=== PATIENT | male | born 1945 | race Caucasian/White ===

== ENCOUNTER → 2017-06-02 09:05 | Outpatient (CLI) | payer BC, MEDICARE, SELFPAY ==
[2017-06-02 10:25] LABS: Basophils # 0.1 K/mm3 (0-0.2); Basophils % 0.8 % (0.1-2.0); Eosinophils # 0.1 K/mm3 (0.0-0.4); Eosinophils % 1.7 % (0.1-12.0); Hematocrit 40.5 % (42.0-52.0); Hemoglobin 13.5 g/dL (14.1-18.0); Lymphocytes # 2.5 K/mm3 (0.7-4.5); Lymphocytes % 39.9 K/mm3 (10-50); Mean Corpuscular HGB Conc 33.4 g/dL (31.8-35.4); Mean Corpuscular Hemoglobin 29.7 pg (27.0-31.2); Mean Platelet Volume 7.4 fl (7.4-10.4); Monocytes # 0.5 K/mm3 (0.1-1.0); Monocytes % 7.6 % (1.7-9.3); Neutrophils # 3.1 K/mm3 (1.8-7.8); Neutrophils % 49.9 % (37.0-80.0); Platelet Count 374 K/mm3 (142-424); Red Blood Count 4.55 M/mm3 (4.60-6.20); Red Cell Distribution Width 13.9 % (11.5-17.5); White Blood Count 6.3 K/mm3 (4.8-10.8)
[2017-06-02 11:02] LABS: Alanine Aminotransferase 31 U/L (12-78); Albumin Level 3.6 gm/dL (3.4-5.0); Albumin/Globulin Ratio 1.2 (1.1-1.8); Alkaline Phosphatase 68 U/L (46-116); Anion Gap 10.3 mEq/L (5-15); Aspartate Amino Transferase 18 U/L (15-37); Bilirubin,Total 0.4 mg/dL (0.2-1.0); Blood Urea Nitrogen 9 mg/dL (7-18); Calcium 8.3 mg/dL (8.5-10.1); Carbon Dioxide 29 mmol/L (21.0-32.0); Chloride 107 mmol/L (98-107); Chol/HDL Ratio 3.2 (1-3.5); Cholesterol 146 mg/dL (140-200); Creatinine,Serum 0.85 mg/dL (0.70-1.30); Estimated Glomerular Filt Rate 89 ml/min (>60); GFR (African American) 108 ML/MIN (>60); Glucose 136 mg/dL (74-106); HDL Cholesterol 45 mg/dL (27-67); LDL Cholesterol 78 mg/dL (0-130); Potassium 4.3 mmoL/L (3.5-5.1); Sodium 142 mmol/L (136-145); Thyroid Stimulating Hormone 2.14 uIU/ml (0.358-3.740); Total Protein,Serum 6.6 gm/dL (6.4-8.2); Triglycerides 117 mg/dL (30-200); VLDL Cholesterol 23 mg/dL (0-40)
[2017-06-02 12:08] LABS: Hemoglobin A1C 7.5 % (0.0-7.0)
== END ==
PROVIDERS: PCP Internal Medicine Adolescent Medicine; Visit Provider Internal Medicine Adolescent Medicine
DX: E11.9 Type 2 diabetes mellitus without complications (principal)
CPT/HCPCS: 36415; 80053; 80061; 83036; 84443; 85025

== ENCOUNTER → 2017-09-01 09:27 | Outpatient (CLI) | payer BC, MEDICARE, SELFPAY ==
[2017-09-01 09:47] LABS: Basophils % 0.8 % (0.1-2.0); Eosinophils # 0.1 K/mm3 (0.0-0.4); Eosinophils % 1.4 % (0.1-12.0); Hematocrit 38.4 % (42.0-52.0); Hemoglobin 12.7 g/dL (14.1-18.0); Lymphocytes # 1.8 K/mm3 (0.7-4.5); Mean Corpuscular HGB Conc 33.2 g/dL (31.8-35.4); Mean Corpuscular Hemoglobin 28.6 pg (27.0-31.2); Mean Corpuscular Volume 86.1 fl (80-94); Mean Platelet Volume 7.9 fl (7.4-10.4); Monocytes # 0.4 K/mm3 (0.1-1.0); Neutrophils # 2.9 K/mm3 (1.8-7.8); Neutrophils % 55.8 % (37.0-80.0); Platelet Count 223 K/mm3 (142-424); Red Blood Count 4.46 M/mm3 (4.60-6.20); White Blood Count 5.2 K/mm3 (4.8-10.8)
[2017-09-01 10:03] LABS: Hemoglobin A1C 7.2 % (0.0-7.0)
[2017-09-01 11:01] LABS: Alanine Aminotransferase 30 U/L (12-78); Albumin Level 3.6 gm/dL (3.4-5.0); Albumin/Globulin Ratio 1.2 (1.1-1.8); Alkaline Phosphatase 77 U/L (46-116); Anion Gap 9.5 mEq/L (5-15); Aspartate Amino Transferase 19 U/L (15-37); Bilirubin,Total 0.3 mg/dL (0.2-1.0); Blood Urea Nitrogen 15 mg/dL (7-18); Calcium 8.9 mg/dL (8.5-10.1); Carbon Dioxide 29 mmol/L (21.0-32.0); Chloride 110 mmol/L (98-107); Chol/HDL Ratio 3.7 (1-3.5); Cholesterol 176 mg/dL (140-200); Creatinine,Serum 0.75 mg/dL (0.70-1.30); Estimated Glomerular Filt Rate 103 ml/min (>60); GFR (African American) 125 ML/MIN (>60); Globulin 3.1 gm/dl (1.3-3.2); Glucose 142 mg/dL (74-106); HDL Cholesterol 48 mg/dL (27-67); LDL Cholesterol 101 mg/dL (0-130); Potassium 4.5 mmoL/L (3.5-5.1); Sodium 144 mmol/L (136-145); Total Protein,Serum 6.7 gm/dL (6.4-8.2); Triglycerides 134 mg/dL (30-200); VLDL Cholesterol 27 mg/dL (0-40)
== END ==
PROVIDERS: Visit Provider Internal Medicine Adolescent Medicine
DX: E11.9 Type 2 diabetes mellitus without complications (principal); E78.5 Hyperlipidemia, unspecified; I25.10 Atherosclerotic heart disease of native coronary artery without angina pectoris
CPT/HCPCS: 36415; 80053; 80061; 83036; 85025

== ENCOUNTER → 2017-12-01 08:33 | Outpatient (CLI) | payer BC, MEDICARE, SELFPAY ==
[2017-12-01 09:17] LABS: Hemoglobin A1C 6.9 % (0.0-7.0)
[2017-12-01 09:59] LABS: Basophils % 0.6 % (0.1-2.0); Eosinophils # 0.1 K/mm3 (0.0-0.4); Eosinophils % 1.7 % (0.1-12.0); Hematocrit 43.9 % (42.0-52.0); Hemoglobin 13.5 g/dL (14.1-18.0); Lymphocytes # 2.3 K/mm3 (0.7-4.5); Lymphocytes % 44.4 K/mm3 (10-50); Mean Corpuscular HGB Conc 30.8 g/dL (31.8-35.4); Mean Corpuscular Hemoglobin 27.6 pg (27.0-31.2); Mean Corpuscular Volume 89.8 fl (80-94); Mean Platelet Volume 7.6 fl (7.4-10.4); Monocytes # 0.4 K/mm3 (0.1-1.0); Monocytes % 6.8 % (1.7-9.3); Neutrophils # 2.4 K/mm3 (1.8-7.8); Neutrophils % 46.5 % (37.0-80.0); Platelet Count 211 K/mm3 (142-424); Red Blood Count 4.89 M/mm3 (4.60-6.20); Red Cell Distribution Width 14.5 % (11.5-17.5); White Blood Count 5.2 K/mm3 (4.8-10.8)
[2017-12-01 10:57] LABS: Alanine Aminotransferase 28 U/L (12-78); Albumin Level 3.7 gm/dL (3.4-5.0); Albumin/Globulin Ratio 1.2 (1.1-1.8); Alkaline Phosphatase 84 U/L (46-116); Anion Gap 11.2 mEq/L (5-15); Aspartate Amino Transferase 15 U/L (15-37); Bilirubin,Total 0.3 mg/dL (0.2-1.0); Blood Urea Nitrogen 21 mg/dL (7-18); Calcium 8.8 mg/dL (8.5-10.1); Carbon Dioxide 29 mmol/L (21.0-32.0); Chloride 111 mmol/L (98-107); Chol/HDL Ratio 3.8 (1-3.5); Cholesterol 174 mg/dL (140-200); Creatinine,Serum 0.87 mg/dL (0.70-1.30); Estimated Glomerular Filt Rate 87 ml/min (>60); GFR (African American) 105 ML/MIN (>60); Glucose 132 mg/dL (74-106); HDL Cholesterol 46 mg/dL (27-67); LDL Cholesterol 103 mg/dL (0-130); Potassium 5.2 mmoL/L (3.5-5.1); Sodium 146 mmol/L (136-145); Total Protein,Serum 6.7 gm/dL (6.4-8.2); Triglycerides 127 mg/dL (30-200); VLDL Cholesterol 25 mg/dL (0-40)
== END ==
PROVIDERS: Visit Provider Internal Medicine Adolescent Medicine
DX: E78.5 Hyperlipidemia, unspecified (principal); I10 Essential (primary) hypertension; I25.10 Atherosclerotic heart disease of native coronary artery without angina pectoris; E11.9 Type 2 diabetes mellitus without complications
CPT/HCPCS: 36415; 80053; 80061; 83036; 85025

== ENCOUNTER → 2018-03-02 08:14 | Outpatient (CLI) | payer BC, SELFPAY ==
[2018-03-02 08:57] LABS: Basophils % 0.7 % (0.1-2.0); Eosinophils # 0.1 K/mm3 (0.0-0.4); Eosinophils % 1.3 % (0.1-12.0); Hematocrit 40.6 % (42.0-52.0); Hemoglobin 12.8 g/dL (14.1-18.0); Lymphocytes # 2.3 K/mm3 (0.7-4.5); Lymphocytes % 42.4 K/mm3 (10-50); Mean Corpuscular HGB Conc 31.5 g/dL (31.8-35.4); Mean Corpuscular Volume 88.8 fl (80-94); Mean Platelet Volume 7.3 fl (7.4-10.4); Monocytes # 0.4 K/mm3 (0.1-1.0); Monocytes % 7.9 % (1.7-9.3); Neutrophils # 2.5 K/mm3 (1.8-7.8); Neutrophils % 47.6 % (37.0-80.0); Platelet Count 249 K/mm3 (142-424); Red Blood Count 4.57 M/mm3 (4.60-6.20); Red Cell Distribution Width 14.2 % (11.5-17.5); White Blood Count 5.3 K/mm3 (4.8-10.8)
[2018-03-02 09:12] LABS: Hemoglobin A1C 6.8 % (0.0-7.0)
[2018-03-02 09:27] LABS: Alanine Aminotransferase 27 U/L (12-78); Albumin Level 3.7 gm/dL (3.4-5.0); Albumin/Globulin Ratio 1.2 (1.1-1.8); Alkaline Phosphatase 83 U/L (46-116); Anion Gap 8.2 mEq/L (5-15); Aspartate Amino Transferase 15 U/L (15-37); Bilirubin,Total 0.3 mg/dL (0.2-1.0); Blood Urea Nitrogen 17 mg/dL (7-18); Calcium 8.6 mg/dL (8.5-10.1); Carbon Dioxide 30 mmol/L (21.0-32.0); Chloride 106 mmol/L (98-107); Chol/HDL Ratio 3.7 (1-3.5); Cholesterol 170 mg/dL (140-200); Creatinine,Serum 0.91 mg/dL (0.70-1.30); Estimated Glomerular Filt Rate 82 ml/min (>60); GFR (African American) 100 ML/MIN (>60); Glucose 133 mg/dL (74-106); HDL Cholesterol 46 mg/dL (27-67); LDL Cholesterol 94 mg/dL (0-130); Potassium 4.2 mmoL/L (3.5-5.1); Sodium 140 mmol/L (136-145); Total Protein,Serum 6.7 gm/dL (6.4-8.2); Triglycerides 150 mg/dL (30-200); VLDL Cholesterol 30 mg/dL (0-40)
== END ==
PROVIDERS: PCP Internal Medicine Adolescent Medicine; Visit Provider Internal Medicine Adolescent Medicine
DX: E78.5 Hyperlipidemia, unspecified (principal); E11.9 Type 2 diabetes mellitus without complications; I10 Essential (primary) hypertension; I25.10 Atherosclerotic heart disease of native coronary artery without angina pectoris
CPT/HCPCS: 36415; 80053; 80061; 82043; 83036; 85025

== ENCOUNTER → 2018-07-06 09:49 | Outpatient (CLI) | payer BC, SELFPAY ==
[2018-07-06 10:57] LABS: Basophils % 0.6 % (0.1-2.0); Eosinophils # 0.1 K/mm3 (0.0-0.4); Eosinophils % 1.2 % (0.1-12.0); Hematocrit 40.6 % (42.0-52.0); Lymphocytes # 2.5 K/mm3 (0.7-4.5); Lymphocytes % 43.1 % (10-50); Mean Corpuscular HGB Conc 31.9 g/dL (31.8-35.4); Mean Corpuscular Hemoglobin 28.2 pg (27.0-31.2); Mean Corpuscular Volume 88.3 fl (80-94); Mean Platelet Volume 6.8 fl (7.4-10.4); Monocytes # 0.4 K/mm3 (0.1-1.0); Monocytes % 7.1 % (1.7-9.3); Neutrophils # 2.8 K/mm3 (1.8-7.8); Platelet Count 272 K/mm3 (142-424); Red Cell Distribution Width 14.3 % (11.5-17.5); White Blood Count 5.9 K/mm3 (4.8-10.8)
[2018-07-06 11:43] LABS: Alanine Aminotransferase 26 U/L (12-78); Albumin Level 3.5 gm/dL (3.4-5.0); Albumin/Globulin Ratio 1.2 (1.1-1.8); Alkaline Phosphatase 83 U/L (46-116); Anion Gap 14.4 mEq/L (5-15); Aspartate Amino Transferase 9 U/L (15-37); Bilirubin,Total 0.4 mg/dL (0.2-1.0); Blood Urea Nitrogen 18 mg/dL (7-18); Calcium 8.5 mg/dL (8.5-10.1); Carbon Dioxide 28 mmol/L (21.0-32.0); Chloride 105 mmol/L (98-107); Chol/HDL Ratio 3.8 (1-3.5); Cholesterol 176 mg/dL (140-200); Creatinine,Serum 0.92 mg/dL (0.70-1.30); Estimated Glomerular Filt Rate 81 ml/min (>60); GFR (African American) 98 ML/MIN (>60); Glucose 140 mg/dL (74-106); HDL Cholesterol 46 mg/dL (27-67); LDL Cholesterol 100 mg/dL (0-130); Potassium 4.4 mmoL/L (3.5-5.1); Sodium 143 mmol/L (136-145); Total Protein,Serum 6.5 gm/dL (6.4-8.2); Triglycerides 152 mg/dL (30-200); VLDL Cholesterol 30 mg/dL (0-40)
[2018-07-06 14:05] LABS: Hemoglobin A1C 7.3 % (0.0-7.0)
[2018-07-10 09:54] LABS: Microalbumin, Urine 5.3 ug/mL (Not Estab.)
== END ==
PROVIDERS: Visit Provider Internal Medicine Adolescent Medicine
DX: E11.9 Type 2 diabetes mellitus without complications (principal); E78.5 Hyperlipidemia, unspecified; I10 Essential (primary) hypertension
CPT/HCPCS: 36415; 80053; 80061; 82043; 83036; 85025

== ENCOUNTER → 2018-11-02 08:35 | Outpatient (CLI) | payer BC, SELFPAY ==
[2018-11-02 08:50] LABS: Basophils % 0.7 % (0.1-2.0); Eosinophils # 0.1 K/mm3 (0.0-0.4); Eosinophils % 1.9 % (0.1-12.0); Lymphocytes # 2.4 K/mm3 (0.7-4.5); Lymphocytes % 45.4 % (10-50); Mean Corpuscular HGB Conc 30.8 g/dL (31.8-35.4); Mean Corpuscular Hemoglobin 26.2 pg (27.0-31.2); Mean Platelet Volume 8.3 fl (7.4-10.4); Monocytes # 0.3 K/mm3 (0.1-1.0); Monocytes % 6.5 % (1.7-9.3); Neutrophils # 2.4 K/mm3 (1.8-7.8); Neutrophils % 45.5 % (37.0-80.0); Platelet Count 212 K/mm3 (142-424); Red Blood Count 4.59 M/mm3 (4.60-6.20); Red Cell Distribution Width 14.3 % (11.5-17.5); White Blood Count 5.3 K/mm3 (4.8-10.8)
[2018-11-02 09:35] LABS: Hemoglobin A1C 7.4 % (0.0-7.0)
[2018-11-02 10:03] LABS: Alanine Aminotransferase 31 U/L (12-78); Albumin Level 3.6 gm/dL (3.4-5.0); Albumin/Globulin Ratio 1.2 (1.1-1.8); Alkaline Phosphatase 81 U/L (46-116); Anion Gap 10.8 mEq/L (5-15); Aspartate Amino Transferase 14 U/L (15-37); Bilirubin,Total 0.3 mg/dL (0.2-1.0); Blood Urea Nitrogen 18 mg/dL (7-18); Calcium 8.7 mg/dL (8.5-10.1); Carbon Dioxide 28 mmol/L (21.0-32.0); Chloride 108 mmol/L (98-107); Chol/HDL Ratio 3.8 (1-3.5); Cholesterol 170 mg/dL (140-200); Creatinine,Serum 0.85 mg/dL (0.70-1.30); Estimated Glomerular Filt Rate 89 ml/min (>60); GFR (African American) 108 ML/MIN (>60); Glucose 138 mg/dL (74-106); HDL Cholesterol 45 mg/dL (27-67); LDL Cholesterol 94 mg/dL (0-130); Potassium 4.8 mmoL/L (3.5-5.1); Sodium 142 mmol/L (136-145); Thyroid Stimulating Hormone 3.44 uIU/ml (0.358-3.740); Total Protein,Serum 6.6 gm/dL (6.4-8.2); Triglycerides 154 mg/dL (30-200); VLDL Cholesterol 31 mg/dL (0-40)
[2018-11-03 18:05] LABS: Vitamin B12 682 pg/mL (232-1245)
== END ==
PROVIDERS: Visit Provider Internal Medicine Adolescent Medicine
DX: E11.42 Type 2 diabetes mellitus with diabetic polyneuropathy (principal); E78.5 Hyperlipidemia, unspecified; I25.10 Atherosclerotic heart disease of native coronary artery without angina pectoris; Z79.84 Long term (current) use of oral hypoglycemic drugs
CPT/HCPCS: 36415; 80053; 80061; 82607; 83036; 84443; 85025

== ENCOUNTER → 2019-02-01 08:19 | Outpatient (CLI) | payer BC, SELFPAY ==
[2019-02-01 08:50] LABS: Hemoglobin A1C 7.7 % (0.0-7.0)
[2019-02-01 09:05] LABS: Basophils # 0.1 K/mm3 (0-0.2); Basophils % 0.8 % (0.1-2.0); Eosinophils # 0.1 K/mm3 (0.0-0.4); Eosinophils % 1.3 % (0.1-12.0); Hematocrit 42.4 % (42.0-52.0); Hemoglobin 13.6 g/dL (14.1-18.0); Lymphocytes % 46.6 % (10-50); Mean Corpuscular HGB Conc 32.1 g/dL (31.8-35.4); Mean Corpuscular Hemoglobin 28.9 pg (27.0-31.2); Mean Corpuscular Volume 89.8 fl (80-94); Monocytes # 0.5 K/mm3 (0.1-1.0); Monocytes % 7.2 % (1.7-9.3); Neutrophils # 2.8 K/mm3 (1.8-7.8); Neutrophils % 44.1 % (37.0-80.0); Platelet Count 206 K/mm3 (142-424); Red Blood Count 4.72 M/mm3 (4.60-6.20); Red Cell Distribution Width 15.1 % (11.5-17.5); White Blood Count 6.4 K/mm3 (4.8-10.8)
[2019-02-01 10:27] LABS: Alanine Aminotransferase 30 U/L (12-78); Albumin Level 3.8 gm/dL (3.4-5.0); Albumin/Globulin Ratio 1.3 (1.1-1.8); Alkaline Phosphatase 83 U/L (46-116); Aspartate Amino Transferase 19 U/L (15-37); Bilirubin,Total 0.3 mg/dL (0.2-1.0); Blood Urea Nitrogen 19 mg/dL (7-18); Carbon Dioxide 30 mmol/L (21.0-32.0); Chloride 104 mmol/L (98-107); Chol/HDL Ratio 3.6 (1-3.5); Cholesterol 159 mg/dL (140-200); Creatinine,Serum 0.97 mg/dL (0.70-1.30); Estimated Glomerular Filt Rate 76 ml/min (>60); GFR (African American) 92 ML/MIN (>60); Glucose 138 mg/dL (74-106); HDL Cholesterol 44 mg/dL (27-67); LDL Cholesterol 83 mg/dL (0-130); Sodium 141 mmol/L (136-145); Total Protein,Serum 6.8 gm/dL (6.4-8.2); Triglycerides 160 mg/dL (30-200); VLDL Cholesterol 32 mg/dL (0-40)
[2019-02-03 04:21] LABS: Vitamin B12 851 pg/mL (232-1245)
== END ==
PROVIDERS: Visit Provider Internal Medicine Adolescent Medicine
DX: E78.5 Hyperlipidemia, unspecified (principal); E11.9 Type 2 diabetes mellitus without complications; E11.42 Type 2 diabetes mellitus with diabetic polyneuropathy; I25.10 Atherosclerotic heart disease of native coronary artery without angina pectoris; Z79.84 Long term (current) use of oral hypoglycemic drugs
CPT/HCPCS: 36415; 80053; 80061; 82607; 83036; 85025

== ENCOUNTER → 2019-05-03 13:47 | Outpatient (CLI) | payer BC, SELFPAY ==
--- NOTE | 2019-05-03 13:54 | XR_ITS ---
PROCEDURE: XR CHEST 2V CLINICAL HISTORY: FATIGUE,RHEUMATOID ARTHRITIS,IRIDOCYCLITIS COMPARISON: No exams were available for comparison FINDINGS: Prior CABG. Normal heart size. The lungs are clear without infiltrates, suspicious nodules, or pleural effusions. No acute bony abnormalities. IMPRESSION: Prior CABG, no acute finding Dictated by: Rigoberto Omalley MD 05/03/2019 14:08 Electronically signed by Rigoberto Omalley MD in [place] 05/03/2019 14:08
== END ==
PROVIDERS: PCP Internal Medicine Adolescent Medicine; Referring Provider Internal Medicine; Visit Provider Internal Medicine Adolescent Medicine
DX: H20.9 Unspecified iridocyclitis (principal); M06.9 Rheumatoid arthritis, unspecified; R53.83 Other fatigue
CPT/HCPCS: 71046

== ENCOUNTER → 2019-05-10 08:50 | Outpatient (CLI) | payer BC, SELFPAY ==
[2019-05-10 09:34] LABS: Basophils % 0.6 % (0.1-2.0); Eosinophils # 0.1 K/mm3 (0.0-0.4); Eosinophils % 1.1 % (0.1-12.0); Hematocrit 45.4 % (42.0-52.0); Hemoglobin 14.7 g/dL (14.1-18.0); Lymphocytes # 2.3 K/mm3 (0.7-4.5); Mean Corpuscular HGB Conc 32.3 g/dL (31.8-35.4); Mean Corpuscular Volume 92.9 fl (80-94); Mean Platelet Volume 8.1 fl (7.4-10.4); Monocytes # 0.4 K/mm3 (0.1-1.0); Monocytes % 6.7 % (1.7-9.3); Neutrophils # 3.3 K/mm3 (1.8-7.8); Neutrophils % 54.5 % (37.0-80.0); Platelet Count 222 K/mm3 (142-424); Red Blood Count 4.89 M/mm3 (4.60-6.20); White Blood Count 6.1 K/mm3 (4.8-10.8)
[2019-05-10 10:04] LABS: Hemoglobin A1C 7.5 % (0.0-7.0)
[2019-05-10 12:14] LABS: Alanine Aminotransferase 25 U/L (12-78); Albumin Level 3.7 gm/dL (3.4-5.0); Albumin/Globulin Ratio 1.3 (1.1-1.8); Alkaline Phosphatase 75 U/L (46-116); Anion Gap 12.4 mEq/L (5-15); Aspartate Amino Transferase 12 U/L (15-37); Bilirubin,Total 0.3 mg/dL (0.2-1.0); Blood Urea Nitrogen 17 mg/dL (7-18); Calcium 8.7 mg/dL (8.5-10.1); Carbon Dioxide 30 mmol/L (21.0-32.0); Chloride 105 mmol/L (98-107); Chol/HDL Ratio 3.1 (1-3.5); Cholesterol 160 mg/dL (140-200); Estimated Glomerular Filt Rate 74 ml/min (>60); GFR (African American) 89 ML/MIN (>60); Globulin 2.8 gm/dl (1.3-3.2); Glucose 128 mg/dL (74-106); HDL Cholesterol 51 mg/dL (27-67); LDL Cholesterol 80 mg/dL (0-130); Potassium 4.4 mmoL/L (3.5-5.1); Sodium 143 mmol/L (136-145); Total Protein,Serum 6.5 gm/dL (6.4-8.2); Triglycerides 145 mg/dL (30-200); VLDL Cholesterol 29 mg/dL (0-40)
== END ==
PROVIDERS: Visit Provider Internal Medicine Adolescent Medicine
DX: I25.10 Atherosclerotic heart disease of native coronary artery without angina pectoris (principal); E11.9 Type 2 diabetes mellitus without complications; Z79.84 Long term (current) use of oral hypoglycemic drugs
CPT/HCPCS: 36415; 80053; 80061; 83036; 85025

== ENCOUNTER → 2019-09-20 08:20 | Outpatient (CLI) | payer BC, SELFPAY ==
[2019-09-20 08:58] LABS: Basophils # 0.1 K/mm3 (0-0.2); Basophils % 1.1 % (0.1-2.0); Eosinophils # 0.1 K/mm3 (0.0-0.4); Eosinophils % 0.9 % (0.1-12.0); Hematocrit 44.3 % (42.0-52.0); Hemoglobin 14.5 g/dL (14.1-18.0); Lymphocytes # 3.3 K/mm3 (0.7-4.5); Lymphocytes % 49.5 % (10-50); Mean Corpuscular HGB Conc 32.8 g/dL (31.8-35.4); Mean Corpuscular Hemoglobin 30.4 pg (27.0-31.2); Mean Corpuscular Volume 92.8 fl (80-94); Monocytes # 0.5 K/mm3 (0.1-1.0); Monocytes % 7.3 % (1.7-9.3); Neutrophils # 2.8 K/mm3 (1.8-7.8); Neutrophils % 41.2 % (37.0-80.0); Platelet Count 208 K/mm3 (142-424); Red Blood Count 4.77 M/mm3 (4.60-6.20); Red Cell Distribution Width 13.2 % (11.5-17.5); White Blood Count 6.7 K/mm3 (4.8-10.8)
[2019-09-20 09:19] LABS: Hemoglobin A1C 7.1 % (4.0-6.0)
[2019-09-20 10:19] LABS: Alanine Aminotransferase 37 U/L (12-78); Albumin Level 4.1 g/dl (3.5-5.0); Albumin/Globulin Ratio 1.7 (1.1-1.8); Alkaline Phosphatase 66 U/L (38-126); Anion Gap 6.2 mEq/L (5-15); Aspartate Amino Transferase 29 U/L (17-59); Bilirubin,Total 0.2 mg/dl (0.2-1.3); Blood Urea Nitrogen 20 mg/dl (9-20); Calcium 9.4 mg/dl (8.4-10.2); Carbon Dioxide 31 mmol/L (22.0-30.0); Chloride 106 mmol/L (98-107); Chol/HDL Ratio 2.6 (1-3.5); Cholesterol 153 mg/dl (140-200); Estimated Glomerular Filt Rate 95 ml/min (>60); GFR (African American) 115 ML/MIN (>60); Globulin 2.4 g/dL (1.3-3.2); Glucose 158 mg/dl (74-100); HDL Cholesterol 59 mg/dl (40-60); Potassium 4.2 mmoL/L (3.5-5.1); Sodium 139 mmol/L (136-145); Total Protein,Serum 6.5 g/dl (6.3-8.2); Triglycerides 139 mg/dl (30-150); VLDL Cholesterol 28 mg/dL (0-40)
[2019-09-20 10:30] LABS: Direct LDL Cholesterol 92.79 mg/dL (100-129)
== END ==
PROVIDERS: Visit Provider Internal Medicine Adolescent Medicine
DX: I25.10 Atherosclerotic heart disease of native coronary artery without angina pectoris (principal); E78.5 Hyperlipidemia, unspecified; E11.9 Type 2 diabetes mellitus without complications; Z79.84 Long term (current) use of oral hypoglycemic drugs
CPT/HCPCS: 36415; 80053; 80061; 83036; 85025

== ENCOUNTER → 2019-12-20 08:35 | Outpatient (CLI) | payer BC, SELFPAY ==
[2019-12-20 09:36] LABS: Basophils % 0.7 % (0.1-2.0); Eosinophils # 0.1 K/mm3 (0.0-0.4); Eosinophils % 1.3 % (0.1-12.0); Hematocrit 42.3 % (42.0-52.0); Hemoglobin 14.5 g/dL (14.1-18.0); Lymphocytes # 3.4 K/mm3 (0.7-4.5); Lymphocytes % 52.3 % (10-50); Mean Corpuscular HGB Conc 34.3 g/dL (31.8-35.4); Mean Corpuscular Hemoglobin 31.7 pg (27.0-31.2); Mean Corpuscular Volume 92.4 fl (80-94); Mean Platelet Volume 7.8 fl (7.4-10.4); Monocytes # 0.5 K/mm3 (0.1-1.0); Neutrophils # 2.5 K/mm3 (1.8-7.8); Neutrophils % 38.6 % (37.0-80.0); Platelet Count 190 K/mm3 (142-424); Red Blood Count 4.58 M/mm3 (4.60-6.20); Red Cell Distribution Width 13.3 % (11.5-17.5); White Blood Count 6.5 K/mm3 (4.8-10.8)
[2019-12-20 09:41] LABS: MANUAL DIFFERENTIAL MANUAL DIFFERENTIAL (MANUAL DIFF)
[2019-12-20 10:10] LABS: Chloride 104 mmol/L (98-107); Sodium 141 mmol/L (136-145)
[2019-12-20 10:12] LABS: Blood Urea Nitrogen 18 mg/dl (9-20); Estimated Glomerular Filt Rate 95 ml/min (>60); GFR (African American) 115 ML/MIN (>60)
[2019-12-20 10:13] LABS: Alanine Aminotransferase 30 U/L (12-78); Albumin/Globulin Ratio 1.6 (1.1-1.8); Alkaline Phosphatase 72 U/L (38-126); Aspartate Amino Transferase 30 U/L (17-59); Bilirubin,Total 0.5 mg/dl (0.2-1.3); Calcium 9.6 mg/dl (8.4-10.2); Carbon Dioxide 31 mmol/L (22.0-30.0); Globulin 2.5 g/dL (1.3-3.2); Glucose 133 mg/dl (74-100); Total Protein,Serum 6.5 g/dl (6.3-8.2)
[2019-12-20 10:18] LABS: C-Reactive Protein 0.8 mg/L (0-4)
[2019-12-20 10:23] LABS: Erythrocyte Sedimentation Rate 10 mm/hr (0-20)
[2019-12-20 11:24] LABS: Lymphocytes % 60 % (10-50); Monocytes % 5 % (2-9); Neutrophils % 35 % (42-76); Platelet Estimate Normal; RBC Morphology Normal; Total Cells Counted 100
== END ==
PROVIDERS: Visit Provider Internal Medicine
DX: D89.9 Disorder involving the immune mechanism, unspecified (principal); H20.9 Unspecified iridocyclitis; M05.9 Rheumatoid arthritis with rheumatoid factor, unspecified
CPT/HCPCS: 36415; 80053; 85007; 85025; 85651; 86140

== ENCOUNTER → 2019-12-27 08:21 | Outpatient (CLI) | payer BC, SELFPAY ==
[2019-12-27 12:08] LABS: Hemoglobin A1C 7.4 % (4.0-6.0)
== END ==
PROVIDERS: Visit Provider Internal Medicine Adolescent Medicine
DX: E11.9 Type 2 diabetes mellitus without complications (principal); Z79.84 Long term (current) use of oral hypoglycemic drugs
CPT/HCPCS: 36415; 83036

== ENCOUNTER → 2020-01-29 09:10 | Outpatient (CLI) | payer BC, SELFPAY ==
[2020-01-29 10:37] LABS: Coronavirus 19 IgG Antibody Negative (Negative); Coronavirus 19 IgM Antibody Negative (Negative)
== END ==
PROVIDERS: Visit Provider Surgery
DX: Z01.818 Encounter for other preprocedural examination (principal); Z12.11 Encounter for screening for malignant neoplasm of colon; Z86.010 Personal history of colon polyps
CPT/HCPCS: 36415; 86328

== ENCOUNTER 2020-01-30 06:34 | Day surgery (SDC) | payer BC, SELFPAY ==
[2020-01-28 12:49] VITALS: BMI 28.2
[2020-01-30 06:59] VITALS: BP 122/62; PULSE 65; RESP 18; TEMP 36.6; O2SAT 99
--- NOTE | 2020-01-30 07:10 | P.PN_ITS ---
[facility] Anesthesia Checklist - Patient Identification Patient Identification: Arm Band, Verbal (Name & ) - Structural Data Admitted From: Home Planned Operative Procedure/s: colon Consent for Planned Operative Procedure(s) Verified: Yes Verified Documents: History and Physical - NPO Status Verified Time NPO: 00:00 - Additional verifications Patient : No Anesthesia Reactions: No Hx Blood Transfusions: No Blood Transfusion Reaction: No Cephalosporin Allergy: No Previous Colonoscopy: Yes - Cardiovascular Assessment Heart Sounds: S1 & S2 Pulse Strength: Baseline Pulse Rhythm: Regular Peripheral Edema: No - Airway Assessment C-Spine Mobility Assessed: Yes TMJ Mobility Assessed: Yes Dentition: Good Dentition - Neurological Assessment Level of Consciousness: Awake, Alert, Appropriate Hx Seizures: No Numbness or tingling in extremities: No - Anesthesia Plan Anesthesia Risk discussed: Yes Anesthesia Plan: Verified ASA Class: III Anesthesia Type: [facility] History I have reviewed the patient's past medical history: Yes Medical History: Reports:: Atherosclerotic Heart Disease, Coronary Artery Disease, Diabetes Mellitus Type 2, Heart Murmur, Hiatal Hernia, Hyperlipidemia, Hypertension, Kidney Stones Denies:: Cancer, Diabetes Mellitus Type 1, Internal Pacemaker, Lung Disease, MRSA, Seizures *Have you ever received a pneumonia vaccine?: Yes *Have you received a flu vaccine this season?: Yes Other Medical History: Denies: Blood Transfusion Reaction Anesthesia experience/problems:: none Laterality Cases: Bilateral: Tonsillectomy Other Surgeries: Yes: Cardiac Surgery, Colonoscopy, Open Heart Surgery, Other (salivary gland removal, ). No: Pacemaker Amputation: No Fractures: Yes (LLE 1958) - *Social History Last grade of school completed: Advanced degree Smoking Status: Never smoker Alcohol Intake: current Alcohol Intake Frequency:: holidays/special occasions only Substance Use Type: other *Occupational Status:: employed *Travel in the last 8 weeks: None Family Hx:: Unable to obtain
[2020-01-30 07:11] LABS: POC Glucose,Bedside 102 (70-110)
[2020-01-30 07:17] VITALS: O2SAT 99
--- NOTE | 2020-01-30 08:15 | HMH.SCOPE ---
- Procedure: Date: 01/30/20 Patient Date of :: 1945 Procedure Performed:: Colonoscopy with polypectomy Indications:: History of colon polyps Performing Provider:: Earle Kemp MD Referring Provider:: . Sedation:: Monitored anesthesia care Procedure:: After informed consent was obtained the patient was taken to the endoscopy suite. Sedation ensued after the patient was transferred to the left lateral decubitus position. Pulse, blood pressure, and oxygen saturation were monitored throughout the procedure. Digital rectal exam revealed no significant abnormality. The colonoscope was placed in position. The entire colon was evaluated. The colonoscope was carefully removed and the patient was transferred to recovery in stable condition. Please see findings and specimens below for detail. Findings:: Bowel preparation moderate Hemorrhoidal tags/cushions Significant lack of relaxation Multiple polyps (see specimens) Specimens:: Adjacent 7 mm sessile transverse colon polyps (snare) Adjacent polyps at 45 cm (snare and biopsy) Polyp at 20 cm Adjacent polyps at 15 cm Recommendations:: Timing of repeat colonoscopy is pending pathology but will likely be between 2-3 years secondary to size/nature/number of polyps, moderate bowel preparation, significant lack of relaxation, and multiple polyps noted on fairly short-term repeat colonoscopy. Complications:: No immediate Estimated blood obtained (mL): 1
[2020-01-30 08:17] VITALS: BP 104/57; PULSE 57; RESP 16; TEMP 36.3; O2SAT 95
[2020-01-30 08:27] VITALS: BP 115/73; PULSE 55; RESP 16; TEMP 36.3; O2SAT 100
[2020-01-30 08:37] VITALS: BP 112/63; PULSE 59; RESP 18; TEMP 36.3; O2SAT 96
[2020-01-30 08:55] VITALS: BP 129/71; PULSE 56; RESP 18; TEMP 36.3; O2SAT 99
== END 2020-01-30 08:55 | disposition home or self-care (01) ==
LOC: OUTP 06:36
PROVIDERS: PCP Internal Medicine Adolescent Medicine; Visit Provider Surgery
PROC: 0DJD8ZZ Inspection of Lower Intestinal Tract, Via Natural or Artificial Opening Endoscopic (ICD-10-PCS; CPT 45385; principal; 2020-01-30 07:30)
DX: Z12.11 Encounter for screening for malignant neoplasm of colon (principal); K64.0 First degree hemorrhoids; K63.5 Polyp of colon; K63.89 Other specified diseases of intestine; Z86.010 Personal history of colon polyps; I25.10 Atherosclerotic heart disease of native coronary artery without angina pectoris; E11.9 Type 2 diabetes mellitus without complications; K44.9 Diaphragmatic hernia without obstruction or gangrene; R01.1 Cardiac murmur, unspecified; I10 Essential (primary) hypertension; E78.5 Hyperlipidemia, unspecified; Z90.89 Acquired absence of other organs
CPT/HCPCS: 45385; 45380; 82962; J2704

== ENCOUNTER → 2020-04-24 09:59 | Outpatient (CLI) | payer BC, SELFPAY ==
[2020-04-24 10:19] LABS: Basophils # 0.1 K/mm3 (0-0.2); Basophils % 0.8 % (0.1-2.0); Eosinophils # 0.1 K/mm3 (0.0-0.4); Hematocrit 49.5 % (42.0-52.0); Lymphocytes # 3.7 K/mm3 (0.7-4.5); Lymphocytes % 51.5 % (10-50); Mean Corpuscular HGB Conc 32.3 g/dL (31.8-35.4); Mean Corpuscular Hemoglobin 30.5 pg (27.0-31.2); Mean Corpuscular Volume 94.4 fl (80-94); Mean Platelet Volume 8.8 fl (7.4-10.4); Monocytes # 0.5 K/mm3 (0.1-1.0); Monocytes % 6.7 % (1.7-9.3); Neutrophils # 2.9 K/mm3 (1.8-7.8); Neutrophils % 40.1 % (37.0-80.0); Platelet Count 222 K/mm3 (142-424); Red Blood Count 5.24 M/mm3 (4.60-6.20); Red Cell Distribution Width 13.3 % (11.5-17.5); White Blood Count 7.3 K/mm3 (4.8-10.8)
[2020-04-24 10:23] LABS: MANUAL DIFFERENTIAL MANUAL DIFFERENTIAL (MANUAL DIFF)
[2020-04-24 10:58] LABS: Erythrocyte Sedimentation Rate 8 mm/hr (0-20)
[2020-04-24 11:09] LABS: Chloride 105 mmol/L (98-107)
[2020-04-24 11:10] LABS: Lymphocytes % 47 % (10-50); Monocytes % 4 % (2-9); Neutrophils % 41 % (42-76); Platelet Estimate Normal; RBC Morphology Normal; Total Cells Counted 100
[2020-04-24 11:10] LABS: Potassium 4.2 mmoL/L (3.5-5.1); Sodium 141 mmol/L (136-145)
[2020-04-24 11:12] LABS: Alanine Aminotransferase 35 U/L (12-78); Albumin Level 4.4 g/dl (3.5-5.0); Albumin/Globulin Ratio 1.8 (1.1-1.8); Alkaline Phosphatase 104 U/L (38-126); Anion Gap 10.2 mEq/L (5-15); Aspartate Amino Transferase 29 U/L (17-59); Bilirubin,Total 0.6 mg/dl (0.2-1.3); Blood Urea Nitrogen 19 mg/dl (9-20); Calcium 9.3 mg/dl (8.4-10.2); Carbon Dioxide 30 mmol/L (22.0-30.0); Cholesterol 175 mg/dl (140-200); Estimated Glomerular Filt Rate 83 ml/min (>60); GFR (African American) 100 ML/MIN (>60); Globulin 2.5 g/dL (1.3-3.2); Glucose 179 mg/dl (74-100); Total Protein,Serum 6.9 g/dl (6.3-8.2); Triglycerides 184 mg/dl (30-150); VLDL Cholesterol 37 mg/dL (0-40)
[2020-04-24 11:13] LABS: Chol/HDL Ratio 3.6 (1-3.5); HDL Cholesterol 48 mg/dl (40-60)
[2020-04-24 11:17] LABS: C-Reactive Protein 1.9 mg/L (0-4)
[2020-04-24 11:24] LABS: Direct LDL Cholesterol 92.68 mg/dL (100-129)
[2020-04-25 17:45] LABS: Covid-19 Nasal PCR Sendout Lex Not Detected
== END ==
PROVIDERS: PCP Internal Medicine Adolescent Medicine; Visit Provider Internal Medicine
DX: Z03.818 Encounter for observation for suspected exposure to other biological agents ruled out (principal); E11.9 Type 2 diabetes mellitus without complications; I25.10 Atherosclerotic heart disease of native coronary artery without angina pectoris; D89.9 Disorder involving the immune mechanism, unspecified; H20.9 Unspecified iridocyclitis; M05.9 Rheumatoid arthritis with rheumatoid factor, unspecified
CPT/HCPCS: 36415; 80053; 80061; 83036; 85007; 85025; 85651; 86140; U0004

== ENCOUNTER → 2020-06-13 08:51 | Outpatient (CLI) | payer BC, SELFPAY ==
[2020-06-13 09:30] LABS: Basophils # 0.1 K/mm3 (0-0.2); Basophils % 1.4 % (0.1-2.0); Eosinophils # 0.1 K/mm3 (0.0-0.4); Hematocrit 47.9 % (42.0-52.0); Hemoglobin 15.8 g/dL (14.1-18.0); Lymphocytes # 3.8 K/mm3 (0.7-4.5); Lymphocytes % 51.6 % (10-50); Mean Corpuscular Hemoglobin 30.5 pg (27.0-31.2); Mean Corpuscular Volume 92.5 fl (80-94); Mean Platelet Volume 7.8 fl (7.4-10.4); Monocytes # 0.4 K/mm3 (0.1-1.0); Monocytes % 5.3 % (1.7-9.3); Neutrophils % 40.8 % (37.0-80.0); Platelet Count 207 K/mm3 (142-424); Red Blood Count 5.18 M/mm3 (4.60-6.20); Red Cell Distribution Width 13.7 % (11.5-17.5); White Blood Count 7.4 K/mm3 (4.8-10.8)
[2020-06-13 09:35] LABS: MANUAL DIFFERENTIAL MANUAL DIFFERENTIAL (MANUAL DIFF)
[2020-06-13 10:01] LABS: Hemoglobin A1C 7.9 % (4.0-6.0)
[2020-06-13 10:04] LABS: Chloride 102 mmol/L (98-107)
[2020-06-13 10:05] LABS: Potassium 4.6 mmoL/L (3.5-5.1); Sodium 140 mmol/L (136-145)
[2020-06-13 10:07] LABS: Alanine Aminotransferase 28 U/L (12-78); Alkaline Phosphatase 87 U/L (38-126); Aspartate Amino Transferase 23 U/L (17-59); Bilirubin,Total 0.5 mg/dl (0.2-1.3); Blood Urea Nitrogen 18 mg/dl (9-20); Estimated Glomerular Filt Rate 95 ml/min (>60); GFR (African American) 115 ML/MIN (>60)
[2020-06-13 10:08] LABS: Albumin Level 4.3 g/dl (3.5-5.0); Albumin/Globulin Ratio 1.6 (1.1-1.8); Anion Gap 10.6 mEq/L (5-15); Calcium 9.4 mg/dl (8.4-10.2); Carbon Dioxide 32 mmol/L (22.0-30.0); Chol/HDL Ratio 3.4 (1-3.5); Cholesterol 168 mg/dl (140-200); Globulin 2.7 g/dL (1.3-3.2); Glucose 173 mg/dl (74-100); HDL Cholesterol 49 mg/dl (40-60); Triglycerides 206 mg/dl (30-150); VLDL Cholesterol 41 mg/dL (0-40)
[2020-06-13 10:19] LABS: Direct LDL Cholesterol 90.49 mg/dL (100-129)
[2020-06-13 11:56] LABS: Lymphocytes % 61 % (10-50); Monocytes % 3 % (2-9); Neutrophils % 36 % (42-76); Platelet Estimate Normal; RBC Morphology Normal; Total Cells Counted 100
== END ==
PROVIDERS: Visit Provider Internal Medicine Adolescent Medicine
DX: E11.42 Type 2 diabetes mellitus with diabetic polyneuropathy (principal); I25.10 Atherosclerotic heart disease of native coronary artery without angina pectoris; E78.5 Hyperlipidemia, unspecified; Z79.84 Long term (current) use of oral hypoglycemic drugs
CPT/HCPCS: 36415; 80053; 80061; 83036; 85007; 85025

== ENCOUNTER → 2020-10-09 08:33 | Outpatient (CLI) | payer BC, SELFPAY ==
[2020-10-09 09:07] LABS: Basophils % 0.4 % (0.1-2.0); Eosinophils # 0.1 K/mm3 (0.0-0.4); Eosinophils % 1.3 % (0.1-12.0); Hematocrit 43.1 % (42.0-52.0); Hemoglobin 14.5 g/dL (14.1-18.0); Lymphocytes # 3.6 K/mm3 (0.7-4.5); Lymphocytes % 45.2 % (10-50); Mean Corpuscular HGB Conc 33.6 g/dL (31.8-35.4); Mean Corpuscular Hemoglobin 30.6 pg (27.0-31.2); Mean Corpuscular Volume 91.1 fl (80-94); Mean Platelet Volume 7.7 fl (7.4-10.4); Monocytes # 0.5 K/mm3 (0.1-1.0); Monocytes % 6.5 % (1.7-9.3); Neutrophils # 3.7 K/mm3 (1.8-7.8); Neutrophils % 46.5 % (37.0-80.0); Platelet Count 199 K/mm3 (142-424); Red Blood Count 4.73 M/mm3 (4.60-6.20); Red Cell Distribution Width 13.2 % (11.5-17.5); White Blood Count 7.9 K/mm3 (4.8-10.8)
[2020-10-09 09:15] LABS: Hemoglobin A1C 7.7 % (4.0-6.0)
[2020-10-09 09:31] LABS: Chloride 106 mmol/L (98-107); Potassium 4.6 mmoL/L (3.5-5.1); Sodium 141 mmol/L (136-145)
[2020-10-09 09:34] LABS: Alanine Aminotransferase 32 U/L (12-78); Albumin Level 4.5 g/dl (3.5-5.0); Alkaline Phosphatase 84 U/L (38-126); Anion Gap 12.6 mEq/L (5-15); Aspartate Amino Transferase 29 U/L (17-59); Bilirubin,Total 0.5 mg/dl (0.2-1.3); Blood Urea Nitrogen 18 mg/dl (9-20); Carbon Dioxide 27 mmol/L (22.0-30.0); Estimated Glomerular Filt Rate 95 ml/min (>60); GFR (African American) 115 ML/MIN (>60); Globulin 2.2 g/dL (1.3-3.2); Total Protein,Serum 6.7 g/dl (6.3-8.2)
[2020-10-09 09:35] LABS: Chol/HDL Ratio 3.4 (1-3.5); Cholesterol 168 mg/dl (140-200); HDL Cholesterol 50 mg/dl (40-60); Triglycerides 167 mg/dl (30-150); VLDL Cholesterol 33 mg/dL (0-40)
[2020-10-09 09:35] LABS: Calcium 9.5 mg/dl (8.4-10.2); Glucose 188 mg/dl (74-100)
[2020-10-09 09:40] LABS: C-Reactive Protein 0.9 mg/L (0-4)
[2020-10-09 09:45] LABS: Direct LDL Cholesterol 90.85 mg/dL (100-129)
[2020-10-09 10:07] LABS: Erythrocyte Sedimentation Rate 14 mm/hr (0-20)
== END ==
PROVIDERS: Internal Medicine Adolescent Medicine; Visit Provider Nurse Practitioner Women's Health
DX: D89.9 Disorder involving the immune mechanism, unspecified (principal); M05.9 Rheumatoid arthritis with rheumatoid factor, unspecified; E11.9 Type 2 diabetes mellitus without complications; E78.5 Hyperlipidemia, unspecified; I25.10 Atherosclerotic heart disease of native coronary artery without angina pectoris; Z79.84 Long term (current) use of oral hypoglycemic drugs
CPT/HCPCS: 36415; 80053; 80061; 83036; 85025; 85651; 86140

== ENCOUNTER → 2021-01-27 08:47 | Outpatient (CLI) | payer BC, SELFPAY ==
[2021-01-27 09:05] LABS: Basophils # 0.1 K/mm3 (0-0.2); Basophils % 0.8 % (0.1-2.0); Eosinophils # 0.1 K/mm3 (0.0-0.4); Eosinophils % 0.9 % (0.1-12.0); Hematocrit 48.2 % (42.0-52.0); Hemoglobin 15.1 g/dL (14.1-18.0); Lymphocytes # 4.8 K/mm3 (0.7-4.5); Lymphocytes % 54.3 % (10-50); Mean Corpuscular HGB Conc 31.4 g/dL (31.8-35.4); Mean Corpuscular Hemoglobin 30.4 pg (27.0-31.2); Mean Platelet Volume 8.5 fl (7.4-10.4); Monocytes # 0.5 K/mm3 (0.1-1.0); Monocytes % 5.6 % (1.7-9.3); Neutrophils # 3.4 K/mm3 (1.8-7.8); Neutrophils % 38.5 % (37.0-80.0); Platelet Count 231 K/mm3 (142-424); Red Blood Count 4.97 M/mm3 (4.60-6.20); Red Cell Distribution Width 13.7 % (11.5-17.5); White Blood Count 8.9 K/mm3 (4.8-10.8)
[2021-01-27 09:09] LABS: MANUAL DIFFERENTIAL MANUAL DIFFERENTIAL (MANUAL DIFF)
[2021-01-27 09:46] LABS: Eosinophils % 3 % (0-3); Lymphocytes % 49 % (10-50); Monocytes % 8 % (2-9); Neutrophils % 39 % (42-76); Total Cells Counted 100
[2021-01-27 09:47] LABS: Alanine Aminotransferase 22 U/L (12-78); Albumin Level 4.2 g/dl (3.5-5.0); Albumin/Globulin Ratio 1.6 (1.1-1.8); Alkaline Phosphatase 73 U/L (38-126); Anion Gap 13.3 mEq/L (5-15); Aspartate Amino Transferase 21 U/L (17-59); Bilirubin,Total 0.5 mg/dl (0.2-1.3); Blood Urea Nitrogen 20 mg/dl (9-20); Calcium 9.2 mg/dl (8.4-10.2); Carbon Dioxide 31 mmol/L (22.0-30.0); Chloride 102 mmol/L (98-107); Chol/HDL Ratio 3.5 (1-3.5); Cholesterol 183 mg/dl (140-200); Estimated Glomerular Filt Rate 73 ml/min (>60); GFR (African American) 89 ML/MIN (>60); Globulin 2.7 g/dL (1.3-3.2); Glucose 156 mg/dl (74-100); HDL Cholesterol 53 mg/dl (40-60); Potassium 5.3 mmoL/L (3.5-5.1); Sodium 141 mmol/L (136-145); Total Protein,Serum 6.9 g/dl (6.3-8.2); Triglycerides 177 mg/dl (30-150); VLDL Cholesterol 35 mg/dL (0-40)
[2021-01-27 09:48] LABS: Macrocytosis 1+; Platelet Estimate Normal
[2021-01-27 09:58] LABS: Direct LDL Cholesterol 94.71 mg/dL (100-129)
[2021-01-28 07:18] LABS: Hemoglobin A1C 8.1 % (4.0-6.0)
== END ==
PROVIDERS: Visit Provider Internal Medicine Adolescent Medicine
DX: I25.10 Atherosclerotic heart disease of native coronary artery without angina pectoris (principal); E78.5 Hyperlipidemia, unspecified; E11.9 Type 2 diabetes mellitus without complications; Z79.84 Long term (current) use of oral hypoglycemic drugs
CPT/HCPCS: 36415; 80053; 80061; 83036; 85007; 85025

== ENCOUNTER → 2021-04-30 07:30 | Outpatient (CLI) | payer BC, SELFPAY ==
[2021-04-30 08:15] LABS: Basophils # 0.1 K/mm3 (0-0.2); Basophils % 0.8 % (0.1-2.0); Eosinophils # 0.1 K/mm3 (0.0-0.4); Eosinophils % 1.2 % (0.1-12.0); Hematocrit 42.2 % (42.0-52.0); Hemoglobin 14.3 g/dL (14.1-18.0); Lymphocytes # 4.1 K/mm3 (0.7-4.5); Lymphocytes % 51.2 % (10-50); Mean Corpuscular Hemoglobin 31.8 pg (27.0-31.2); Mean Corpuscular Volume 93.6 fl (80-94); Mean Platelet Volume 7.9 fl (7.4-10.4); Monocytes # 0.7 K/mm3 (0.1-1.0); Monocytes % 8.3 % (1.7-9.3); Neutrophils # 3.1 K/mm3 (1.8-7.8); Neutrophils % 38.5 % (37.0-80.0); Platelet Count 189 K/mm3 (142-424); Red Cell Distribution Width 13.3 % (11.5-17.5)
[2021-04-30 08:19] LABS: MANUAL DIFFERENTIAL MANUAL DIFFERENTIAL (MANUAL DIFF)
[2021-04-30 08:33] LABS: Hemoglobin A1C 7.4 % (4.0-6.0)
[2021-04-30 09:20] LABS: Eosinophils % 1 % (0-3); Lymphocytes % 47 % (10-50); Monocytes % 8 % (2-9); Neutrophils % 43 % (42-76); Nucleated Red Blood Cells 1; Total Cells Counted 100
[2021-04-30 09:21] LABS: Anisocytosis 1+; Platelet Estimate Normal
[2021-04-30 09:53] LABS: Chloride 101 mmol/L (98-107); Potassium 4.6 mmoL/L (3.5-5.1); Sodium 140 mmol/L (136-145)
[2021-04-30 09:56] LABS: Alanine Aminotransferase 26 U/L (12-78); Albumin Level 4.2 g/dl (3.5-5.0); Albumin/Globulin Ratio 1.6 (1.1-1.8); Alkaline Phosphatase 74 U/L (38-126); Anion Gap 12.6 mEq/L (5-15); Aspartate Amino Transferase 29 U/L (17-59); Bilirubin,Total 0.5 mg/dl (0.2-1.3); Blood Urea Nitrogen 18 mg/dl (9-20); Carbon Dioxide 31 mmol/L (22.0-30.0); Estimated Glomerular Filt Rate 83 ml/min (>60); GFR (African American) 100 ML/MIN (>60); Globulin 2.6 g/dL (1.3-3.2); Total Protein,Serum 6.8 g/dl (6.3-8.2)
[2021-04-30 09:57] LABS: Calcium 9.1 mg/dl (8.4-10.2); Glucose 145 mg/dl (74-100)
== END ==
PROVIDERS: Visit Provider Nurse Practitioner Family
DX: Z01.818 Encounter for other preprocedural examination (principal); H25.9 Unspecified age-related cataract; E11.9 Type 2 diabetes mellitus without complications; Z79.84 Long term (current) use of oral hypoglycemic drugs
CPT/HCPCS: 36415; 80053; 83036; 85007; 85025

== ENCOUNTER → 2021-05-29 09:56 | Outpatient (CLI) | payer BC, SELFPAY ==
[2021-05-29 12:37] LABS: Basophils # 0.1 K/mm3 (0-0.2); Basophils % 0.7 % (0.1-2.0); Eosinophils # 0.1 K/mm3 (0.0-0.4); Eosinophils % 0.8 % (0.1-12.0); Hematocrit 46.4 % (42.0-52.0); Hemoglobin 14.8 g/dL (14.1-18.0); Lymphocytes # 3.8 K/mm3 (0.7-4.5); Lymphocytes % 43.7 % (10-50); Mean Corpuscular HGB Conc 31.8 g/dL (31.8-35.4); Mean Corpuscular Hemoglobin 31.3 pg (27.0-31.2); Mean Corpuscular Volume 98.3 fl (80-94); Mean Platelet Volume 8.5 fl (7.4-10.4); Monocytes # 0.5 K/mm3 (0.1-1.0); Monocytes % 5.7 % (1.7-9.3); Neutrophils # 4.2 K/mm3 (1.8-7.8); Neutrophils % 49.1 % (37.0-80.0); Platelet Count 202 K/mm3 (142-424); Red Blood Count 4.72 M/mm3 (4.60-6.20); Red Cell Distribution Width 13.3 % (11.5-17.5); White Blood Count 8.6 K/mm3 (4.8-10.8)
[2021-05-29 13:51] LABS: Alanine Aminotransferase 24 U/L (12-78); Albumin Level 4.4 g/dl (3.5-5.0); Albumin/Globulin Ratio 1.8 (1.1-1.8); Alkaline Phosphatase 75 U/L (38-126); Anion Gap 10.4 mEq/L (5-15); Aspartate Amino Transferase 25 U/L (17-59); Bilirubin,Total 0.5 mg/dl (0.2-1.3); Blood Urea Nitrogen 21 mg/dl (9-20); Calcium 9.2 mg/dl (8.4-10.2); Carbon Dioxide 31 mmol/L (22.0-30.0); Chloride 103 mmol/L (98-107); Chol/HDL Ratio 3.4 (1-3.5); Cholesterol 175 mg/dl (140-200); Estimated Glomerular Filt Rate 95 ml/min (>60); GFR (African American) 115 ML/MIN (>60); Globulin 2.5 g/dL (1.3-3.2); Glucose 153 mg/dl (74-100); HDL Cholesterol 51 mg/dl (40-60); Potassium 4.4 mmoL/L (3.5-5.1); Sodium 140 mmol/L (136-145); Total Protein,Serum 6.9 g/dl (6.3-8.2); Triglycerides 152 mg/dl (30-150); VLDL Cholesterol 30 mg/dL (0-40)
[2021-05-29 13:58] LABS: Erythrocyte Sedimentation Rate 11 mm/hr (0-20)
[2021-05-29 14:02] LABS: C-Reactive Protein 1.1 mg/L (0-4); Direct LDL Cholesterol 100.37 mg/dL (100-129)
[2021-05-29 14:22] LABS: Thyroid Stimulating Hormone 2.15 uIU/mL (0.465-4.68)
[2021-05-29 14:38] LABS: Hemoglobin A1C 7.5 % (4.0-6.0)
== END ==
PROVIDERS: Visit Provider Internal Medicine Adolescent Medicine
DX: I25.10 Atherosclerotic heart disease of native coronary artery without angina pectoris (principal); E11.9 Type 2 diabetes mellitus without complications; E78.5 Hyperlipidemia, unspecified; D89.9 Disorder involving the immune mechanism, unspecified; M05.9 Rheumatoid arthritis with rheumatoid factor, unspecified; Z79.84 Long term (current) use of oral hypoglycemic drugs
CPT/HCPCS: 36415; 80053; 80061; 83036; 84443; 85025; 85651; 86140

== ENCOUNTER 2021-09-21 10:12 | Inpatient (IN) | payer BC, MEDICARE, SELFPAY ==
[2021-09-21] VITALS (11 sets, daily range): BP systolic 123–146; BP diastolic 58–78; PULSE 69–87; RESP 15–35; TEMP 36.5–36.9; O2SAT 88–96; BMI 25.4; BMI 25.7
--- NOTE | 2021-09-21 10:24 | PC.NURSE ---
ED MD at
--- NOTE | 2021-09-21 10:27 | XR_ITS ---
FINAL REPORT CLINICAL HISTORY: cough, covid-19 for 2 weeks COMPARISON: December 17, 2020 FINDINGS: There is evidence of median sternotomy. The heart size is normal. The mediastinum is normal. There are bibasilar opacities consistent with pneumonia. There are no pleural effusions. There is no pneumothorax. There is no osseous abnormality. IMPRESSION: Bibasilar pneumonia. Reviewed, Interpreted and Dictated by Jose Angel Avila III, MD Transcribed by Eder Hanson Authenticated by Jose Angel Avila III, MD on 09/21/2021 11:24:27 AM [facility]
--- NOTE | 2021-09-21 10:28 | HMH.EDGENADL ---
ED Disposition Clinical Impression: Hypoxia CAP (community acquired pneumonia) Qualifiers: Laterality: right Lung location: lower lobe of lung Qualified Code(s): J18.9 - Pneumonia, unspecified organism Bilateral pneumonia Qualifiers: Pneumonia type: due to unspecified organism Lung location: lower lobe of lung Qualified Code(s): J18.9 - Pneumonia, unspecified organism Disposition: Admitted as Observation Condition on Discharge: Good Referrals: Zenaida Khan APRN [Primary Care Provider] - - Critical Care Critical Care Time: No Attestation: On 09/21/21, the high probability of a clinically significant, sudden or life threatening deterioration of the following system(s) required my full and direct attention, intervention and personal management. The time I documented below is in addition to time spent performing reported procedures but includes the following listed in this critical care notation. Medical Decision Making - Medical Records Medical records reviewed: Yes: I reviewed the patient's medical records. - Jeovany Inquiry Pt receiving controlled substance: No Vital Signs: 09/21/21 10:13 09/21/21 11:02 Temperature 98.5 F Temperature Source Oral Pulse Rate 85 Pulse Rate [Right Radial] 87 Respiratory Rate 18 33 H Blood Pressure 133/72 Blood Pressure [Left Arm] 146/78 H Blood Pressure Mean [Left Arm] 100 Blood Pressure Source Automatic Cuff Blood Pressure Source [Left Arm] Automatic Cuff Blood Pressure Position Sitting Blood Pressure Position [Left Arm] Sitting 02 Sat by Pulse Oximetry 88 L 92 L Oxygen Delivery Method Room Air Nasal Cannula Oxygen Flow Rate (LPM) 2 - Lab Data Lab Results 09/21/21 10:22: WBC 8.3, RBC 4.81, Hgb 15.2, Hct 45.4, MCV 94.3 H, MCH 31.6 H, MCHC 33.5, RDW 13.5, Plt Count 303, MPV 8.9, Neut % (Auto) 71.1, Lymph % (Auto) 23.5, [place] % (Auto) 4.6, Eos % (Auto) 0.3, Baso % (Auto) 0.6, Neut # (Auto) 5.9, Lymph # (Auto) 1.9, [place] # (Auto) 0.4, Eos # (Auto) 0.0, Baso # (Auto) 0.1 09/21/21 10:22: Sodium 137, Potassium 3.6, Chloride 100, Carbon Dioxide 25, Anion Gap 15.6 H, BUN 33 H, Creatinine 1.10, Estimated Creat Clear 71, Estimated GFR 65, Est GFR ( Amer) 79, Glucose 166 H, Calcium 9.5, Total Bilirubin 1.1, AST 49, ALT 27, Alkaline Phosphatase 117, Troponin I < 0.01, Total Protein 7.2, Albumin 3.9, Globulin 3.3 H, Albumin/Globulin Ratio 1.2 Result diagrams: 09/21/21 10:22 09/21/21 10:22 Orders (Tests/Meds): ED MEDICATIONS Generic Name Dose Route Start Last Admin Trade Name Freq PRN Reason Stop Dose Admin Azithromycin 500 mg/ Sodium 250 mls @ 250 mls/hr 09/21/21 11:45 Chloride IV 10/05/21 11:44 Q24H YASHIRA Ceftriaxone Sodium 1 gm/ 50 mls @ 100 mls/hr 09/21/21 11:45 Sodium Chloride IV 10/05/21 11:44 Q24H YASHIRA Discontinued Medications Generic Name Dose Route Start Last Admin Trade Name Freq PRN Reason Stop Dose Admin Dexamethasone Sodium Phosphate 8 mg 09/21/21 11:31 Dexamethasone 4mg/Ml 1ml Vial IV 09/21/21 11:32 ONCE ONE Lactated Ringer's 1,000 mls @ 999 mls/hr 09/21/21 10:30 09/21/21 10:35 Lactated Ringer's 1000 Ml Bag IV 09/21/21 11:30 999 mls/hr .Q1H1M YASHIRA Administration ORDERS Category Date Time Status Full Resp Panel w/COVID ([facility]) Routine Lab 09/21/21 10:22 Received Lactic Acid Stat Lab 09/21/21 11:38 Ordered Blood Culture Stat Micro 09/21/21 10:22 Received ECG Request by /Nse Stat Y 09/21/21 10:28 Ordered Medical Decision Narrative: Discussed with Marie for Dr Palacio, accepts admit to Dr Hunt General Adult HPI - General Stated complaint: covid pos Time Seen by Provider: 09/21/21 10:28 - History of Present Illness HPI narrative: cough, weakness, soa 2 weeks diag covid-19 1 week ago today no better Onset (ago): week(s) Radiation: non-radiation Severity: moderate Quality: constant Consistency: constant Relieving factors: rest Exacerbating factors: movement
--- NOTE | 2021-09-21 10:47 | ECG_ITS ---
APPROVED REPORT Exam: Resting ECG HR:86 bpm ECG Measurements Heart Rate 86 AXES CO 156 P 63 QRSd 102 QRS 32 QT 376 T 73 QTc [address] DEVIATION AND MODERATE T-WAVE ABNORMALITY, CONSIDER ANTEROLATERAL ISCHEMIA [-0.1+ mV T-WAVE IN V3-V6] ABNORMAL ECG UNCONFIRMED REPORT Electronically signed by : Justino Buchanan MD 09/22/2021 17:56:43
--- NOTE | 2021-09-21 10:49 | PC.NURSE ---
Family at BS; no other needs at this time
[2021-09-21 10:50] LABS: Adenovirus,PCR Not Detected (NotDetected); Bordetella Pertussis Not Detected (NotDetected); Chlamydophila Pneumoniae, PCR Not Detected (NotDetected); Coronavirus 229E Not Detected (NotDetected); Coronavirus NL63 Not Detected (NotDetected); Coronavirus OC43 Not Detected (NotDetected); Coronovirus HKU1,PCR Not Detected (NotDetected); Human Metapneumovirus Not Detected (NotDetected); Influenza A, PCR Not Detected (NotDetected); Influenza AH1, 2009 Not Detected (NotDetected); Influenza AH1, PCR Not Detected (NotDetected); Influenza AH3,PCR Not Detected (NotDetected); Influenza B, PCR Not Detected (NotDetected); Mycoplasma Pneumoniae, PCR Not Detected (NotDetected); Parainfluenza 1, PCR Not Detected (NotDetected); Parainfluenza 2, PCR Not Detected (NotDetected); Parainfluenza 3, PCR Not Detected (NotDetected); Parainfluenza 4, PCR Not Detected (NotDetected); Respiratory Syncytial Virus Not Detected (NotDetected); Rhinovirus/Enterovirus Not Detected (NotDetected)
[2021-09-21 10:53] LABS: Basophils # 0.1 K/mm3 (0-0.2); Basophils % 0.6 % (0.1-2.0); Chloride 100 mmol/L (98-107); Eosinophils % 0.3 % (0.1-12.0); Hematocrit 45.4 % (42.0-52.0); Hemoglobin 15.2 g/dL (14.1-18.0); Lymphocytes # 1.9 K/mm3 (0.7-4.5); Lymphocytes % 23.5 % (10-50); Mean Corpuscular HGB Conc 33.5 g/dL (31.8-35.4); Mean Corpuscular Hemoglobin 31.6 pg (27.0-31.2); Mean Corpuscular Volume 94.3 fl (80-94); Mean Platelet Volume 8.9 fl (7.4-10.4); Monocytes # 0.4 K/mm3 (0.1-1.0); Monocytes % 4.6 % (1.7-9.3); Neutrophils # 5.9 K/mm3 (1.8-7.8); Neutrophils % 71.1 % (37.0-80.0); Platelet Count 303 K/mm3 (142-424); Potassium 3.6 mmoL/L (3.5-5.1); Red Blood Count 4.81 M/mm3 (4.60-6.20); Red Cell Distribution Width 13.5 % (11.5-17.5); Sodium 137 mmol/L (136-145); White Blood Count 8.3 K/mm3 (4.8-10.8)
[2021-09-21 10:55] LABS: Blood Urea Nitrogen 33 mg/dl (9-20); Creatinine Clearance Estimated 71 mL/min (50-200); Estimated Glomerular Filt Rate 65 ml/min (>60); GFR (African American) 79 ML/MIN (>60)
[2021-09-21 10:56] LABS: Alanine Aminotransferase 27 U/L (12-78); Albumin Level 3.9 g/dl (3.5-5.0); Albumin/Globulin Ratio 1.2 (1.1-1.8); Alkaline Phosphatase 117 U/L (38-126); Anion Gap 15.6 mEq/L (5-15); Aspartate Amino Transferase 49 U/L (17-59); Bilirubin,Total 1.1 mg/dl (0.2-1.3); Calcium 9.5 mg/dl (8.4-10.2); Carbon Dioxide 25 mmol/L (22.0-30.0); Globulin 3.3 g/dL (1.3-3.2); Glucose 166 mg/dl (74-100); Total Protein,Serum 7.2 g/dl (6.3-8.2)
--- NOTE | 2021-09-21 11:04 | PC.NURSE ---
patient given water; mervat'd by Dr. Muniz
[2021-09-21 11:09] LABS: Troponin I < 0.01 ng/ml (0.00-0.034)
--- NOTE | 2021-09-21 11:29 | PC.NURSE ---
ED MD at speaking with patient
--- NOTE | 2021-09-21 11:30 | PC.NURSE ---
Contacting NATALI Estevez in Dr. Phelan office
--- NOTE | 2021-09-21 11:41 | PC.NURSE ---
notified care management of admission, spoke with miriam
[2021-09-21 11:56] LABS: Lactic Acid 2.4 mmol/L (0.7-2.1)
--- NOTE | 2021-09-21 11:58 | HMH.PHAINT ---
MEDICATION RECONCILIATION COMPLETED ON PATIENT USING EXTERNAL FILL HISTORY FROM PHARMACY. -KAPIL LEONG, REBEKAHD
--- NOTE | 2021-09-21 12:11 | PC.NURSE ---
Spoke with Edy in pharmacy. They are going to mix and bring down IV antibiotics.
--- NOTE | 2021-09-21 12:14 | PC.NURSE ---
ILSA Delgado at BS
[2021-09-21 12:16] LABS: Coronavirus 19, PCR Detected (NotDetected)
--- NOTE | 2021-09-21 12:44 | P.CONPHA_ITS ---
[facility] Pharmacy VTE Monitoring - Patient Demographics Admission date: 09/21/21 Report Date: 09/21/21 Time: 12:44 Allergies/Adverse Reactions: Patient Allergies No Known Allergies Allergy (Verified 02/05/20 14:06) Height: 1.83 m Weight: 85.275 kg Patient Problems: Current Active Problems CAP (community acquired pneumonia) (Acute) Bilateral pneumonia (Acute) Hypoxia (Acute) - VTE Risk Labs: VTE Related Lab Results Hgb 15.2 g/dL (14.1-18.0) 09/21/21 10:22 Hct 45.4 % (42.0-52.0) 09/21/21 10:22 Plt Count 303 K/mm3 (142-424) 09/21/21 10:22 BUN 33 mg/dl (9-20) H 09/21/21 10:22 Creatinine 1.10 mg/dl (0.66-1.25) 09/21/21 10:22 Estimated Creat Clear 71 mL/min (50-200) 09/21/21 10:22 - Prophylaxis VTE Prophylaxis Ordered?: Yes Types of VTE Prophylaxis: TEDS Knee High Location of Applied Device: Bilateral Lower Extremeties
--- NOTE | 2021-09-21 13:24 | PC.NURSE ---
Called report to Kendra
--- NOTE | 2021-09-21 14:02 | PC.NURSE ---
patient being transported to 2nd floor with SRNA by stretcher
[2021-09-21 15:44] LABS: Reflex Lactic Add Lactic Reflex
--- NOTE | 2021-09-21 15:57 | HMH.HP ---
*Admission Date: 09/21/21 <Barry Khani 09/21/21 16:04> *Chief complaint: shortness of breath and fatigue <Barry Khan09/21/21 16:04> *History of present illness: 76 year old male with a history of RA on remicade, CAD, diabetes, HTN and HLD presented to PCP office for shortness of breath and weakness. He was seen in our office on 09/15 diagnosed with COVID-19 pneumonia. Started on doxycycline. Today, he reports worsening shortness of breath, dizziness, diarrhea with fecal incontinence, and weakness. He was found to be hypoxic with saturations 86%RA and crackles on exam. Unable to direct admit due to divert status. Patient was sent to [facility] ED where he was found to be hypoxic with bibasilar pneumonia. [facility] bed became available and patient was admitted with pneumonia for oxygen support, IV antibiotics and further evaluation. <Barry Khani 09/21/21 17:14> [facility] History I have reviewed the patient's past medical history: Yes <Barry Khani 09/21/21 17:14> Medical History: Reports:: Atherosclerotic Heart Disease, Coronary Artery Disease, Diabetes Mellitus Type 2, Heart Murmur, Hiatal Hernia, Hyperlipidemia, Hypertension, Kidney Stones Denies:: Cancer, Diabetes Mellitus Type 1, Internal Pacemaker, Lung Disease, MRSA, Seizures <KhanZenaida - 09/21/21 16:04> *Have you ever received a pneumonia vaccine?: Yes <KhanZenaida 09/21/21 16:04> *Have you received a flu vaccine this season?: Yes <KhanBarryi 09/21/21 16:04> Other Medical History: Denies: Blood Transfusion Reaction <KhanZenaida 09/21/21 16:04> Laterality Cases: Bilateral: Tonsillectomy <KhanBarry09/21/21 16:04> Other Surgeries: Yes: Cardiac Surgery, Colonoscopy, Open Heart Surgery, Other (salivary gland removal, ). No: Pacemaker <KhanZenaida 09/21/21 16:04> Amputation: No <Barry Khani 09/21/21 16:04> Fractures: Yes (LLE 1958) <Khan,Zenaida - 09/21/21 16:04> - *Social History Smoking Status: Never smoker <Zenaida Khan 09/21/21 16:04> Alcohol Intake: current <Zenaida Khan 09/21/21 16:04> Alcohol Intake Frequency:: holidays/special occasions only <Zenaida Khan 09/21/21 16:04> Substance Use Type: other <Zenaida Khan 09/21/21 16:04> *Occupational Status:: retired <Zenaida Khan 09/21/21 16:04> Housing: house <Zenaida Khan 09/21/21 16:04> *Travel in the last 8 weeks: None <Zenaida Khan 09/21/21 16:04> Family Hx:: Unable to obtain <Zenaida Khan 09/21/21 16:04> Review of Systems - Review of Systems Review of systems:: pertinent systems reviewed and negative unless documented below <Zenaida Khan 09/21/21 17:14> - Constitutional Reports chills, Reports fatigue, Reports lack of energy, Reports malaise, Reports weakness <Zenaida Khan 09/21/21 17:14> - *Respiratory Reports chest congestion, Reports cough, Reports shortness of breath <Zenaida Khan 09/21/21 17:14> - *Gastrointestinal Reports loose stools <Zenaida Khan 09/21/21 17:14> Meds Home Medications Medication Instructions Recorded Confirmed Type Aspirin [Aspir 81] 81 mg PO DAILY 01/25/18 09/21/21 History Furosemide [Furosemide 20mg Tab*] 20 mg PO DAILY 01/25/18 09/21/21 History Metoprolol Tartrate [Lopressor 12.5 mg PO BID 01/25/18 09/21/21 History 25mg tablet] Sitagliptin Phosphate [Januvia 100 mg PO DAILY 01/25/18 09/21/21 History 100mg tablet] lisinopriL [Lisinopril 10mg Tab] 10 mg PO DAILY 01/25/18 09/21/21 History Empagliflozin [Jardiance] 25 mg PO DAILY 09/21/21 09/21/21 History Metformin HCl [Metformin 1000mg 1,000 mg PO BIDWMEAL 09/21/21 09/21/21 History Tablets] Rosuvastatin Calcium [Crestor 40mg 40 mg PO DAILY 09/21/21 09/21/21 History Tablets] <Pedro Browne - 09/21/21 19:10> Allergies Allergy/AdvReac Type Severity Reaction Status Date / Time No Known Allergies Allergy Verified 02/05/20 14:06 <Pedro Browne - 09/21/21 19:10> Exam Vital signs and Labs for Last 24 Hours: Temp Pulse Resp BP Pulse Ox 98 F 69 19 132/58 L
[2021-09-21 16:37] LABS: Lactic Acid Follow Up (RFLX 1) 0.8 mmol/L (0.7-2.1)
[2021-09-21 20:43] LABS: POC Glucose,Bedside 158 (70-110)
[2021-09-22] VITALS: BP 110/62; PULSE 60; RESP 20; TEMP 36.4; O2SAT 96
[2021-09-22 04:00] VITALS: BP 108/61; PULSE 56; RESP 16; TEMP 36.2; O2SAT 95
--- NOTE | 2021-09-22 04:32 | PC.NURSE ---
Pt is A/O x3. Pt remains on 2L NC with o2 sats 93-96%. Pt has voiced no c/o of SOA this shift. Pt has rested well off and on t/o shift. Pt can ambulate x1 assist to BR.
[2021-09-22 04:38] VITALS: BMI 25.8
[2021-09-22 05:49] LABS: POC Glucose,Bedside 100 (70-110)
[2021-09-22 06:50] LABS: Basophils # 0.1 K/mm3 (0-0.2); Eosinophils % 0.4 % (0.1-12.0); Mean Platelet Volume 8.3 fl (7.4-10.4); Monocytes # 0.4 K/mm3 (0.1-1.0); Neutrophils # 5.1 K/mm3 (1.8-7.8)
[2021-09-22 06:54] LABS: Anion Gap 10.5 mEq/L (5-15); Blood Urea Nitrogen 31 mg/dl (9-20); Calcium 8.6 mg/dl (8.4-10.2); Carbon Dioxide 29 mmol/L (22.0-30.0); Chloride 102 mmol/L (98-107); Creatinine Clearance Estimated 79 mL/min (50-200); Estimated Glomerular Filt Rate 82 ml/min (>60); GFR (African American) 100 ML/MIN (>60); Glucose 115 mg/dl (74-100); Potassium 3.5 mmoL/L (3.5-5.1); Sodium 138 mmol/L (136-145)
[2021-09-22 06:58] LABS: Basophils % 0.7 % (0.1-2.0); Hematocrit 38.9 % (42.0-52.0); Lymphocytes # 2.3 K/mm3 (0.7-4.5); Mean Corpuscular HGB Conc 32.8 g/dL (31.8-35.4); Mean Corpuscular Hemoglobin 30.9 pg (27.0-31.2); Mean Corpuscular Volume 93.9 fl (80-94); Monocytes % 4.9 % (1.7-9.3); Platelet Count 278 K/mm3 (142-424); Red Blood Count 4.14 M/mm3 (4.60-6.20); Red Cell Distribution Width 13.6 % (11.5-17.5); White Blood Count 7.9 K/mm3 (4.8-10.8)
[2021-09-22 07:05] LABS: Hemoglobin 12.8 g/dL (14.1-18.0)
[2021-09-22 08:00] VITALS: BP 117/63; PULSE 68; RESP 22; TEMP 36.5; O2SAT 90
--- NOTE | 2021-09-22 08:47 | HMH.ACPN2 ---
Internal Medicine - PN: Popeye *Date: 09/22/21 *Time: 08:47 Interval history: Patient did well overnight. Inflammatory labs are improving. No fevers. Oxygenation status is stable. He does feel weak and tired. He is eating chocolate chip cookie and some Gatorade. Exam Vital signs and Labs for Last 24 Hours: Temp Pulse Resp BP Pulse Ox 97.1 F L 56 L 16 108/61 L 95 09/22/21 04:00 09/22/21 04:00 09/22/21 04:00 09/22/21 04:00 09/22/21 04:00 Laboratory Results - last 24 hr 09/21/21 10:22: Chlamy pneumoniae PCR Not detected, Adenovirus (PCR) Not detected, B. pertussis DNA (PCR) Not detected, Coronavirus OC43 (PCR) Not detected, Coronavirus HKU1 (PCR) Not detected, Coronavirus 229E (PCR) Not detected, SARS-CoV-2 (PCR) Detected A, Coronavirus NL63 (PCR) Not detected, Human Metapneumovir PCR Not detected, Influenza A (H1) PCR Not detected, Influ A (H1N1/09) PCR Not detected, Influenza A (H3) PCR Not detected, Influenza Type A (PCR) Not detected, Influenza Type B (PCR) Not detected, M. pneumoniae (PCR) Not detected, Parainfluenza 1 (PCR) Not detected, Parainfluenza 2 (PCR) Not detected, Parainfluenza 3 (PCR) Not detected, Parainfluenza 4 (PCR) Not detected, RSV (PCR) Not detected, Entero/Rhino (PCR) Not detected 09/21/21 10:22: WBC 8.3, RBC 4.81, Hgb 15.2, Hct 45.4, MCV 94.3 H, MCH 31.6 H, MCHC 33.5, RDW 13.5, Plt Count 303, MPV 8.9, Neut % (Auto) 71.1, Lymph % (Auto) 23.5, [place] % (Auto) 4.6, Eos % (Auto) 0.3, Baso % (Auto) 0.6, Neut # (Auto) 5.9, Lymph # (Auto) 1.9, [place] # (Auto) 0.4, Eos # (Auto) 0.0, Baso # (Auto) 0.1 09/21/21 10:22: Sodium 137, Potassium 3.6, Chloride 100, Carbon Dioxide 25, Anion Gap 15.6 H, BUN 33 H, Creatinine 1.10, Estimated Creat Clear 71, Estimated GFR 65, Est GFR ( Amer) 79, Glucose 166 H, Calcium 9.5, Total Bilirubin 1.1, AST 49, ALT 27, Alkaline Phosphatase 117, Troponin I < 0.01, Total Protein 7.2, Albumin 3.9, Globulin 3.3 H, Albumin/Globulin Ratio 1.2 09/21/21 10:22: Lactate 2.4 H 09/21/21 16:00: Lactate 0.8 09/21/21 20:31: POC Glucose 158 H 09/22/21 05:41: POC Glucose 100 09/22/21 06:20: WBC 7.9, RBC 4.14 L, Hgb 12.8 L D, Hct 38.9 L, MCV 93.9, MCH 30.9, MCHC 32.8, RDW 13.6, Plt Count 278, MPV 8.3, Neut % (Auto) 65.0, Lymph % (Auto) 29.0, [place] % (Auto) 4.9, Eos % (Auto) 0.4, Baso % (Auto) 0.7, Neut # (Auto) 5.1, Lymph # (Auto) 2.3, [place] # (Auto) 0.4, Eos # (Auto) 0.0, Baso # (Auto) 0.1 09/22/21 06:20: Sodium 138, Potassium 3.5, Chloride 102, Carbon Dioxide 29, Anion Gap 10.5, BUN 31 H, Creatinine 0.90, Estimated Creat Clear 79, Estimated GFR 82, Est GFR ( Amer) 100 D, Glucose 115 H D, Calcium 8.6 I & O for Last 24 hours: Intake & Output 09/19/21 09/20/21 09/21/21 09/22/21 11:59 11:59 11:59 11:59 Intake Total 789 / 789 Balance 789 / 789 Weight 190 lb 190 lb 12.8 oz Narrative: Patient appears weak but is eating well and drinking well. Lungs have rhonchi in both bases but otherwise clear, heart rate regular. Abdomen soft. No edema or clubbing. No rash. Assessment and Plan (1) Rheumatoid arthritis Status: Acute Category: Medical Code(s): M06.9 - Rheumatoid arthritis, unspecified (2) Type 2 diabetes mellitus Status: Acute Category: Medical Code(s): E11.9 - Type 2 diabetes mellitus without complications (3) Essential hypertension Status: Acute Category: Medical Code(s): I10 - Essential (primary) hypertension (4) Mixed hyperlipidemia Status: Acute Category: Medical Code(s): E78.2 - Mixed hyperlipidemia (5) CAD (coronary artery disease) Status: Acute Category: Medical Code(s): I25.10 - Atherosclerotic heart disease of [place] coronary artery without angina pectoris (6) Bilateral pneumonia Status: Acute Qualifiers: Pneumonia type: due to unspecified organism Lung location: lower lobe of lung Qualified Code(s): J18.9 - Pneumonia, unspecified organism Category: Medical Code(s): J18.9 - Pneumonia, unspecified organism
[2021-09-22 09:49] VITALS: BMI 25.7
--- NOTE | 2021-09-22 09:54 | HMH.PTEV ---
Physical Therapy Evaluation Rehab PT IP Evaluation Start: 09/22/21 08:46 Freq: ONCE Status: Active Protocol: Document 09/22/21 09:51 PHORBEV (Rec: 09/22/21 09:54 PHORNE [id number]) Subjective/History History History 76 yowm adm to [facility] with PNA S/ P COVID-19 infection. He reports he lives alone with 1- 2 steps to enter the home and is generally independent with all mobility without AD. Subjective Subjective Pt reports feeling tired, but no other c/o. Rehab PT IP Eval Objective Appearance Patient Behavior Appropriate Patient Orientation Person,Place,Time Difficulty following instructions none Speech Pattern Clear Ambulation Patient Able to Ambulate Yes Ambulation Observation IP General Gait Pattern Observation No Deviations/Normal Ambulation Distance (feet) 25 Ambulation Assistive Device None Ambulation Ability Contact Guard/Hand Hold Balance Ability to Arise Able, uses arms to help Sitting Balance Steady, safe Standing Balance Steady, wide stance Dynamic Sitting Balance Ability Good Dynamic Standing Balance Ability Good Transfers Bed Transfer Ability Contact Guard/Hand Hold Chair Transfer Ability Contact Guard/Hand Hold Sit to Stand Bed Transfer Ability Contact Guard/Hand Hold Sit to Stand Chair Transfer Ability Contact Guard/Hand Hold Rehab PT IP prob,goals,plan Problems Date of Evaluation: 09/22/21 PT IP Problems Bed Mobility,Transfers,Gait, Self care Rehab Potential Rehab Potential Good Plan PT Intervention Plan Bed Mobility,Transfers,Gait, Self care,Therapeutic Exercise PT Plan Frequency BID Duration LOS Discharge Goals Bed Transfer Ability Supervision/Stand by Sit to Stand Chair Transfer Ability Supervision/Stand by Ambulation Assistive Device None Ambulation Distance (feet) 50 Discharge Plan PT Discharge Plan Pt is currently most appropriate for rehab placement once medically stable, but could return home independently should his endurance to daily activity improve. G -code Required No Eval Complexity Eval Charge Codes 62959 - Moderate Complexity PHYSICIAN CERTIFICATION: I certify the specified
--- NOTE | 2021-09-22 09:56 | HMH.OTEV ---
OT Inpatient Evaluation Rehab OT IP Evaluation Start: 09/22/21 08:46 Freq: ONCE Status: Active Protocol: Document 09/22/21 09:37 HALEYCHACHA (Rec: 09/22/21 09:54 AMARILIS [id number]) Rehab OT IP Assessment Subjective History 76 year old male with a history of RA on remicade, CAD , diabetes, HTN and HLD presented to PCP office for shortness of breath and weakness. He was seen in our office on 09/15 diagnosed with COVID-19 pneumonia. Started on doxycycline. Today, he reports worsening shortness of breath, dizziness, diarrhea with fecal incontinence, and weakness. He was found to be hypoxic with saturations 86%RA and crackles on exam. Unable to direct admit due to divert status. Patient was sent to [facility] ED where he was found to be hypoxic with bibasilar pneumonia. [facility] bed became available and patient was admitted with pneumonia for oxygen support, IV antibiotics and further evaluation. [facility] History Medical History: Reports:: Atherosclerotic Heart Disease, Coronary Artery Disease, Diabetes Mellitus Type 2, Heart Murmur, Hiatal Hernia, Hyperlipidemia, Hypertension, Kidney Stones Patient lives alone in 1 story home with 1-2 SHA[address] door. Patient independent with all ADLs and fx'l mobility prior to hospitalization. Patient recieves assistance for housework. Patient reported not having help with family for ADLs and mobility at the house. Recommend rehabilitation in order to improve strength and endurance to prevent fall risk prior to returning home. Subjective I c
[2021-09-22 11:20] LABS: POC Glucose,Bedside 135 (70-110)
[2021-09-22 12:00] VITALS: BP 114/57; PULSE 71; RESP 18; TEMP 36.8; O2SAT 98
--- NOTE | 2021-09-22 12:46 | PC.NURSE ---
PT IS RESTING IN BED. TOLERATED SITTING UP IN THE CHAIR FOR A FEW HOURS THIS SHIFT. PT STATES HE CONTINUES TO FEEL SOA WITH EXERTION AND IS STILL FEELS VERY WEAK. LUNG SOUNDS HAVE SCATTERED RHONCHI WITH FINE CRACKLES RML. ABDOMEN SOFT/NON TENDER WITH ACTIVE BOWEL SOUNDS.PT STATES APPETITE HAS BEEN POOR FOR THE LAST 2 WEEKS. PT IS TOLERATING DRINKING GATORADE. NO SWELLING NOTED TO BLE. AMBULATES TO THE BATHROOM. O2 SATURATION HAS MAINTAINED 90-95% ON 2 L NC. WILL CONTINUE TO MONITOR.
--- NOTE | 2021-09-22 13:26 | SW/DCPLANNER ---
Addendum entered by Francia Espanola 09/24/21 09:40: Ashley Pineda of confirmed that services will start Monday. Patient is planned to discharge home tomorrow. Addendum entered by Francia Espanola 09/23/21 15:12: Nichole GARCIA denied this patient due to COVID positive. I called and informed patient's son regarding situation and not being able to find a local SNF facility to accept patient. I offered to search other facilities [facility] of [facility] and son preferred that patient return home with home health services. Due to patient having commercial insurance Shane denied this patient. Patient information/order has been faxed to Capri Pineda of . I will follow up with Capri once information is reviewed. Addendum entered by Francia Espanola 09/23/21 12:44: Deena Lala has denied this patient at this time due to COVID positive. I am currently waiting to hear back from Nichole GARCIA. Addendum entered by Francia Espanola 09/23/21 10:28: Dr Buchanan stated that patient is now interested in placement at time of discharge. I have reached out to several facilities regarding placement: [facility] can not accept this patient due to COVID positive, [facility] has requested that patient be 10 days post COVID and [facility] Pineda has stated that patient must be 10 days past initial COVID positive swab. At this time Nichole GARCIA and Deena Lala are reviewing patient information. I will continue to follow up with patient and MD. Original Note: I spoke with this patient regarding plans once medically stable for discharge. Patient stated that he resides at home alone, works 37.5 hours/week and is independent at home. PT/OT evaluated this patient and stated that he would benefit from SNF level of care but could discharge home if continue to show improvement. I explained to patient different discharge options: home and return to outpatient PT/OT services at [facility], home w/ home health services or SNF level of care. Patient expressed that he prefer to return home once medically stable and is not interested in placement at this time. I will continue to follow up with this patient and MD until medically stable for discharge.
[2021-09-22 15:52] LABS: POC Glucose,Bedside 111 (70-110)
[2021-09-22 16:00] VITALS: BP 143/73; PULSE 79; RESP 22; TEMP 37.3; O2SAT 94
[2021-09-22 20:00] VITALS: BP 128/76; PULSE 78; RESP 18; TEMP 36.6; O2SAT 92
[2021-09-22 20:48] LABS: POC Glucose,Bedside 129 (70-110)
[2021-09-23] VITALS (7 sets, daily range): BP systolic 117–134; BP diastolic 65–76; PULSE 56–76; RESP 17–20; TEMP 36.4–36.8; O2SAT 94–97; BMI 25.0
--- NOTE | 2021-09-23 03:51 | PC.NURSE ---
Pt has rested on and off t/o shift. Remains on 2L NC with O2 sats 92-95%. Pt ambulates to bathroom independently. Pt c/o of nausea and had x1 episode of emesis, medicated per MAR with relief. Pt voiced no c/o of SOA, or pain thus far in shift.
[2021-09-23 06:17] LABS: POC Glucose,Bedside 107 (70-110)
--- NOTE | 2021-09-23 08:33 | HMH.ACPN2 ---
Internal Medicine - PN: Subj *Date: 09/23/21 *Time: 08:33 Interval history: Patient sitting up in a chair. Awake, alert. Requiring 2 L of nasal cannula oxygen. States that he feels slightly better than yesterday. I reviewed labs, vital signs and PT/OT notes from yesterday. Exam Vital signs and Labs for Last 24 Hours: Temp Pulse Resp BP Pulse Ox 97.5 F L 71 20 134/76 94 L 09/23/21 04:00 09/23/21 04:00 09/23/21 04:00 09/23/21 04:00 09/23/21 04:00 Laboratory Results - last 24 hr 09/22/21 11:12: POC Glucose 135 H 09/22/21 15:45: POC Glucose 111 H 09/22/21 20:39: POC Glucose 129 H 09/23/21 05:28: POC Glucose 107 I & O for Last 24 hours: Intake & Output 09/20/21 09/21/21 09/22/21 09/23/21 11:59 11:59 11:59 11:59 Intake Total 849 / 849 806 / 806 Output Total Balance 849 / 849 786 / 786 Weight 190 lb 189 lb 9.561 oz 184 lb 8 oz Narrative: Alert, appears weak but oriented x3. Oropharynx clear. Lungs are better than yesterday vis-?-vis air movement. Still with minimal rhonchi in the bases. Heart rate regular. Abdomen is soft, no edema or clubbing in his extremities. He does appear weak as noted. No skin rash. Assessment and Plan (1) Rheumatoid arthritis Status: Acute Category: Medical Code(s): M06.9 - Rheumatoid arthritis, unspecified (2) Type 2 diabetes mellitus Status: Acute Category: Medical Code(s): E11.9 - Type 2 diabetes mellitus without complications (3) Essential hypertension Status: Acute Category: Medical Code(s): I10 - Essential (primary) hypertension (4) Mixed hyperlipidemia Status: Acute Category: Medical Code(s): E78.2 - Mixed hyperlipidemia (5) CAD (coronary artery disease) Status: Acute Category: Medical Code(s): I25.10 - Atherosclerotic heart disease of [place] coronary artery without angina pectoris (6) Bilateral pneumonia Status: Acute Qualifiers: Pneumonia type: due to unspecified organism Lung location: lower lobe of lung Qualified Code(s): J18.9 - Pneumonia, unspecified organism Category: Medical Code(s): J18.9 - Pneumonia, unspecified organism (7) Hypoxia Status: Acute Category: Medical Code(s): R09.02 - Hypoxemia (8) Pneumonia due to COVID-19 virus Status: Acute Category: Medical Code(s): U07.1 - COVID-19; J12.82 - Pneumonia due to coronavirus disease 2019 - Assessment and plan all Dx Assessment and Plan for all problems:: Overall patient slowly improving. Continue bacterial coverage for post viral pneumonitis. Patient is no longer contagious from his COVID-19 given the fact that he is post 2 weeks of symptomatology, however he still has a positive PCR test which may complicate placement for short-term skilled rehab which has been recommended by PT and OT and patient is agreeable to. No changes in management. I am concerned about his risk for DVT/PE given his medical disease, poor ambulatory status at this point of weakness. We will start low-dose Xarelto for this indication.
[2021-09-23 11:13] LABS: POC Glucose,Bedside 239 (70-110)
--- NOTE | 2021-09-23 15:09 | PC.NURSE ---
PT IS SITTING UP IN THE CHAIR. ALERT AND ORIENTED X4. PT HAS A VERY FLAT AFFECT. PT STATES HE FEELS BETTER THAN YESTERDAY BUT CONTINUES TO FEEL WEAK AND SOA WITH EXERTION. LUNG SOUNDS DIMINISHED WITH FINE CRACKLES (RML). ABDOMEN SOFT/NON TENDER. PT AMBULATES TO THE BATHROOM STANDBY ASSIST. PT HAS NEEDED ASSISTANCE WITH ADL'S. REDNESS NOTED TO THE BUTTOCKS. VSS. O2 SATURATION 92-96% ON 2 L NC. WILL CONTINUE TO MONITOR.
[2021-09-23 16:13] LABS: POC Glucose,Bedside 165 (70-110)
[2021-09-23 20:54] LABS: POC Glucose,Bedside 143 (70-110)
[2021-09-24] VITALS (7 sets, daily range): BP systolic 113–141; BP diastolic 54–70; PULSE 67–87; RESP 16–20; TEMP 36.6–36.9; O2SAT 89–97; BMI 24.9
--- NOTE | 2021-09-24 04:11 | PC.NURSE ---
pt has rested t/o shift, has remained on 2L NC with O2 sats 94-97%, no complaints of SOA or pain, pt educated on importance of repositioning in the bed, verbalized understanding, has been ambulating to BR with standby assist
[2021-09-24 05:47] LABS: POC Glucose,Bedside 118 (70-110)
--- NOTE | 2021-09-24 07:23 | HMH.ACPN2 ---
Internal Medicine - PN: Subj *Date: 09/24/21 *Time: 08:38 Interval history: Mr. Sebastian did well overnight. No fever. Tolerating breakfast, eating at least a third of his tray. No nausea or vomiting. Diarrhea resolving. Stable oxygen requirement. Discussion with son this morning, feel patient will be ready to go home tomorrow. Case management has been unable to get patient placed at a [facility] due to COVID status. We will therefore plan to discharge home with family. Continues to work with PT. Tolerating well and walking 75+ feet yesterday. Exam Vital signs and Labs for Last 24 Hours: Temp Pulse Resp BP Pulse Ox 98.5 F 69 18 113/61 94 L 09/24/21 04:00 09/24/21 04:00 09/24/21 04:00 09/24/21 04:00 09/24/21 04:00 Laboratory Results - last 24 hr 09/23/21 11:06: POC Glucose 239 H 09/23/21 16:05: POC Glucose 165 H 09/23/21 20:41: POC Glucose 143 H 09/24/21 05:40: POC Glucose 118 H I & O for Last 24 hours: Intake & Output 09/21/21 09/22/21 09/23/21 09/24/21 23:59 23:59 23:59 23:59 Intake Total 403 / 403 1012 / 1012 720 / 720 854 / 854 Output Total Balance 403 / 403 1012 / 1012 700 / 700 854 / 854 Weight 86.183 kg 86 kg 83.688 kg 83.506 kg Microbiology Reports for the Last 24 Hours: Microbiology 09/21/21 10:22 Blood Blood Culture - Preliminary NO GROWTH AFTER 48 HOURS 09/21/21 10:22 Blood Blood Culture - Preliminary NO GROWTH AFTER 48 HOURS - Constitutional no acute distress, average body habitus - *Routine HEENT Exam Head: Present: normocephalic Eye: Present: EOMI, PERRL ENT: Present: mucous membranes moist - *Routine Neck Exam Present: supple. Absent: lymphadenopathy - *Routine Respiratory Exam Present: crackles. Absent: wheezes Comments: Good air movement bilaterally, crackles in right base more prominent than left. No wheeze or rhonchi - *Routine Cardiovascular Exam Present: RRR - *Routine Abdominal Exam Present: soft, normoactive bowel sounds. Absent: tenderness - *Routine Extremities Exam Absent: cyanosis, clubbing, edema - *Routine Skin Exam Present: warm. Absent: rash - *Routine Neurological Exam Present: alert, oriented X3 Assessment and Plan (1) Rheumatoid arthritis Status: Acute Category: Medical Code(s): M06.9 - Rheumatoid arthritis, unspecified (2) Type 2 diabetes mellitus Status: Acute Category: Medical Code(s): E11.9 - Type 2 diabetes mellitus without complications (3) Essential hypertension Status: Acute Category: Medical Code(s): I10 - Essential (primary) hypertension (4) Mixed hyperlipidemia Status: Acute Category: Medical Code(s): E78.2 - Mixed hyperlipidemia (5) CAD (coronary artery disease) Status: Acute Category: Medical Code(s): I25.10 - Atherosclerotic heart disease of [place] coronary artery without angina pectoris (6) Bilateral pneumonia Status: Acute Qualifiers: Pneumonia type: due to unspecified organism Lung location: lower lobe of lung Qualified Code(s): J18.9 - Pneumonia, unspecified organism Category: Medical Code(s): J18.9 - Pneumonia, unspecified organism (7) Hypoxia Status: Acute Category: Medical Code(s): R09.02 - Hypoxemia (8) Pneumonia due to COVID-19 virus Status: Acute Category: Medical Code(s): U07.1 - COVID-19; J12.82 - Pneumonia due to coronavirus disease 2019 - Assessment and plan all Dx Assessment and Plan for all problems:: 76-year-old male fully vaccinated with history of rheumatoid arthritis. Presented with COVID-19 pneumonia vs concern for post COVID pneumonia. Has remained clinically stable for the past 2 days. Stable oxygen requirement without fever. Improved tolerance of p.o. intake, decreased stool output, afebrile. Problems addressed as follows Pneumonia COVID-19 - Continue supplemental oxygen, goal saturation greater 92% - Continue antibi
--- NOTE | 2021-09-24 12:09 | PC.NURSE ---
attempted to call report to [facility]. no answer
[2021-09-24 18:49] LABS: POC Glucose,Bedside 121 (70-110)
--- NOTE | 2021-09-24 19:01 | PC.NURSE ---
PT IS 88% ON ROOM AIR WHILE AT REST.
--- NOTE | 2021-09-24 19:02 | PC.NURSE ---
PT IS AOX4, ABLE TO MAKE NEEDS KNOWN TO STAFF, HAS SPENT MOST OF SHIFT UP TO CHAIR AND TOLERATED WELL. HE HAS DENIED PAIN. NO N/V/D NOTED. HE HAS AMBULATED TO THE RESTROOM AND TOLERATED WELL.
[2021-09-24 21:19] LABS: POC Glucose,Bedside 192 (70-110)
[2021-09-25] VITALS: BP 120/64; PULSE 64; RESP 16; TEMP 36.4; O2SAT 95
--- NOTE | 2021-09-25 03:26 | PC.NURSE ---
Patient has remained on 2LNC. Patient has rested well. No acute events have occurred this far.
[2021-09-25 04:00] VITALS: BP 117/62; PULSE 69; RESP 16; TEMP 36.6; O2SAT 93
[2021-09-25 05:00] VITALS: BMI 25.0
[2021-09-25 05:44] LABS: POC Glucose,Bedside 124 (70-110)
--- NOTE | 2021-09-25 07:21 | HMH.DCSUM ---
General - General Admission date:: 09/21/21 Discharge date: 09/25/21 HPI HPI: 76 year old male with a history of RA on remicade, CAD, diabetes, HTN and HLD presented to PCP office for shortness of breath and weakness. He was seen in our office on 09/15 diagnosed with COVID-19 pneumonia. Started on doxycycline. Today, he reports worsening shortness of breath, dizziness, diarrhea with fecal incontinence, and weakness. He was found to be hypoxic with saturations 86%RA and crackles on exam. Unable to direct admit due to divert status. Patient was sent to [facility] ED where he was found to be hypoxic with bibasilar pneumonia. [facility] bed became available and patient was admitted with pneumonia for oxygen support, IV antibiotics and further evaluation. Hospital Course Hospital Course: 76-year-old male fully vaccinated with history of rheumatoid arthritis. Presented with COVID-19 pneumonia vs concern for post COVID pneumonia. Was treated as an outpatient with a week of doxycycline prior to returning to the office in worse respiratory distress. Was subsequently admitted to [facility] for inpatient management. Has shown gradual improvement over the course of the past 4 to 5 days with stable oxygen requirement. Physical therapy worked with him and he is walking a minimum of 75 feet. Diarrhea and nausea have improved significantly. Tolerating good p.o. intake and p.o. fluids. Has remained afebrile for more than 48 hours. Problems addressed inpatient include: Pneumonia COVID-19 - Continue supplemental oxygen, goal saturation greater 92%, set up for home oxygen with [facility] -Treated with 5 days of ceftriaxone, transition to cefdinir to complete 10-day course. Received 4 days of 500 mg azithromycin. Has completed this course of antibiotics. - Unable to obtain sputum culture -Given risk for DVT/PE with COVID-pneumonia and in the post COVID setting, initiated on Xarelto. Provided with a sample of 1 months worth of 10 mg daily. Will reevaluate use in the outpatient setting. Home medications were continued for blood pressure and cholesterol. Showed gradual improvement during admission. Will discharge home with family, patient to go to his son's house for a period of time to continue to convalesce. While there was question about going to a retirement, unable to get him placed due to his positive COVID status. Medically stable for discharge home. Examined on day of discharge. Counseled on medications and potential side effects. Objective Vital signs: Temp Pulse Resp BP Pulse Ox 97.8 F 69 16 117/62 93 L 09/25/21 04:00 09/25/21 04:00 09/25/21 04:00 09/25/21 04:00 09/25/21 04:00 Narrative: - Constitutional no acute distress on 2L NC average body habitus - *Routine HEENT Exam Head: Present: normocephalic Eye: Present: EOMI, PERRL ENT: Present: mucous membranes moist - *Routine Neck Exam Present: supple. Absent: lymphadenopathy - *Routine Respiratory Exam Good air movement bilaterally, improved crackles in right base more prominent than left. No wheeze or rhonchi - *Routine Cardiovascular Exam Present: RRR - *Routine Abdominal Exam Present: soft, normoactive bowel sounds. Absent: tenderness - *Routine Extremities Exam Absent: cyanosis, clubbing, edema - *Routine Skin Exam Present: warm. Absent: rash - *Routine Neurological Exam Present: alert, oriented X3 Results Labs on day of discharge: Labs from last 24 hours 09/25/21 09/24/21 09/24/21 05:36 20:49 17:52 POC Glucose 124 H 192 H 121 H Preliminary micro results at discharge 09/21/21 10:22 Blood Culture - Preliminary Blood NO GROWTH AFTER 48 HOURS 09/21/21 10:22 Blood Culture - Preliminary Blood NO GROWTH AFTER 48 HOURS DS: Diagnosis - Discharge Diagnosis (1) Rheumatoid arthritis Status: Acute (2) Type 2 diabetes mellitus Status: Acute (3) Essential hypertension St
[2021-09-25 07:39] VITALS: BP 108/62; PULSE 74; RESP 18; TEMP 36.6; O2SAT 89
[2021-09-25 07:43] LABS: Basophils # 0.1 K/mm3 (0-0.2); Basophils % 1.2 % (0.1-2.0); Eosinophils # 0.1 K/mm3 (0.0-0.4); Eosinophils % 0.6 % (0.1-12.0); Hematocrit 41.6 % (42.0-52.0); Hemoglobin 14.2 g/dL (14.1-18.0); Lymphocytes # 3.6 K/mm3 (0.7-4.5); Mean Corpuscular HGB Conc 34.2 g/dL (31.8-35.4); Mean Corpuscular Hemoglobin 31.4 pg (27.0-31.2); Mean Corpuscular Volume 91.9 fl (80-94); Mean Platelet Volume 8.1 fl (7.4-10.4); Monocytes # 0.4 K/mm3 (0.1-1.0); Monocytes % 3.9 % (1.7-9.3); Neutrophils # 5.8 K/mm3 (1.8-7.8); Neutrophils % 58.4 % (37.0-80.0); Platelet Count 387 K/mm3 (142-424); Red Blood Count 4.53 M/mm3 (4.60-6.20); Red Cell Distribution Width 13.4 % (11.5-17.5); White Blood Count 9.9 K/mm3 (4.8-10.8)
[2021-09-25 07:51] LABS: Alanine Aminotransferase 42 U/L (12-78); Albumin Level 3.1 g/dl (3.5-5.0); Alkaline Phosphatase 98 U/L (38-126); Aspartate Amino Transferase 46 U/L (17-59); Bilirubin,Total 0.7 mg/dl (0.2-1.3); Blood Urea Nitrogen 17 mg/dl (9-20); Calcium 8.6 mg/dl (8.4-10.2); Carbon Dioxide 30 mmol/L (22.0-30.0); Chloride 98 mmol/L (98-107); Creatinine Clearance Estimated 77 mL/min (50-200); Estimated Glomerular Filt Rate 110 ml/min (>60); GFR (African American) 133 ML/MIN (>60); Glucose 137 mg/dl (74-100); Magnesium 2.4 mg/dl (1.6-2.3); Sodium 134 mmol/L (136-145); Total Protein,Serum 6.1 g/dl (6.3-8.2)
--- NOTE | 2021-09-25 09:24 | P.PN_ITS ---
Internal Medicine - PN: Subj *Date: 09/25/21 *Time: 09:24 Exam Vital signs and Labs for Last 24 Hours: Temp Pulse Resp BP Pulse Ox 97.8 F 74 18 108/62 L 89 L 09/25/21 07:39 09/25/21 07:39 09/25/21 07:39 09/25/21 07:39 09/25/21 07:39 Laboratory Results - last 24 hr 09/24/21 17:52: POC Glucose 121 H 09/24/21 20:49: POC Glucose 192 H 09/25/21 05:36: POC Glucose 124 H 09/25/21 07:13: WBC 9.9, RBC 4.53 L, Hgb 14.2, Hct 41.6 L, MCV 91.9, MCH 31.4 H, MCHC 34.2, RDW 13.4, Plt Count 387 D, MPV 8.1, Neut % (Auto) 58.4, Lymph % (Auto) 36.0, [place] % (Auto) 3.9, Eos % (Auto) 0.6, Baso % (Auto) 1.2, Neut # (Auto) 5.8, Lymph # (Auto) 3.6, [place] # (Auto) 0.4, Eos # (Auto) 0.1, Baso # (Auto) 0.1 09/25/21 07:13: Sodium 134 L, Potassium 3.0 L, Chloride 98, Carbon Dioxide 30, Anion Gap 9.0, BUN 17, Creatinine 0.70, Estimated Creat Clear 77, Estimated GFR 110, Est GFR ( Amer) 133, Glucose 137 H, Calcium 8.6, Magnesium 2.4 H, Total Bilirubin 0.7, AST 46, ALT 42, Alkaline Phosphatase 98, Total Protein 6.1 L, Albumin 3.1 L, Globulin 3.0, Albumin/Globulin Ratio 1.0 L I & O for Last 24 hours: Intake & Output 09/22/21 09/23/21 09/24/21 09/25/21 23:59 23:59 23:59 23:59 Intake Total 1012 / 1012 720 / 720 1334 / 1364 210 / 210 Output Total 20 Balance 1012 / 1012 700 / 700 1334 / 1364 210 / 210 Weight 86 kg 83.688 kg 83.506 kg 84.056 kg Assessment and Plan (1) Rheumatoid arthritis Status: Acute Category: Medical Code(s): M06.9 - Rheumatoid arthritis, unspecified (2) Type 2 diabetes mellitus Status: Acute Category: Medical Code(s): E11.9 - Type 2 diabetes mellitus without complications (3) Essential hypertension Status: Acute Category: Medical Code(s): I10 - Essential (primary) hypertension (4) Mixed hyperlipidemia Status: Acute Category: Medical Code(s): E78.2 - Mixed hyperlipidemia (5) CAD (coronary artery disease) Status: Acute Category: Medical Code(s): I25.10 - Atherosclerotic heart disease of [place] coronary artery without angina pectoris (6) Bilateral pneumonia Status: Acute Qualifiers: Pneumonia type: due to unspecified organism Lung location: lower lobe of lung Qualified Code(s): J18.9 - Pneumonia, unspecified organism Category: Medical Code(s): J18.9 - Pneumonia, unspecified organism (7) Hypoxia Status: Acute Category: Medical Code(s): R09.02 - Hypoxemia (8) Pneumonia due to COVID-19 virus Status: Acute Category: Medical Code(s): U07.1 - COVID-19; J12.82 - Pneumonia due to coronavirus disease 2019 The patient's infection will respond to the chosen ABx?: Yes (BLOOD CULTURES NEGATIVE) Is the patient receiving the right drug, dose, and route?: Yes Could a more targeted ABx be ordered?: No
[2021-09-25 11:08] VITALS: BP 127/70; PULSE 71; RESP 17; TEMP 36.7; O2SAT 97
[2021-09-25 13:43] LABS: POC Glucose,Bedside 144 (70-110)
--- NOTE | 2021-09-27 16:40 | CARE MANAGER ---
Spoke with patient related to hospital discharge. Patient states that he was able to obtain his medication and home health showed up today. He is improving and his appetite is getting better. He denies any questions or concerns at this time. ILSA Langley
== END 2021-09-25 15:36 | disposition home health service (06) | DRG 177 ==
LOC: ER 11:43 → 2ND 12:41
PROVIDERS: Internal Medicine Adolescent Medicine; Admitting Provider Internal Medicine Adolescent Medicine; Emergency Provider Emergency Medicine; PCP Nurse Practitioner Family; Visit Provider Internal Medicine Adolescent Medicine
DX: U07.1 COVID-19 (principal); J12.82 Pneumonia due to coronavirus disease 2019; M06.9 Rheumatoid arthritis, unspecified; I10 Essential (primary) hypertension; Z87.442 Personal history of urinary calculi; E11.9 Type 2 diabetes mellitus without complications; Z79.84 Long term (current) use of oral hypoglycemic drugs; E78.2 Mixed hyperlipidemia; I25.10 Atherosclerotic heart disease of native coronary artery without angina pectoris
CPT/HCPCS: 36415; 71045; 80048; 80053; 82962; 83605; 83735; 84484; 85025; 87040; 87581; 87632; 87798; 93005; 94760; 96375; 97116; 97162; 97165; 97530; 97535; 99285; C9803; J0456; J0696; J2405; U0003; U0005

== ENCOUNTER → 2021-09-30 14:58 | Outpatient (CLI) | payer BC, MEDICARE, SELFPAY ==
[2021-09-30 16:33] LABS: Basophils # 0.2 K/mm3 (0-0.2); Basophils % 1.7 % (0.1-2.0); Eosinophils # 0.1 K/mm3 (0.0-0.4); Eosinophils % 0.7 % (0.1-12.0); Hematocrit 42.1 % (42.0-52.0); Hemoglobin 14.1 g/dL (14.1-18.0); Lymphocytes # 3.9 K/mm3 (0.7-4.5); Lymphocytes % 37.5 % (10-50); Mean Corpuscular HGB Conc 33.4 g/dL (31.8-35.4); Mean Corpuscular Hemoglobin 31.4 pg (27.0-31.2); Mean Platelet Volume 8.5 fl (7.4-10.4); Monocytes # 0.6 K/mm3 (0.1-1.0); Neutrophils # 5.7 K/mm3 (1.8-7.8); Neutrophils % 54.1 % (37.0-80.0); Platelet Count 417 K/mm3 (142-424); Red Blood Count 4.48 M/mm3 (4.60-6.20); Red Cell Distribution Width 13.5 % (11.5-17.5); White Blood Count 10.5 K/mm3 (4.8-10.8)
[2021-09-30 17:05] LABS: Alanine Aminotransferase 44 U/L (12-78); Albumin Level 3.6 g/dl (3.5-5.0); Albumin/Globulin Ratio 1.2 (1.1-1.8); Alkaline Phosphatase 87 U/L (38-126); Anion Gap 11.6 mEq/L (5-15); Aspartate Amino Transferase 51 U/L (17-59); Bilirubin,Total 0.5 mg/dl (0.2-1.3); Blood Urea Nitrogen 19 mg/dl (9-20); Calcium 10.3 mg/dl (8.4-10.2); Carbon Dioxide 33 mmol/L (22.0-30.0); Chloride 101 mmol/L (98-107); Estimated Glomerular Filt Rate 110 ml/min (>60); GFR (African American) 133 ML/MIN (>60); Globulin 2.9 g/dL (1.3-3.2); Glucose 113 mg/dl (74-100); Potassium 5.6 mmoL/L (3.5-5.1); Sodium 140 mmol/L (136-145); Total Protein,Serum 6.5 g/dl (6.3-8.2)
[2021-09-30 17:10] LABS: C-Reactive Protein 7.9 mg/L (0-4)
[2021-09-30 18:35] LABS: Erythrocyte Sedimentation Rate 69 mm/hr (0-20)
== END ==
PROVIDERS: Visit Provider Internal Medicine
DX: D89.9 Disorder involving the immune mechanism, unspecified (principal); H20.9 Unspecified iridocyclitis; M05.9 Rheumatoid arthritis with rheumatoid factor, unspecified
CPT/HCPCS: 36415; 80053; 85025; 85651; 86140

== ENCOUNTER → 2021-10-28 07:40 | Outpatient (CLI) | payer BC, SELFPAY ==
--- NOTE | 2021-10-28 07:44 | CT_ITS ---
FINAL REPORT TECHNIQUE: Axial CT images were performed from the lung apices through the upper abdomen. Coronal reformats were submitted. This study was performed with techniques to keep radiation doses as low as reasonably achievable (ALARA). Individualized dose reduction techniques using automated exposure control or adjustment of mA and/or kV according to the patient's size were employed. CLINICAL HISTORY: ABN FINDING OF LUNG FIELD,FATIGUE since covid COMPARISON: Chest x-ray from October 21, 2021 FINDINGS: There is evidence of median sternotomy. There is no axillary adenopathy. There is no hilar or mediastinal mass or adenopathy. Heart size is normal. There is no pericardial or pleural effusion. There is a probable cyst in the medial right hepatic lobe. There is an 11 mm mass in the posterior left kidney which does not have the appearance of a simple cyst, favor hyperdense cyst. There is moderate scarring, greatest in the lung bases. There is a calcified granuloma in the right lung base. IMPRESSION: Moderate scarring, greatest in the lung bases. Calcified granuloma right lung base. Posterior left renal mass, favor hyperdense cyst. Probable cyst in the medial right hepatic lobe. Reviewed, Interpreted and Dictated by Jose Angel Avila III, MD Transcribed by Zoey Delgado Authenticated and [facility]
== END ==
PROVIDERS: PCP Internal Medicine Adolescent Medicine; Visit Provider Internal Medicine
DX: R91.8 Other nonspecific abnormal finding of lung field (principal); D89.9 Disorder involving the immune mechanism, unspecified; R53.83 Other fatigue
CPT/HCPCS: 71250

== ENCOUNTER → 2021-11-26 08:34 | Outpatient (CLI) | payer BC, SELFPAY ==
[2021-11-26 09:22] LABS: Chloride 103 mmol/L (98-107)
[2021-11-26 09:23] LABS: Potassium 4.1 mmoL/L (3.5-5.1); Sodium 140 mmol/L (136-145)
[2021-11-26 09:25] LABS: Alanine Aminotransferase 24 U/L (12-78); Alkaline Phosphatase 82 U/L (38-126); Anion Gap 11.1 mEq/L (5-15); Aspartate Amino Transferase 34 U/L (17-59); Bilirubin,Total 0.5 mg/dl (0.2-1.3); Blood Urea Nitrogen 16 mg/dl (9-20); Carbon Dioxide 30 mmol/L (22.0-30.0); Cholesterol 159 mg/dl (140-200); Estimated Glomerular Filt Rate 82 ml/min (>60); GFR (African American) 100 ML/MIN (>60); Triglycerides 155 mg/dl (30-150); VLDL Cholesterol 31 mg/dL (0-40)
[2021-11-26 09:26] LABS: Albumin Level 4.1 g/dl (3.5-5.0); Albumin/Globulin Ratio 1.5 (1.1-1.8); Calcium 9.3 mg/dl (8.4-10.2); Chol/HDL Ratio 3.6 (1-3.5); Globulin 2.7 g/dL (1.3-3.2); Glucose 158 mg/dl (74-100); HDL Cholesterol 44 mg/dl (40-60); Total Protein,Serum 6.8 g/dl (6.3-8.2)
[2021-11-26 09:37] LABS: Direct LDL Cholesterol 89.12 mg/dL (100-129)
[2021-11-26 09:55] LABS: Hemoglobin A1C 6.9 % (4.0-6.0)
== END ==
PROVIDERS: PCP Internal Medicine Adolescent Medicine; Visit Provider Internal Medicine Adolescent Medicine
DX: I25.10 Atherosclerotic heart disease of native coronary artery without angina pectoris (principal); E11.9 Type 2 diabetes mellitus without complications; Z79.84 Long term (current) use of oral hypoglycemic drugs
CPT/HCPCS: 36415; 80053; 80061; 83036

== ENCOUNTER → 2021-12-23 10:51 | Outpatient (CLI) | payer BC, SELFPAY ==
--- NOTE | 2021-12-23 10:55 | FL_ITS ---
FINAL REPORT CLINICAL HISTORY: FT 1.06 FINDINGS: MODIFIED BARIUM SWALLOW History: Dysphagia FINDINGS: Fluoroscopy was provided for the speech pathologist to evaluate the swallowing mechanism. The patient was given several different consistencies of barium while the swallow was visualized fluoroscopically. The report of the speech pathologist should be consulted prior to making dietary decisions. FLUOROSCOPY TIME: 1.06 minutes IMPRESSION: Modified barium swallow under fluoroscopic guidance. Please see the report of the speech pathologist for Dietary recommendations. Films reviewed , interpreted and dictated by Dr. Avila Transcribed by Azael Tripp PA-C. Reviewed, Interpreted and Dictated by Jose Angel Avila III, MD Transcribed by RITA Gilmore Authenticated and [facility]
--- NOTE | 2021-12-23 11:50 | HMH.SLMBS2 ---
Speech & Language Evaluation Speech/Language Mod Barium Swallow Start: 12/23/21 11:28 Freq: once Status: Complete Protocol: Document 12/23/21 11:28 OVIDIO (Rec: 12/23/21 11:50 OVIDIO [id number]) General Information General Current Food Consistency Regular,Thin Liquids Dentition Poor Dentition Oxygen Status Room Air Facial Symmetry Symmetrical Patient Orientation Person,Place,Time,Situation Ability to Follow Directions Excellent Communication Ability No Impairment MBS Recommendations Diet Dietary Recommendations Regular,Thin Liquids Treatment/Strategies Strategy/Precaution Recommend Sitting Upright (90 deg),Small Bites and Sips,Alternate Liquids/Solids Mod Barium Swallow Impressions Summary and Impressions Oral Phase Impression No Impairment (WFL) Oral Phase Summary Oral phase was grossly within normal limits. Mastication and bolus formation was adequate. Pharyngeal Phase Impression Mild Impairment Pharyngeal Phase Summary During the pharyngeal phase of the swallow, pt was observed to have minimal residue at the base of tonuge, and in the pyriform sinuses with all consistenies trialed. There was significant vallecular residue following all trials of thin liquids that pt was able to clear independently with a second swallow. Pt exhibited slight penetration following presentations of thin liquids. During presentation of a pill, pt independently threw his head backward to clear, but was unsuccessful. Pt required three sips of thin liquids via straw to clear the pill from the valleculae. Speech/Language MBS Assessment/Goals/Plan Assessment Date of Evaluation: 12/23/21 Evaluation Type Initial Certification Assessment/Problems dysphagia per MD order. Does Patient Qualify for Service No Qualify/Failure Comment Based upon the results of the MBSS, pt does not qualify for further skilled ST services at this time. Recommendations PHYSICIAN CERTIFICATION: The specified therapy services are required,
== END ==
PROVIDERS: PCP Internal Medicine Adolescent Medicine; Visit Provider Internal Medicine Adolescent Medicine
DX: R13.10 Dysphagia, unspecified (principal); R50.9 Fever, unspecified
CPT/HCPCS: 70371; 92611

== ENCOUNTER → 2022-07-02 12:04 | Outpatient (CLI) | payer BC, SELFPAY ==
[2022-07-02 12:40] LABS: Basophils # 0.1 K/mm3 (0-0.2); Basophils % 0.8 % (0.1-2.0); Eosinophils # 0.2 K/mm3 (0.0-0.4); Eosinophils % 1.7 % (0.1-12.0); Hematocrit 44.8 % (42.0-52.0); Hemoglobin 14.8 g/dL (14.1-18.0); Lymphocytes # 3.4 K/mm3 (0.7-4.5); Lymphocytes % 33.6 % (10-50); Mean Corpuscular HGB Conc 33.1 g/dL (31.8-35.4); Mean Corpuscular Hemoglobin 30.5 pg (27.0-31.2); Mean Corpuscular Volume 92.1 fl (80-94); Mean Platelet Volume 8.5 fl (7.4-10.4); Monocytes # 0.4 K/mm3 (0.1-1.0); Monocytes % 3.8 % (1.7-9.3); Neutrophils # 6.1 K/mm3 (1.8-7.8); Neutrophils % 60.2 % (37.0-80.0); Platelet Count 180 K/mm3 (142-424); Red Blood Count 4.87 M/mm3 (4.60-6.20); Red Cell Distribution Width 13.5 % (11.5-17.5); White Blood Count 10.1 K/mm3 (4.8-10.8)
[2022-07-02 13:16] LABS: Alanine Aminotransferase 23 U/L (12-78); Albumin Level 3.9 g/dl (3.5-5.0); Albumin/Globulin Ratio 1.5 (1.1-1.8); Alkaline Phosphatase 77 U/L (38-126); Anion Gap 8.3 mEq/L (5-15); Aspartate Amino Transferase 24 U/L (17-59); Bilirubin,Total 0.8 mg/dl (0.2-1.3); Blood Urea Nitrogen 16 mg/dl (9-20); Calcium 8.9 mg/dl (8.4-10.2); Carbon Dioxide 30 mmol/L (22.0-30.0); Chloride 106 mmol/L (98-107); Chol/HDL Ratio 3.4 (1-3.5); Cholesterol 147 mg/dl (140-200); Estimated Glomerular Filt Rate 82 ml/min (>60); GFR (African American) 100 ML/MIN (>60); Globulin 2.6 g/dL (1.3-3.2); Glucose 137 mg/dl (74-100); HDL Cholesterol 43 mg/dl (40-60); Potassium 4.3 mmoL/L (3.5-5.1); Sodium 140 mmol/L (136-145); Total Protein,Serum 6.5 g/dl (6.3-8.2); Triglycerides 212 mg/dl (30-150); VLDL Cholesterol 42 mg/dL (0-40)
[2022-07-02 13:24] LABS: C-Reactive Protein 76.8 mg/L (0-4)
[2022-07-02 13:32] LABS: Hemoglobin A1C 7.7 % (4.0-6.0)
[2022-07-02 13:42] LABS: Erythrocyte Sedimentation Rate 18 mm/hr (0-20)
== END ==
PROVIDERS: PCP Internal Medicine Adolescent Medicine; Visit Provider Nurse Practitioner Family
DX: I25.10 Atherosclerotic heart disease of native coronary artery without angina pectoris (principal); E11.9 Type 2 diabetes mellitus without complications; E78.5 Hyperlipidemia, unspecified; D89.9 Disorder involving the immune mechanism, unspecified; H20.9 Unspecified iridocyclitis; M05.9 Rheumatoid arthritis with rheumatoid factor, unspecified; R53.83 Other fatigue; Z68.25 Body mass index [BMI] 25.0-25.9, adult
CPT/HCPCS: 36415; 80053; 80061; 83036; 85025; 85651; 86140

== ENCOUNTER 2022-08-09 16:00 | Outpatient (RCR) | payer BC, SELFPAY ==
--- NOTE | 2022-07-13 16:03 | HMH.PTOPWND ---
Rehab Outpt Wound Evaluation Rehab OP Wound Evaluation Start: 07/13/22 14:50 Freq: Status: Active Protocol: Document 07/13/22 15:39 PHORNE (Rec: 07/13/22 16:03 PHORNE [id number]) E-signed By Deangelo Meneses, PT Subjective/History History History This is the initial PT eval for Kris Sebastian 77 yowm who presents with B LE increased edema for > 20 yrs and L LE worse more recently than R. He reports no c/o pain in either LE. He does report numbness/ tingling in B feet due to diabetic neuropathy. He also reports intermittent feeling of discoordinated gait. However he reports prior significant hx of low back pain, but no pain in the past 1-2 yrs. 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 He has PMH of RA, CAD with CABG x 2v, DM-II, HTN, HL. Subjective Subjective Currently 0/10 pain in L LE. 0 /4 TTP noted in L LE. 2+ pitting edema noted in L LE from knee distally. Significant blue telangiectasia noted to L foot and ankle, but pt has no hx of venous ulcers. Lymphedema Eval Classification of Lymphedema Secondary Lymphedema Yes: CVI Stemmer's sign Stemmer's Sign yes Stage of Lymphedema Lymphedema stages Stage I (Pitting edema, reduces w/ elevation, no fibrosis) Skin Changes Dry Skin Yes Taut, Shiny Skin Yes Redness Yes Discoloration of Skin Yes Other Changes Yes Pain Scale Pain Scale (0-10) 0 Affected Extremities Areas Affected by Lymphedema/Edema Right Lower Extremity,Left Lower Extremity Manual Lymphatic Drainage Treatment Area MLD Treatment Area Right Lower Extremity,Left Lower Extremity Wound Problems/Impairments Impairments Problems/Impairmments Impaired Walking,Impaired Sitting,Impaired Recreational Activities,Impaired Desk/ Computer
== END 2022-08-09 16:05 | disposition home or self-care (01) ==
LOC: PT 16:00
PROVIDERS: PCP Internal Medicine Adolescent Medicine; Visit Provider Internal Medicine Adolescent Medicine
DX: I89.0 Lymphedema, not elsewhere classified (principal); R26.9 Unspecified abnormalities of gait and mobility
CPT/HCPCS: 97140; 97162

== ENCOUNTER → 2022-11-12 09:46 | Outpatient (CLI) | payer BC, SELFPAY ==
[2022-11-12 10:05] LABS: Basophils # 0.1 K/mm3 (0-0.2); Basophils % 0.6 % (0.1-2.0); Eosinophils # 0.1 K/mm3 (0.0-0.4); Eosinophils % 1.2 % (0.1-12.0); Hematocrit 44.3 % (42.0-52.0); Hemoglobin 14.2 g/dL (14.1-18.0); Lymphocytes # 5.8 K/mm3 (0.7-4.5); Mean Corpuscular HGB Conc 32.1 g/dL (31.8-35.4); Mean Corpuscular Hemoglobin 29.3 pg (27.0-31.2); Mean Corpuscular Volume 91.2 fl (80-94); Mean Platelet Volume 7.7 fl (7.4-10.4); Monocytes # 0.5 K/mm3 (0.1-1.0); Monocytes % 4.6 % (1.7-9.3); Neutrophils % 38.4 % (37.0-80.0); Platelet Count 166 K/mm3 (142-424); Red Blood Count 4.85 M/mm3 (4.60-6.20); Red Cell Distribution Width 13.4 % (11.5-17.5); White Blood Count 10.5 K/mm3 (4.8-10.8)
[2022-11-12 10:10] LABS: MANUAL DIFFERENTIAL MANUAL DIFFERENTIAL (MANUAL DIFF)
[2022-11-12 10:32] LABS: Chol/HDL Ratio 3.3 (1-3.5); Cholesterol 144 mg/dl (140-200); HDL Cholesterol 43 mg/dl (40-60); Triglycerides 181 mg/dl (30-150); VLDL Cholesterol 36 mg/dL (0-40)
[2022-11-12 10:33] LABS: Alanine Aminotransferase 29 U/L (12-78); Albumin Level 4.1 g/dl (3.5-5.0); Albumin/Globulin Ratio 1.6 (1.1-1.8); Alkaline Phosphatase 91 U/L (38-126); Anion Gap 13.4 mEq/L (5-15); Aspartate Amino Transferase 27 U/L (17-59); Bilirubin,Total 0.4 mg/dl (0.2-1.3); Blood Urea Nitrogen 15 mg/dl (9-20); Calcium 8.8 mg/dl (8.4-10.2); Carbon Dioxide 28 mmol/L (22.0-30.0); Chloride 105 mmol/L (98-107); Erythrocyte Sedimentation Rate 13 mm/hr (0-20); Estimated Glomerular Filt Rate 82 ml/min (>60); GFR (African American) 100 ML/MIN (>60); Globulin 2.6 g/dL (1.3-3.2); Glucose 174 mg/dl (74-100); Potassium 4.4 mmoL/L (3.5-5.1); Sodium 142 mmol/L (136-145); Total Protein,Serum 6.7 g/dl (6.3-8.2)
[2022-11-12 10:37] LABS: Hemoglobin A1C 8.5 % (4.0-6.0)
[2022-11-12 10:38] LABS: C-Reactive Protein 1.5 mg/L (0-4)
[2022-11-12 10:43] LABS: Direct LDL Cholesterol 70.73 mg/dL (100-129)
[2022-11-12 10:50] LABS: Eosinophils % 1 % (0-3); Lymphocytes % 51 % (10-50); Monocytes % 2 % (2-9); Neutrophils % 46 % (42-76); Total Cells Counted 100
[2022-11-12 10:51] LABS: Platelet Estimate Normal
== END ==
PROVIDERS: PCP Internal Medicine Adolescent Medicine; Visit Provider Internal Medicine
DX: I25.10 Atherosclerotic heart disease of native coronary artery without angina pectoris (principal); E11.9 Type 2 diabetes mellitus without complications; E78.5 Hyperlipidemia, unspecified; D84.821 Immunodeficiency due to drugs; H20.9 Unspecified iridocyclitis; M05.9 Rheumatoid arthritis with rheumatoid factor, unspecified; Z79.84 Long term (current) use of oral hypoglycemic drugs
CPT/HCPCS: 36415; 80053; 80061; 83036; 85007; 85025; 85651; 86140

== ENCOUNTER 2023-01-17 10:24 | Day surgery (SDC) | payer BC, SELFPAY ==
[2023-01-16 12:55] VITALS: BMI 26.4
[2023-01-17 10:38] VITALS: BP 155/62; PULSE 55; RESP 16; TEMP 36.1; O2SAT 98
--- NOTE | 2023-01-17 10:38 | EXP.ANES.CKL ---
[facility] Disclaimer: The information contained in this section may have been updated after the patient was seen, as this information can be updated by other users. Medical History (Updated 01/16/23 @ 12:52 by Atilio Redmond RN) CAD (coronary artery disease) Diabetes History of lower leg fracture History of salivary gland disease HLD (hyperlipidemia) HTN (hypertension) Surgical History History of coronary artery bypass graft History of tonsillectomy Family History Other Family history of cancer Family history of diabetes mellitus Family history of heart disease Social History Smoking Status: Never smoker alcohol intake: never substance use type: other current occupational status: employed Travel in the last 8 weeks: None housing: house caffeine: Yes [facility] Anesthesia Checklist Patient Identification Patient Identification: Arm Band and Verbal (Name & ) Structural Data Admitted From: Home Planned Operative Procedure/s: colonoscopy Consent for Planned Operative Procedure(s) Verified: Yes Verified Documents: Surgical Consent NPO Status Verified Time NPO: 06:00 Additional verifications Anesthesia Reactions: No Hx Blood Transfusions: No Blood Transfusion Reaction: No Previous Colonoscopy: Yes Airway Assessment Mallampati Score:: Class I C-Spine Mobility Assessed: Yes TMJ Mobility Assessed: Yes Neurological Assessment Level of Consciousness: Awake and Alert Anesthesia Plan Anesthesia Risk discussed: Yes ASA Class: III Anesthesia Type: IV sedation
--- NOTE | 2023-01-17 10:40 | P.PCN_ITS ---
Procedure: Date: 01/17/23 Patient Date of :: 1945 Procedure Performed:: Colonoscopy Indications:: History of colon polyps Note: Last colonoscopy in January 2020 was somewhat complicated by moderate dea wel preparation and lack of relaxation. He did have adenomatous polyps excised from the transverse colon and at 45 cm. Performing Provider:: Earle Kemp MD Referring Provider:: . Sedation:: Monitored anesthesia care Procedure:: After informed consent was obtained the patient was taken to the endoscopy suite. Sedation ensued after the patient was transferred to the left lateral decubitus position. Pulse, blood pressure, and oxygen saturation were monitored throughout the procedure. Digital rectal exam revealed no significant abnormality. The colonoscope was placed in position. The entire colon was evaluated. The colonoscope was carefully removed and the patient was transferred to recovery in stable condition. Please see findings and specimens below for detail. Findings:: Moderate to poor bowel preparation Profound lack of relaxation/spasticity Polyp at 55 cm Specimens:: Polyp at 55 cm (cold snare) Recommendations:: Timing of repeat colonoscopy is pending pathology will likely be around 1-2 years with extended/alternate prep. Consider barium enema secondary to history of profound lack of relaxation/spasticity Complications:: No immediate Estimated blood obtained (mL): 1 Colonoscopy Component Colonoscopy Component Was a colonoscopy performed during today's procedure?: Yes Recommended follow up colonoscopy of at least 10 years?: No If no, follow up colonoscopy recommended in ___ years?: 1-2 Reason for not recommending >/= 10 yr follow-up interval?: History of colon polyps; moderate to poor prep; profound lack of relaxation/spasticity
[2023-01-17 10:48] VITALS: O2SAT 98
[2023-01-17 11:19] VITALS: BP 114/62; PULSE 59; RESP 15; TEMP 521.6; TEMP 971; O2SAT 100
[2023-01-17 11:29] VITALS: BP 122/63; PULSE 58; RESP 16; O2SAT 99
[2023-01-17 11:39] VITALS: BP 126/68; PULSE 61; RESP 17; O2SAT 99
[2023-01-18 11:49] VITALS: BP 121/62; PULSE 56; RESP 17; O2SAT 98
[2023-01-19 08:50] LABS: POC Glucose,Bedside 86 (70-110)
== END 2023-01-17 12:00 | disposition home or self-care (01) ==
PROVIDERS: PCP Internal Medicine Adolescent Medicine; Visit Provider Surgery
PROC: 0DJD8ZZ Inspection of Lower Intestinal Tract, Via Natural or Artificial Opening Endoscopic (ICD-10-PCS; CPT 45385; principal; 2023-01-17 11:30)
DX: Z12.11 Encounter for screening for malignant neoplasm of colon (principal); Z86.010 Personal history of colon polyps; K63.5 Polyp of colon; E11.9 Type 2 diabetes mellitus without complications
CPT/HCPCS: 45385; 82962

== ENCOUNTER → 2023-02-25 09:11 | Outpatient (CLI) | payer BC, SELFPAY ==
--- OUTSIDE RECORDS SUMMARY | 2023-02-25 09:14 | XMS_ITS | Continuity of Care Document ---
Author Name Unknown Organization [facility] Address [address] [place] [phone] Phone Care Team Providers Care Psychiatry Resident Name Role Phone Jason Chang DO Unavailable Unavailable Allergies, Adverse Reactions, Alerts Substance Reaction Status Criticality No Known Allergies Active No Inform ation Medications Medication Instructions Dosage Effective Dates (start - stop) Status Comments Pred Mild 0.12 % eye drops,suspension instill 1 drop by ophthalmic route 2 times every day into affected eye(s) 1.00 drop - Active Tradjenta 5 mg tablet take 1 tablet by oral route every day 5 MG - Active lisinopril 5 mg tablet take 1 tablet by oral route every day 5 MG - Active Jardiance 25 mg tablet take 1 tablet by oral route every day in the morning 25 MG - Active metformin 1,000 mg tablet take 2 tablet by oral route every day with morning and evening meals 2000 MG - Active Nitrostat 0.[address] 1 tablet by sublingual route every 5 minutes as needed for chest pain. Do not exceed 3 doses in 15 minutes. as needed 0.4 MG - Active
--- OUTSIDE RECORDS SUMMARY | 2023-02-25 09:15 | XMS_ITS | Patient Health Record ---
Author Name Unknown Organization [facility] Address [address] [place] [address] Care Team Providers Care Recordings Librarian Name Role Phone Justino Buchanan Primary Care Provider ALLERGIES No Known Allergies RESULTS Component Value Reference Range Notes M-Complete Blood Count Auto Diff Reviewed date:07/03/2022 03:34:57 PM Interpretation: Performing Lab: Notes/Report: WBC 10.1 4.8-10.8 K/mm3 RBC 4.87 4.60-6.20 M/mm3 HGB 14.8 14.1-18.0 g/dL HCT 44.8 42.0-52.0 % MCV 92.1 80-94 fl MCH 30.5 27.0-31.2 pg MCHC 33.1 31.8-35.4 g/dL RDW 13.5 11.5-17.5 % PLT 180 142-424 K/mm3 MPV 8.5 7.4-10.4 fl NE% 60.2 37.0-80.0 % LY% 33.6 10-50 % MO% 3.8 1.7-9.3 % EO% 1.7 0.1-12.0 % BA% 0.8 0.1-2.0 % NE# 6.1 1.8-7.8 K/mm3 LY# 3.4 0.7-4.5 K/mm3 MO# 0.4 0.1-1.0 K/mm3 EO# 0.2 0.0-0.4 K/mm3 BA# 0.1 0-0.2 K/mm3 M-Comprehensive Metabolic Pa jil Reviewed date:07/03/2022 03:34:57 PM Interpr
[2023-02-25 09:32] LABS: Basophils # 0.1 K/mm3 (0-0.2); Basophils % 0.9 % (0.1-2.0); Eosinophils # 0.1 K/mm3 (0.0-0.4); Eosinophils % 1.1 % (0.1-12.0); Hematocrit 48.4 % (42.0-52.0); Lymphocytes # 6.9 K/mm3 (0.7-4.5); Mean Corpuscular Hemoglobin 29.7 pg (27.0-31.2); Mean Corpuscular Volume 95.5 fl (80-94); Mean Platelet Volume 8.9 fl (7.4-10.4); Monocytes # 0.5 K/mm3 (0.1-1.0); Monocytes % 4.3 % (1.7-9.3); Neutrophils # 3.9 K/mm3 (1.8-7.8); Neutrophils % 33.7 % (37.0-80.0); Platelet Count 193 K/mm3 (142-424); Red Blood Count 5.06 M/mm3 (4.60-6.20); Red Cell Distribution Width 13.7 % (11.5-17.5); White Blood Count 11.5 K/mm3 (4.8-10.8)
[2023-02-25 09:34] LABS: MANUAL DIFFERENTIAL MANUAL DIFFERENTIAL (MANUAL DIFF)
[2023-02-25 10:19] LABS: Hemoglobin A1C 8.1 % (4.0-6.0)
[2023-02-25 10:48] LABS: Chloride 106 mmol/L (98-107); Sodium 143 mmol/L (136-145)
[2023-02-25 10:50] LABS: Alanine Aminotransferase 35 U/L (12-78); Aspartate Amino Transferase 26 U/L (17-59); Blood Urea Nitrogen 15 mg/dl (9-20); Estimated Glomerular Filt Rate 82 ml/min (>60); GFR (African American) 100 ML/MIN (>60)
[2023-02-25 10:51] LABS: Albumin/Globulin Ratio 1.4 (1.1-1.8); Alkaline Phosphatase 86 U/L (38-126); Bilirubin,Total 0.3 mg/dl (0.2-1.3); Carbon Dioxide 28 mmol/L (22.0-30.0); Chol/HDL Ratio 3.5 (1-3.5); Cholesterol 177 mg/dl (140-200); Globulin 2.8 g/dL (1.3-3.2); Glucose 192 mg/dl (74-100); HDL Cholesterol 51 mg/dl (40-60); Total Protein,Serum 6.8 g/dl (6.3-8.2); Triglycerides 146 mg/dl (30-150); VLDL Cholesterol 29 mg/dL (0-40)
[2023-02-25 11:02] LABS: Direct LDL Cholesterol 94.59 mg/dL (100-129)
[2023-02-25 14:13] LABS: Eosinophils % 1 % (0-3); Lymphocytes % 70 % (10-50); Monocytes % 1 % (2-9); Neutrophils % 28 % (42-76); Total Cells Counted 100
[2023-02-25 14:14] LABS: Platelet Estimate Normal; RBC Morphology Normal
== END ==
PROVIDERS: PCP Internal Medicine Adolescent Medicine; Visit Provider Internal Medicine Adolescent Medicine
DX: I25.10 Atherosclerotic heart disease of native coronary artery without angina pectoris (principal); E11.9 Type 2 diabetes mellitus without complications; Z79.84 Long term (current) use of oral hypoglycemic drugs; Z79.899 Other long term (current) drug therapy
CPT/HCPCS: 36415; 80053; 80061; 83036; 85007; 85025

== ENCOUNTER → 2023-03-25 09:02 | Outpatient (CLI) | payer BC, SELFPAY ==
[2023-03-25 11:03] LABS: Blood Urea Nitrogen 16 mg/dl (9-20); Estimated Glomerular Filt Rate 73 ml/min (>60); GFR (African American) 88 ML/MIN (>60)
== END ==
PROVIDERS: PCP Internal Medicine Adolescent Medicine; Visit Provider Nurse Practitioner
DX: Z01.812 Encounter for preprocedural laboratory examination (principal); H80.93 Unspecified otosclerosis, bilateral
CPT/HCPCS: 36415; 82565; 84520

== ENCOUNTER → 2023-04-04 15:17 | Outpatient (CLI) | payer BC, SELFPAY ==
--- NOTE | 2023-04-04 15:18 | MR_ITS ---
FINAL REPORT CLINICAL HISTORY: Otosclerosis.DIZZINESS COMPARISON: None FINDINGS: Multiplanar MR imaging of the brain was performed without and with contrast. There are a few tiny subtle foci of abnormal signal in the deep white matter bilaterally. There is no evidence of intracranial hemorrhage or mass. No abnormal extra-axial fluid collection is seen. The ventricular size is within normal limits. There is no evidence of shift of the midline structures. The posterior fossa and brainstem have an unremarkable appearance. No area of abnormal restricted diffusion is identified. No abnormal contrast enhancement is seen. Normal major vessel vascular flow voids are noted. 7th and 8th nerve root complexes appear intact. Paranasal sinuses have normal signal void. The mastoid air cells are well aerated. IMPRESSION: No acute intracranial abnormality identified. Reviewed, Interpreted and Dictated by Guanakito Ayers MD Transcribed by Zoey Delgado Authenticated and . [facility]
== END ==
PROVIDERS: PCP Internal Medicine Adolescent Medicine; Visit Provider Nurse Practitioner
DX: H80.90 Unspecified otosclerosis, unspecified ear (principal); H93.13 Tinnitus, bilateral
CPT/HCPCS: 70553; A9576

== ENCOUNTER 2023-06-05 13:11 | Outpatient (POV) | payer BC, SELFPAY | END 2023-06-05 23:59 | disposition home or self-care (01) | LOC: SC 13:12 | PROVIDERS: Visit Provider Specialist/Technologist | DX: Z00.00 Encounter for general adult medical examination without abnormal findings (principal) ==

== ENCOUNTER 2023-07-08 08:57 | Outpatient (CLI) | payer BC, SELFPAY ==
[2023-07-08 09:25] LABS: Basophils # 0.1 K/mm3 (0-0.2); Basophils % 0.5 % (0.1-2.0); Eosinophils # 0.1 K/mm3 (0.0-0.4); Eosinophils % 0.8 % (0.1-12.0); Hematocrit 44.4 % (42.0-52.0); Hemoglobin 15.1 g/dL (14.1-18.0); Lymphocytes # 8.9 K/mm3 (0.7-4.5); Lymphocytes % 62.6 % (10-50); Mean Corpuscular HGB Conc 34.1 g/dL (31.8-35.4); Mean Corpuscular Hemoglobin 31.8 pg (27.0-31.2); Mean Corpuscular Volume 93.2 fl (80-94); Mean Platelet Volume 9.5 fl (7.4-10.4); Monocytes # 0.5 K/mm3 (0.1-1.0); Monocytes % 3.7 % (1.7-9.3); Neutrophils # 4.6 K/mm3 (1.8-7.8); Neutrophils % 32.4 % (37.0-80.0); Platelet Count 194 K/mm3 (142-424); Red Blood Count 4.77 M/mm3 (4.60-6.20); Red Cell Distribution Width 13.6 % (11.5-17.5); White Blood Count 14.3 K/mm3 (4.8-10.8)
[2023-07-08 09:31] LABS: MANUAL DIFFERENTIAL MANUAL DIFFERENTIAL (MANUAL DIFF)
[2023-07-08 10:16] LABS: Hemoglobin A1C 8.6 % (4.0-6.0)
[2023-07-08 10:25] LABS: Chloride 105 mmol/L (98-107); Potassium 4.5 mmoL/L (3.5-5.1); Sodium 141 mmol/L (136-145)
[2023-07-08 10:28] LABS: Alanine Aminotransferase 37 U/L (12-78); Albumin Level 4.1 g/dl (3.5-5.0); Albumin/Globulin Ratio 1.6 (1.1-1.8); Alkaline Phosphatase 95 U/L (38-126); Anion Gap 7.5 mEq/L (5-15); Aspartate Amino Transferase 31 U/L (17-59); Bilirubin,Total 0.6 mg/dl (0.2-1.3); Blood Urea Nitrogen 14 mg/dl (9-20); Calcium 9.1 mg/dl (8.4-10.2); Carbon Dioxide 33 mmol/L (22.0-30.0); Chol/HDL Ratio 5.1 (1-3.5); Cholesterol 147 mg/dl (140-200); Estimated Glomerular Filt Rate 73 ml/min (>60); GFR (African American) 88 ML/MIN (>60); Globulin 2.6 g/dL (1.3-3.2); Glucose 167 mg/dl (74-100); HDL Cholesterol 29 mg/dl (40-60); Total Protein,Serum 6.7 g/dl (6.3-8.2); Triglycerides 241 mg/dl (30-150); VLDL Cholesterol 48 mg/dL (0-40)
[2023-07-08 10:58] LABS: Direct LDL Cholesterol 79.04 mg/dL (100-129)
[2023-07-08 15:51] LABS: Anisocytosis 2+; Hypochromasia 1+; Lymphocytes % 46 % (10-50); Microcytosis 1+; Monocytes % 10 % (2-9); Neutrophils % 44 % (42-76); Platelet Estimate Slight Decrease; Total Cells Counted 100
== END 2023-07-08 23:59 ==
LOC: LAB 08:58
PROVIDERS: PCP Internal Medicine Adolescent Medicine; Visit Provider Internal Medicine Adolescent Medicine
DX: E11.59 Type 2 diabetes mellitus with other circulatory complications (principal); I25.10 Atherosclerotic heart disease of native coronary artery without angina pectoris; Z79.84 Long term (current) use of oral hypoglycemic drugs
CPT/HCPCS: 36415; 80053; 80061; 83036; 85007; 85025

== ENCOUNTER 2023-10-06 08:53 | Outpatient (CLI) | payer BC, SELFPAY ==
[2023-10-06 10:18] LABS: Hemoglobin A1C 7.3 % (4.0-6.0)
[2023-10-06 10:33] LABS: Alanine Aminotransferase 27 U/L (12-78); Albumin Level 4.1 g/dl (3.5-5.0); Albumin/Globulin Ratio 2.1 (1.1-1.8); Alkaline Phosphatase 71 U/L (38-126); Anion Gap 9.5 mEq/L (5-15); Aspartate Amino Transferase 26 U/L (17-59); Bilirubin,Total 0.5 mg/dl (0.2-1.3); Blood Urea Nitrogen 19 mg/dl (9-20); Carbon Dioxide 29 mmol/L (22.0-30.0); Chloride 105 mmol/L (98-107); Estimated Glomerular Filt Rate 65 ml/min (>60); GFR (African American) 79 ML/MIN (>60); Glucose 130 mg/dl (74-100); Potassium 4.5 mmoL/L (3.5-5.1); Sodium 139 mmol/L (136-145); Total Protein,Serum 6.1 g/dl (6.3-8.2)
[2023-10-06 10:49] LABS: T4 (Thyroxine) 8.6 ug/dl (5.53-11.0)
== END 2023-10-06 23:59 | disposition home or self-care (01) ==
LOC: LAB 08:55
PROVIDERS: PCP Internal Medicine Adolescent Medicine; Visit Provider Internal Medicine Adolescent Medicine
DX: E11.59 Type 2 diabetes mellitus with other circulatory complications (principal); E04.1 Nontoxic single thyroid nodule; Z79.84 Long term (current) use of oral hypoglycemic drugs
CPT/HCPCS: 36415; 80053; 83036; 84436; 84443

== ENCOUNTER 2023-10-20 09:09 | Outpatient (CLI) | payer BC, SELFPAY ==
[2023-10-20 09:17] LABS: Adenovirus F 40/41, stool Not Detected (NotDetected); Astrovirus Not Detected (NotDetected); Campylobacter Not Detected (NotDetected); Clostridium Difficile A/B, PCR Not Detected (NotDetected); Cryptosporidium Not Detected (NotDetected); Cyclospora Cayetanesis Not Detected (NotDetected); Entamoeba histolytica Not Detected (NotDetected); Enteroaggregative E coli Not Detected (NotDetected); Enteropathogenic E coli Not Detected (NotDetected); Enterotoxigenic E coli Not Detected (NotDetected); Giardia lamblia Not Detected (NotDetected); Norovirus Not Detected (NotDetected); Plesimonas Shigalloides, PCR Not Detected (NotDetected); Rotavirus A Not Detected (NotDetected); Salmonella, PCR Not Detected (NotDetected); Sapovirus Not Detected (NotDetected); Shiga-like toxin E coli Not Detected (NotDetected); Shigella Enterovasive E coli Not Detected (NotDetected); Vibrio Cholerae Not Detected (NotDetected); Vibrio, PCR Not Detected (NotDetected); Yersinia Entercolitica, PCR Not Detected (NotDetected)
[2023-10-25 01:09] LABS: Lactoferrin, Fecal, Quant. <1.00 ug/mL(g) (0.00-7.24)
== END 2023-10-20 23:59 | disposition home or self-care (01) ==
LOC: LAB.DROPOF 09:10
PROVIDERS: PCP Internal Medicine Adolescent Medicine; Visit Provider Internal Medicine Adolescent Medicine
DX: R19.7 Diarrhea, unspecified (principal)
CPT/HCPCS: 83630; 87205; 87507

== ENCOUNTER 2024-01-12 08:25 | Outpatient (CLI) | payer BC, SELFPAY ==
[2024-01-12 08:54] LABS: Basophils # 0.1 K/mm3 (0-0.2); Basophils % 0.8 % (0.1-2.0); Eosinophils # 0.1 K/mm3 (0.0-0.4); Eosinophils % 0.6 % (0.1-12.0); Hematocrit 45.8 % (42.0-52.0); Hemoglobin 14.8 g/dL (14.1-18.0); Lymphocytes # 8.1 K/mm3 (0.7-4.5); Lymphocytes % 65.5 % (10-50); Mean Corpuscular HGB Conc 32.2 g/dL (31.8-35.4); Mean Corpuscular Hemoglobin 31.2 pg (27.0-31.2); Mean Corpuscular Volume 96.9 fl (80-94); Mean Platelet Volume 8.6 fl (7.4-10.4); Monocytes # 0.4 K/mm3 (0.1-1.0); Monocytes % 3.3 % (1.7-9.3); Neutrophils # 3.7 K/mm3 (1.8-7.8); Neutrophils % 29.8 % (37.0-80.0); Platelet Count 154 K/mm3 (142-424); Red Blood Count 4.73 M/mm3 (4.60-6.20); Red Cell Distribution Width 14.2 % (11.5-17.5); White Blood Count 12.4 K/mm3 (4.8-10.8)
[2024-01-12 08:58] LABS: MANUAL DIFFERENTIAL MANUAL DIFFERENTIAL (MANUAL DIFF)
[2024-01-12 09:32] LABS: Chloride 107 mmol/L (98-107); Sodium 140 mmol/L (136-145)
[2024-01-12 09:33] LABS: Potassium 4.3 mmoL/L (3.5-5.1)
[2024-01-12 09:35] LABS: Alanine Aminotransferase 33 U/L (12-78); Albumin/Globulin Ratio 1.5 (1.1-1.8); Alkaline Phosphatase 73 U/L (38-126); Anion Gap 7.3 mEq/L (5-15); Aspartate Amino Transferase 28 U/L (17-59); Bilirubin,Total 0.6 mg/dl (0.2-1.3); Blood Urea Nitrogen 17 mg/dl (9-20); Carbon Dioxide 30 mmol/L (22.0-30.0); Cholesterol 175 mg/dl (140-200); Estimated Glomerular Filt Rate 94 ml/min (>60); GFR (African American) 114 ML/MIN (>60); Globulin 2.7 g/dL (1.3-3.2); Total Protein,Serum 6.7 g/dl (6.3-8.2); Triglycerides 187 mg/dl (30-150); VLDL Cholesterol 37 mg/dL (0-40)
[2024-01-12 09:36] LABS: Calcium 8.8 mg/dl (8.4-10.2); Chol/HDL Ratio 4.1 (1-3.5); Glucose 156 mg/dl (74-100); HDL Cholesterol 43 mg/dl (40-60)
[2024-01-12 09:42] LABS: Triiodothryronine (T3) Uptake 31 % (23.5-40.5)
[2024-01-12 09:43] LABS: Free Thyroxine Index 2.8 ug/dL (5.93-13.13); T4 (Thyroxine) 9.1 ug/dl (5.53-11.0)
[2024-01-12 09:47] LABS: Direct LDL Cholesterol 95.27 mg/dL (100-129)
[2024-01-12 09:57] LABS: Thyroid Stimulating Hormone 3.51 uIU/mL (0.465-4.68)
[2024-01-12 10:55] LABS: Hemoglobin A1C 7.8 % (4.0-6.0)
[2024-01-12 11:22] LABS: Eosinophils % 1 % (0-3); Lymphocytes % 64 % (10-50); Monocytes % 2 % (2-9); Neutrophils % 33 % (42-76); Platelet Estimate Normal; RBC Morphology Normal; Total Cells Counted 100
== END 2024-01-12 23:59 | disposition home or self-care (01) ==
LOC: LAB 08:28
PROVIDERS: PCP Internal Medicine Adolescent Medicine; Visit Provider Internal Medicine Adolescent Medicine
DX: E11.42 Type 2 diabetes mellitus with diabetic polyneuropathy (principal); E78.2 Mixed hyperlipidemia; E04.1 Nontoxic single thyroid nodule; Z79.84 Long term (current) use of oral hypoglycemic drugs
CPT/HCPCS: 80050; 36415; 80053; 80061; 83036; 84436; 84443; 84479; 85007; 85025; 85027

== ENCOUNTER 2024-04-12 08:53 | Outpatient (CLI) | payer BC, SELFPAY ==
[2024-04-12 09:20] LABS: Basophils # 0.2 K/mm3 (0-0.2); Basophils % 0.9 % (0.1-2.0); Eosinophils # 0.1 K/mm3 (0.0-0.4); Eosinophils % 0.5 % (0.1-12.0); Hematocrit 44.3 % (42.0-52.0); Hemoglobin 15.1 g/dL (14.1-18.0); Lymphocytes % 73.3 % (10-50); Mean Corpuscular HGB Conc 34.1 g/dL (31.8-35.4); Mean Corpuscular Hemoglobin 31.7 pg (27.0-31.2); Mean Corpuscular Volume 92.9 fl (80-94); Monocytes # 0.5 K/mm3 (0.1-1.0); Monocytes % 3.2 % (1.7-9.3); Neutrophils # 3.6 K/mm3 (1.8-7.8); Platelet Count 160 K/mm3 (142-424); Red Blood Count 4.77 M/mm3 (4.60-6.20); Red Cell Distribution Width 14.1 % (11.5-17.5); White Blood Count 16.3 K/mm3 (4.8-10.8)
[2024-04-12 09:23] LABS: MANUAL DIFFERENTIAL MANUAL DIFFERENTIAL (MANUAL DIFF)
[2024-04-12 10:20] LABS: Albumin Level 4.2 g/dl (3.5-5.0); Chloride 107 mmol/L (98-107)
[2024-04-12 10:21] LABS: Potassium 4.4 mmoL/L (3.5-5.1); Sodium 143 mmol/L (136-145)
[2024-04-12 10:23] LABS: Alanine Aminotransferase 34 U/L (12-78); Albumin/Globulin Ratio 1.8 (1.1-1.8); Alkaline Phosphatase 77 U/L (38-126); Anion Gap 12.4 mEq/L (5-15); Aspartate Amino Transferase 26 U/L (17-59); Bilirubin,Total 0.5 mg/dl (0.2-1.3); Blood Urea Nitrogen 16 mg/dl (9-20); Carbon Dioxide 28 mmol/L (22.0-30.0); Cholesterol 164 mg/dl (140-200); Estimated Glomerular Filt Rate 73 ml/min (>60); GFR (African American) 88 ML/MIN (>60); Globulin 2.3 g/dL (1.3-3.2); Total Protein,Serum 6.5 g/dl (6.3-8.2); Triglycerides 155 mg/dl (30-150); VLDL Cholesterol 31 mg/dL (0-40)
[2024-04-12 10:24] LABS: Calcium 9.2 mg/dl (8.4-10.2); Chol/HDL Ratio 3.9 (1-3.5); Glucose 160 mg/dl (74-100); HDL Cholesterol 42 mg/dl (40-60)
[2024-04-12 10:36] LABS: Direct LDL Cholesterol 91.41 mg/dL (100-129)
[2024-04-12 11:16] LABS: Hemoglobin A1C 8.3 % (4.0-6.0)
[2024-04-12 13:49] LABS: Lymphocytes % 87 % (10-50); Monocytes % 2 % (2-9); Neutrophils % 11 % (42-76); Platelet Estimate Normal; RBC Morphology Normal; Total Cells Counted 100
== END 2024-04-12 23:59 | disposition home or self-care (01) ==
LOC: LAB 08:57
PROVIDERS: PCP Internal Medicine Adolescent Medicine; Visit Provider Internal Medicine Adolescent Medicine
DX: I25.10 Atherosclerotic heart disease of native coronary artery without angina pectoris (principal); I10 Essential (primary) hypertension; E11.59 Type 2 diabetes mellitus with other circulatory complications; Z79.84 Long term (current) use of oral hypoglycemic drugs
CPT/HCPCS: 36415; 80053; 80061; 83036; 85007; 85025; 85027

== ENCOUNTER 2024-06-28 07:59 | Outpatient (CLI) | payer BC, SELFPAY ==
[2024-06-28 08:14] LABS: Basophils # 0.1 K/mm3 (0-0.2); Basophils % 0.4 % (0.1-2.0); Eosinophils # 0.1 K/mm3 (0.0-0.4); Eosinophils % 0.5 % (0.1-12.0); Hematocrit 43.6 % (42.0-52.0); Hemoglobin 14.4 g/dL (14.1-18.0); Lymphocytes # 14.1 K/mm3 (0.7-4.5); Lymphocytes % 76.3 % (10-50); Mean Corpuscular Hemoglobin 30.8 pg (27.0-31.2); Mean Corpuscular Volume 93.4 fl (80-94); Mean Platelet Volume 9.8 fl (7.4-10.4); Monocytes # 0.7 K/mm3 (0.1-1.0); Monocytes % 3.6 % (1.7-9.3); Neutrophils # 3.5 K/mm3 (1.8-7.8); Neutrophils % 18.9 % (37.0-80.0); Platelet Count 147 K/mm3 (142-424); Red Blood Count 4.67 M/mm3 (4.60-6.20); Red Cell Distribution Width 13.1 % (11.5-17.5); White Blood Count 18.5 K/mm3 (4.8-10.8)
[2024-06-28 08:31] LABS: MANUAL DIFFERENTIAL MANUAL DIFFERENTIAL (MANUAL DIFF)
[2024-06-28 08:34] LABS: Albumin Level 4.2 g/dl (3.5-5.0); Chloride 103 mmol/L (98-107); Sodium 138 mmol/L (136-145)
[2024-06-28 08:35] LABS: Potassium 4.8 mmoL/L (3.5-5.1)
[2024-06-28 08:37] LABS: Alanine Aminotransferase 38 U/L (12-78); Albumin/Globulin Ratio 1.9 (1.1-1.8); Anion Gap 8.8 mEq/L (5-15); Aspartate Amino Transferase 33 U/L (17-59); Bilirubin,Total 0.4 mg/dl (0.2-1.3); Blood Urea Nitrogen 16 mg/dl (9-20); Carbon Dioxide 31 mmol/L (22.0-30.0); Estimated Glomerular Filt Rate 82 ml/min (>60); GFR (African American) 99 ML/MIN (>60); Globulin 2.2 g/dL (1.3-3.2); Total Protein,Serum 6.4 g/dl (6.3-8.2)
[2024-06-28 08:38] LABS: Alkaline Phosphatase 79 U/L (38-126); Calcium 8.9 mg/dl (8.4-10.2); Chol/HDL Ratio 4.3 (1-3.5); Cholesterol 160 mg/dl (140-200); Glucose 175 mg/dl (74-100); HDL Cholesterol 37 mg/dl (40-60); Triglycerides 174 mg/dl (30-150); VLDL Cholesterol 35 mg/dL (0-40)
[2024-06-28 08:55] LABS: Free Thyroxine Index 2.8 ug/dL (5.93-13.13); T4 (Thyroxine) 8.9 ug/dl (5.53-11.0); Triiodothryronine (T3) Uptake 32 % (23.5-40.5)
[2024-06-28 09:07] LABS: Hemoglobin A1C 9.4 % (4.0-6.0)
[2024-06-28 09:08] LABS: Thyroid Stimulating Hormone 2.96 uIU/mL (0.465-4.68)
[2024-06-28 09:44] LABS: Lymphocytes % 76 % (10-50); Monocytes % 6 % (2-9); Neutrophils % 18 % (42-76); Total Cells Counted 100
[2024-06-28 09:45] LABS: Platelet Estimate Normal; RBC Morphology Normal
== END 2024-06-28 23:59 | disposition home or self-care (01) ==
LOC: LAB 08:01
PROVIDERS: PCP Internal Medicine Adolescent Medicine; Visit Provider Internal Medicine Adolescent Medicine
DX: E11.42 Type 2 diabetes mellitus with diabetic polyneuropathy (principal); M06.9 Rheumatoid arthritis, unspecified; E78.2 Mixed hyperlipidemia; I25.10 Atherosclerotic heart disease of native coronary artery without angina pectoris; E04.1 Nontoxic single thyroid nodule
CPT/HCPCS: 36415; 80053; 80061; 83036; 84436; 84443; 84479; 85007; 85025; 85027

== ENCOUNTER 2024-07-19 14:43 | Outpatient (CLI) | payer BC, SELFPAY ==
--- NOTE | 2024-07-19 14:47 | XR_ITS ---
FINAL REPORT TECHNIQUE: 2 view chest CLINICAL HISTORY: .cough congestion shortness of breath COMPARISON: 10/21/2021 FINDINGS: No acute pulmonary opacities present. There is no evidence of effusion or pneumothorax. There is evidence of prior median sternotomy, presumably from CABG. Otherwise mediastinum is unremarkable. The heart is normal in size. IMPRESSION: Unremarkable chest, status post CABG. Reviewed, Interpreted and Dictated by Ria Lagunas MD Transcribed by Zoey Delgado Authenticated and [facility]
== END 2024-07-19 23:59 | disposition home or self-care (01) ==
LOC: RAD 14:44
PROVIDERS: PCP Internal Medicine Adolescent Medicine; Visit Provider Physician Assistant
DX: R09.89 Other specified symptoms and signs involving the circulatory and respiratory systems (principal)
CPT/HCPCS: 71046

== ENCOUNTER 2024-08-09 08:04 | Outpatient (CLI) | payer BC, SELFPAY ==
[2024-08-09 09:30] LABS: Anion Gap 8.4 mEq/L (5-15); Blood Urea Nitrogen 15 mg/dl (9-20); Calcium 8.8 mg/dl (8.4-10.2); Carbon Dioxide 28 mmol/L (22.0-30.0); Chloride 106 mmol/L (98-107); Estimated Glomerular Filt Rate 94 ml/min (>60); GFR (African American) 113 ML/MIN (>60); Glucose 139 mg/dl (74-100); Potassium 4.4 mmoL/L (3.5-5.1); Sodium 138 mmol/L (136-145)
[2024-08-09 11:06] LABS: Hemoglobin A1C 8.9 % (4.0-6.0)
== END 2024-08-09 23:59 | disposition home or self-care (01) ==
LOC: LAB 08:05
PROVIDERS: PCP Internal Medicine Adolescent Medicine; Visit Provider Internal Medicine Adolescent Medicine
DX: E11.59 Type 2 diabetes mellitus with other circulatory complications (principal)
CPT/HCPCS: 36415; 80048; 83036

== ENCOUNTER 2024-11-01 08:35 | Outpatient (CLI) | payer BC, SELFPAY ==
--- OUTSIDE RECORDS SUMMARY | 2024-08-24 17:30 | XMS_ITS ---
Author Organization [facility] Address [address] [facility] [address] [facility] [address] [place] [address] Care Team Providers Care Clean Out Driller Name Role Phone Justino Buchanan Primary Care Provider Migration, Provider Unavailable Unavailable REASON FOR VISIT [facility] To [facility] Conversion Encounter Medications Medication SIG (Take, Route, Frequency, Duration) Notes Start Date End Date Status Jardiance 25 MG TAKE 1 TABLET EVERY MORNING for 90 Active Lisinopril 20 MG 1 tab(s) orally once a day for 90 days Active Furosemide 20 MG 1 tab(s) orally once a day for 90 Active Flonase Allergy Relief 50 MCG/ACT 1 spray(s) in each nostril once a day for 30 days prn 07/19/2024 Active Metoprolol Tartrate 25 MG TAKE 1/2 TABLET TWICE A DAY for 90 Active ACCU-CHECK GUIDE METER - USE TO CHECK BLOOD SUGAR TWICE DAILY *Please review for potential replacement for e-prescription and drug interaction check* 06/20/2018 Active Triamcinolone Acetonide 0.025 % 1 orquidea applied topically 3 times a day for 7 day(s) prn 04/09/2021 Active ACCU-CHECK GUIDE TEST STRIPS USE TO CHECK BLOOD SUGAR TWICE DAILY for 90 DAYS *Please review for potential replacement for e-prescription and drug interaction check* Active Rosuvastatin Calcium 40 MG 1 tab(s) orally once a day for 90 Active Glimepiride 2 MG 1 tab(s) orally once a day for 90 days Active Systane PRESERVED 1 GTT IN EACH EYE 3 TIMES A DAY 3 times a day *Please review and pick correct strength-formulat ion from [employer] options. If intended option is not shown, discontinue and re-order from Quick Search* Active Folic Acid OTC 1 TAB QD 800mcg *Please review and pick correct strength-formulat ion from [employer] options. If intended option is not shown, discontinue and re-order from Quick Search* Active Multivitamin - 1 tab(s) orally once a day Active Nitrostat 0.4 MG 1 tab(s) sublingually every 5 minutes prn Active Probiotic 1 TAB PO QD *Please review and pick correct strength-formulat ion from [employer] options. If intended option is not shown, discontinue and re-order from Quick Search* Active ACCUCHEK FAST CLICK LANCETS TWICE A DAY Please put on hold and patient will call when he needs filled *Please review for potential replacement for e-prescription and drug interaction check* Active Fluorometholone ACETATE 0.1% 1 GTT IN EACH AFFECTED EYE ONCE A DAY for 90 DAYS *Please review and pick correct strength-formulat ion from [employer] options. If intended option is not shown, discontinue and re-order from Quick Search* Active OZEMPIC 2 MG/3 ML (0.25 MG OR 0.5 MG DOSE) 0.5MG SUBCUTANEOUSLY ONCE A WEEK for 30 DAYS *Please review for potential replacement for e-prescription and drug interaction check* 07/01/2024 Active Encounters Encounter Location Date Provider Diagnosis [facility] [address] [facility] [address] [place] [address] 08/24/2024 Provider Migration Type 2 diabetes mellitus [...] GTT IN EACH AFFECTED EYE ONCE A DAY for 90 DAYS *Please review and pick correct strength-formulatio n from [employer] options. If intended option is not shown, discontinue and re-order from Quick Search* OZEMPIC 2 MG/3 ML (0.25 MG OR 0.5 MG DOSE) 0.5MG SUBCUTANEOUSLY ONCE A WEEK for 30 DAYS 07/01/2024 *Please review for potential replacement for e-prescription and drug interaction check* Next Appt Details Provider Name:Justino Buchanan, 11/04/2024 02:00:00 PM, [address] [facility] [address] [facility], [address], [place], [address], Progress Notes * Kris HOODDOB:1945 (79 yo M)Acc No.[id number]:08/24/2024 Patient: Kris STVOALL Provider: Dylon Samuels :1945 A ge:79 Y S ex:Male Date:08/24/2024 Address:[address] [place] [address] , [place], [phone] Pcp:Justino Buchanan Subjective: * Chief Complaints: * [...] Search*. * * Electronic signature of Prov ider Migration on 11/01/2024 at 08:38 AM EDT Sign off status: Pending * Provider: Dylon biggs Migration Date: 08/24/2024 Generated for Oscar valles/Argelia/Alondra on: 11/01/2024 08:38 AM EDT
--- OUTSIDE RECORDS SUMMARY | 2024-10-29 05:37 | XMS_ITS ---
Author Organization [facility] [place] Address [address] [facility] [address] [facility] [address] [place] [address] Care Team Providers Care Senior Research Executive Name Role Phone Justino Buchanan Primary Care Provider [phone] Encounters Encounter Location Date Provider Diagnosis [facility] [place] [address] [facility] [address] [facility] [address] [place] [address] 10/29/2024 Justino Buchanan Diabetic peripheral neuropathy E11.42 ; Rheumatoid arthritis M06.9 ; Hyperlipemia, mixed E78.2 and Thyroid nodule E04.1 Assessments Encounter Date Diagnosis (ICD Code) Assessment Notes Treatment Notes Treatment Clinical Notes Section Notes 10/29/2024 Diabetic peripheral neuropathy (ICD-10 - E11.42) 10/29/2024 Rheumatoid arthritis (ICD-10 - M06.9) 10/29/2024 Hyperlipemia, mixed (ICD-10 - E78.2) 10/29/2024 Thyroid nodule (ICD-10 - E04.1) Plan Of Treatment Pending Test Test Name Order Date M-Complete Blood Count Auto Diff 025 M-Comprehensive Metabolic Panel 10/30/19 25 M-Hemoglobin A1C 10/29/2024 M-Lipid Panel 10/29/2024 M-Thyroid Panel 10/29/2024 Next Appt Details Provider Name:Justino Buchanan, 11/04/2024 02:00:00 PM, [address] [facility], [address], [place], [address], Progress Notes * Kris HOODDOB:1945 (79 yo M)Acc No.[id number]:10/29/2024 Patient: Kris STOVALL :1945 A ge:79 Y S ex:Male Address:[address] [place] [address] [place] [address] Subjective: * Chief Complaints: * * Medical [...] Date: Generated for Oscar valles/Argelia/eTransmitting on: 0 11/01/2024 08:38 AM EDT
--- OUTSIDE RECORDS SUMMARY | 2024-11-01 08:38 | XMS_ITS | Patient Health Record ---
Author Organization [facility] Address [address] [place] [address] Care Team Providers Care Non Destructive Testing Scientist Name Role Phone Justino Buchanan Primary Care Provider Nu Negrete Unavailable [phone] Migration, Provider Unavailable Unavailable Allergies No Known Allergies Results Component Value Reference Range Notes M-Complete Blood Count Auto Diff Reviewed date:06/28/2024 09:46:49 AM Interpretation: Performing Lab: Notes/Report: WBC 18.5 4.8-10.8 K/mm3 RBC 4.67 4.60-6.20 M/mm3 HGB 14.4 14.1-18.0 g/dL HCT 43.6 42.0-52.0 % MCV 93.4 80-94 fl MCH 30.8 27.0-31.2 pg MCHC 33.0 31.8-35.4 g/dL RDW 13.1 11.5-17.5 % PLT 147 142-424 K/mm3 MPV 9.8 7.4-10.4 fl NE% 18.9 37.0-80.0 % LY% 76.3 10-50 % MO% 3.6 1.7-9.3 % EO% 0.5 0.1-12.0 % BA% 0.4 0.1-2.0 % NE# 3.5 1.8-7.8 K/mm3 LY# 14.1 0.7-4.5 K/mm3 MO# 0.7 0.1-1.0 K/mm3 EO# 0.1 0.0-0.4 K/mm3 BA# 0.1 0-0.2 K/mm3 -Comprehensive Metabolic Pa jil Reviewed date:01/12/2024 04:11:06 PM Interpretation: Performing Lab: Notes/Report: NA 140 136-145 mmol/L K 4.3 3.5-5.1 mmoL/L CL 107 98-107 mmol/L CO2 30 22.0-30.0 mmol/L GAP 7.3 5-15 mEq/L BUN 17 9-20 mg/dl CREATT 0.80 0.66-1.25 mg/dl GFRAA 114 >60 ML/MIN EGFR 94 >60 ml/min GLU 156 74-100 mg/dl CA 8.8 8.4-10.2 mg/dl BILIT 0.6 0.2-1.3 mg/dl AST 28 17-59 U/L ALT 33 12-78 U/L TP 6.7 6.3-8.2 g/dl ALB 4.0 3.5-5.0 g/dl GLOB 2.7 1.3-3.2 g/dL AGRATIO 1.5 1.1-1.8 ALP 73 38-126 U/L -[facility] Metabolic Pa jil Reviewed date:04/12/2024 03:50:51 PM Interpretation: Performing Lab: Notes/Report: NA 143 136-145 mmol/L K 4.4 3.5-5.1 mmoL/L CL 107 98-107 mmol/L CO2 28 22.0-30.0 mmol/L GAP 12.4 5-15 mEq/L BUN 16 9-20 mg/dl CREATT 1.00 0.66-1.25 mg/dl GFRAA 88 >60 ML/MIN EGFR 73 >60 ml/min GLU 160 74-100 mg/dl CA 9.2 8.4-10.2 mg/dl BILIT 0.5 0.2-1.3 mg/dl AST 26 17-59 U/L ALT 34 12-78 U/L TP 6.5 6.3-8.2 g/dl ALB 4.2 3.5-5.0 g/dl GLOB 2.3 1.3-3.2 g/dL AGRATIO 1.8 1.1-1.8 ALP 77 38-126 U/L M-Lipid Panel Reviewed date:06/28/2024 09:10:33 AM Interpretation: Performing Lab: Notes/Report: Patient Fasting? Y TRIG 174 30-150 mg/dl CHOL 160 140-200 mg/dl DLDL 87.30 100-129 mg/dL VLDL 35 0-40 mg/dL HDL 37 40-60 mg/dl CHLHDL 4.3 1-3.5 M-Manual Differential Reviewed date:04/12/2024 03:49:41 PM Interpretation: Performing Lab: Notes/Report: GILDA MANUAL DIFFERENTIAL MANUAL DIFF TCC 100 NEUT%M 11 42-76 % LYMPH%M 87 10-50 % MONO%M 2 2-9 % PLTE Normal RM Normal M-Thyroid Panel Reviewed date:06/28/2024 09:15:14 AM Interpretation: Performing Lab: Notes/Report: FTI 2.8 5.93-13.13 ug/dL T4 8.9 5.53-11.0 ug/dl T3U 32 23.5-40.5 % TSH 2.96 0.465-4.68 uIU/mL M-Complete Blood Count Auto Diff Reviewed date:01/12/2024 04:11:06 PM Interpretation: Performing Lab: Notes/Report: WBC 12.4 4.8-10.8 K/mm3 RBC 4.73 4.60-6.20 M/mm3 HGB 14.8 14.1-18.0 g/dL HCT 45.8 42.0-52.0 % MCV 96.9 80-94 fl MCH 31.2 27.0-31.2 pg MCHC 32.2 31.8-35.4 g/dL RDW 14.2 11.5-17.5 % PLT 154 142-424 K/mm3 MPV 8.6 7.4-10.4 fl NE% 29.8 37.0-80.0 % LY% 65.5 10-50 % MO% 3.3 1.7-9.3 % EO% 0.6 0.1-12.0 % BA% 0.8 0.1-2.0 % NE# 3.7 1.8-7.8 K/mm3 LY# 8.1 0.7-4.5 K/mm3 MO# 0.4 0.1-1.0 K/mm3 EO# 0.1 0.0-0.4 K/mm3 BA# 0.1 0-0.2 K/mm3 M-Complete Blood Count Auto Diff Reviewed date:04/12/2024 03:50:50 PM Interpretation: Performing Lab: Notes/Report: WBC 16.3 4.8-10.8 K/mm3 RBC 4.77 4.60-6.20 M/mm3 HGB 15.1 14.1-18.0 g/dL HCT 44.3 42.0-52.0 % MCV 92.9 80-94 fl MCH 31.7 27.0-31.2 pg MCHC 34.1 31.8-35.4 g/dL RDW 14.1 11.5-17.5 % PLT 160 142-424 K/mm3 MPV 8.0 7.4-10.4 fl NE% 22.0 37.0-80.0 % LY% 73.3 10-50 % MO% 3.2 1.7-9.3 % EO% 0.5 0.1-12.0 % BA% 0.9 0.1-2.0 % NE# 3.6 1.8-7.8 K/mm3 LY# 12.0 0.7-4.5 K/mm3 MO# 0.5 0.1-1.0 K/mm3 EO# 0.1 0.0-0.4 K/mm3 BA# 0.2 0-0.2 K/mm3 M-Thyroid Panel Reviewed date:01/12/2024 04:11:06 PM Interpretation: Performing Lab: Notes/Report: FTI 2.8 5.93-13.13 ug/dL T4 9.1 5.53-11.0 ug/dl T3U 31 23.5-40.5 % TSH 3.51 0.465-4.68 uIU/mL M-Lipid Panel Reviewed date:04/12/2024 03:50:51 PM Interpretation: Performing Lab: Notes/Report: Patient Fasting? Y TRIG 155 30-150 mg/dl CHOL 164 140-200 mg/dl DLDL 91.41 100-129 mg/dL VLDL 31 0-40 mg/dL HDL 42 40-60 mg/dl CHLHDL 3.9 1-3.5 Microalbumin (In-House) Reviewed date:04/15/2024 06:35:01 PM Interpretation:Abnormal Performing Lab: Notes/Report: Abnormal ALB 80 CRE 100 A:C 30-300 M-Manual Differential Reviewed date:01/12/2024 12:43:33 PM Interpretation: Performing Lab: Notes/Report: MDIFF MANUAL DIFFERENTIAL MANUAL DIFF TCC 100 NEUT%M 33 42-76 % LYMPH%M 64 10-50 % MONO%M 2 2-9 % EOS%M 1 0-3 % PLTE Normal RM Normal X ray : Chest PA and Lateral Reviewed date:07/23/2024 12:28:01 PM Interpretation: Performing Lab: Notes/Report: X ray : Chest PA and Lateral Reviewed date:07/23/2024 12:28:01 PM Interpretation: Performing Lab: Notes/Report: M-Manual Differential Reviewed date:06/28/2024 09:46:49 AM Interpretation: Performing Lab: Notes/Report: MDIFF MANUAL DIFFERENTIAL MANUAL DIFF TCC 100 NEUT%M 18 42-76 % LYMPH%M 76 10-50 % MONO%M 6 2-9 % PLTE Normal RM Normal M-Basic Metabolic Panel Reviewed date:08/10/2024 02:21:31 PM Interpretation: Performing Lab: Notes/Report: NA 138 136-145 mmol/L K 4.4 3.5-5.1 mmoL/L CL 106 98-107 mmol/L CO2 28 22.0-30.0 mmol/L GAP 8.4 5-15 mEq/L BUN 15 9-20 mg/dl CREATT 0.80 0.66-1.25 mg/dl GFRAA 113 >60 ML/MIN EGFR 94 >60 ml/min GLU 139 74-100 mg/dl CA 8.8 8.4-10.2 mg/dl M-Hemoglobin A1C Reviewed date:08/10/2024 02:21:31 PM Interpretation: Performing Lab: Notes/Report: HGBA1C 8.9 4.0-6.0 % < 6% Non-Diabetic Level < 7% Controlled Diabetic Level > 8% Poorly Controlled Diabetic Level M-Hemoglobin A1C Reviewed date:01/12/2024 04:11:06 PM Interpretation: Performing Lab: Notes/Report: HGBA1C 7.8 4.0-6.0 % < 6% Non-Diabetic Level < 7% Controlled Diabetic Level > 8% Poorly Controlled Diabetic Level M-Hemoglobin A1C Reviewed date:04/12/2024 03:50:51 PM Interpretation: Performing Lab: Notes/Report: HGBA1C 8.3 4.0-6.0 % < 6% Non-Diabetic Level < 7% Controlled Diabetic Level > 8% Poorly Controlled Diabetic Level M-Lipid Panel Reviewed date:01/12/2024 04:11:06 PM Interpretation: Performing Lab: Notes/Report: Patient Fasting? Y TRIG 187 30-150 mg/dl CHOL 175 140-200 mg/dl DLDL 95.27 100-129 mg/dL VLDL 37 0-40 mg/dL HDL 43 40-60 mg/dl CHLHDL 4.1 1-3.5 M-Comprehensive Metabolic Pa jil Reviewed date:06/28/2024 09:10:33 AM Interpretation: Performing Lab: Notes/Report: NA 138 136-145 mmol/L K 4.8 3.5-5.1 mmoL/L CL 103 98-107 mmol/L CO2 31 22.0-30.0 mmol/L GAP 8.8 5-15 mEq/L BUN 16 9-20 mg/dl CREATT 0.90 0.66-1.25 mg/dl GFRAA 99 >60 ML/MIN EGFR 82 >60 ml/min GLU 175 74-100 mg/dl CA 8.9 8.4-10.2 mg/dl BILIT 0.4 0.2-1.3 mg/dl AST 33 17-59 U/L ALT 38 12-78 U/L TP 6.4 6.3-8.2 g/dl ALB 4.2 3.5-5.0 g/dl GLOB 2.2 1.3-3.2 g/dL AGRATIO 1.9 1.1-1.8 ALP 79 38-126 U/L M-Hemoglobin A1C Reviewed date:06/28/2024 09:10:33 AM Interpretation: Performing Lab: Notes/Report: HGBA1C 9.4 4.0-6.0 % < 6% Non-Diabetic Level < 7% Controlled Diabetic Level > 8% Poorly Controlled Diabetic Level Medications Medication SIG (Take, Route, Frequency, Duration) Notes Start Date End Date Status Furosemide 20 MG 1 tab(s) orally once a day for 90 Active Fluorometholone ACETATE 0.1% 1 GTT IN EACH AFFECTED EYE ONCE A DAY for 90 DAYS *Please review and pick correct strength-formulat ion from [employer] options. If intended option is not shown, discontinue and re-order from Quick Search* Active Multivitamin - 1 tab(s) orally once a day Active Flonase Allergy Relief 50 MCG/ACT 1 spray(s) in each nostril once a day for 30 days prn 07/19/2024 Active Glimepiride 2 MG TAKE 1 TABLET DAILY for 90 Active Nitrostat 0.4 MG 1 tab(s) sublingually every 5 minutes prn Active Metoprolol Tartrate 25 MG TAKE 1/2 TABLET TWICE A DAY for 90 Active Probiotic 1 TAB PO QD *Please review and pick correct strength-formulat ion from [employer] options. If intended option is not shown, discontinue and re-order from Quick Search* Active ACCU-CHECK GUIDE METER - USE TO [...] orally once a day for 90 Active Jardiance 25 MG TAKE 1 TABLET EVERY MORNING for 90 Active Systane PRESERVED 1 GTT IN EACH EYE 3 TIMES A DAY 3 times a day *Please review and pick correct strength-formulat ion from [employer] options. If intended option is not shown, discontinue and re-order from Quick Search* Active Lisinopril 20 MG 1 tab(s) orally once a day for 90 days Active Folic Acid OTC 1 TAB QD 800mcg *Please review and pick correct strength-formulat ion from [employer] options. If intended option is not shown, discontinue and re-order from Quick Search* Active ACCUCHEK FAST CLICK LANCETS TWICE A DAY Please put on hold and patient will call when he needs filled *Please review for potential replacement for e-prescription and drug interaction check* Active OZEMPIC 2 MG/3 ML (0.25 MG OR 0.5 MG DOSE) 0.5MG SUBCUTANEOUSLY ONCE A WEEK for 30 DAYS *Please review for potential replacement for e-prescription and drug interaction check* 07/01/2024 Active Immunizations Vaccine Route Administration Date Status Comme nts SHINGRIX IM Intramuscular 11/09/2018 Administered SHINGRIX IM Intramuscular 10/12/2020 Administered Prevnar PCV-13 (Pneumococcal conjugate 13) IM Intramuscular 03/09/2018 Administered PPD ID Intradermal 05/27/2019 Administered Pneumovax 23 IM Intramuscular 07/29/2015 Administered Influenza-Fluzone 3+years (NON-MEDICARE) IM Intramuscular 01/20/2017 Administered Fluzone High Dose IM Intramuscular 03/09/2018 Administered Fluzone High Dose IM Intramuscular 02/08/2019 Administered Fluzone High Dose IM Intramuscular 02/14/2020 Administered Fluzone High Dose IM Intramuscular 01/28/2021 Administered Fluzone High Dose IM Intramuscular 03/04/2022 Administered Fluzone High Dose IM Intramuscular 02/27/2023 Administered Fluzone High Dose IM Intramuscular 01/15/2024 Administered Fluvirin--Influenza vaccine 3+ year IM Intramuscular 02/19/2009 Administered Fluvirin--Influenza vaccine 3+ year IM Intramuscular 02/24/2012 Administered Covid Karoline Unknown 07/29/2020 Administered Adacel (Tdap) IM Intramuscular 07/29/2015 Administered Problems Problem Type SNOMED Code ICD Code Onset Dates Problem Status W/U Status Risk Notes Problem [id number] 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) Active confirmed Problem Essential hypertension (22076094) Essential (primary) hypertension (I10) Active confirmed Problem 950176123 Atherosclerotic heart disease of [place] coronary artery without angina pectoris (I25.10) Active confirmed Problem 74288283 Diabetes (E11.9) Active confirmed Problem 678806606 Thyroid nodule (E04.1) Active confirmed Problem 567898123 Diabetic peripheral neuropathy (E11.42) Active confirmed Problem Rheumatoid arthritis (53727918) Rheumatoid arthritis (M06.9) Active confirmed Problem Mixed hyperlipidemia (590062944) Hyperlipemia, mixed (E78.2) Active confirmed Problem 815334979 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) Active confirmed Problem 40396895 Type 2 diabetes mellitus with other circulatory complication, without long-term current use of insulin (E11.59) Active confirmed Problem 822381402 Adenomatous poly p of colon, unspecified part of colon (D12.6) Active confirmed Problem 97964869 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 Problem 64134619 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) Active confirmed Vital Signs Heart Rate 68 /min 08/12/2024 Temperature 97.9 degrees Fahrenheit 08/12/2024 Oximetry 0 04/15/2024 Blood pressure diastolic 60 mm Hg 08/12/2024 Height 71 in 08/12/2024 Blood pressure systolic 116 mm Hg 08/12/2024 Weight 211.6 lbs 08/12/2024 BMI 29.51 kg/m2 08/12/2024 Encounters Encounter Location Date Provider Diagnosis [facility] [address] [place] [address] 08/24/2024 Provider Migration Type 2 diabetes mellitus with other circulatory complication, without long-term current use of insulin E11.59 [facility] [address] [place] [address] 01/15/2024 Justino Buchanan Diabetic peripheral neuropathy E11.42 ; Hyperlipemia, mixed E78.2 ; Essential (primary) hypertension I10 ; Type 2 diabetes mellitus with other circulatory complications E11.59 ; Atherosclerotic heart disease of [place] coronary artery without angina pectoris I25.10 ; Thyroid nodule E04.1 and Immunization(s) administered Z23 [facility] [address] [place] [address] 04/15/2024 Justino Buchanan Type 2 diabetes bao itus with other circulatory complications E11.59 ; Essential (primary) hypertension I10 and Routine medical exam Z00.00 [facility] [address] [place] [address] 07/01/2024 Justino Buchanan Type 2 diabetes bao itus with other circulatory complication, without long-term current use of insulin E11.59 ; Atherosclerotic heart disease of [place] coronary artery without angina pectoris I25.10 and Essential hypertension I10 [facility] [address] [place] [address] 07/12/2024 Nu Negrete Acute bronchopneumon ia J18.0 [facility] [address] [place] [address] 07/19/2024 Nu Negrete Acute bronchopneumon ia J18.0 and Respiratory crackles at left lung base R09.89 [facility] [address] [place], [place] [address] 08/12/2024 Justino Buchanan Type 2 diabetes bao itus with other circulatory complication, without long-term current use of insulin E11.59 [facility] [address] [facility] [address] [place] [address] 01/08/2024 Justino Buchanan Diabetic peripheral neuropathy E11.42 ; Hyperlipemia, mixed E78.2 and Thyroid nodule E04.1 [facility] [address] [facility] [address] [place], [place] [address] 03/04/2024 Justino Buchanan [facility] [address] [facility] [address] [place] [address] 04/08/2024 Justino Buchanan Type 2 diabetes bao itus with other circulatory complications E11.59 ; Atherosclerotic heart disease of [place] coronary artery without angina pectoris I25.10 and Essential (primary) hypertension I10 [facility] [address] [facility] [address] [place], [place] [address] 06/24/2024 Justino Buchanan Diabetic peripheral neuropathy E11.42 ; Rheumatoid arthritis M06.9 ; Hyperlipemia, mixed E78.2 ; Atherosclerotic heart disease of [place] coronary artery without angina pectoris I25.10 and Thyroid nodule E04.1 [facility] [place] [address] [place] [address] 07/15/2024 Nu Negrete Acute bronchopneumon ia J18.0 [facility] [address] [facility] [place] [address] [place] [address] 07/22/2024 Justino Buchanan [facility] [address] [facility] [address] [place] [address] 08/05/2024 Justino Buchanan Type 2 diabetes bao itus with other circulatory complications E11.59 [facility] [address] [facility] [address] [place] [address] 08/12/2024 Justino Besson [facility] [address] [place] [address] 08/23/2024 Justino Besson [facility] [address] [place] [address] 10/29/2024 Justino Besson Diabetic peripheral neuropathy E11.42 ; Rheumatoid arthritis M06.9 ; Hyperlipemia, mixed E78.2 and Thyroid nodule E04.1 [facility] [address] [place] [address] 09/08/2024 Justino Besson [facility] [address] [place] [address] 09/13/2024 Justino Besson [facility] [address] [place] [address] 02/12/2024 Justino Besson [facility] [address] [place] [address] 06/03/2024 Justino Besson [facility] [address] [place] [address] 06/04/2024 Justino Besson Assessments Encounter Date Diagnosis (ICD Code) Assessment Notes Treatment Notes Treatment Clinical Notes Section Notes 10/29/2024 Diabetic peripheral neuropathy (ICD-10 - E11.42) 10/29/2024 Rheumatoid arthritis (ICD-10 - M06.9) 01/15/2024 Diabetic peripheral neuropathy (ICD-10 - E11.42) Neuropathy symptoms seem well-managed. I reviewed labs that I ordered last week including his A1c and LDL as below, personally discussed these with patient. 01/15/2024 Hyperlipemia, mixed (ICD-10 - E78.2) Labs reviewed. Total cholesterol 175. Well controlled with rosuvastatin. Continue taking rosuvastatin daily. 04/08/2024 Type 2 diabetes mellitus with other circulatory complications (ICD-10 - E11.59) 04/08/2024 Atherosclerotic heart disease of [place] coronary artery without angina pectoris (ICD-10 - I25.10) 04/15/2024 Type 2 diabetes mellitus with other circulatory complications (ICD-10 - E11.59) Patient has type 2 diabetes that is not at treatment goal. He currently takes jaurdiance, januvia, and lisinopril. Had microalbumin in his urine today. Plan to continue medications and increase his lisinopril to 20 mg. 04/15/2024 Essential (primary) hypertension (ICD-10 - I10) Patient has essential hypertension that has been previously well controlled. He reports his systolic BP has been slightly increased over the last couple of days. Lisinopril was increased to 20mg. Will check back in Jun to see how he is doing. 07/01/2024 Atherosclerotic heart disease of [place] coronary artery without angina pectoris (ICD-10 - I25.10) Stable, continue current management 07/01/2024 Type 2 diabetes mellitus with other circulatory complication, without long-term current use of insulin (ICD-10 - E11.59) -A1c 9.4% on most recent check, currently not at goal. -yearly eye exams, checks feet often given peripheral neuropathy -Compliant with current medications, no hypoglycemia noted PLAN: -Start Ozempic 2.5 mg weekly x 4 weeks followed by 5 mg weekly -Okay to discontinue zituvia (DPP4) given we are starting ozempic as above -Continue Glimpeiride and Jardiance daily -Follow up in 2-3 months for repeat A1c and to monitor response to Ozempic 07/15/2024 Acute bronchopneumonia (ICD-10 - J18.0) 01/08/2024 Diabetic peripheral neuropathy (ICD-10 - E11.42) 01/08/2024 Hyperlipemia, mixed (ICD-10 - E78.2) 08/05/2024 Type 2 diabetes mellitus with other circulatory complications (ICD-10 - E11.59) 07/19/2024 Acute bronchopneumonia (ICD-10 - J18.0) Personally called patient discussing normal CXR. Finish course of Doxycycline. Discussed the etiology and expected course of uri. Discussed the rationale for antibiotic and the importance of completing the prescription as prescribed. Discussed to take with a tall glass of water and avoid sunlight while taking this antibiotic. Continue supportive care with PRN antipyretics, OTC cough/cold meds, nasal saline rinses/Neti pot with distilled water, salt water gargles, cough drops, and humidifier. Encourage PO hydration. Discussed the signs and symptoms of worsening infection/respir atory distress that may indicate need for reassessment in clinic/ED. Keep previously scheduled physical exam or f/u sooner PRN. Patient/family voice understanding and agree to this plan. 07/19/2024 Respiratory crackles at left lung base (ICD-10 - R09.89) 07/12/2024 Acute bronchopneumonia (ICD-10 - J18.0) Discussed the etiology and expected course of URI. Discussed the rationale for antibiotic and the importance of completing the prescription as prescribed. Start Albuterol inhaler for wheezing related to bronchospasm. No steroids as diabetic with last HA1C being 9.2 and not hypoxic today. Patient to call if he feels SOA and steroids can be prescribed at that time. Continue supportive care with PRN antipyretics, OTC cough/cold meds, nasal saline rinses/Neti pot with distilled water, salt water gargles, cough drops, and humidifier. Encourage PO hydration. Discussed the signs and symptoms of worsening infection/respir atory distress that may indicate need for reassessment in clinic/ED. Keep previously scheduled physical exam or f/u sooner PRN. Patient voices understanding and agrees to the plan of care above. 06/24/2024 Diabetic peripheral neuropathy (ICD-10 - E11.42) 06/24/2024 Rheumatoid arthritis (ICD-10 - M06.9) 08/24/2024 Type 2 diabetes mellitus with other circulatory complication, without long-term current use of insulin (ICD-10 - E11.59) 08/12/2024 Type 2 diabetes mellitus with other circulatory complication, without long-term current use of insulin (ICD-10 - E11.59) A1c 8.4, down about 1 point from last check. On jardience, glimeperide, ozempic. Will increase ozempic dose from 0.25 mlg/wk to 0.5mg/wk. Follow up w repeat A1c in 6 months. 06/24/2024 Hyperlipemia, mixed (ICD-10 - E78.2) 01/08/2024 Thyroid nodule (ICD-10 - E04.1) 07/01/2024 Essential hypertension (ICD-10 - I10) BP WNL in clinic today, systolics well controlled at home, continue current management. 04/15/2024 Routine medical exam (ICD-10 - Z00.00) Patient is up-to-date with recommended interventions, such as all vaccinations. Will need another colonoscopy next year because of polyps. He asks about someone who told him he might be too old for colonoscopy but given his vigorous health status and tubular adenoma I think it would be prudent for him to have 1 more scope at least. Otherwise no real fall risk. Continues to work, drives, doing very nicely. Lifelong non-smoker. 04/08/2024 Essential (primary) hypertension (ICD-10 - I10) 01/15/2024 Essential (primary) hypertension (ICD-10 - I10) Continue taking metoprolol, lisinopril and furosemide. 10/29/2024 Hyperlipemia, mixed (ICD-10 - E78.2) 10/29/2024 Thyroid nodule (ICD-10 - E04.1) 01/15/2024 Type 2 diabetes mellitus with other circulatory complications (ICD-10 - E11.59) Labs reviewed. A1C 7.8%. Discussed with patient this is appropriate for his age. Continue taking Jardiance and glimepiride. 06/24/2024 Atherosclerotic heart disease of [place] coronary artery without angina pectoris (ICD-10 - I25.10) 06/24/2024 Thyroid nodule (ICD-10 - E04.1) 01/15/2024 Atherosclerotic heart disease of [place] coronary artery without angina pectoris (ICD-10 - I25.10) Patient is stable with no complaints of angina. Continue rosuvastatin. 01/15/2024 Thyroid nodule (ICD-10 - E04.1) Labs reviewed. Patient is clinically and biochemically euthyriod. 01/15/2024 Immunization(s) administered (ICD-10 - Z23) 07/19/2024 Other Patient discussed with Attending Dr. Buchanan who agrees with the plan of care above. Plan Of Treatment Pending Test Test Name Order Date Physical Therapy 11/09/2016 Speech Therapy Eval and Treatment 2021 Barium Swallow : Modified 12/03/2021 H-CBC with AUTO DIFF 06/01/2017 H-CMP 06/01/2017 H-LIPID PANEL 06/01/2017 H-LIPID PANEL 08/29/2016 H-HGBA1C 06/01/2017 H-TSH 06/01/2017 C-CBC 03/21/2013 C-CBC 08/15/2013 C-CMP 08/15/2013 C-CMP 03/21/2013 C-CMP 08/06/2014 C-LIPID PANEL 09/04/2014 C-LIPID PANEL 03/21/2013 C-LIPID PANEL 08/15/2013 C-TSH 08/15/2013 C-TSH 04/28/2012 C-PSA 03/21/2013 C-RPR 04/28/2012 C-VITAMIN B12 04/28/2012 C-HGBA1C 03/21/2013 C-HGBA1C 09/04/2014 C-HGBA1C 08/06/2014 C-HGBA1C 04/28/2012 C-HGBA1C 08/15/2013 C-VITAMIN D, 25-HYDROXY 04/28/2012 Physical Therapy : Lymphedema 07/04/2022 M-Complete Blood Count Auto Diff 025 M-Complete Blood Count Auto Diff 023 M-Complete Blood Count Auto Diff 021 M-Microalbumin,Urine 07/02/2018 M-Comprehensive Metabolic Panel 11/09/19 23 M-Comprehensive Metabolic Panel 10/07/19 21 M-Comprehensive Metabolic Panel 10/30/19 25 M-Hemoglobin A1C 10/29/2024 M-Lipid Panel 10/29/2024 M-Thyroid Panel 10/29/2024 Physical Therapy : Gait training and cor e strengthening 07/04/2022 Future Test Test Name Order Date H-CMP 05/04/2018 Next Appt Details Provider Name:Justino Buchanan, 11/04/2024 02:00:00 PM, [address] [facility], [address], [place], [address], Insurance Providers Payer Name Payer Address Payer Phone Subscriber Number Group Number Insured Name Patient Relationship to Insured Coverage Start Date Coverage End Date [facility] [employer] [address] [place], [place] [id number] 01 Kris Sebastian Self - patient is the insured Medical (General) History Medical History History ICD Code hypertension hypercholestrolemia diabetes hx encephalitis 1979 left leg fx-1958 salivary gland removed-1971 2 cardiac stents 05/2014 CABG x2- 7-2015 colonoscopy with tubular cody noma in 2013 - repeated in 03/07 with multiple tubular adenoma - repeated 02/06 with tubular adenomas, repeated 02/08 with polyps - repeat 2-3 years vocal cord separation uveitis, on Remicade managed by [facility]. Also with positive rheumatoid factor heart murmur - mild aortic stenosis TiRads 3 nodule in isthmus 08/12 - needs 12 mo f/u Surgical History Surgery Date(Month/Year) broken leg salivary gland removed heart cath and 2 stents 06/10/2014 Heart Cath 08/2015 open heart surgery- CABG x2 12/10/2015 colonoscopy 02/2017 lt eye-cataract surgery 05/07/21 rt eye-cataract surgery 05/18/21 Hospitalization History Reason Date(Month/Year) Covid 09/2021 open heart surgery 12/10/2015 heart cath and 2 stents 06/10/2014 left leg fx encephalitis 1979
--- OUTSIDE RECORDS SUMMARY | 2024-11-01 08:39 | XMS_ITS | Clinical Summary ---
Author Organization [facility] Address [address] [place] [address] Care Team Providers Care Safety Risk Lead Name Role Phone Unavailable Primary Care Provider Unavailabl e Allergies No known active allergies Medications Multiple Vitamins-[place]nee als (multivitamin with minerals) tablet 8 Active furosemide (Lasix) 20 MG tablet 8 Active metFORMIN (Glucophage) 1000 MG tablet 8 Active metoprolol tartrate (Lopressor) 25 MG tablet 8 Active rosuvastatin (Crestor) 40 MG tablet 1 Active aspirin 81 MG EC tablet take 1 tablet by oral route every day Active Probiotic capsule one daily Active nitroglycerin (Nitrostat) 0.[address] 1 tablet (0.4 mg) under the tongue every 5 (five) minutes. Active Accu-Chek FastClix Lancets misc 1 Active Accu-Chek Guide test strip 1 Active empagliflozin (Jardiance) 25 MG 9 Active folic acid (Folvite) 800 MCG tablet 8 Active SITagliptin (Januvia) 100 MG tablet 8 Active inFLIXimab (Remicade) 100 MG injection Infuse into a venous catheter. Active triamcinolone (Kenalog) 0.025 % cream if needed. 1 Active lisinopril 5 MG tablet Take 5 mg by mouth 1 (one) time each day. 2 Active Artificial Tear Solution (Systane Contacts) solution every 6 (six) hours. Active glimepiride (Amaryl) 2 MG tablet Take 1 tablet (2 mg) by mouth. Active Ozempic, 0.25 or 0.5 MG/DOSE, 2 MG/3ML solution pen-injector 0.5mg subcutaneously once a week for 30 days 5 Active fluorometholon e (FML) 0.1 % ophthalmic suspension 1 drop. 4 Active Active Problems Problem Noted Date Diagnosed Date Age-related cataract 05/05/2021 Atherosclerosis of coronary artery without angin a pectoris 05/05/2021 Benign neoplasm of colon 05/05/2021 Diabetes mellitus without complication 1 Diabetic peripheral neuropathy 05/05/2021 Essential hypertension 05/05/2021 History of coronary artery bypass surgery 2020 Hyperlipidemia 05/05/2021 Peripheral edema 05/05/2021 Uveitis 02/03/2021 Rheumatoid arthritis 02/03/2021 Age-related nuclear cataract of both eyes 2020 Chronic anterior uveitis of both eyes 09/25/2020 Diabetes mellitus type 2 without retinopathy 11/2020 Steroid responder, right eye 09/25/2020 Dysphonia 01/17/2018 Mixed hearing loss of right ear 01/17/2018 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 8 Family History Medical History Relation Name Comments Cardiac disorder Father Diabetes Father Colon cancer Mother Relation Name Status Comments Father Mother Social History Tobacco Use Types Packs/Day Years Used Date Smoking Tobacco: Former Cigarettes Passive Smoke Exposure: Past Smokeless Tobacco: Never Alcohol Use Standard Drinks/Week Comments Yes 0 (1 standard drink = 0.6 oz pure alcohol) Alcoholic Drinks/day: Current drinker of alcohol Sex and Gender Information Value Date Recorded Sex Assigned at Not on file Legal Sex Male 7:33 PM EDT Gender Identity Not on file Sexual Orientation Straight 02/01/2021 1: 20 PM EDT Last Filed Vital Signs Vital Sign Reading Time Taken Comments Blood Pressure 131/79 06/22/2018 12:48 PM EST Pulse 67 06/22/2018 12:48 PM EST Temperature 36.7 C (98 F) 03/22/2018 1:07 PM EDT Respiratory Rate - - Oxygen Saturation - - Inhaled Oxygen Concentration - - Weight 97.1 kg (214 lb) 06/22/2018 12:48 PM EST Height 182.9 cm (6') 06/22/2018 12:48 PM EST Body Mass Index 29.02 06/22/2018 12:48 PM EST Plan of Treatment Health Maintenance Due Date Last Done Comments [facility]-Depression Screening 1945 [facility]-Diabetes: Hemoglobin A1C 1945 [facility]-Hepatitis C Screening 1945 [facility]-/Child/Adol SDOH Screenings 1945 Diabetes: Dental Exam 1957 [facility]- SDOH Screenings 1965 [facility]-Adult SDOH Screenings 1965 [facility]-DTaP,Tdap,and Td Vaccines (1 - Tdap) 08/01/1996 07/31/1996 [facility]-Pneumococcal Vaccine: 50+ Years (2 of 2 - PPSV23) 05/04/2018 03/09/2018 [id number] Vaccine ( - season) 2024 03/10/2023, 04/30/2021, 07/29/2020 [facility]-Hepatitis A Vaccines Aged Out 04/04/2018, 0501/2018 No longer eligible based on patient's age to complete this topic [facility]-Zoster Vaccines Completed 10/12/2020, 9 [facility]-RSV Vaccine: 60+ Years or Completed 03/24/2023 [facility]-Influenza Vaccine Completed 01/15/2024 , 02/27/2023, 03/04/2022, Additional history exists HPV Vaccines Aged Out No longer eligi ble based on patient's age to complete this topic [facility]-HIB Vaccines Aged Out No longer e ligible based on patient's age to complete this topic [facility]-IPV Vaccines Aged Out No longer e ligible based on patient's age to complete this topic [facility]-Rotavirus Vaccines Aged Out No lo nger eligible based on patient's age to complete this topic Insurance [facility] [place] [address]
--- OUTSIDE RECORDS SUMMARY | 2024-11-01 08:39 | XMS_ITS | Referral Summary ---
Author Organization [facility] Address [address] [place] [address] Care Team Providers Care Mercerizer Name Role Phone Justino Buchanan MD Primary Care Provider Temo Carreon MD Unavailable [phone] Ashly Vee APRN Unavailable [phone] Allergies No known active allergies Medications aspirin 81 MG EC tablet Take 1 tablet (81 mg total) by mouth daily. Active folic acid (FOLVITE) 1 MG tablet Take 1 tablet (1 mg total) by mouth daily. Active furosemide (LASIX) 20 MG tablet Take 1 tablet (20 mg total) by mouth daily. Active empagliflozin (JARDIANCE) 25 mg tablet Take 1 tablet (25 mg total) by mouth daily. Active lisinopriL (ZESTRIL) 20 MG tablet Take 1 tablet (20 mg total) by mouth daily. Active metoprolol tartrate (LOPRESSOR) 25 MG tablet Take 0.5 tablets (12.5 mg total) by mouth 2 (two) times daily. Active multivitamin per tablet Take 1 tablet by mouth daily. Active rosuvastatin (CRESTOR) 40 MG tablet Take 1 tablet (40 mg total) by mouth daily. Active propylene glycoL (Systane Complete) 0.6 % Drop every 6 (six) hours. Active prednisoLONE acetate (PRED MILD) 0.12 % ophthalmic suspension Twice a day 01/15/2023 Active semaglutide (Ozempic) 0.25 mg or 0.5 mg(2 mg/1.5 mL) pnij Inject under the skin. Active glimepiride (AMARYL) 2 MG tablet Take 1 tablet (2 mg total) by mouth daily with breakfast. Active Active Problems Problem Noted Date Diagnosed Date Aortic stenosis 03/27/2023 ASCVD (arteriosclerotic cardiovascular disease) 03/27/2023 HTN (hypertension) 03/27/2023 HLD (hyperlipidemia) 03/27/2023 Type 2 diabetes mellitus 03/27/2023 Social History Tobacco Use Types Packs/Day Years Used Date Smoking Tobacco: Never Smokeless Tobacco: Never Tobacco Cessation:Counseling Given: Not Answered Alcohol Use Standard Drinks/Week Comments Yes 0 (1 standard drink = 0.6 oz pur e alcohol) Socially Interpersonal Safety Answer Date Record ed Family or friends hurt you Not on file 06/09 Family or friends insult you Not on file Family or friends threaten you Not on file 0 06/09/2023 Family or friends scream or curse at you Not on file 06/09/2023 Housing Stability Answer Date Recorded Living situation today Not on file Living situation problems Not on file 2023 Family and Community Support Answer George e Recorded Help with Day to Day Activities Not on file 06/09/2023 Feeling Lonely or Isolated Not on file 06/09 Educational Attainment Answer Date Denny rded Speak language other than Albanian at home Not on file 06/09/2023 Want help with school or training Not on file 06/09/2023 Depression Answer Date Recorded PHQ-2 Risk Not on file 06/09/2023 Disabilities Answer Date Recorded Difficulty concentrating Not on file 024 Difficulty doing errands alone Not on file 0 06/09/2023 Substance Use Answer Date Recorded Used prescription meds for non-medical reasons N ot on file 06/09/2023 Used illegal drugs past 12 months Not on file 06/09/2023 Sex and Gender Information Value Date Recorded Sex Assigned at Male 03/28/2023 11:41 AM UNIVERSITY 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 Legal Sex Male 5:10 PM CDT Gender Identity Male 03/28/2023 11:41 AM UNIVERSITY CONTROLLER Sexual Orientation Straight 03/28/2023 11 :41 AM UNIVERSITY CONTROLLER Last Filed Vital Signs Vital Sign Reading Time Taken Comments Blood Pressure 124/68 07/05/2024 1:32 PM EST Pulse 66 07/05/2024 1:32 PM EST Temperature - - Respiratory Rate - - Oxygen Saturation - - Inhaled Oxygen Concentration - - Weight 99.8 kg (220 lb) 07/05/2024 1:32 PM EST Height 182.9 cm (6') 07/05/2024 1:32 PM EST Body Mass Index 29.84 07/05/2024 1:32 PM EST Plan of Treatment Not on file Insurance BLUE CROSS/BLUE SHIELD Care Teams Mercerizer Relationship Specialty Start Date End Date Justino Buchanan MD [address] [place] [address] PCP - General Adolescent Medicine 12/26/22 Temo Carreon MD [address] [facility] [address] [place] [address] Interventional Cardiology 12/26/22 Ashly Vee APRN [address] [facility] [address] [place] [address] Cardiology 12/26/22
--- OUTSIDE RECORDS SUMMARY | 2024-11-01 08:39 | XMS_ITS | Clinical Summary ---
Author Organization [facility] Address [address] [place] [address] Care Team Providers Care Clin Asst Name Role Phone Justino Buchanan MD Primary Care Provider Temo Carreon MD Unavailable [phone] Ashly Vee APRN Unavailable Allergies No known active allergies Medications aspirin [...] (hyperlipidemia) 03/27/2023 Type 2 diabetes mellitus 03/27/2023 Family History Medical History Relation Name Comments Diabetes Father Heart attack Father Colon cancer Mother Relation Name Status [...] Date Denny rded Speak language other than Ukrainian at home Not on file 06/09/2023 Want [...] Sex Assigned at Male 03/28/2023 11:41 AM GARLAND MAKER Legal Sex Male 5:10 PM CDT Gender Identity Male 03/28/2023 11:41 AM GARLAND MAKER Sexual Orientation Straight 03/28/2023 11 :41 AM GARLAND MAKER Last Filed Vital Signs Vital Sign Reading [...] 07/05/2024 1:32 PM EST Plan of Treatment Health Maintenance Due Date Last Done Comments Diabetic Kidney Health Evalu ation (KED) 1945 Diabetic Eye Exam 1957 Diabetic foot exam 1957 Depression Screening (12+) 1959 Hepatitis C Screening 1965 DTAP/TDAP/TD VACCINES (2 - T d or Tdap) 07/31/2006 07/31/1996 Pneumococcal 50+ years (2 of 2 - PPSV23) 05/04/2018 03/09/2018 Respiratory Syncytial Virus (RSV) Adult or (1 - 1-dose 75+ series) 2022 Hemoglobin A1C 03/27/2023 COVID-19 VACCINE (3 - 2023-2 5 season) 2024 04/30/2021, 07/29/2020 Falls Risk Screening 05/22/2024 Influenza Vaccine (Season Ended) 2025 03/04/2022, 01/28/2021, 01/28/2021, Additional history exists Tobacco Cessation Counseling and Screening (12+) 07/05/2025 07/05/2024 Shingles Vaccine (Zoster) Completed 10/12/2020, Insurance BLUE CROSS/BLUE SHIELD Care Teams Clin Asst Relationship Specialty Start Date End Date Justino Buchanan MD [address] [place], [place] [address] PCP - General Adolescent Medicine 12/26/22 Temo Carreon MD [address] [facility] [address] [place] [address] Interventional Cardiology 12/26/22 Ashly Vee APRN [address] [facility] [address] [place] [address] Cardiology 12/26/22
--- OUTSIDE RECORDS SUMMARY | 2024-11-01 08:39 | XMS_ITS | Clinical Summary ---
Author Organization [facility] Address [address] [place], [place] [id number] Phone [email or web address] Care Team Providers Care Vision Teacher Name Role Phone Patrick Rosas Primary Care Provider Unavailabl e Immunizations Immunization Administration Dates Next Due Hepatitis A (HAVRIX-ADULT VAQTA-ADULT) (CVX-52) 04/04/2018,09/27/2017 03/30/2018 Influenza single-dose SYRING E (Afluria, Fluarix, Fluzone, Flulaval) trivalent (CVX-140) 03/09/2016 Social History Tobacco Use Types Packs/Day Years Used Date Smoking Tobacco: Never Assessed Intimate Partner Violence Answer Date R ecorded Insults You Not on file 08/31/2020 Threatens You Not on file 08/31/2020 Screams at You Not on file 08/31/2020 Physically Hurt Not on file 08/31/2020 Intimate Partner Violence Score Not on file 08/31/2020 Stress Answer Date Recorded Stress in your Life Not on file 03/24/2024 Dealing with Stress 3 03/24/2024 Sex and Gender Information Value Date Recorded Sex Assigned at Not on file Legal Sex Male 1:34 PM 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 Gender Identity Not on file Sexual Orientation Not on file Plan of Treatment Health Maintenance Due Date Last Done Comments Dental Cleaning/Exam 1945 Hepatitis C Screening 1945 Annual Preventive Exam 1965 Hep B Infection Screening - Triple Screen 1965 Tetanus Diphtheria and Pertussis Immunization (1 - Tdap) 1966 Pneumococcal: 65+ Years (1 o f 1 - PCV) 1997 Zoster Immunization (1 of 2) 1997 RSV Immunization >= 75 yrs old or 60-74 yrs old at risk (1 - 1-dose 75+ series) 2022 Covid-19 Immunization ( - 2023- season) 2024 Influenza Immunization (Season Ended) 2025 03/09/2016 Hepatitis A Immunization Aged Out 018, 09/27/2017 No longer eligible based on patient's age to complete this topic HIB Immunization Aged Out No longer e ligible based on patient's age to complete this topic HPV Immunization Aged Out No longer e ligible based on patient's age to complete this topic Hepatitis B Immunization Aged Out No longer eligible based on patient's age to complete this topic Polio Immunization Aged Out No longer eligible based on patient's age to complete this topic Insurance RAFFY NO COPAY NB Care Teams Vision Teacher Relationship Specialty Start Date End Date Patrick Rosas PCP - General 09/27/17
[2024-11-01 08:56] LABS: Basophils # 0.1 K/mm3 (0-0.2); Basophils % 0.4 % (0.1-2.0); Eosinophils # 0.1 Kmm3 (0.0-0.4); Eosinophils % 0.5 % (0.1-12.0); Hematocrit 43.7 % (42.0-52.0); Hemoglobin 14.3 g/dL (14.1-18.0); Immature Granulocytes # 0.06 10^3uL; Immature Granulocytes % 0.3 %; Lymphocytes # 14.6 K/mm3 (0.7-4.5); Lymphocytes % 78.2 % (10-50); Mean Corpuscular HGB Conc 32.7 g/dL (31.8-35.4); Mean Corpuscular Hemoglobin 30.6 pg (27.0-31.2); Mean Corpuscular Volume 93.4 fl (80-94); Mean Platelet Volume 10.1 fl (7.4-10.4); Monocytes # 0.6 K/mm3 (0.1-1.0); Monocytes % 3.1 % (1.7-9.3); Neutrophils # 3.3 K/mm3 (1.8-7.8); Neutrophils % 17.5 % (37.0-80.0); Nucleated Red Blood Cells # 0 10^3/uL; Nucleated Red Blood Cells % 0 %; Platelet Count 144 K/mm3 (142-424); Red Blood Count 4.68 M/mm3 (4.60-6.20); Red Cell Distribution Width 13.2 % (11.5-17.5); Red Cell Distribution Width-SD 44.5 fL; White Blood Count 18.7 K/mm3 (4.8-10.8)
[2024-11-01 08:59] LABS: MANUAL DIFFERENTIAL MANUAL DIFFERENTIAL (MANUAL DIFF)
[2024-11-01 09:20] LABS: Alanine Aminotransferase 40 U/L (12-78); Albumin Level 4.1 g/dl (3.5-5.0); Albumin/Globulin Ratio 1.7 (1.1-1.8); Alkaline Phosphatase 71 U/L (38-126); Anion Gap 6.7 mEq/L (5-15); Aspartate Amino Transferase 33 U/L (17-59); Bilirubin,Total 0.6 mg/dl (0.2-1.3); Blood Urea Nitrogen 17 mg/dl (9-20); Calcium 8.9 mg/dl (8.4-10.2); Carbon Dioxide 27 mmol/L (22.0-30.0); Chloride 109 mmol/L (98-107); Chol/HDL Ratio 4.1 (1-3.5); Cholesterol 162 mg/dl (140-200); Estimated Glomerular Filt Rate 94 ml/min (>60); GFR (African American) 113 ML/MIN (>60); Globulin 2.4 g/dL (1.3-3.2); Glucose 150 mg/dl (74-100); HDL Cholesterol 40 mg/dl (40-60); Potassium 4.7 mmoL/L (3.5-5.1); Sodium 138 mmol/L (136-145); Total Protein,Serum 6.5 g/dl (6.3-8.2); Triglycerides 142 mg/dl (30-150); VLDL Cholesterol 28 mg/dL (0-40)
[2024-11-01 09:31] LABS: Direct LDL Cholesterol 84.94 mg/dL (100-129)
[2024-11-01 09:36] LABS: Free Thyroxine Index 2.5 ug/dL (5.93-13.13); T4 (Thyroxine) 8.3 ug/dl (5.53-11.0); Triiodothryronine (T3) Uptake 30 % (23.5-40.5)
[2024-11-01 09:40] LABS: Lymphocytes % 70 % (10-50); Monocytes % 17 % (2-9); Neutrophils % 13 % (42-76); Total Cells Counted 100
[2024-11-01 09:44] LABS: Platelet Estimate Normal; RBC Morphology Normal
[2024-11-01 09:48] LABS: Hemoglobin A1C 8.1 % (4.0-6.0)
[2024-11-01 09:49] LABS: Thyroid Stimulating Hormone 2.72 uIU/mL (0.465-4.68)
== END 2024-11-01 23:59 | disposition home or self-care (01) ==
LOC: LAB 08:36
PROVIDERS: PCP Internal Medicine Adolescent Medicine; Visit Provider Internal Medicine Adolescent Medicine
DX: E11.42 Type 2 diabetes mellitus with diabetic polyneuropathy (principal); M06.9 Rheumatoid arthritis, unspecified; E78.2 Mixed hyperlipidemia; E04.1 Nontoxic single thyroid nodule
CPT/HCPCS: 36415; 80053; 80061; 83036; 84436; 84443; 84479; 85007; 85025; 85027

== ENCOUNTER 2024-11-08 13:49 | Outpatient (CLI) | payer BC, SELFPAY ==
--- OUTSIDE RECORDS SUMMARY | 2024-11-08 13:52 | XMS_ITS | Clinical Summary ---
Author Organization [facility] Address [address] [place] [address] Care Team Providers Care Cloud Security Architect Name Role Phone Justino Buchanan MD Primary Care Provider [phone] Temo Carreon MD Unavailable [phone] Ashly Vee APRN Unavailable [phone] Allergies No known active allergies Medications [...] Date Denny rded Speak language other than [place] Citizen at home Not on file 06/09/2023 Want [...] Sex Assigned at Male 03/28/2023 11:41 AM CHARGEMASTER ANALYST Legal Sex Male 5:10 PM CDT Gender Identity Male 03/28/2023 11:41 AM CHARGEMASTER ANALYST Sexual Orientation Straight 03/28/2023 11 :41 AM CHARGEMASTER ANALYST Last Filed Vital Signs Vital Sign Reading [...] 10/12/2020, Insurance BLUE CROSS/BLUE SHIELD Care Teams Cloud Security Architect Relationship Specialty Start Date End Date Justino Buchanan MD [address] [place] [address] [place], [place] [address] PCP - General Adolescent Medicine 12/26/22 Temo Carreon MD [address] [facility] [address] [place] [address] Interventional Cardiology 12/26/22 Ashly Vee APRN [address] [facility] [address] [place] [address] Cardiology 12/26/22
--- OUTSIDE RECORDS SUMMARY | 2024-11-08 13:52 | XMS_ITS | Clinical Summary ---
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
--- OUTSIDE RECORDS SUMMARY | 2024-11-08 13:52 | XMS_ITS | Clinical Summary ---
Author Organization [facility] Address [address] [place] [address] Care Team Providers Care Curator Of Collections Name Role Phone Unavailable Primary Care Provider Unavailabl e Allergies No known active allergies Medications Multiple Vitamins-Creek als (multivitamin with minerals) tablet 8 Active [...] (2 of 2 - PPSV23) 05/04/2018 03/09/2018 [id number] Vaccine ( - season) 2024 03/10/2023, 04/30/2021, [...] age to complete this topic Insurance [employer] [facility] [address]
--- OUTSIDE RECORDS SUMMARY | 2024-11-08 13:52 | XMS_ITS ---
Author Organization Unknown Medications Medication Instructions Effective Dates (start - stop) Status linagliptin 5 MG Oral Tablet [Tradjenta] 9886-42-25L56:00:00.000+00:0 0 - Completed linagliptin 5 MG Oral Tablet [Tradjenta] 7469-80-18R22:00:00.000+00:0 0 - Completed rosuvastatin calcium 40 MG O ral Tablet 9223-83-29H99:00:00.000+00:0 0 - Completed difluprednate 0.5 MG/ML Ophthalmic Suspension 0156-34-50V50:00:00.000+00:0 0 - Completed sitagliptin 100 MG Oral Tabl et [Januvia] 3018-25-39X29:00:00.000+00:0 0 - Completed rosuvastatin calcium 40 MG O ral Tablet 4955-85-42Q14:00:00.000+00:0 0 - Completed difluprednate 0.5 MG/ML Ophthalmic Suspension 2288-52-15V87:00:00.000+00:0 0 - Completed rosuvastatin calcium 40 MG O ral Tablet 7300-55-73J75:00:00.000+00:0 0 - Completed rosuvastatin calcium 40 MG O ral Tablet 0867-68-51B10:00:00.000+00:0 0 - Completed rosuvastatin calcium 40 MG O ral Tablet 7402-79-14V92:00:00.000+00:0 0 - Completed lisinopril 5 MG Oral Tablet 2021:00:00.000+00:00 - Completed lisinopril 5 MG Oral Tablet 2022:00:00.000+00:00 - Completed sitagliptin 100 MG Oral Tabl et [Januvia] 0537-34-31R23:00:00.000+00:0 0 - Completed furosemide 20 MG Oral Tablet 07-25-19:00:00.000+00:00 - Completed empagliflozin 25 MG Oral Tab let [Jardiance] 7082-59-63W59:00:00.000+00:0 0 - Completed prednisolone acetate 10 MG/M L Ophthalmic Suspension 1727-84-01X51:00:00.000+00:0 0 - Completed - 2796-85-98Z68:00 :00.000+00:00 - Completed metoprolol tartrate 25 MG Or al Tablet 9220-58-06Q00:00:00.000+00:0 0 - Completed lisinopril 5 MG Oral Tablet 2022:00:00.000+00:00 - Completed empagliflozin 25 MG Oral Tab let [Jardiance] 0517-53-05A29:00:00.000+00:0 0 - Completed empagliflozin 25 MG Oral Tab let [Jardiance] 0324-54-59Y07:00:00.000+00:0 0 - Completed - 8076-44-14R85:00 :00.000+00:00 - Completed metformin hydrochloride 1000 MG Oral Tablet 1304-65-08Z11:00:00.000+00:0 0 - Completed metoprolol tartrate 25 MG Or al Tablet 6787-57-84T13:00:00.000+00:0 0 - Completed furosemide 20 MG Oral Tablet 07-02-08:00:00.000+00:00 - Completed - 3034-24-75U57:00 :00.000+00:00 - Completed - 7139-65-05K40:00 :00.000+00:00 - Completed prednisolone acetate 10 MG/M L Ophthalmic Suspension 6557-79-16M95:00:00.000+00:0 0 - Completed lisinopril 5 MG Oral Tablet 2022:00:00.000+00:00 - Completed - 9273-03-33B84:00 :00.000+00:00 - Completed - 3010-14-08X51:00 :00.000+00:00 - Completed - 4372-25-13N18:00 :00.000+00:00 - Completed lisinopril 5 MG Oral Tablet 2021T:00:00.000+00:00 - Completed - 6067-66-04W31:00 :00.000+00:00 - Completed metformin hydrochloride 1000 MG Oral Tablet 4525-37-72W76:00:00.000+00:0 0 - Completed furosemide 20 MG Oral Tablet 202 07-21-20:00:00.000+00:00 - Completed furosemide 20 MG Oral Tablet 06-29-09:00:00.000+00:00 - Completed empagliflozin 25 MG Oral Tab let [Jardiance] 9174-80-59D57:00:00.000+00:0 0 - Completed - 4301-30-86Q44:00 :00.000+00:00 - Completed metoprolol tartrate 25 MG Or al Tablet 5593-66-69G01:00:00.000+00:0 0 - Completed metoprolol tartrate 25 MG Or al Tablet 9522-13-44L06:00:00.000+00:0 0 - Completed - 1504-92-91R72:00 :00.000+00:00 - Completed Patient Care team information Name Category Status Period Participants - - Proposed period not known -
--- OUTSIDE RECORDS SUMMARY | 2024-11-08 13:52 | XMS_ITS | Referral Summary ---
Author Organization [facility] Address [address] [place] [address] Care Team Providers Care Oil Well Logging Engineer Name Role Phone Justino Buchanan MD Primary Care Provider Temo Carreon MD Unavailable [phone] Ashly Vee APRN Unavailable [phone] Allergies No known active allergies Medications [...] Date Denny rded Speak language other than [place] at home Not on file 06/09/2023 Want [...] Sex Assigned at Male 03/28/2023 11:41 AM FACILITY COORDINATOR Legal Sex Male 5:10 PM CDT Gender Identity Male 03/28/2023 11:41 AM FACILITY COORDINATOR Sexual Orientation Straight 03/28/2023 11 :41 AM FACILITY COORDINATOR Last Filed Vital Signs Vital Sign Reading [...] file Insurance BLUE CROSS/BLUE SHIELD Care Teams Oil Well Logging Engineer Relationship Specialty Start Date End Date Justino Buchanan MD [address] [place] [address] [place] [address] PCP - General Adolescent Medicine 12/26/22 Temo Carreon MD [address] [facility] [address] [place] [address] Interventional Cardiology 12/26/22 Ashly Vee APRN [address] [facility] [address] [place] [address] Cardiology 12/26/22
[2024-11-10 13:51] LABS: Peripheral Smear Review Scanned Result
== END 2024-11-08 23:59 | disposition home or self-care (01) ==
LOC: LAB 13:50
PROVIDERS: PCP Internal Medicine Adolescent Medicine; Visit Provider Internal Medicine Medical Oncology
DX: D72.820 Lymphocytosis (symptomatic) (principal)

== ENCOUNTER 2024-11-18 16:08 | Outpatient (CLI) | payer BC, SELFPAY ==
--- OUTSIDE RECORDS SUMMARY | 2024-10-29 05:37 | XMS_ITS ---
Author Organization [facility] Address [address] [facility] [address] [facility] [address] [place] [address] Care Team Providers Care Driver Merchandiser Name Role Phone Justino Buchanan Primary Care Provider Results Component Value Reference Range Notes M-Complete Blood Count Auto Diff Reviewed date:11/01/2024 02:57:59 PM Interpretation: Performing Lab: Notes/Report: WBC 18.7 4.8-10.8 K/mm3 RBC 4.68 4.60-6.20 M/mm3 HGB 14.3 14.1-18.0 g/dL HCT 43.7 42.0-52.0 % MCV 93.4 80-94 fl MCH 30.6 27.0-31.2 pg MCHC 32.7 31.8-35.4 g/dL RDW 13.2 11.5-17.5 % PLT 144 142-424 K/mm3 MPV 10.1 7.4-10.4 fl NE% 17.5 37.0-80.0 % LY% 78.2 10-50 % MO% 3.1 1.7-9.3 % EO% 0.5 0.1-12.0 % BA% 0.4 0.1-2.0 % NE# 3.3 1.8-7.8 K/mm3 LY# 14.6 0.7-4.5 K/mm3 MO# 0.6 0.1-1.0 K/mm3 EO# 0.1 0.0-0.4 Kmm3 BA# 0.1 0-0.2 K/mm3 RDW-SD 44.5 NRBC% 0 IG% 0.3 NRBC# 0 IG# 0.06 M-Comprehensive Metabolic Pa jil Reviewed date:11/01/2024 02:57:59 PM Interpretation: Performing Lab: Notes/Report: NA 138 136-145 mmol/L K 4.7 3.5-5.1 mmoL/L CL 109 98-107 mmol/L CO2 27 22.0-30.0 mmol/L GAP 6.7 5-15 mEq/L BUN 17 9-20 mg/dl CREATT 0.80 0.66-1.25 mg/dl GFRAA 113 >60 ML/MIN EGFR 94 >60 ml/min GLU 150 74-100 mg/dl CA 8.9 8.4-10.2 mg/dl BILIT 0.6 0.2-1.3 mg/dl AST 33 17-59 U/L ALT 40 12-78 U/L TP 6.5 6.3-8.2 g/dl ALB 4.1 3.5-5.0 g/dl GLOB 2.4 1.3-3.2 g/dL AGRATIO 1.7 1.1-1.8 ALP 71 38-126 U/L M-Hemoglobin A1C Reviewed date:11/01/2024 02:57:59 PM Interpretation: Performing Lab: Notes/Report: HGBA1C 8.1 4.0-6.0 % < 6% Non-Diabetic Level < 7% Controlled Diabetic Level > 8% Poorly Controlled Diabetic Level M-Lipid Panel Reviewed date:11/01/2024 02:57:59 PM Interpretation: Performing Lab: Notes/Report: Patient Fasting? Y TRIG 142 30-150 mg/dl CHOL 162 140-200 mg/dl DLDL 84.94 100-129 mg/dL VLDL 28 0-40 mg/dL HDL 40 40-60 mg/dl CHLHDL 4.1 1-3.5 M-Thyroid Panel Reviewed date:11/01/2024 02:57:59 PM Interpretation: Performing Lab: Notes/Report: FTI 2.5 5.93-13.13 ug/dL T4 8.3 5.53-11.0 ug/dl T3U 30 23.5-40.5 % TSH 2.72 0.465-4.68 uIU/mL Encounters Encounter Location Date Provider Diagnosis [facility] [place] [address] [place] [address] 10/29/2024 Justino Buchanan Diabetic peripheral neuropathy E11.42 ; Rheumatoid arthritis M06.9 ; Hyperlipemia, mixed E78.2 and Thyroid nodule E04.1 Assessments Encounter Date Diagnosis (ICD Code) Assessment Notes Treatment Notes Treatment Clinical Notes Section Notes 10/29/2024 Diabetic peripheral neuropathy (ICD-10 - E11.42) 10/29/2024 Rheumatoid arthritis (ICD-10 - M06.9) 10/29/2024 Hyperlipemia, mixed (ICD-10 - E78.2) 10/29/2024 Thyroid nodule (ICD-10 - E04.1) Plan Of Treatment Next Appt Details Provider Name:Justino Buchanan, 12/30/2024 03:15:00 PM, [address], [address], [place], [address], Provider Name:Justino Buchanan, 03/03/2025 02:00:00 PM, [address] [facility], [address], [place], [address], Progress Notes * Kris HOODDOB:1945 (79 yo M)Acc No.[id number]:10/29/2024 Patient: Kris STOVALL :1945 A ge:79 Y S ex:Male Address:[address] [place] [address] , [place] [address] Subjective: * Chief Complaints: * * Medical History: * Surgical History: * Hospitalization/Major Diagno stic Procedure: * Medications: Objective: * Vitals: * Physical Examination: Assessment: * Assessment: 1. D iabetic peripheral neuropathy - E11.42 (Primary) 2 . R heumatoid arthritis - M06.9 3 . H yperlipemia, mixed - E78.2 4 . T hyroid nodule - E04.1 Plan: * Treatment: 2. R heumatoid arthritis L AB: M-Complete Blood Count Auto Diff L AB: M-Comprehensive Metabolic Panel L AB: M-Hemoglobin A1C L AB: M-Lipid Panel L AB: M-Thyroid Panel 3. H yperlipemia, mixed L AB: M-Complete Blood Count Auto Diff L AB: M-Comprehensive Metabolic Panel L AB: M-Hemoglobin A1C L AB: M-Lipid Panel L AB: M-Thyroid Panel 4. T hyroid nodule L AB: M-Complete Blood Count Auto Diff L AB: M-Comprehensive Metabolic Panel L AB: M-Hemoglobin A1C L AB: M-Lipid Panel L AB: M-Thyroid Panel * Procedure Codes: * true * Date: Generated for Oscar valles/Argelia/eTransmitting on: 0 11/18/2024 04:12 PM EDT
--- OUTSIDE RECORDS SUMMARY | 2024-11-04 10:00 | XMS_ITS ---
Author Organization [facility] Address [address] [facility] [address] [facility] [address] [place] [address] Care Team Providers Care Spine Supervisor Name Role Phone Justino Buchanan Primary Care Provider Allergies No Known Allergies Results Component Value Reference Range Notes NM MYOCARD SPEC WM/EF CATALOG LIBRARY ASSISTANT Reviewed date:11/14/2024 09:33:50 AM Interpretation: Performing Lab: Notes/Report: [address] [place] [address] Name: KRIS HOOD Exam Date: 11/11/2024 : 1945 Age 79 years Gender: M Physician: HAYLEY LOCKWOOD Facility: [facility] Facility HSV: Outpatient Exam: NM MYOCARD SPEC WM/EF CATALOG LIBRARY ASSISTANT STRESS TEST Patient Name: KRIS HOOD Admit Date: 11/11/2024 Date of : 1945 Attending Physician: Justino Buchanan Pre-authenticated by LYNNETTE SAEZ MD 2024-11-11 14:57:15 DATE OF SERVICE: 11/11/2024 PROVIDER: NADJA CHURCH MD TYPE OF STUDY: Exercise nuclear stress test INDICATIONS: The patient is a 79-year-old male with past medical history of hypertension, dyslipidemia, diabetes, sent for evaluation of chest pain by Dr. Buchanan. The patient at rest had a heart rate of 60 beats per minute. Resting EKG was normal sinus rhythm. Resting blood pressure 144/67 mmHg. At rest, he received 10.5 millicurie of the injection of Cardiolite and then 40 minutes later, the rest images were done. Then, the patient exercised according to the Lonny protocol for 4 minutes and 55 seconds achieving maximum work level of 7 METS. His resting heart rate of 60 beats per minute adrianna to a maximum heart rate of 150 beats per minute, that represents a heart rate under 104% of the maximum expected heart rate for his age. His resting blood pressure of 144/67 mmHg went up to 191/84 mmHg. At the peak of exercise, he received 35.1 millicurie IV injection of Cardiolite and then, the exercise part of the stress was completed. The patient, at the peak of exercise, complained of chest discomfort. Then, the patient was monitored during the recovery. During the exercise and recovery period, the patient had significant ST depression in the inferior and inferolateral leads suggestive of ischemia with the ST depression was horizontal and 2 mm. 40 minutes after the 2nd Cardiolite injection, the stress and gated images with the polar maps were done. During the exercise and the recovery period, the patient's chest pain gradually resolved. His ST depression also normalized and resolved. His heart rate response to exercise was appropriate. His blood pressure response to exercise was also appropriate. At the end of the recovery period, his hemodynamics returned back to baseline. Test was completed. FINDINGS: Showed that the quality of the study was good. There was no significant attenuation artifact. LV cavity during stress was normal. TID was 0.9. Right ventricle was also normal. No lung activity seen. SPECT images showed there is homogeneous tracer distribution throughout the myocardium, except, the inferior wall has a mild reversibility with summed difference score of 5. Gated SPECT images showed normal wall thickening and motion throughout the myocardium with a calculated ejection fraction of 80% Legally authenticated by LYNNETTE SAEZ MD 2024-11-12 11:07:41 which is normal. CONCLUSION: Likely positive stress test for inferolateral ischemia on the EKG at the peak of the exercise with a Husain score of -9 suggestive of medium risk group. Perfusion images, no significant reversibility, just mild ischemia in the inferior wall suggestive of possible of balanced ischemia and proximal lesion. Normal ejection fraction. Normal functional capacity. DICTATED BY: NADJA CHURCH MD Dictated By: NADJA CHURCH Transcribed By: VINCE RUIZ Transcribed On: 11/12/2024 10:47 AM Electronically signed by: NADJA CHURCH 11/12/2024 Thank you for referring KRIS HOOD to [facility]. Legally authenticated by LYNNETTE SAEZ MD 2024-11-12 11:07:41 Reason For Referral Reason Please set up thyroi d US and stress test for Monday at Diagnosis 1 Palpitations (R00.2) Referral Organization [facility] Referring Provider First Name Justino Referring Provider Last Name Chanel Referring Provider Speciality Internal edicine General Notes Rajinder Noguera 03:19:45 PM > faxed and they will call pt Referral Priority Urgent Reason Appointment with Dr. Anderson for persistent lymphocytosis Diagnosis 1 Elevated lymphocytes (D72.820) Referral Organization [facility] Referring Provider First Name Justino Referring Provider Last Name Chanel Referring Provider Speciality Internal edicine Referred Organization [facility] Referred Address [address], [place], [place],[address], Referred Provider Specialty Hematology/O ncology General Notes Teri Peralta 2024 09:54:14 AM >sent to Dr. Anderson Referral Priority Urgent REASON FOR VISIT 3 month follow up Medications Medication SIG (Take, Route, Frequency, Duration) Notes Start Date End Date Status Furosemide 20 MG 1 tab(s) orally once a day; Duration: 90 Active Glimepiride 2 MG TAKE 1 TABLET DAILY; Duration: 90 Active Fluorometholone ACETATE 0.1% 1 GTT IN EACH AFFECTED EYE ONCE A DAY; Duration: 90 DAYS *Please review and pick correct strength-formulat ion from [employer] options. If intended option is not shown, discontinue and re-order from Quick Search* Active OZEMPIC 2 MG/3 ML (0.25 MG OR 0.5 MG DOSE) 0.5MG SUBCUTANEOUSLY ONCE A WEEK; Duration: 30 DAYS *Please review for potential replacement for e-prescription and drug interaction check* 07/01/2024 Active ACCUCHEK FAST CLICK LANCETS TWICE A DAY Please put on hold and patient will call when he needs filled *Please review for potential replacement for e-prescription and drug interaction check* Active Metoprolol Tartrate 25 MG TAKE 1/2 TABLET TWICE A DAY; Duration: 90 Active Flonase Allergy Relief 50 MCG/ACT 1 spray(s) in each nostril once a day; Duration: 30 days prn 07/19/2024 Active Lisinopril 20 MG 1 tab(s) orally once a day; Duration: 90 days Active Jardiance 25 MG TAKE 1 TABLET EVERY MORNING; Duration: 90 Active Rosuvastatin Calcium 40 MG 1 tab(s) orally once a day; Duration: 90 Active ACCU-CHECK GUIDE TEST STRIPS USE TO CHECK BLOOD SUGAR TWICE DAILY; Duration: 90 DAYS *Please review for potential replacement for e-prescription and drug interaction check* Active Triamcinolone Acetonide 0.025 % 1 orquidea applied topically 3 times a day; Duration: 7 day(s) prn 04/09/2021 Active ACCU-CHECK GUIDE METER - USE TO CHECK BLOOD SUGAR TWICE DAILY *Please review for potential replacement for e-prescription and drug interaction check* 06/20/2018 Active Probiotic 1 TAB PO QD *Please review and pick correct strength-formulat ion from [employer] options. If intended option is not shown, discontinue and re-order from Quick Search* Active Nitrostat 0.4 MG 1 tab(s) sublingually every 5 minutes prn Active Multivitamin - 1 tab(s) orally once a day Active Folic Acid OTC 1 TAB QD 800mcg *Please review and pick correct strength-formulat ion from Sver[employer] options. If intended option is not shown, discontinue and re-order from Quick Search* Active Systane PRESERVED 1 GTT IN EACH EYE 3 TIMES A DAY 3 times a day *Please review and pick correct strength-formulat ion from [employer] options. If intended option is not shown, discontinue and re-order from Quick Search* Active Problems Problem Type SNOMED Code ICD Code Onset Dates Problem Status W/U Status Risk Notes Problem Lymphocytosis (65462108) Elevated lymphocytes (D72.820) Active confirmed Vital Signs Temperature 97.7 degrees Fahrenheit 11/05/19 25 Heart Rate 68 /min 11/04/2024 Blood pressure systolic 120 mm Hg 11/05/19 25 Blood pressure diastolic 70 mm Hg 025 Height 71 in 11/04/2024 Weight 208.2 lbs 11/04/2024 BMI 29.03 kg/m2 11/04/2024 Encounters Encounter Location Date Provider Diagnosis [facility] [address] [place] [address] 11/04/2024 Justino Buchanan Palpitations R00.2 ; Thyroid nodule E04.1 ; Sensation of chest pressure R07.89 ; Elevated lymphocytes D72.820 and Type 2 diabetes mellitus with other circulatory complications E11.59 Assessments Encounter Date Diagnosis (ICD Code) Assessment Notes Treatment Notes Treatment Clinical Notes Section Notes 11/04/2024 Palpitations (ICD-10 - R00.2) Multiple risk factors for heart disease. Has a history of atherosclerotic disease. Will get stress test done on Monday of this week at [facility]. 11/04/2024 Thyroid nodule (ICD-10 - E04.1) Due for repeat thyroid imaging, will be able to coordinate this in the same day he goes for a stress test 11/04/2024 Sensation of chest pressure (ICD-10 - R07.89) 11/04/2024 Elevated lymphocytes (ICD-10 - D72.820) White blood cell count is been elevated at 18,000 with a lymphocytic predominance. Platelets and red blood cell lines normal. Possible effect of his uveitis/rheumatoid disease? Versus med effect? Versus some type of myelodysplastic issue. Will have hematology evaluation 11/04/2024 Type 2 diabetes mellitus with other circulatory complications (ICD-10 - E11.59) Has been exercising and dieting, has gotten A1c down to 8.1%. Congratulated on this. No changes in plan, lipid profile excellent. Plan Of Treatment Treatment Notes Assessment Notes Palpitations Multiple risk factors for heart disease. Has a history of atherosclerotic disease. Will get stress test done on Monday of this week at [facility]. Thyroid nodule Due for repeat thyro id imaging, will be able to coordinate this in the same day he goes for a stress test Elevated lymphocytes White blood cell count is been elevated at 18,000 with a lymphocytic predominance. Platelets and red blood cell lines normal. Possible effect of his uveitis/rheumatoid disease? Versus med effect? Versus some type of myelodysplastic issue. Will have hematology evaluation Type 2 diabetes mellitus wit h other circulatory complications Has been exercising and dieting, has got ten A1c down to 8.1%. Congratulated on this. No changes in plan, lipid profile excellent. Pending Test Test Name Order Date US THYROID 11/04/2024 Referrals Referral Date Details 11/04/2024 11/04/2024, Please s et up thyroid US and stress test for Monday at 11/04/2024 11/04/2024, Appointm ent with Dr. Anderson for persistent lymphocytosis, [address], [place], [address], Next Appt Details Follow Up: prn, Reason: Provider Name:Justino Buchanan, 12/30/2024 03:15:00 PM, [address] [place] [address] [facility], [address], [place], [address], Provider Name:Justino Buchanan, 03/03/2025 02:00:00 PM, [address] [facility] [address] [facility], [address], [place], [address], Progress Notes * Kris HOODDOB:1945 (79 yo M)Acc No.[id number]:11/04/2024 Progress Notes Patient: Kris STOVALL Provider: Eric Buchanan MD :1945 A ge:79 Y S ex:Male Date:11/04/2024 Address:[address] [place] [address] [id number] Subjective: * Chief Complaints: * 1 . 3 month follow up. * HPI: g en: Patient is here to follow-up his medical problems and to review lab work. Overall feels pretty well except for a couple of concerns-is due for thyroid ultrasound repeat from 1 year ago for a TI-RADS 3 nodule. He is also concerned because he notes when he is doing his walking program at work he has episodes of about 30 to 40 seconds of palpitations that give him a feeling of chest pressure. He takes some deep breaths and they go away but then it will happen again on his next lap around the track at work when he is walking briskly. They started about a month ago. He has no increase in edema, angina at rest or orthopnea. 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 Also with positive rheumatoid factor, Heart murmur - mild aortic stenosis, TiRads 3 nodule in isthmus 08/12 - needs 12 mo f/u. * Surgical History: b roken leg , salivary gland removed , heart cath and 2 stents 06/10/2014, Heart Cath 08/2015, open heart surgery- CABG x2 12/10/2015, colonoscopy 02/2017, lt eye- cataract surgery 05/07/21, rt eye-cataract surgery 05/18/21. * Hospitalization/Major Diagno stic Procedure: e ncephalitis 1978 , left leg fx , heart cath and 2 stents 06/10/2014, open heart surgery 12/10/2015, Covid 09/2021. * Family History: F ather: , diabetesheart attackartherosclerosis. M other: , colorectal cancer. P aternal Grand Father: , artherosclerosisheart attack. P aternal Grand Mother: , artherosclerosisheart attack. M aternal Grand Father: . M aternal Grand Mother: . P aternal uncle: alive, heart issues. P aternal aunt: . M aternal uncle: . M aternal aunt: . S iblings: alive, heart attack. C hildren: alive. 1 brother(s) - healthy. 2 son(s) , 1 daughter(s) - healthy. . daughter-htn. * Social History: S moking: no A re you a:: nonsmoker. R ecreational drug use: no. Exercise: no. Home smoke detector use: yes. Caffeine: yes, frequency:coffee 1 pot a day. Living Will: Yes. Alcohol: socially. Sexually active: no. Travel outside : no. 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 * Medications: T aking Systane PRESERVED SOLUTION 1 GTT IN EACH EYE 3 TIMES A DAY , Notes to Pharmacist: 3 times a day *Please review and pick correct strength-formulation from Svervean options. If intended option is not shown, discontinue and re-order from Quick Search*, Taking Folic Acid OTC 1 TAB QD , Notes to Pharmacist: 800mcg *Please review and pick correct strength-formulation from Svervean options. If intended option is not shown, discontinue and re-order from Quick Search*, Taking Multivitamin - Tablet 1 tab(s) orally once a day , Taking Nitrostat 0.4 MG Tablet Sublingual 1 tab(s) sublingually every 5 minutes prn , Taking Probiotic 1 TAB PO QD , Notes to Pharmacist: *Please review and pick correct strength-formulation from [employer] options. If intended option is not shown, [...] Tablet TAKE 1/2 TABLET TWICE A DAY , Taking ACCUCHEK FAST CLICK LANCETS TWICE A DAY , Notes to Pharmacist: Please put on hold and patient will call when he needs filled *Please review for potential replacement for e-prescription and drug interaction check*, Taking OZEMPIC 2 MG/3 ML (0.25 MG OR 0.5 MG DOSE) SOLUTION 0.5MG SUBCUTANEOUSLY ONCE A WEEK , Notes to Pharmacist: *Please review for potential replacement for e-prescription and drug interaction check*, Taking Fluorometholone ACETATE 0.1% SUSPENSION 1 GTT IN EACH AFFECTED EYE ONCE A DAY , Notes to Pharmacist: *Please review and pick correct strength-formulation from [employer] options. If intended option is not shown, discontinue and re-order from Quick Search*, Taking Glimepiride 2 MG Tablet TAKE 1 TABLET DAILY , Taking Furosemide 20 MG Tablet 1 tab(s) orally once a day , Medication List reviewed and reconciled with the patient * Allergies: N .K.D.A. Objective: * Vitals: N urse: KJ, Pain: 0, Temp: 97.7, RR: 18, HR: 68, BP: 120/70, Ht: 71, Wt: 208.2, BMI:29.03. * Examination: G eneral Examination: General P leasant and Cooperative, NAD on RA,. Chest: n ormal shape and expansion. Heart: R egular Rate and Rhythm, no murmur, rubs or gallops. Lungs: L CTAB, No wheezes, crackles or rhonchi, Good air movement,. Psych N ormal Mood/Affect. Assessment: * Assessment: 1. P alpitations - R00.2 (Primary) 2 . T hyroid nodule - E04.1 ?3. S ensation of chest pressure - R07.89 4 . E levated lymphocytes - D72.820 5 . T ype 2 diabetes mellitus with other circulatory complications - E11.59 Plan: * Treatment: * Notes: Multiple risk factors for heart disease. Has a history of atherosclerotic disease. Will get stress test done on Monday of this week at [facility].?& #160;? Referral To: ?Reason:Please set up thyroid US and stress test for Monday at 2.?Thyroid nodule?Imaging: US THYROID* Notes: Due for repeat thyroid imaging, will be able to coordinate this in the same day he goes for a stress test??3.?Sensation of chest pressure?Imaging: NM MYOCARD SPEC WM/EF CATALOG LIBRARY ASSISTANT* Rajinder Noguera 11/04/2024 03:16:27 PM EDT > Would like Monday if possibleThieric JUNE was reviewed by Justino Buchanan on 11/14/2024 at 09:33 AM EDT * 4.?Elevated lymphocytes? Notes: White blood cell count is been elevated at 18,000 with a lymphocytic predominance. Platelets and red blood cell lines normal. Possible effect of his uveitis/rheumatoid disease? Versus med effect? Versus some type of myelodysplastic issue. Will have hematology evaluation?&# 160; Referral To: ?Reason:Appointment with Dr. Anderson for persistent lymphocytosis 5.?Type 2 diabetes mellitus with other circulatory complications? Notes: Has been exercising and dieting, has gotten A1c down to 8.1%. Congratulated on this. No changes in plan, lipid profile excellent.?? * Follow Up: p rn * * Sign off status: Completed true * Provider: Eric Buchanan MD Date: 0 11/04/2024 Generated for Oscar valles/Argelia/Stephsmitting on: 0 11/18/2024 04:12 PM EDT History and Physical Notes * HPI (History of Present Illness) Category Sub-Category Detail Notes Category Not es gen Patient is here to follow-up his medical problems and to review lab work. Overall feels pretty well except for a couple of concerns-is due for thyroid ultrasound repeat from 1 year ago for a TI-RADS 3 nodule. He is also concerned because he notes when he is doing his walking program at work he has episodes of about 30 to 40 seconds of palpitations that give him a feeling of chest pressure. He takes some deep breaths and they go away but then it will happen again on his next lap around the track at work when he is walking briskly. They started about a month ago. He has no increase in edema, angina at rest or orthopnea. Examination Category Sub-Category Detail Notes Category Not es General Examination Heart: Regular Rate and Rhythm, no murmur, rubs or gallops Lungs: LCTAB, No wheezes, c rackles or rhonchi, Good air movement, Chest: normal shape and exp ansion General Pleasant and Coopera tive, NAD on RA, Psych Normal Mood/Affect Consultation Request Notes Referral Date Referring Provider Referred Provider Not es 11/04/2024 Justino Buchanan , Please set u p thyroid US and stress test for Monday at 11/04/2024 Justino Buchanan , Appointment with Dr. Anderson for persistent lymphocytosis
--- OUTSIDE RECORDS SUMMARY | 2024-11-14 11:45 | XMS_ITS | Encounter Summary ---
Author Organization [employer] ([place], [place], [place], [place]) Address [address] [place] [address] Care Team Providers Care Pipe Fitter Supervisor Maintenance Name Role Phone Justino Buchanan MD Primary Care Provider [phone] Temo Carreon MD Unavailable [phone] Ashly Vee APRN Unavailable [phone] Reason for Visit * Reason Comments Follow-up Encounter Details Date Type Department Care Team (Late st Contact Info) Description 11/14/2024 11:45 AM EDT Office Visit [facility] Cardiology [address] [place] [address] Yesi aCro PA-C [address] [facility] [address] [place] [phone] Angina of effort (HCC) (Primary Dx); ASCVD [...] Date Denny rded Speak language other than Turkmen at home Not on file 06/09/2023 Want help with school or training Not on file 06/09/2023 Substance Use Answer Date Recorded Used prescription meds for non-medical reasons N ot on file 06/09/2023 Used illegal drugs past 12 months Not on file 06/09/2023 Sex and Gender Information Value Date Recorded Sex Assigned at Male 03/28/2023 11:41 AM 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 He is here to discuss the results. [...] file Plan Review of stress test from [facility] shows EKG positive stress test but no [...] Care Team (Late st Contact Info) Description 12/09/2024 10:00 AM EDT Appointment [facility] Cardiac Catheterization Lab [address] [place] [address] Yesi Caro PA-C [address] [place] [address] [id number] Tremaine Martin MD [address] [place] [address] [id number] Scheduled Orders Name Type Priority Associated Diagnoses Orde r Schedule ECG 12 lead ECG Routine Angina of effort (HCC) Ordered: 11/14/2024 documented as of this encounter Visit Diagnoses Diagnosis Angina of effort (HCC)- Primary Other and unspecified angina pectoris ASCVD (arteriosclerotic cardiovascular disease) Unspecified cardiovascular disease Primary hypertension Unspecified essential hypertension Mixed hyperlipidemia documented in this encounter Care Teams Pipe Fitter Supervisor Maintenance Relationship Specialty Start Date End Date Justino Buchanan MD [address] [place] [address] PCP - General Adolescent Medicine 12/26/22 Temo Carreon MD [address] [facility] [address] [phone] Interventional Cardiology 12/26/22 Ashly Vee APRN [address] [facility] [address] [id number] Cardiology 12/26/22 documented as of this encounter
--- OUTSIDE RECORDS SUMMARY | 2024-11-18 16:12 | XMS_ITS | Referral Summary ---
Author Organization [employer] ([place], [place], [place], [place]) Address [address] [place] [address] Care Team Providers Care Cardiovascular Invasive Specialist Name Role Phone Justino Buchanan MD Primary Care Provider Temo Carreon MD Unavailable [phone] Ashly Vee APRN Unavailable [phone] Encounters Date Type Department Care Team Description 11/14/2024 Travel 11/14/2024 11:45 AM EDT Office Visit [facility] Cardiology [address] [place] [address] Yesi Caro PA-C Angina of effort (HCC) (Primary Dx); ASCVD (arteriosclerotic cardiovascular disease); Primary hypertension; Mixed hyperlipidemia from Last 3 Months Allergies No known active allergies Medications aspirin [...] Drop 0.6 drops 3 (three) times daily. Active prednisoLONE acetate (PRED MILD) 0.12 % ophthalmic suspension Administer 1 drop into both eyes daily. Active semaglutide (Ozempic) 0.25 mg or 0.5 mg(2 mg/1.5 mL) pnij Inject 0.375 mLs (0.5 mg total) under the skin once a week. Active glimepiride (AMARYL) 2 MG tablet Take 1 tablet (2 mg total) by mouth daily with breakfast. Active clopidogreL (Plavix) 75 mg tablet Take 1 tablet (75 mg total) by mouth daily Look-alike/So und-alike medication. 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/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 Legal Sex Male 5:10 PM CDT Gender Identity Male 03/28/2023 11:41 AM ELECTRIC LOCOMOTIVE FIRER/FIREMAN Sexual Orientation Straight 03/28/2023 11 :41 AM ELECTRIC LOCOMOTIVE FIRER/FIREMAN Last Filed Vital Signs Vital Sign Reading [...] Mass Index 28.26 11/14/2024 11:41 AM EDT Plan of Treatment Upcoming Encounters Date Type Department Care Team (Late st Contact Info) Description 12/09/2024 10:00 AM EDT Appointment [facility] Cardiac Catheterization Lab [address] [place], [place] [phone] Yesi Caro PA-C [address] [place] [address] [place] [address] Tremaine Martin MD [address] [place] [address] [place] [address] [place] [address] BLUE CROSS/BLUE SHIELD Care Teams Cardiovascular Invasive Specialist Relationship Specialty Start Date End Date Justino Buchanan MD [address] [place] [address] PCP - General Adolescent Medicine 12/26/22 Temo Carreon MD [address] [facility] [address] [place] [phone] Interventional Cardiology 12/26/22 Ashly Vee APRN [address] [facility] [address] [place] [address] Cardiology 12/26/22
--- OUTSIDE RECORDS SUMMARY | 2024-11-18 16:12 | XMS_ITS | Clinical Summary ---
Author Organization [facility] Address [address] [place] [address] Care Team Providers Care County Engineer Name Role Phone Unavailable Primary Care Provider Unavailabl e Allergies No known active allergies Medications Multiple Vitamins-Boulder als (multivitamin with minerals) tablet 8 Active [...] (2 of 2 - PPSV23) 05/04/2018 03/09/2018 [id number] Vaccine ( - season) 2024 03/10/2023, 04/30/2021, [...] age to complete this topic Insurance [facility] [facility] [address]
--- OUTSIDE RECORDS SUMMARY | 2024-11-18 16:12 | XMS_ITS | Patient Health Record ---
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 Legally authenticated by LYNNETTE SAEZ MD 2024-11-12 11:07:41 M-Thyroid Panel Reviewed date:11/01/2024 02:57:59 PM Interpretation: Performing Lab: Notes/Report: FTI 2.5 5.93-13.13 ug/dL T4 8.3 5.53-11.0 ug/dl T3U 30 23.5-40.5 % TSH 2.72 0.465-4.68 uIU/mL M-Lipid Panel Reviewed date:11/01/2024 02:57:59 PM Interpretation: Performing Lab: Notes/Report: Patient Fasting? Y TRIG 142 30-150 mg/dl CHOL 162 140-200 mg/dl DLDL 84.94 100-129 mg/dL VLDL 28 0-40 mg/dL HDL 40 40-60 mg/dl CHLHDL 4.1 1-3.5 M-Hemoglobin A1C Reviewed date:11/01/2024 02:57:59 PM Interpretation: Performing Lab: Notes/Report: HGBA1C 8.1 4.0-6.0 % < 6% Non-Diabetic Level < 7% Controlled Diabetic Level > 8% Poorly Controlled Diabetic Level M-Comprehensive Metabolic Pa jil Reviewed date:11/01/2024 02:57:59 [...] AGRATIO 1.7 1.1-1.8 ALP 71 38-126 U/L M-Complete Blood Count Auto Diff Reviewed date:11/01/2024 [...] 0 IG% 0.3 NRBC# 0 IG# 0.06 M-Manual Differential Reviewed date:11/01/2024 02:48:26 PM Interpretation: Performing Lab: Notes/Report: GILDA MANUAL DIFFERENTIAL MANUAL DIFF TCC 100 NEUT%M 13 42-76 % LYMPH%M 70 10-50 % MONO%M 17 2-9 % PLTE Normal RM Normal X ray : Chest PA and Lateral Reviewed date:07/23/2024 12:28:01 PM Interpretation: Performing Lab: Notes/Report: X ray : Chest PA and Lateral Reviewed date:07/23/2024 12:28:01 PM Interpretation: Performing Lab: Notes/Report: M-Complete Blood Count Auto Diff Reviewed date:04/12/2024 [...] 0.1 0.0-0.4 K/mm3 BA# 0.2 0-0.2 K/mm3 M-Comprehensive Metabolic Pa jil Reviewed date:04/12/2024 03:50:51 PM [...] AGRATIO 1.8 1.1-1.8 ALP 77 38-126 U/L M-Hemoglobin A1C Reviewed date:04/12/2024 03:50:51 PM Interpretation: Performing Lab: Notes/Report: HGBA1C 8.3 4.0-6.0 % < 6% Non-Diabetic Level < 7% Controlled Diabetic Level > 8% Poorly Controlled Diabetic Level M-Lipid Panel Reviewed date:04/12/2024 03:50:51 PM Interpretation: Performing Lab: Notes/Report: Patient Fasting? Y TRIG 155 30-150 mg/dl CHOL 164 140-200 mg/dl DLDL 91.41 100-129 mg/dL VLDL 31 0-40 mg/dL HDL 42 40-60 mg/dl CHLHDL 3.9 1-3.5 M-Basic Metabolic Panel Reviewed date:08/10/2024 02:21:31 PM [...] Level > 8% Poorly Controlled Diabetic Level Microalbumin (In-House) Reviewed date:04/15/2024 06:35:01 PM Interpretation:Abnormal Performing Lab: Notes/Report: Abnormal ALB 80 CRE 100 A:C 30-300 M-Complete Blood Count Auto Diff Reviewed date:01/12/2024 [...] 0.1 0.0-0.4 K/mm3 BA# 0.1 0-0.2 K/mm3 M-Comprehensive Metabolic Pa jil Reviewed date:01/12/2024 04:11:06 PM [...] AGRATIO 1.5 1.1-1.8 ALP 73 38-126 U/L M-Hemoglobin A1C Reviewed date:01/12/2024 04:11:06 PM Interpretation: [...] HDL 43 40-60 mg/dl CHLHDL 4.1 1-3.5 M-Thyroid Panel Reviewed date:01/12/2024 04:11:06 PM Interpretation: Performing Lab: Notes/Report: FTI 2.8 5.93-13.13 ug/dL T4 9.1 5.53-11.0 ug/dl T3U 31 23.5-40.5 % TSH 3.51 0.465-4.68 uIU/mL M-Manual Differential Reviewed date:01/12/2024 12:43:33 PM Interpretation: Performing Lab: Notes/Report: MDIFF MANUAL DIFFERENTIAL MANUAL DIFF TCC 100 NEUT%M 33 42-76 % LYMPH%M 64 10-50 % MONO%M 2 2-9 % EOS%M 1 0-3 % PLTE Normal RM Normal M-Manual Differential Reviewed date:04/12/2024 03:49:41 PM Interpretation: Performing Lab: Notes/Report: MDIFF MANUAL DIFFERENTIAL MANUAL DIFF TCC 100 NEUT%M 11 42-76 % LYMPH%M 87 10-50 % MONO%M 2 2-9 % PLTE Normal RM Normal M-Hemoglobin A1C Reviewed date:06/28/2024 09:10:33 AM Interpretation: Performing Lab: Notes/Report: HGBA1C 9.4 4.0-6.0 % < 6% Non-Diabetic Level < 7% Controlled Diabetic Level > 8% Poorly Controlled Diabetic Level M-Comprehensive Metabolic Pa jil Reviewed date:06/28/2024 09:10:33 [...] AGRATIO 1.9 1.1-1.8 ALP 79 38-126 U/L M-Complete Blood Count Auto Diff Reviewed date:06/28/2024 [...] 0.1 0.0-0.4 K/mm3 BA# 0.1 0-0.2 K/mm3 M-Lipid Panel Reviewed date:06/28/2024 09:10:33 AM Interpretation: Performing Lab: Notes/Report: Patient Fasting? Y TRIG 174 30-150 mg/dl CHOL 160 140-200 mg/dl DLDL 87.30 100-129 mg/dL VLDL 35 0-40 mg/dL HDL 37 40-60 mg/dl CHLHDL 4.3 1-3.5 M-Thyroid Panel Reviewed date:06/28/2024 09:15:14 AM Interpretation: Performing Lab: Notes/Report: FTI 2.8 5.93-13.13 ug/dL T4 8.9 5.53-11.0 ug/dl T3U 32 23.5-40.5 % TSH 2.96 0.465-4.68 uIU/mL M-Manual Differential Reviewed date:06/28/2024 09:46:49 AM Interpretation: Performing Lab: Notes/Report: MDTATUM MANUAL DIFFERENTIAL MANUAL DIFF TCC 100 NEUT%M 18 42-76 % LYMPH%M 76 10-50 % MONO%M 6 2-9 % PLTE Normal RM Normal Medications Medication SIG (Take, Route, Frequency, Duration) Notes Start Date End Date Status Plavix 75 MG 1 tablet Orally Once a day Active Flonase Allergy Relief 50 MCG/ACT 1 spray(s) in each nostril once a day; Duration: 30 days prn 07/19/2024 Active Systane PRESERVED 1 GTT IN EACH EYE 3 TIMES A DAY Active Jardiance 25 MG TAKE 1 TABLET EVERY MORNING; Duration: 90 Active Lisinopril 20 MG 1 tab(s) orally once a day; Duration: 90 days Active Triamcinolone Acetonide 0.025 % 1 orquidea applied topically 3 times a day; Duration: 7 day(s) prn 04/09/2021 Active Rosuvastatin Calcium 40 MG 1 tab(s) oral ly once a day; Duration: 90 Active ACCU-CHECK GUIDE TEST STRIPS USE TO CHECK BLOOD SUGAR TWICE DAILY; Duration: 90 DAYS Active Probiotic 1 TAB PO QD Active Glimepiride 2 MG TAKE 1 TABLET DAILY; Duration: 90 Active ACCU-CHECK GUIDE METER - USE TO CHECK BL OOD SUGAR TWICE DAILY 06/20/2018 Active Furosemide 20 MG 1 tab(s) orally once a day; Duration: 90 Active Multivitamin - 1 tab(s) orally once a day Active OZEMPIC 2 MG/3 ML (0.25 MG OR 0.5 MG DOSE) 0.5MG SUBCUTANEOUSLY ONCE A WEEK; Duration: 30 DAYS 07/01/2024 Active Nitrostat 0.4 MG 1 tab(s) sublinguall y every 5 minutes prn Active Fluorometholone ACETATE 0.1% 1 GTT IN EACH AFFECTED EYE ONCE A DAY; Duration: 90 DAYS Active Metoprolol Tartrate 25 MG TAKE 1/2 TABLE T TWICE A DAY; Duration: 90 Active Folic Acid OTC 1 TAB QD Activ e ACCUCHEK FAST CLICK LANCETS TWICE A DAY Active Immunizations Vaccine Route Administration Date Status Comme nts Adacel (Tdap) IM Intramuscular 07/29/2015 Administered Covid Karoline Unknown 07/29/2020 Administered Fluvirin--Influenza vaccine 3+ year IM Intramuscular 02/19/2009 Administered Fluvirin--Influenza vaccine 3+ year IM Intramuscular 02/24/2012 Administered Fluzone High Dose IM Intramuscular 03/09/2018 Administered Fluzone High Dose IM Intramuscular 02/08/2019 Administered Fluzone High Dose IM Intramuscular 02/14/2020 Administered Fluzone High Dose IM Intramuscular 01/28/2021 Administered Fluzone High Dose IM Intramuscular 03/04/2022 Administered Fluzone High Dose IM Intramuscular 02/27/2023 Administered Fluzone High Dose IM Intramuscular 01/15/2024 Administered Influenza-Fluzone 3+years (NON-MEDICARE) IM Intramuscular 01/20/2017 Administered Pneumovax 23 IM Intramuscular 07/29/2015 Administered PPD ID Intradermal 05/27/2019 Administered Prevnar PCV-13 (Pneumococcal conjugate 13) IM Intramuscular 03/09/2018 Administered SHINGRIX IM Intramuscular 11/09/2018 Administered SHINGRIX IM Intramuscular 10/12/2020 Administered Problems Problem Type SNOMED Code ICD Code Onset Dates Problem Status W/U Status Risk Notes Problem Peripheral circulatory disorder associated with diabetes mellitus (245057601) Type 2 diabetes mellitus with other circulatory complications (E11.59) Active confirmed Problem Essential hypertension (83406425) Essential (primary) hypertension (I10) Active confirmed Problem 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 (773006140854811) 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) Active confirmed Problem Type II diabetes mellitus without complication (697894850) Diabetes (E11.9) Active confirmed Problem Thyroid nodule (108435003) Thyroid nodule (E04.1) Active confirmed Problem Diabetic peripheral neuropathy (673137897) Diabetic peripheral neuropathy (E11.42) Active confirmed Problem Rheumatoid arthritis (62413669) Rheumatoid arthritis (M06.9) Active confirmed Problem Mixed hyperlipidemia (882681968) Hyperlipemia, mixed (E78.2) Active confirmed Problem History of coronary artery bypass grafting (476291834) 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) Active confirmed Problem Peripheral circulatory disorder associated with diabetes mellitus (508630620) Type 2 diabetes mellitus with other circulatory complication, without long-term current use of insulin (E11.59) Active confirmed Problem Benign neoplasm of colon (27464047) Adenomatous polyp of colon, unspecified part of colon (D12.6) Active confirmed Problem Drug-induced immunodeficiency (disorder) (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 Problem 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 Problem Lymphocytosis (77015351) Elevated lymphocytes (D72.820) Active confirmed Vital Signs Heart Rate 74 /min 11/18/2024 Temperature 97.8 degrees Fahrenheit 11/18/2024 Oximetry 0 04/15/2024 Blood pressure diastolic 70 mm Hg 11/18/2024 Height 71 in 11/18/2024 Blood pressure systolic 130 mm Hg 11/18/2024 Weight 208 lbs 11/18/2024 BMI 29.01 kg/m2 11/18/2024 Encounters Encounter Location Date Provider Diagnosis [facility] [address] [place] [address] 08/24/2024 Provider Migration Type 2 diabetes mellitus with other circulatory complication, without long-term current use of insulin E11.59 [facility] [address] [place], [place] [address] 11/18/2024 Justino Buchanan [facility] [address] [place], [place] [address] 01/15/2024 Justino Buchanan Diabetic peripheral neuropathy E11.42 ; Hyperlipemia, mixed E78.2 ; Essential (primary) hypertension I10 ; Type 2 diabetes mellitus with other circulatory complications E11.59 ; 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 I25.10 ; Thyroid nodule E04.1 and Immunization(s) administered Z23 [facility] [address] [place], [place] [address] 04/15/2024 Justino Buchanan Type 2 diabetes bao itus with other circulatory complications E11.59 ; Essential (primary) hypertension I10 and Routine medical exam Z00.00 [facility] [address] [place] [address] 07/01/2024 Justino Buchanan Type 2 diabetes bao itus with other circulatory complication, without long-term current use of insulin E11.59 ; 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 I25.10 and Essential hypertension I10 [facility] [address] [place] [address] 07/12/2024 Nu Negrete Acute bronchopneumon ia J18.0 [facility] [address] [place] [address] 07/19/2024 Nu Negrete Acute bronchopneumon ia J18.0 and Respiratory crackles at left lung base R09.89 [facility] [address] [place] [address] 08/12/2024 Justino Buchanan Type 2 diabetes bao itus with other circulatory complication, without long-term current use of insulin E11.59 [facility] [address] [place] [address] 11/04/2024 Justino Buchanan Palpitations R00.2 ; Thyroid nodule E04.1 ; Sensation of chest pressure R07.89 ; Elevated lymphocytes D72.820 and Type 2 diabetes mellitus with other circulatory complications E11.59 [facility] [address] [place], [place] [address] 01/08/2024 Justino Buchanan Diabetic peripheral neuropathy E11.42 ; Hyperlipemia, mixed E78.2 and Thyroid nodule E04.1 [facility] [address] [place] [address] 03/04/2024 Justino Buchanan [facility] [address] [place] [address] 04/08/2024 Justino Buchanan Type 2 diabetes bao itus with other circulatory complications E11.59 ; 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 I25.10 and Essential (primary) hypertension I10 [facility] [address] [place] [address] 06/24/2024 Justino Besson Diabetic peripheral neuropathy E11.42 ; Rheumatoid arthritis M06.9 ; Hyperlipemia, mixed E78.2 ; 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 I25.10 and Thyroid nodule E04.1 [facility] [address] [place] [address] 07/15/2024 Nu Penelope Acute bronchopneumon ia J18.0 [facility] [address] [place] [address] 07/22/2024 Justino Besson [facility] [address] [place] [address] 08/05/2024 Justino Besson Type 2 diabetes bao itus with other circulatory complications E11.59 [facility] [address] [place] [address] 08/12/2024 Justino Besson [facility] [address] [place] [address] 08/23/2024 Justino Besson [facility] [address] [place] [address] 10/29/2024 Justino Besson Diabetic peripheral neuropathy E11.42 ; Rheumatoid arthritis M06.9 ; Hyperlipemia, mixed E78.2 and Thyroid nodule E04.1 [facility] [address] [facility] [place] [address] 11/11/2024 Justino Besson [facility] [address] [place] [address] 09/08/2024 Justino Besson [facility] [address] [place] [address] 09/13/2024 Justino Besson [facility] [address] [place] [address] 02/12/2024 Justino Besson [facility] [address] [place] [address] 06/03/2024 Justino [facility] [address] [facility] [address] [place] [address] 06/04/2024 Justino [facility] [address] [facility] [address] [place] [address] 11/12/2024 Justino Buchanan Assessments Encounter Date Diagnosis (ICD Code) Assessment Notes Treatment Notes Treatment Clinical Notes Section Notes 01/08/2024 Diabetic peripheral neuropathy (ICD-10 - E11.42) 01/08/2024 Hyperlipemia, mixed (ICD-10 - E78.2) 01/15/2024 Diabetic peripheral neuropathy (ICD-10 - E11.42) [...] - E11.59) 04/08/2024 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 07/01/2024 Type 2 diabetes mellitus with other [...] A1c and to monitor response to Ozempic 07/12/2024 Acute bronchopneumonia (ICD-10 - J18.0) Discussed [...] Discussed the signs and symptoms of worsening infection/respirat ory distress that may indicate need for reassessment in clinic/ED. Keep previously scheduled physical exam or f/u sooner PRN. Patient voices understanding and agrees to the plan of care above. 07/15/2024 Acute bronchopneumonia (ICD-10 - J18.0) 07/19/2024 Acute bronchopneumonia (ICD-10 - J18.0) Personally [...] Discussed the signs and symptoms of worsening infection/respirat ory distress that may indicate need for reassessment in clinic/ED. Keep previously scheduled physical exam or f/u sooner PRN. Patient/family voice understanding and agree to this plan. 07/19/2024 Respiratory crackles at left lung base (ICD-10 - R09.89) 08/05/2024 Type 2 diabetes mellitus with other circulatory complications (ICD-10 - E11.59) 08/12/2024 Type 2 diabetes mellitus with other circulatory complication, without long-term current use of insulin (ICD-10 - E11.59) A1c 8.4, down about 1 point from last check. On jardience, glimeperide, ozempic. Will increase ozempic dose from 0.25 mlg/wk to 0.5mg/wk. Follow up w repeat A1c in 6 months. 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 Has a history of atherosclerotic disease. Will get stress test done on Monday of this week at [facility]. 11/04/2024 Thyroid nodule (ICD-10 - E04.1) Due for repeat thyroid imaging, will be able to coordinate this in the same day he goes for a stress test 11/04/2024 Sensation of chest pressure (ICD-10 - R07.89) 10/29/2024 Hyperlipemia, mixed (ICD-10 - E78.2) 07/01/2024 Essential hypertension (ICD-10 - I10) BP WNL in clinic today, systolics well controlled at home, continue current management. 06/24/2024 Hyperlipemia, mixed (ICD-10 - E78.2) 04/15/2024 Routine medical exam (ICD-10 - Z00.00) [...] 04/08/2024 Essential (primary) hypertension (ICD-10 - I10) 01/08/2024 Thyroid nodule (ICD-10 - E04.1) 01/15/2024 Essential (primary) hypertension (ICD-10 - I10) Continue taking metoprolol, lisinopril and furosemide. 01/15/2024 Type 2 diabetes mellitus with other circulatory complications (ICD-10 - E11.59) Labs reviewed. A1C 7.8%. Discussed with patient this is appropriate for his age. Continue taking Jardiance and glimepiride. 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 Continue rosuvastatin. 01/15/2024 Thyroid nodule (ICD-10 - E04.1) Labs reviewed. Patient is clinically and biochemically euthyriod. 01/15/2024 Immunization(s) administered (ICD-10 - Z23) 07/19/2024 Other Patient discuss ed with Attending Dr. Buchanan who agrees with the plan of care above. Plan Of Treatment Pending Test Test Name Order Date Physical Therapy 11/09/2016 Speech Therapy Eval and Treatment 2021 Barium Swallow : Modified 12/03/2021 H-CBC with AUTO DIFF 06/01/2017 H-CMP 06/01/2017 H-LIPID PANEL 06/01/2017 H-LIPID PANEL 08/29/2016 H-HGBA1C 06/01/2017 H-TSH 06/01/2017 C-CBC 08/15/2013 C-CBC 03/21/2013 C-CMP 03/21/2013 C-CMP 08/06/2014 C-CMP 08/15/2013 C-LIPID PANEL 09/04/2014 C-LIPID PANEL 08/15/2013 C-LIPID PANEL 03/21/2013 C-TSH 08/15/2013 C-TSH 04/28/2012 C-PSA 03/21/2013 C-RPR 04/28/2012 C-VITAMIN B12 04/28/2012 C-HGBA1C 04/28/2012 C-HGBA1C 08/15/2013 C-HGBA1C 09/04/2014 C-HGBA1C 08/06/2014 C-HGBA1C 03/21/2013 C-VITAMIN D, 25-HYDROXY 04/28/2012 Physical Therapy : Lymphedema 07/04/2022 M-Complete Blood Count Auto Diff 021 M-Complete Blood Count Auto Diff 023 M-Microalbumin,Urine 07/02/2018 M-Comprehensive Metabolic Panel 10/07/19 21 M-Comprehensive Metabolic Panel 11/09/19 23 Physical Therapy : Gait training and cor e strengthening 07/04/2022 US THYROID 11/04/2024 Future Test Test Name Order Date H-CMP 05/04/2018 Next Appt Details Provider Name:Justino Buchanan, 12/30/2024 03:15:00 PM, [address] [place] [facility] [address] [facility], [address], [place], [address], Provider Name:Justino Buchanan, 03/03/2025 02:00:00 PM, [address] [place] [facility] [address] [facility], [address], [place], [address], Insurance Providers Payer Name Payer Address Payer Phone Subscriber Number Group Number Insured Name Patient Relationship to Insured Coverage Start Date Coverage End Date [facility] [address] [place] [address] [id number] Kris Hood Self - patient is the insured Medical (General) History Medical History History ICD Code hypertension hypercholestrolemia diabetes hx 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 Also with positive rheumatoid factor heart murmur [...]
--- OUTSIDE RECORDS SUMMARY | 2024-11-18 16:12 | XMS_ITS | Clinical Summary ---
Author Organization [facility] Address [address] [place], [place] [phone] Phone [email or web address] Care Team Providers Care Filling And Stapling Machine Operator Name Role Phone Patrick Rosas Primary Care [...] on file Legal Sex Male [address] Gender Identity Not on file Sexual Orientation [...] Insurance RAFFY NO COPAY [place] Care Teams Filling And Stapling Machine Operator Relationship Specialty Start Date End Date Patrick Rosas PCP - General 09/27/17
--- OUTSIDE RECORDS SUMMARY | 2024-11-18 16:12 | XMS_ITS | Encounter Summary ---
Author Organization [employer] ([place], [place], [place], [place]) Address [address] [place] [address] Care Team Providers Care Africana Studies Professor Name Role Phone Justino Buchanan MD Primary Care Provider [phone] Temo Carreon MD Unavailable [phone] Ashly Vee APRN Unavailable [phone] Encounter Details Date Type Department Care Team (Latest Contact Info) Description 11/14/2024 Travel Social History Tobacco Use Types Packs/Day Years [...] Date Denny rded Speak language other than Spanish at home Not on file 06/09/2023 Want help with school or training Not on file 06/09/2023 Substance Use Answer Date Recorded Used prescription meds for non-medical reasons N ot on file 06/09/2023 Used illegal drugs past 12 months Not on file 06/09/2023 Sex and Gender Information Value Date Recorded Sex Assigned at Male 03/28/2023 11:41 AM COMBINATION WELDER APPRENTICE Legal Sex Male 5:10 PM CDT Gender Identity Male 03/28/2023 11:41 AM COMBINATION WELDER APPRENTICE Sexual Orientation Straight 03/28/2023 11 :41 AM COMBINATION WELDER APPRENTICE documented as of this encounter Plan of Treatment Upcoming Encounters Date Type Department Care Team (Late st Contact Info) Description 12/09/2024 10:00 AM EDT Appointment [facility] Cardiac Catheterization Lab [address] [place] [phone] Yesi Caro, PA-C [address] [facility] [address] [place] [address] Tremaine Martin MD [address] [facility] [address] [address] documented as of this encounter Visit Diagnoses Not on filedocumented in this encounter Care Teams Africana Studies Professor Relationship Specialty Start Date End Date Justino Buchanan MD [address] [place] [address] [place] [address] PCP - General Adolescent Medicine 12/26/22 Temo Carreon MD [address] [facility] [address] [address] Interventional Cardiology 12/26/22 Ashly Vee APRN [address] [facility] [address] [address] Cardiology 12/26/22 documented as of this encounter
--- OUTSIDE RECORDS SUMMARY | 2024-11-18 16:12 | XMS_ITS | Clinical Summary ---
Author Organization [employer] ([place], [place], [place], [place]) Address [address] [place] [address] Care Team Providers Care Border Measurer And Cutter Name Role Phone Justino Buchanan MD Primary Care Provider [phone] Temo Carreon MD Unavailable [phone] Ashly Vee APRN Unavailable [phone] Allergies No known active allergies Medications [...] daily Look-alike/So und-alike medication. 30 tablet 11 11/15/19 Active Active Problems Problem Noted Date Diagnosed Date Angina of effort 11/14/2024 Aortic stenosis 03/27/2023 ASCVD (arteriosclerotic cardiovascular disease) 03/27/2023 HTN (hypertension) 03/27/2023 HLD (hyperlipidemia) 03/27/2023 Type 2 diabetes mellitus 03/27/2023 Encounters Date Type Department Care Team Description 11/14/2024 11:45 AM EDT Office Visit [facility] Cardiology [address] [place] [phone] Yesi Caro PA-C Angina of effort (HCC) (Primary Dx); ASCVD (arteriosclerotic cardiovascular disease); Primary hypertension; Mixed hyperlipidemia 11/14/2024 Travel from Last 3 Months Family History Medical History Relation Name Comments [...] Date Denny rded Speak language other than Macanese at home Not on file 06/09/2023 Want help with school or training Not on file 06/09/2023 Substance Use Answer Date Recorded Used prescription meds for non-medical reasons N ot on file 06/09/2023 Used illegal drugs past 12 months Not on file 06/09/2023 Sex and Gender Information Value Date Recorded Sex Assigned at Male 03/28/2023 11:41 AM WEB APPLICATIONS DEVELOPER Legal Sex Male 5:10 PM CDT Gender Identity Male 03/28/2023 11:41 AM WEB APPLICATIONS DEVELOPER Sexual Orientation Straight 03/28/2023 11 :41 AM WEB APPLICATIONS DEVELOPER Last Filed Vital Signs Vital Sign Reading [...] Info) Description 12/09/2024 10:00 AM EDT Appointment [facility] Cardiac Catheterization Lab [address] [place] [phone] Yesi Caro PA-C [address] [place] [address] Tremaine Martin MD [address] [place] [address] Health Maintenance Due Date Last Done Comments Diabetic Kidney Health Evalu ation (KED) 1945 Diabetic Eye Exam 1957 Depression Screening (12+) 1959 Hepatitis C [...] Influenza Vaccine (Season Ended) 2025 03/04/2022, 01/28/2021, 02/14/2020, Additional history exists Tobacco Cessation Counseling and Screening (12+) 11/14/2025 11/14/2024 Shingles Vaccine (Zoster) Completed 10/12/2020, Insurance BLUE CROSS/BLUE SHIELD Care Teams Border Measurer And Cutter Relationship Specialty Start Date End Date Justino Buchanan MD [address] [place] [address] PCP - General Adolescent Medicine 12/26/22 Temo Carreon MD [address] [facility] [address] [place], [place] [id number] Interventional Cardiology 12/26/22 Ashly Vee APRN [address] [facility] [address] [place], [place] [id number] Cardiology 12/26/22
== END 2024-11-18 23:59 | disposition home or self-care (01) ==
LOC: LAB 16:09
PROVIDERS: PCP Internal Medicine Adolescent Medicine; Visit Provider Internal Medicine Medical Oncology
DX: D72.829 Elevated white blood cell count, unspecified (principal)
CPT/HCPCS: 36415

== ENCOUNTER 2024-12-11 15:54 | Outpatient (CLI) | payer BC, SELFPAY ==
--- OUTSIDE RECORDS SUMMARY | 2024-10-29 05:37 | XMS_ITS ---
Author Organization [facility] Address [address] [facility] [address] [facility] [address] [place] [address] Care Team Providers Care Fun House Attendant Name Role Phone Justino Buchanan Primary Care Provider [phone] Results Component Value Reference Range Notes M-Complete [...] uIU/mL Encounters Encounter Location Date Provider Diagnosis [facility] [place] [address] [place] [address] 10/29/2024 Justino Buchanan Diabetic peripheral neuropathy E11.42 [address], [address], [place], [address], Provider Name:Justino Buchanan, 03/03/2025 02:00:00 PM, [address] [facility], [address], [place], [address], Progress Notes * Kris HOODDOB:1945 (79 yo M)Acc No.[id number]:10/29/2024 Patient: Kris STOVALL :1945 A ge:79 Y S ex:Male Address:[address] [place] [address] , [place] [address] Subjective: * Chief Complaints: * * Medical [...] Date: Generated for Oscar valles/Argelia/eTransmitting on: 0 12/11/2024 03:57 PM EDT
--- OUTSIDE RECORDS SUMMARY | 2024-11-04 10:00 | XMS_ITS ---
Author Organization [facility] Address [address] [facility] [address] [facility] [address] [place] [address] Care Team Providers Care Budget Officer Name Role Phone Justino Buchanan Primary Care Provider [phone] Allergies No Known Allergies Results Component Value Reference Range Notes NM MYOCARD SPEC WM/EF MICROWAVE SUPERVISOR Reviewed date:11/14/2024 09:33:50 AM Interpretation: Performing Lab: Notes/Report: [address] [place] [address] Name: KRIS HOOD Exam Date: 11/11/2024 : 1945 Age 79 years Gender: M Physician: HAYLEY LOCKWOOD Facility: [facility] Facility HSV: Outpatient Exam: NM MYOCARD SPEC WM/EF MICROWAVE SUPERVISOR STRESS TEST Patient Name: KRIS HOOD Admit [...] Thank you for referring KRIS HOOD to [facility]. Legally authenticated by LYNNETTE SAEZ MD 2024-11-12 11:07:41 US THYROID Reviewed date:11/20/2024 02:46:41 PM Interpretation: Performing Lab: Notes/Report: [address] [place] [address] Name: KRIS HOOD Exam Date: 11/11/2024 : 1945 Age 79 years Gender: M Physician: HAYLEY LOCKWOOD Facility: [facility] Facility HSV: Outpatient Exam: US THYROID US THYROID Clinical History: nodule Findings: Real-time grayscale and limited Doppler ultrasound evaluation of the thyroid is performed. Comparison is with prior study of 08/17/2023. The thyroid lobes are grossly symmetric in size. The right lobe measures 1.2 x 1.9 x 4.0 cm, with the left lobe measuring 0.9 x 1.2 x 3.8 cm. This demonstrates diameter of 5 mm. There is identification of a solitary solid nodule within the thyroid gland as follows: Isthmus: 1.2 x 0.9 x 1.3 cm solid-appearing nodule demonstrates an isoechoic appearance. The nodule is wider than tall with ill-defined borders and no concerning internal echogenic foci. TR 3 nodule demonstrates overall stable appearance since the prior study. Based on criteria, continued annual surveillance over 5 years is recommended. Limited Doppler evaluation demonstrates unremarkable vascularity with respect of the thyroid gland. The visualized perithyroidal soft tissues are unremarkable. No concerning fluid collection or lymphadenopathy is present. Impression: 1. Grossly stable appearance of 1.3 cm TR 3 nodule within the isthmus region. Consider follow-up ultrasound in 2 years to assess for continued stability or interval change. Electronically signed by: Gogo Hughes MD 11/19/2024 01:25 PM EDT RP Dictated By: Gogo Hughes Transcribed By: Transcribed On: 11/11/2024 9:54 AM Electronically signed by: Gogo Hughes 11/11/2024 Thank you for referring KRIS HOOD to [facility]. Legally authenticated by ELVIE LEWIS MD 2024-11-11 09:54:00 Reason For Referral Reason Please set up thyroi d US and stress test for Monday at Diagnosis 1 Palpitations (R00.2) Referral Organization [facility] Referring Provider First Name Justino Referring Provider Last Name Chanel Referring Provider Speciality Internal edicine General Notes Rajinder Noguera 03:19:45 PM > faxed and they will call pt Referral Priority Urgent Reason Appointment with Dr. Anderson for persistent lymphocytosis Diagnosis 1 Elevated lymphocytes (D72.820) Referral Organization [facility] Referring Provider First Name Justino Referring Provider Last Name Chanel Referring Provider Speciality Internal edicine Referred Organization [facility] Address [address], [place], [place],[address], Referred Provider Specialty Hematology/O ncology General Notes [...] review and pick correct strength-formulat ion from AdultSpace options. If intended option is not shown, [...] review and pick correct strength-formulat ion from AdultSpace options. If intended option is not shown, discontinue and re-order from Quick Search* Active Nitrostat 0.4 MG 1 tab(s) sublingually every 5 minutes prn Active Multivitamin - 1 tab(s) orally once a day Active Folic Acid OTC 1 TAB QD 800mcg *Please review and pick correct strength-formulat ion from AdultSpace options. If intended option is not shown, discontinue and re-order from Quick Search* Active Systane PRESERVED 1 GTT IN EACH EYE 3 TIMES A DAY 3 times a day *Please review and pick correct strength-formulat ion from AdultSpace options. If intended option is not shown, discontinue and re-order from Quick Search* Active Vital Signs Temperature 97.7 degrees Fahrenheit 11/05/19 25 Blood pressure systolic 120 mm Hg 11/05/19 25 Blood pressure diastolic 70 mm Hg 025 Heart Rate 68 /min 11/04/2024 Height 71 in 11/04/2024 Weight 208.2 lbs 11/04/2024 BMI 29.03 kg/m2 11/04/2024 Encounters Encounter Location Date Provider Diagnosis [facility] [address] [place] [address] [place] [address] 11/04/2024 Justino Buchanan Palpitations R00.2 ; Thyroid [...] done on Monday of this week at [facility]. 11/04/2024 Thyroid nodule (ICD-10 - E04.1) [...] done on Monday of this week at [facility]. Thyroid nodule Due for repeat thyro [...] No changes in plan, lipid profile excellent. Referrals Referral Date Details 11/04/2024 11/04/2024, Please s et up thyroid US and stress test for Monday at 11/04/2024 11/04/2024, Appointm ent with Dr. Anderson for persistent lymphocytosis, [address] [place] [address] [facility], [place], [address], Next Appt Details Follow Up: prn, Reason: Provider Name:Justino Buchanan, 12/30/2024 03:15:00 PM, [address] [place] [facility] [address] [facility], [address], [place], [address], Provider Name:Justino Joaquin Chanel, 03/03/2025 02:00:00 PM, [address] [place] [address] [facility], [address], [place], [address], Progress Notes * Kris HOODDOB:1945 (79 yo M)Acc No.[id number]:11/04/2024 Progress Notes Patient: Cristiana FELIZ Kris Provider: Beba Buchanan MD :1945 A ge:79 Y S ex:Male Date:11/04/2024 Address:[address] [place] [address] , [place], [id number] Subjective: * Chief Complaints: * 1 . [...] removed-1971, 2 cardiac stents 05/2014, CABG x2- 7-2015, Colonoscopy with tubular adenoma in 2013 - repeated in 03/07 with multiple tubular adenoma - repeated 02/06 with tubular adenomas, repeated 02/08 with polyps - repeat 2-3 years, Vocal cord separation, uveitis, on Remicade managed by [facility]. Also with positive rheumatoid factor, Heart murmur [...] Alcohol: socially. Sexually active: no. Travel outside [place]: no. 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 * Medications: T aking Systane PRESERVED SOLUTION 1 GTT IN EACH EYE 3 TIMES A DAY , Notes to Pharmacist: 3 times a day *Please review and pick correct strength-formulation from AdultSpace options. If intended option is not shown, discontinue and re-order from Quick Search*, Taking Folic Acid OTC 1 TAB QD , Notes to Pharmacist: 800mcg *Please review and pick correct strength-formulation from AdultSpace options. If intended option is not shown, discontinue and re-order from Quick Search*, Taking Multivitamin - Tablet 1 tab(s) orally once a day , Taking Nitrostat 0.4 MG Tablet Sublingual 1 tab(s) sublingually every 5 minutes prn , Taking Probiotic 1 TAB PO QD , Notes to Pharmacist: *Please review and pick correct strength-formulation from AdultSpace options. If intended option is not shown, [...] *Please review and pick correct strength-formulation from AdultSpace options. If intended option is not shown, [...] done on Monday of this week at [facility].?& #160;? Referral To: ?Reason:Please set up thyroid US and stress test for Monday at 2.?Thyroid nodule?Imaging: US THYROID* Rajinder Noguera 11/04/2024 03:16:26 PM EDT > Would like Monday if possibleThis SLADE was reviewed by Shweta Pagan on 11/20/2024 at 14:46 PM EDT * Notes: Due for repeat thyroid imaging, will be able to coordinate this in the same day he goes for a stress test??3.?Sensation of chest pressure?Imaging: NM MYOCARD SPEC WM/EF MICROWAVE SUPERVISOR* Rajinder Noguera 11/04/2024 03:16:27 PM EDT > Would like Monday if possibleThis DI was reviewed by Justino Buchanan on 11/14/2024 [...] Sign off status: Completed true * Provider: Beba Buchanan MD Date: 0 11/04/2024 Generated for Oscar valles/Argelia/eTransmitting on: 0 12/11/2024 03:57 PM EDT History and Physical Notes * [...]
--- OUTSIDE RECORDS SUMMARY | 2024-11-14 11:45 | XMS_ITS | Encounter Summary ---
Author Organization [employer] ([place], [place], [place], [place]) Address [address] [place] [address] Care Team Providers Care Technical Lead Name Role Phone Justino Buchanan MD Primary Care Provider [phone] Temo Carreon MD Unavailable [phone] Ashly Vee APRN Unavailable [phone] Reason for Visit * Reason Comments Follow-up Encounter Details Date Type Department Care Team (Late st Contact Info) Description 11/14/2024 11:45 AM EDT Office Visit [facility] Cardiology [address] [place] [address] Yesi Caro PA-C [address] [facility] [address] [place], [place] [id number] Angina of effort (HCC) (Primary Dx); ASCVD (arteriosclerotic cardiovascular disease); Primary hypertension; Mixed hyperlipidemia Social History Tobacco Use Types Packs/Day Years Used Date Smoking Tobacco: Never Smokeless Tobacco: Never Alcohol Use Standard Drinks/Week Comments Yes 0 (1 standard drink = 0.6 oz pur e alcohol) Socially Family and Community Support Answer George e Recorded Help with Day to Day Activities Not on file 06/09/2023 Feeling Lonely or Isolated Not on file 06/09 Educational Attainment Answer Date Denny rded Speak language other than Gabonese at home Not on file 06/09/2023 Want help with school or training Not on file 06/09/2023 Substance Use Answer Date Recorded Used prescription meds for non-medical reasons N ot on file 06/09/2023 Used illegal drugs past 12 months Not on file 06/09/2023 Sex and Gender Information Value Date Recorded Sex Assigned at Male 03/28/2023 11:41 AM PROFESSIONAL SERVICES SPECIALIST Legal Sex Male 5:10 PM CDT Gender Identity Male 03/28/2023 11:41 AM PROFESSIONAL SERVICES SPECIALIST Sexual Orientation Straight 03/28/2023 11 :41 AM PROFESSIONAL SERVICES SPECIALIST documented as of this encounter Last Filed Vital Signs Vital Sign Reading Time Taken Comments Blood Pressure 128/80 11/14/2024 11:41 AM EDT Pulse 59 11/14/2024 11:41 AM EDT Temperature - - Respiratory Rate - - Oxygen Saturation - - Inhaled Oxygen Concentration - - Weight 94.5 kg (208 lb 6.4 oz) 11/14/2024 11:41 AM EDT Height 182.9 cm (6') 11/14/2024 11:41 AM EDT Body Mass Index 28.26 11/14/2024 11:41 AM EDT documented in this encounter Progress Notes * Yesi Caro PA-C - 11/14/2024 11:45 AM EDT History Of Present Illness ED Clark Sebastian is a 79 y.o. male with history of CAD (prior CABG/PCI), HTN, and HLD is here with complaints of chest pain. Patient states this started approximately a week and a half ago. He walks twice a day at his job 3 days a week. Patient states now when he starts walking after the first lab hewill start having a difficulty breathing with a fluttering sensation in the chest. Patient denies any increased heart rate or feel like the heartbeat is hard or fast. But feels like something is going on there that he cannot get a deep breath. Patient states the symptoms completely resolve when he is at rest and restarts when he starts walking again. This is a new complaint over the last week juan luis half. Patient was seen by his primary care physician which ordered a stress test at [facility]. He is here to discuss the results. CARDIAC HISTORY Echo 12/2021 Mild max 25 mmHg; mean 13 mmHg EF 50% Moderate LVH Dilated Right ventricle Echo 11/2018 EF 60% Abnormal right atrial size Mild PG 20.22 mmHg/MG 8.79 mmHg 06/10/2014- PCI with COLLINS Lcx; PCI with COLLINS mid RCA CABGX2-11/2015 Past Medical History He has a past medical history of Aortic stenosis (03/27/2023), ASCVD (arteriosclerotic cardiovascular disease) (03/27/2023), Encephalitis, HLD (hyperlipidemia) (03/27/2023), HTN (hypertension) (03/27/2023), and Type 2 diabetes mellitus (HCC) (03/27/2023). Surgical History He has a past surgical history that includes Coronary artery bypass graft and Tonsillectomy. Social History He reports that he has never smoked. He has never used smokeless tobacco. He reports current alcohol use. He reports that he does not use drugs. Family History Noncontributory ROS Review of Systems Reason unable to perform ROS: 10 point ROS neg with exception to HPI. Constitutional: Negative. HENT: Negative. Respiratory: Negative. Cardiovascular: Negative. Gastrointestinal: Negative. Genitourinary: Negative. Musculoskeletal: Negative. Skin: Negative. Neurological: Negative. Endo/Heme/Allergies: Negative. Allergies Patient has no known allergies. Medications Outpatient Medications Marked as Taking for the 11/14/24 encounter (Office Visit) with Yesi Caro PA-C Medication Sig Dispense Refill aspirin 81 MG EC tablet Take 1 tablet (81 mg total) by mouth daily. empagliflozin (JARDIANCE) 25 mg tablet Take 1 tablet (25 mg total) by mouth daily. folic acid (FOLVITE) 1 MG tablet Take 1 tablet (1 mg total) by mouth daily. furosemide (LASIX) 20 MG tablet Take 1 tablet (20 mg total) by mouth daily. glimepiride (AMARYL) 2 MG tablet Take 1 tablet (2 mg total) by mouth daily with breakfast. lisinopriL (ZESTRIL) 20 MG tablet Take 1 tablet (20 mg total) by mouth daily. metoprolol tartrate (LOPRESSOR) 25 MG tablet Take 0.5 tablets (12.5 mg total) by mouth 2 (two) times daily. multivitamin per tablet Take 1 tablet by mouth daily. prednisoLONE acetate (PRED MILD) 0.12 % ophthalmic suspension Administer 1 drop into both eyes daily. propylene glycoL (Systane Complete) 0.6 % Drop 0.6 drops 3 (three) times daily. rosuvastatin (CRESTOR) 40 MG tablet Take 1 tablet (40 mg total) by mouth daily. semaglutide (Ozempic) 0.25 mg or 0.5 mg(2 mg/1.5 mL) pnij Inject 0.375 mLs (0.5 mg total) under theskin once a week. Last Recorded Vitals Blood pressure 128/80, pulse 59, height 1.829 m (6'), weight 94.5 kg (208 lb 6.4 oz). PHYSICAL EXAM General- alert and aware, no acute distress. Appears stated age. HEENT- normocephalic, sclera clear, oral membranes moist Neck- supple, no lymphadenopathy. No carotid bruits. No noted JVD Lungs- clear to auscultate throughout, no wheezes, rhonci or rales Heart- Normal S1,S2. Regular rate and rhythm without murmur, gallop or rub Abd- soft, nondistended. Pos BS Ext- palpable pulses. No noted edema. Skin- Clear, dry. Warm Neuro- demonstrates normal mental status without neurologic deficit Psych- orientated to person, place, and time. Appropriate mood. Last EKG Result Sinus wilfrid at 59 Assessment & Plan ICD-10-CM ICD-9-CM 1. Angina of effort (HCC) I20.89 413.9 ECG 12 lead 2. ASCVD (arteriosclerotic cardiovascular disease) I25.10 429.2 440.9 3. Primary hypertension I10 401.9 4. Mixed hyperlipidemia E78.2 272.2 New Prescriptions CLOPIDOGREL (PLAVIX) 75 MG TABLET Take 1 tablet (75 mg total) by mouth daily Look-alike/Sound-alike medication. Discontinued Medications No medications on file Modified Medications No medications on file Plan Review of stress test from [facility] shows EKG positive stress test but no reversibleischemia clearly identified on nuclear images. Given patient's new onset of exertional angina recommend left heart catheterization with graft study via the right femoral artery. Continue high-dose statin therapy and aspirin. Will add Plavix 75 mg daily. Blood pressure is well-controlled we will continue current medications at this time. Follow-up to be determined Electronically signed by: Yesi Caro PA-C, 11/14/2024 at 12:25 PM documented in this encounter Plan of Treatment Upcoming Encounters Date Type Department Care Team (Late st Contact Info) Description 12/19/2024 11:30 AM EDT Office Visit [facility] Cardiology [address] [place] [phone] Yesi Caro PA-C [address] [place] [address] [address] Scheduled Orders Name Type Priority Associated Diagnoses Orde r Schedule ECG 12 lead ECG Routine Angina of effort (HCC) Ordered: 11/14/2024 documented as of this encounter Visit Diagnoses Diagnosis Angina of effort (HCC)- Primary Other and unspecified angina pectoris ASCVD (arteriosclerotic cardiovascular disease) Unspecified cardiovascular disease Primary hypertension Unspecified essential hypertension Mixed hyperlipidemia documented in this encounter Care Teams Technical Lead Relationship Specialty Start Date End Date Justino Buchanan MD [address] [place] [address] [place] [address] PCP - General Adolescent Medicine 12/26/22 Temo Carreon MD [address] [facility] [address] [address] Interventional Cardiology 12/26/22 Ashly Vee APRN [address] [facility] [address] [address] Cardiology 12/26/22 documented as of this encounter
--- OUTSIDE RECORDS SUMMARY | 2024-11-18 11:45 | XMS_ITS ---
Author Organization [facility] Address [address] [facility] [address] [facility] [address] [place] [address] Care Team Providers Care Sorting Machine Operator Name Role Phone Justino Buchanan Primary Care Provider Allergies No Known Allergies REASON FOR VISIT Stress Test F/U [facility] Medications Medication SIG (Take, Route, Frequency, Duration) Notes Start Date End Date Status Triamcinolone Acetonide 0.025 % 1 orquidea applied topically 3 times a day; Duration: 7 day(s) prn 04/09/2021 Active Probiotic 1 TAB PO QD Active ACCU-CHECK GUIDE METER - USE TO CHECK BL OOD SUGAR TWICE DAILY 06/20/2018 Active Multivitamin - 1 tab(s) orally once a day Active Nitrostat 0.4 MG 1 tab(s) sublinguall y every 5 minutes prn Active Plavix 75 MG 1 tablet Orally Once a day Active Systane PRESERVED 1 GTT IN EACH EYE 3 TIMES A DAY Active Rosuvastatin Calcium 40 MG 1 tab(s) oral ly once a day; Duration: 90 Active Furosemide 20 MG 1 tab(s) orally once a day; Duration: 90 Active Folic Acid OTC 1 TAB QD Activ e Glimepiride 2 MG TAKE 1 TABLET DAILY; Duration: 90 Active OZEMPIC 2 MG/3 ML (0.25 MG OR 0.5 MG DOSE) 0.5MG SUBCUTANEOUSLY ONCE A WEEK; Duration: 30 DAYS 07/01/2024 Active Fluorometholone ACETATE 0.1% 1 GTT IN EACH AFFECTED EYE ONCE A DAY; Duration: 90 DAYS Active Metoprolol Tartrate 25 MG TAKE 1/2 TABLE T TWICE A DAY; Duration: 90 Active ACCUCHEK FAST CLICK LANCETS TWICE A DAY Active Flonase Allergy Relief 50 MCG/ACT 1 spray(s) in each nostril once a day; Duration: 30 days prn 07/19/2024 Active Jardiance 25 MG TAKE 1 TABLET EVERY MORNING; Duration: 90 Active Lisinopril 20 MG 1 tab(s) orally once a day; Duration: 90 days Active ACCU-CHECK GUIDE TEST STRIPS USE TO CHECK BLOOD SUGAR TWICE DAILY; Duration: 90 DAYS Active Problems Problem Type SNOMED Code ICD Code Onset Dates Problem Status W/U Status Risk Notes Problem Angina pectoris (886982172) Angina pectoris (I20.9) Active confirmed Problem Lymphocytosis (41208958) Lymphocytosis (D72.820) Active confirmed Vital Signs Temperature 97.8 degrees Fahrenheit 11/19/19 25 Blood pressure systolic 130 mm Hg 11/19/19 25 Blood pressure diastolic 70 mm Hg 025 Heart Rate 74 /min 11/18/2024 Height 71 in 11/18/2024 Weight 208 lbs 11/18/2024 BMI 29.01 kg/m2 11/18/2024 Encounters Encounter Location Date Provider Diagnosis [facility] [address] [facility] [address] [place] [address] 11/18/2024 Justino Buchanan Angina pectoris I20. 9 ; Thyroid nodule E04.1 and Lymphocytosis D72.820 Assessments Encounter Date Diagnosis (ICD Code) Assessment Notes Treatment Notes Treatment Clinical Notes Section Notes 11/18/2024 Angina pectoris (ICD-10 - I20.9) Angina seems stable. He can predict when his can happen. He has nitro available. We discussed in detail how to use this. We discussed criteria to go to the emergency department. I gave him a letter through that he does not have to use the stairs at his workplace and can use the elevator. Follow with cardiology and I will see him back after heart cath 11/18/2024 Thyroid nodule (ICD-10 - E04.1) Nodules have been stable. I have personally requested records from [facility] and will reevaluate these with patient 11/18/2024 Lymphocytosis (ICD-10 - D72.820) Has seen hematology. 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 We discussed this. He has been stressed about it. We had a nice talk and we discussed ways to help with stress, and he can come back and talk to me at any point. He has good support from his family including his daughter. Plan Of Treatment Treatment Notes Assessment Notes Angina pectoris Angina seems stable. He can predict when his can happen. He has nitro available. We discussed in detail how to use this. We discussed criteria to go to the emergency department. I gave him a letter through that he does not have to use the stairs at his workplace and can use the elevator. Follow with cardiology and I will see him back after heart cath Thyroid nodule Nodules have been st able. I have personally requested records from [facility] and will reevaluate these with patient Lymphocytosis Has seen hematology. 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 We discussed this. He has been stressed about it. We had a nice talk and we discussed ways to help with stress, and he can come back and talk to me at any point. He has good support from his family including his daughter. Next Appt Details Follow Up: prn, Reason: Provider Name:Justino Buchanan, 12/30/2024 03:15:00 PM, [address] [place] [facility] [address] [facility], [address], [place], [address], Provider Name:Justino Buchanan, 03/03/2025 02:00:00 PM, [address] [place] [facility] [address] [facility], [address], [place], [address], Progress Notes * Kris HOODDOB:1945 (79 yo M)Acc No.[id number]:11/18/2024 Progress Notes Patient: Cristiana FELIZ Alexanil Provider: Beba Buchanan MD :1945 A ge:79 Y S ex:Male Date:11/18/2024 Address:[address] [place] [address] [place], [id number] Subjective: * Chief Complaints: * 1 . Stress Test F/[facility] * HPI: g en: Patient here with his daughter to go over his imaging studies from last week at [facility]. 1. Thyroid nodule-I do not yet have this ultrasound back. This was requested from [facility]. 2. We discussed his abnormal stress test. I was personally called by diploma maker, this was abnormal. He has seen cardiology at [facility] and they are scheduling cath for second week of November. He and his daughter have lots of questions about angina issues 3. Also recently diagnosed with CLL probably-is going down to get blood work for flow cytometry this afternoon. 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 Also with positive rheumatoid factor, Heart murmur [...] . S iblings: alive, heart attack. C lizet: alive. 1 brother(s) - healthy. 2 son(s) , 1 daughter(s) - healthy. . daughter-htn. * Social History: S moking: no A re you a:: nonsmoker. R ecreational drug use: no. Exercise: no. Home smoke detector use: yes. Caffeine: yes, frequency:coffee 1 pot a day. Living Will: Yes. Alcohol: socially. Sexually active: no. Travel outside [place]: no. 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 * Medications: T aking Plavix 75 MG Tablet 1 tablet Orally Once a day , Taking Systane PRESERVED SOLUTION 1 GTT IN EACH EYE 3 TIMES A DAY , Taking Folic Acid OTC 1 TAB QD , Taking Multivitamin - Tablet 1 tab(s) orally once a day , Taking Nitrostat 0.4 MG Tablet Sublingual 1 tab(s) sublingually every 5 minutes prn , Taking Probiotic 1 TAB PO QD , Taking ACCU-CHECK GUIDE METER - USE TO CHECK BLOOD SUGAR TWICE DAILY , Taking Triamcinolone Acetonide 0.025 % Cream 1 orquidea applied topically 3 times a day , Notes to Pharmacist: prn, Taking ACCU-CHECK GUIDE TEST STRIPS USE TO CHECK BLOOD SUGAR TWICE DAILY , Taking Jardiance 25 MG Tablet TAKE [...] FAST CLICK LANCETS TWICE A DAY , Taking OZEMPIC 2 MG/3 ML (0.25 MG OR 0.5 MG DOSE) SOLUTION 0.5MG SUBCUTANEOUSLY ONCE A WEEK , Taking Fluorometholone ACETATE 0.1% SUSPENSION 1 GTT IN EACH AFFECTED EYE ONCE A DAY , Taking Glimepiride 2 MG Tablet TAKE 1 TABLET DAILY , Taking Furosemide 20 MG Tablet 1 tab(s) orally once a day , Taking Rosuvastatin Calcium 40 MG Tablet 1 tab(s) orally once a day , Medication List reviewed and reconciled with the patient * Allergies: N .K.D.A. Objective: * Vitals: N urse: jl, Pain: 0, Temp: 97.8, RR: 18, HR: 74, BP: 130/70, Ht: 71, Wt: 208, BMI:29.01. * Examination: G eneral Examination: General P leasant and Cooperative, NAD on RA,. Chest: n ormal shape and expansion. Heart: R egular Rate and Rhythm, no murmur, rubs or gallops. Lungs: L CTAB, No wheezes, crackles or rhonchi, Good air movement,. Psych N ormal Mood/Affect. Assessment: * Assessment: 1. A ngina pectoris - I20.9 (Primary) 2 . T hyroid nodule - E04.1 ? 3 . L ymphocytosis - D72.820 Plan: * Treatment: 2. T hyroid nodule Notes: Nodules have been stable. I have personally requested records from [facility] and will reevaluate these with patient 3. L ymphocytosis Notes: Has seen hematology. 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 We discussed this. He has been stressed about it. We had a nice talk and we discussed ways to help with stress, and he can come back and talk to me at any point. He has good support from his family including his daughter. * Follow Up: p rn * * Sign off status: Completed true * Provider: Beba Buchanan MD Date: 0 11/18/2024 Generated for Natani reena/Argelia/eTransmitting on: 0 12/11/2024 03:58 PM EDT History and Physical Notes * HPI (History of Present Illness) Category Sub-Category Detail Notes Category Not es gen Patient here with his daughter to go over his imaging studies from last week at [facility]. 1. Thyroid nodule-I do not yet have this ultrasound back. This was requested from [facility]. 2. We discussed his abnormal stress test. I was personally called by diploma maker, this was abnormal. He has seen cardiology at [facility] and they are scheduling cath for second week of November. He and his daughter have lots of questions about angina issues 3. Also recently diagnosed with CLL probably-is going down to get blood work for flow cytometry this afternoon Examination Category Sub-Category Detail Notes Category Not es General Examination Heart: Regular Rate and Rhythm, no murmur, rubs or gallops Lungs: LCTAB, No wheezes, c rackles or rhonchi, Good air movement, Chest: normal shape and exp ansion General Pleasant and Coopera tive, NAD on RA, Psych Normal Mood/Affect
--- OUTSIDE RECORDS SUMMARY | 2024-12-09 06:00 | XMS_ITS | Encounter Summary ---
Author Organization [employer] ([place], [place], [place], [place]) Address [address] [place] [address] Care Team Providers Care Insurance Specialist Name Role Phone Justino Buchanan MD Primary Care Provider [phone] Temo Carreon MD Unavailable [phone] Ashly Vee APRN Unavailable [phone] Reason for Referral * Other (Routine) - Closed Specialty Diagnoses / Procedures Referred By Contac t Referred To Contact Diagnoses Athscl heart disease of [place] cor art w oth ang pctrs ([facility]) Procedures CARDIAC CATH - LEFT HEART CATH W/ POSSIBLE INTERVENTION Yesi Caro, PA-C [facility] [place] [address] Phone: tel: fax: Tremaine Martin MD [address] [place] [address] [place] [address] Phone: tel: fax: Referral ID Status Reason Start Date Expiration Date Visits Re quested Visits Authorized [id number] Closed 11/14/2024 11/14/2025 1 1 Reason for Visit * Other (Routine) - Closed Specialty Diagnoses / Procedures Referred By Contshahida t Referred To Contact Diagnoses Athscl heart disease [facility] [place] [facility] Procedures CARDIAC CATH - LEFT HEART CATH W/ POSSIBLE INTERVENTION Yesi Caro PA-C [address] [place] [address] Phone: tel: fax: Tremaine Martin MD [address] [place] [address] Phone: tel: fax: Referral ID Status Reason Start Date Expiration Date Visits Re quested Visits Authorized [id number] Closed 11/14/2024 11/14/2025 1 1 Encounter Details Date Type Department Care Team (Late st Contact Info) Description 12/09/2024 6:00 AM EDT - 12/09/2024 7:56 AM EDT Hospital Encounter [facility] Cardiac Catheterization Lab [address] [place] [phone] Yesi Caro PA-C [address] [place] [address] Tremaine Martin MD [address] [place] [phone] Athscl heart disease of [place] cor art [facility] Discharge Disposition: Home or Self Care Social History Tobacco Use Types Packs/Day Years [...] Date Denny rded Speak language other than Austrian at home Not on file 06/09/2023 Want help with school or training Not on file 06/09/2023 Substance Use Answer Date Recorded Used prescription meds for non-medical reasons N ot on file 06/09/2023 Used illegal drugs past 12 months Not on file 06/09/2023 Sex and Gender Information Value Date Recorded Sex Assigned at Male 03/28/2023 11:41 AM BARGE PILOT Legal Sex Male 5:10 PM CDT Gender Identity Male 03/28/2023 11:41 AM BARGE PILOT Sexual Orientation Straight 03/28/2023 11 :41 AM BARGE PILOT documented as of this encounter Last Filed Vital Signs Vital Sign Reading Time Taken Comments Blood Pressure 148/73 12/09/2024 6:33 AM EDT Pulse 63 12/09/2024 6:33 AM EDT Temperature 36.1 C (97 F) 12/09/2024 6:33 AM EDT Respiratory Rate 18 12/09/2024 6:33 AM EDT Oxygen Saturation 97% 12/09/2024 6:33 AM EDT Inhaled Oxygen Concentration - - Weight 94.8 kg (209 lb) 12/09/2024 6:23 AM EDT Height 182.9 cm (6') 12/09/2024 6:23 AM EDT Body Mass Index 28.35 12/09/2024 6:23 AM EDT documented in this encounter Discharge Instructions * Discharge Instr - Activity* Janneth José RN - 12/09/2024 11:08 AM EDT Rest and relax, no strenuous activity. No lifting greater than 10 pounds for 1 week. You may remove the dressing tomorrow and shower. No tub bathing, soaking, swimming, for 3 to 5 days. [address] driving for 24 hours. Heart healthy diet. Resume home medications. Start new Ranexa prescription * Attachments The following attachments cannot be sent through Care Everywhere. * Carotid Artery Disease [id number]-[id number] (Austrian) * Coronary Angiogram Care After (Austrian) * Moderate Conscious Sedation Adult Care After (Austrian) documented in this encounter Medications at Time of Discharge aspirin 81 MG EC tablet Take 1 tablet (81 mg total) by mouth daily. clopidogreL (Plavix) 75 mg tablet Take 1 tablet (75 mg total) by mouth daily Look-alike/Geraldine nd-alike medication. 30 tablet 11 11/14/2024 empagliflozin (JARDIANCE) 25 mg tablet Take 1 tablet (25 mg total) by mouth daily. folic acid (FOLVITE) 1 MG tablet Take 1 tablet (1 mg total) by mouth daily. furosemide (LASIX) 20 MG tablet Take 1 tablet (20 mg total) by mouth daily. glimepiride (AMARYL) 2 MG tablet Take 1 tablet (2 mg total) by mouth daily with breakfast. Lactobacillus no.46/B.animalis (PROBIOTIC-10 ORAL) Take by mouth daily. lisinopriL (ZESTRIL) 20 MG tablet Take 1 tablet (20 mg total) by mouth daily. magnesium oxide (MAG-OX) 400 mg magnesium tab Take 1 tablet (400 mg total) by mouth daily with breakfast. metoprolol tartrate (LOPRESSOR) 25 MG tablet Take 0.5 tablets (12.5 mg total) by mouth 2 (two) times daily. multivitamin per tablet Take 1 tablet by mouth daily. prednisoLONE acetate (PRED MILD) 0.12 % ophthalmic suspension Administer 1 drop into both eyes daily. 01/15/2023 propylene glycoL (Systane Complete) 0.6 % Drop 0.6 drops 3 (three) times daily. rosuvastatin (CRESTOR) 40 MG tablet Take 1 tablet (40 mg total) by mouth daily. semaglutide (Ozempic) 0.25 mg or 0.5 mg (2 mg/3 mL) pnij Inject 0.5 mg under the skin once a week. documented as of this encounter Progress Notes * Janneth José RN - 12/09/2024 8:20 AM EDT Discharge teaching completed, verbalized understanding. IV removed and patient discharged home. documented in this encounter H&P Notes * Tremaine Martin MD - 12/09/2024 7:00 AM EDT History Of Present Illness Patient is a 79 y.o. male presenting for left heart cath. Patient has history of CAD with CABG, HTN, HLD who was seen by Katrin Caro PA-C for chest pain that has become lifestyle limiting and he also has dyspnea and fluttering associated with it. Symptoms resolve with rest. Patient has stress test at [facility] that showed no ischemia but EKG positive test Past Medical History He has a past [...] he does not use drugs. Family History Family History Problem Relation Name Age of Onset Colon cancer Mother Diabetes Father Heart attack Father Allergies Patient has no known allergies. Medications Current Outpatient Medications Medication Instructions aspirin 81 mg, Daily clopidogreL (PLAVIX) 75 mg, oral, Daily, Look-alike/Sound-alike medication empagliflozin (JARDIANCE) 25 mg, Daily folic acid (FOLVITE) 1 mg, Daily furosemide (LASIX) 20 mg, Daily glimepiride (AMARYL) 2 mg, Daily with breakfast lisinopriL (ZESTRIL) 20 mg, Daily metoprolol tartrate (LOPRESSOR) 12.5 mg, 2 times daily multivitamin per tablet 1 tablet, Daily Ozempic 0.5 mg, Weekly prednisoLONE acetate (PRED MILD) 0.12 % ophthalmic suspension Administer 1 drop into both eyes daily. propylene glycoL (Systane Complete) 0.6 % Drop 0.6 drops 3 (three) times daily. rosuvastatin (CRESTOR) 40 mg, Daily Review of Systems Review of Systems All other systems reviewed and are negative. Last Recorded Vitals There were no vitals taken for this visit. Physical Exam Constitutional: Appearance: Normal appearance. HENT: Head: Normocephalic. Neck: Vascular: No carotid bruit. Cardiovascular: Rate and Rhythm: Normal rate and regular rhythm. Pulses: Normal pulses. Heart sounds: Normal heart sounds. No murmur heard. No friction rub. No gallop. Pulmonary: Effort: Pulmonary effort is normal. Breath sounds: No wheezing, rhonchi or rales. Abdominal: General: Bowel sounds are normal. Palpations: Abdomen is soft. Musculoskeletal: Cervical back: Normal range of motion. Right lower leg: No edema. Left lower leg: No edema. Skin: General: Skin is warm and dry. Capillary Refill: Capillary refill takes less than 2 seconds. Neurological: Mental Status: He is alert and oriented to person, place, and time. Assessment & Plan Problem List Items Addressed This Visit None *CAD with CAC II angina. -Hx of 2 vessel CABG in 2016 -GXT myoview 11/13: likely positive stress test for inferolateral ischemic on EKG at peak exercise with Husain score of -9 suggestive of medium risk group, no significant reversibility just mild ischemia in inferior wall *mild aortic stenosis -Echo 12/2021; Mild max 25 mmHg; mean 13 mmHg, EF 50%, Moderate LVH, Dilated Right ventricle *HTN *HLD Plan: Left heart cath +/- PCI via femoral artery approach. Risks and benefits discussed. Patient agrees to proceed. CV medication recommendations pending cath. Post cath addendum: Patent FRIAS & SVG to lateral branch. 100% RCA BAGGAGE SECURITY CHECKER. Add Ranexa 500 mg BID. Discussed R/B BAGGAGE SECURITY CHECKER PCI. No final decision. Discussed GLP1a dose escalation & DC Glimepiride. No final decision. RV with Katrin Caro PA-C in 4 weeks. documented in this encounter Plan of Treatment Upcoming Encounters Date Type Department Care Team (Late st Contact Info) Description 12/19/2024 11:30 AM EDT Office Visit [facility] Cardiology [address] [place] [phone] Yesi Caro PA-C [address] [facility] [address] [place] [address] documented as of this encounter Procedures Procedure Name Priority Date/Time Associated Diagnosis Comments CARDIAC CATH - LEFT HEART CATH W/ POSSIBLE INTERVENTION Routine 12/09/2024 9:10 AM EDT Athscl heart disease of [place] cor art w oth ang pctrs ([facility]) CHEM8+ POC Routine 12/09/2024 6:45 AM EDT PLATELET COUNT, AUTO STAT 12/09/2024 6:24 AM EDT documented in this encounter Results * CARDIAC CATH - LEFT HEART CATH W/ POSSIBLE INTERVENTION (12/09/2024 9:10 AM EDT) Anatomical Region Laterality Modality Heart Other Narrative 12/09/2024 9:36 AM EDT LEFT HEART CATHETERIZATION AND GRAFT ANGIOGRAPHY INDICATION: Moderately limiting exertional angina like chest pain. Inferior defect by Myoview perfusion study. REFERRING MD: Dr. Justino Buchanan; Yesi Caro PA-C PROCEDURE: Standard left heart catheterization and graft angiography. TECHNIQUE: A 6-Burundian sheath was placed in the right common femoral artery using ultrasound guidance. JL4, JR4 diagnostic catheters were used for selective angiography of the [place] vessels. JR4 diagnostic catheter was used for selective angiography of TORRES bypass graft and saphenous venous Graft. A 6-Burundian pigtail catheter was used to measure pressures in the left ventricle. Left ventriculogram was not performed. The 6 Burundian system was upsized to 7 Burundian and brief attempt was performed to cross the right coronary artery total occlusion using 7 Burundian AL-1 guide, Fielder XT, and airplane pilot commercial 200 wire without success. The patient received moderate conscious sedation including intravenous Versed and fentanyl. He was monitored by pa for more than 30 minutes and remained stable hemodynamically without respiratory distress. HEMODYNAMICS: Left ventricle 121/9 mmHg, aorta 114/61 mmHg. DIAGNOSES: 1. Severe three vessel coronary artery disease. 2. Continued patency of TORRES bypass graft into LAD with 50% LAD stenosis beyond TORRES-LAD bypass anastomosis site. 3. Continued patency of saphenous venous grafts to the posterolateral branch of the cirumflex artery. 4. Normal left ventricular filling pressure with 7 mmHg peak to peak gradient across the aortic valve. CORONARY ANATOMY: 1. Left main trunk: Calcified with nonobstructive atherosclerosis. 2. LAD: Large caliber ectatic heavily calcified vessel, which gives rise to a caliber diagonal branch. There is a segment of moderately severe 60% lesion in the ostial left anterior descending artery. There are 2 80 to 90% severe lesions in the mid LAD. The distal left anterior descending artery is filled via patent TORRES bypass graft to the LAD. There is a segment of 50% narrowing distal to the TORRES LAD anastomosis site. 3. Circumflex artery: Large caliber heavily calcified ectatic vessel, which gives rise to and a small caliber arborizing posterolateral branch. There is 80% stenosis present in the mid/distal circumflex artery. This posterolateral branches is filled via patent saphenous venous graft. The circumflex artery contributes to [id number]-rq-[id number] collateral flow. 4. Right coronary artery: Large caliber dominant calcified vessel with total occlusion mid vessel with. The distal right coronary artery, which includes a small caliber posterior descending artery and small caliber posterolateral branch is filled via left to right lateral collateral flow. 5. Left ventricle: Normal left ventricular filling pressure with 7 mmHg peak to peak gradient across the aortic valve. 6. TORRES bypass graft to the LAD: Moderate caliber tortuous conduit, which is widely patent. There is a segment of 50% narrowing distal to the TORRES to LAD anastomosis site. 7. Saphenous venous graft to the posterior lateral branch of the circumflex coronary artery: Patent. IMPRESSION: Angiographically, the patient has severe three-vessel coronary artery disease with continued patency of TORRES bypass graft to the LAD and saphenous venous graft to posterolateral branch of circumflex artery. There is less than 10 mmHg peak to peak gradient across the aortic valve suggestive of possible mild aortic stenosis. Optimization of antianginal therapy and lifestyle optimization of cardiovascular risk factors are recommended. Discussed option of right coronary artery chronic total occlusion percutaneous intervention if lifestyle limiting refractory angina like symptoms. us Yesi Caro PA-C CV CARDIAC CATH ORDERABL ES Final Result * (ABNORMAL) Chem8+ POC (12/09/2024 6:45 AM EDT) POC Sodium 142 138 - 146 mmol/L 12/09/2024 6:[address] [facility] POC Potassium 4.0 3.5 - 4.9 mmol/L 12/09/2024 6:[address] [facility] POC Chloride 104 98 - 109 mmol/L 12/09/2024 6:[address] [facility] POC Glucose 165(H) 70 - 105 mg/dL 12/09/2024 6:[address] [facility] POC BUN 19 8 - 26 mg/dL 12/09/2024 6:[address] [facility] POC Anion Gap 17 10 - 20 mmol/L 12/09/2024 6:[address] [facility] POC IONIZED CALCIUM KIM 1.26 1.12 - 1.32 mmol/L 12/09/2024 6:[address] [facility] POC CO2 TOTAL KIM 26 24 - 29 mmol/L 12/09/2024 6:[address] [facility] POC-Creatinine 1.0 0.6 - 1.3 mg/dL 12/09/2024 6:[address] [facility] POC-EGFR >60 mL/min/1.7 3M2 12/09/2024 6:[address] [facility] Comment:Proceed with contras t if eGFR > 45 ml/min/1.73 when performed on the NovaSTAT strip Creatinine meter. POC HEMATOCRIT KIM 42 38 - 51 %PCV 12/09/2024 6:[address] [facility] POC HEMOGLOBIN KIM 14.3 12.0 - 17.0 g/dL 12/09/2024 6:[address] [facility] Blood 12/09/2024 6:45 AM EDT 12/09/2024 6:[address] [facility] - 12/09/2024 6:48 AM EDT Equipment Washer ID is - [id number] us Yesi Caro PA-C POINT OF CARE TEST ORDER TONO Final Result [facility] [address] [phone] * (ABNORMAL) Platelet count, auto (12/09/2024 6:24 AM EDT) Platelets 131(L) 140 - 375 K/CU MM 12/09/2024 6:[address] [facility] Blood Venipuncture / Unknown 12/09/2024 6:24 AM EDT 12/09/2024 6:50 AM EDT us Deshawn SALINAS-M[facility] LAB BLOOD ORDERABLES Final Resu lt [facility] [address] [phone] documented in this encounter Visit Diagnoses Diagnosis Athscl heart disease of [place] cor art w oth ang pctrs ([facility]) documented in this encounter Administered Medications Inactive Administered Medications - up to 3 most recent administrations Medication Order MAR Action Action Date Dose Rate Site aspirin tablet 325 mg Once, oral, On Mon12/09/24 at 0700, For 1 dose, On Unit Given 12/09/2024 6:51 AM EDT 325 mg atorvastatin (LIPITOR) tablet 80 mg 80 mg Once, oral, On Mon12/09/24 at 0700, For 1 dose, STAT if patient didn't already take this morning or allergic, Pre-op Given 12/09/2024 6:51 AM EDT 80 mg fentaNYL PF (SUBLIMAZE) injection IMG once as needed, intravenous, Starting on Mon12/09/24 at 0842, Intra-op Given 12/09/2024 9:09 AM EDT 50 mcg Given 12/09/2024 8:42 AM EDT 50 mcg heparin 1,000 Units/mL injection IMG once as needed, intravenous, Starting on Mon12/09/24 at 0858, Intra-op Given 12/09/2024 8:58 AM EDT 6,700 Units iopamidoL (ISOVUE-370) 370 mg iodine /mL (76 %) injection IMG once as needed, Starting on Mon12/09/24 at 0913, Intra-op Given 12/09/2024 9:13 AM EDT 81 mLs lidocaine (XYLOCAINE) injection 2% IMG once as needed, intradermal, Starting on Mon12/09/24 at 0841, Intra-op Given 12/09/2024 8:41 AM EDT 8 mLs midazolam (PF) (VERSED) injection IMG once as needed, intravenous, Starting on Mon12/09/24 at 0840, Intra-op Given 12/09/2024 8:40 AM EDT 2 mg sodium chloride 0.9 % infusion 3 mL/kg/hr 94.8 kg Continuous (284.4 mL/hr), intravenous, Starting on Mon12/09/24 at 0700, Pre-op New Bag 12/09/2024 6:44 AM EDT 3 mL/kg/hr 284.4 mL/hr documented in this encounter Care Teams Insurance Specialist Relationship Specialty Start Date End Date Justino Buchanan MD [address] [place] [address] PCP - General Adolescent Medicine 12/26/22 Temo Carreon MD [address] [facility] [address] [place] [address] Interventional Cardiology 12/26/22 Ashly Vee APRN [address] [facility] [address] [place] [address] Cardiology 12/26/22 documented as of this encounter
--- OUTSIDE RECORDS SUMMARY | 2024-12-09 07:57 | XMS_ITS | Encounter Summary ---
Author Organization [employer] ([place] Address [address] [place] [address] Care Team Providers Care Rectification Printer Name Role Phone Justino Buchanan MD Primary Care Provider [phone] Temo Carreon MD Unavailable [phone] Ashly Vee APRN Unavailable [phone] Reason for Referral * Ultrasound (Routine) - New Request Specialty Diagnoses / Procedures Referred By Sylvainac t Referred To Contact Radiology Diagnoses Atherosclerosis Procedures Ultrasound-guided vascular access Paloma Bui MD [address] [place] [address] Phone: tel: fax: Referral ID Status Reason Start Date Expiration Date V isits Requested Visits Authorized [id number] New Request 12/09/2024 12/09/2025 1 1 Reason for Visit * Ultrasound (Routine) - New Request Specialty Diagnoses / Procedures Referred By Contac t Referred To Contact Radiology Diagnoses Atherosclerosis Procedures Ultrasound-guided vascular access Paloma Bui MD [address] [place] [address] [place] [address] Phone: tel: fax: Referral ID Status Reason Start Date Expiration Date V isits Requested Visits Authorized [id number] New Request 12/09/2024 12/09/2025 1 1 Encounter Details Date Type Department Care Team (Late st Contact Info) Description 12/09/2024 7:57 AM EDT - 12/09/2024 11:59 PM EDT Hospital Encounter [facility] [address] [place] [id number] Paloma Bui MD [address] [facility] [address] [place] [address] Atherosclerosis Discharge Disposition: Home or Self Care Social [...] Date Denny rded Speak language other than Burundian at home Not on file 06/09/2023 Want help with school or training Not on file 06/09/2023 Substance Use Answer Date Recorded Used prescription meds for non-medical reasons N ot on file 06/09/2023 Used illegal drugs past 12 months Not on file 06/09/2023 Sex and Gender Information Value Date Recorded Sex Assigned at Male 03/28/2023 11:41 AM CONCRETE FINISHING MACHINE OPERATOR Legal Sex Male 5:10 PM CDT Gender Identity Male 03/28/2023 11:41 AM CONCRETE FINISHING MACHINE OPERATOR Sexual Orientation Straight 03/28/2023 11 :41 AM CONCRETE FINISHING MACHINE OPERATOR documented as of this encounter Medications at Time of Discharge aspirin 81 MG EC tablet Take 1 tablet (81 mg total) by mouth daily. clopidogreL (Plavix) 75 mg tablet Take 1 tablet (75 mg total) by mouth daily Look-alike/Geraldine nd-alike medication. 30 tablet 11 11/14/2024 06/26/202 6 empagliflozin (JARDIANCE) 25 mg tablet Take 1 [...] Drop 0.6 drops 3 (three) times daily. ranolazine (RANEXA) 500 MG 12 hr tablet Take 1 tablet (500 mg total) by mouth 2 (two) times daily. 180 tablet 3 12/09/2024 rosuvastatin (CRESTOR) 40 MG tablet Take 1 tablet (40 mg total) by mouth daily. semaglutide (Ozempic) 0.25 mg or 0.5 mg (2 mg/3 mL) pnij Inject 0.5 mg under the skin once a week. documented as of this encounter Plan of Treatment Upcoming Encounters Date Type Department Care Team (Late st Contact Info) Description 12/19/2024 11:30 AM EDT Office Visit [facility] [address] [place] [address] Yesi Caro PA-C [address] [facility] [address] [place] [id number] documented as of this encounter Procedures Procedure Name Priority Date/Time Associated Diagnosis Comments US GUIDED VASCULAR ACCESS Routine 12/09/2024 9:11 AM EDT Atherosclerosis documented in this encounter Results * Ultrasound-guided vascular access (12/09/2024 9:11 AM EDT) Anatomical Region Laterality Modality Vascular Vascular Ultraso und 12/09/2024 7:39 AM EDT Narrative 12/09/2024 10:08 AM EDT Vascular Procedure Demographics Patient Name SANA ALMEIDA Age 79 Patient Number [id number] Gender Male Race Unknown Ethnicity Corporate ID [id number] Height 72 Date of 1945 Weight 209 Accession Number [id number] BSA 2.17 m^2 Room Number BMI 28.35 kg/m^2 Referring Physician PALOMA BUI MD Interpreting PALOMA BUI MD Physician Large Animal Husbandry Technician TOM Camacho Procedure Type of Study: US GUIDED VASCULAR ACCESS : . Impressions Summary ##################################### INDICATION: Atherosclerosis (i70.90) RIGHT: Ultrasound guided access of the common femoral artery. ASSISTANT PROFESSOR OF DRAMA was 3.5 cm in depth and patent. Access was successful. ##################################### Patient Status:Outpatient. Study Location:Portable. Technical Quality:Good visualization. Signature Procedure Note Paloma Bui MD - 07/21/2025 Vascular Procedure Demographics Patient Name SANA ALMEIDA Age 79 Patient Number [id number] Gender Male Race Unknown Ethnicity Corporate ID [id number] Height 72 Date of 1945 Weight 209 Accession Number [id number] BSA 2.17 m^2 Room Number BMI 28.35kg/m^2 Referring Physician PALOMA BUI MD Interpreting PALOMA FLORES Physician Large Animal Husbandry Technician TOM Camacho Procedure Type of Study: US GUIDED VASCULAR ACCESS : . Impressions Summary ##################################### INDICATION: Atherosclerosis (i70.90) RIGHT: Ultrasound guided access of the common femoral artery. ASSISTANT PROFESSOR OF DRAMA was 3.5 cm in depth and patent. Access was successful. ##################################### Patient Status:Outpatient. Study Location:Portable. Technical Quality:Good visualization. Signature us Paloma Bui MD IMG US ORDERABLES Final Result documented in this encounter Visit Diagnoses Diagnosis Atherosclerosis Generalized and unspecified atherosclerosis documented in this encounter Care Teams Rectification Printer Relationship Specialty Start Date End Date Justino Buchanan MD [address] [place] [address] [place] [address] PCP - General Adolescent Medicine 12/26/22 Temo Carreon MD [address] [facility] [address] [address] Interventional Cardiology 12/26/22 Ashly Vee APRN [address] [facility] [address] [address] Cardiology 12/26/22 documented as of this encounter
--- OUTSIDE RECORDS SUMMARY | 2024-12-11 15:57 | XMS_ITS | Patient Health Record ---
Author Organization [facility] Address [address] [place] [address] [place] [address] Care Team Providers Care Computer Programmer Name Role Phone Justino Buchanan Primary Care Provider [phone] Nu Negrete Unavailable [phone] Migration, Provider Unavailable Unavailable Allergies No Known Allergies Results Component Value Reference Range Notes M-Thyroid Panel Reviewed date:11/01/2024 02:57:59 PM Interpretation: [...] 0 IG% 0.3 NRBC# 0 IG# 0.06 X ray : Chest PA and Lateral Reviewed date:07/23/2024 12:28:01 PM Interpretation: Performing Lab: Notes/Report: X ray : Chest PA and Lateral Reviewed date:07/23/2024 12:28:01 PM Interpretation: Performing Lab: Notes/Report: M-Manual Differential Reviewed date:11/01/2024 02:48:26 PM Interpretation: Performing Lab: Notes/Report: MDIFF MANUAL DIFFERENTIAL MANUAL DIFF TCC 100 NEUT%M 13 42-76 % LYMPH%M 70 10-50 % MONO%M 17 2-9 % PLTE Normal RM Normal US THYROID Reviewed date:11/20/2024 02:46:41 PM Interpretation: Performing Lab: Notes/Report: [address] [place] [address] Name: KRIS HOOD Exam Date: 11/11/2024 : 1945 Age 79 years Gender: M Physician: HAYLEY LOCKWOOD Facility: [facility] Facility HSV: Outpatient Exam: US THYROID US [...] Gogo Hughes MD 11/19/2024 01:25 PM EDT Dictated By: Gogo Hughes Transcribed By: Transcribed On: 11/11/2024 9:54 AM Electronically signed by: Gogo Hughes 11/11/2024 Thank you for referring KRIS HOOD to [facility]. Legally authenticated by ELVIE LEWIS MD 2024-11-11 09:54:00 NM MYOCARD SPEC WM/EF COLLECTION DEVELOPMENT LIBRARIAN Reviewed date:11/14/2024 09:33:50 AM Interpretation: Performing Lab: Notes/Report: [address] [place] [address] Name: KRIS HOOD Exam Date: 11/11/2024 : 1945 Age 79 years Gender: M Physician: HAYLEY LOCKWOOD Facility: [facility] Facility HSV: Outpatient Exam: NM MYOCARD SPEC WM/EF COLLECTION DEVELOPMENT LIBRARIAN STRESS TEST Patient Name: KRIS HOOD Admit [...] Thank you for referring KRIS HOOD to [facility]. Legally authenticated by LYNNETTE SAEZ MD 2024-11-12 11:07:41 M-Hemoglobin A1C Reviewed date:06/28/2024 09:10:33 AM Interpretation: [...] uIU/mL M-Complete Blood Count Auto Diff Reviewed date:04/12/2024 [...] HDL 42 40-60 mg/dl CHLHDL 3.9 1-3.5 M-Complete Blood Count Auto Diff Reviewed date:01/12/2024 [...] 31 23.5-40.5 % TSH 3.51 0.465-4.68 uIU/mL Microalbumin (In-House) Reviewed date:04/15/2024 06:35:01 PM Interpretation:Abnormal Performing Lab: Notes/Report: Abnormal ALB 80 CRE 100 A:C 30-300 M-Basic Metabolic Panel Reviewed date:08/10/2024 02:21:31 PM [...] Level > 8% Poorly Controlled Diabetic Level M-Manual Differential Reviewed date:01/12/2024 12:43:33 PM Interpretation: Performing Lab: Notes/Report: MDIFF MANUAL DIFFERENTIAL MANUAL DIFF TCC 100 NEUT%M 33 42-76 % LYMPH%M 64 10-50 % MONO%M 2 2-9 % EOS%M 1 0-3 % PLTE Normal RM Normal M-Manual Differential Reviewed date:06/28/2024 09:46:49 AM Interpretation: Performing Lab: Notes/Report: MDIFF MANUAL DIFFERENTIAL MANUAL DIFF TCC 100 NEUT%M 18 42-76 % LYMPH%M 76 10-50 % MONO%M 6 2-9 % PLTE Normal RM Normal M-Manual Differential Reviewed date:04/12/2024 03:49:41 PM Interpretation: Performing Lab: Notes/Report: MDIFF MANUAL DIFFERENTIAL MANUAL DIFF TCC 100 NEUT%M 11 42-76 % LYMPH%M 87 10-50 % MONO%M 2 2-9 % PLTE Normal RM Normal Medications Medication SIG (Take, Route, Frequency, Duration) Notes Start Date End Date Status Furosemide 20 MG 1 tab(s) orally once a day; Duration: 90 Active Ozempic (1 MG/DOSE) 4 MG/3ML 1mg Subcuta neous weekly; Duration: 90 days 12/10/2024 Active Plavix 75 MG 1 tablet Orally Once a day Active Flonase Allergy Relief 50 MCG/ACT 1 spray(s) in each nostril once a day; Duration: 30 days prn 07/19/2024 Active Systane PRESERVED 1 GTT IN EACH EYE 3 TIMES A DAY Active Jardiance 25 MG TAKE 1 TABLET EVERY MORNING; Duration: 90 Active Nitrostat 0.4 MG 1 tab(s) sublinguall y every 5 minutes prn Active Triamcinolone Acetonide 0.025 % 1 orquidea applied topically 3 times a day; Duration: 7 day(s) prn 04/09/2021 Active Rosuvastatin Calcium 40 MG 1 tab(s) oral ly once a day; Duration: 90 Active ACCU-CHECK GUIDE TEST STRIPS USE TO CHEC K BLOOD SUGAR TWICE DAILY; Duration: 90 DAYS Active Probiotic 1 TAB PO QD Active ACCU-CHECK GUIDE METER - USE TO CHECK BL OOD SUGAR TWICE DAILY 06/20/2018 Active Lisinopril 20 MG 1 tab(s) orally once a day; Duration: 90 days Active Multivitamin - 1 tab(s) orally once a day Active Fluorometholone ACETATE 0.1% 1 GTT IN EA CH AFFECTED EYE ONCE A DAY; Duration: 90 [...] Peripheral circulatory disorder associated with diabetes mellitus (556901804) Type 2 diabetes mellitus with other circulatory complications (E11.59) Active confirmed Problem Essential hypertension (11018783) Essential (primary) hypertension (I10) Active confirmed Problem Atherosclerotic heart disease of hoh coronary artery without angina pectoris (673469921737594) 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) Active confirmed Problem Type II diabetes mellitus without complication (745123417) Diabetes (E11.9) Active confirmed Problem Thyroid nodule (577210206) Thyroid nodule (E04.1) Active confirmed Problem Diabetic peripheral neuropathy (705259161) Diabetic peripheral neuropathy (E11.42) Active confirmed Problem Rheumatoid arthritis (86716932) Rheumatoid arthritis (M06.9) Active confirmed Problem Angina pectoris (825784324) Angina pectoris (I20.9) Active confirmed Problem Mixed hyperlipidemia (852910480) Hyperlipemia, mixed (E78.2) Active confirmed Problem History of coronary artery bypass grafting (096565471) 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) Active confirmed Problem Peripheral circulatory disorder associated with diabetes mellitus (945860440) Type 2 diabetes mellitus with other circulatory complication, without long-term current use of insulin (E11.59) Active confirmed Problem Benign neoplasm of colon (21947773) Adenomatous polyp of colon, unspecified part of colon (D12.6) Active confirmed Problem Lymphocytosis (52752612) Lymphocytosis (D72.820) Active confirmed Problem 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 Problem 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 Vital Signs Heart Rate 74 /min 11/18/2024 Temperature 97.8 degrees Fahrenheit 11/18/2024 Oximetry 0 04/15/2024 Blood pressure diastolic 70 mm Hg 11/18/2024 Height 71 in 11/18/2024 Blood pressure systolic 130 mm Hg 11/18/2024 Weight 208 lbs 11/18/2024 BMI 29.01 kg/m2 11/18/2024 Encounters Encounter Location Date Provider Diagnosis [facility] [address] [place] [address] [place] [address] 08/24/2024 Provider Migration Type 2 diabetes mellitus with other circulatory complication, without long-term current use of insulin E11.59 [facility] [address] [place] [address] 01/15/2024 Justino Buchanan Diabetic peripheral neuropathy E11.42 ; Hyperlipemia, mixed E78.2 ; Essential (primary) hypertension I10 ; Type 2 diabetes mellitus with other circulatory complications E11.59 ; Atherosclerotic heart disease of hoh coronary artery without angina pectoris I25.10 ; Thyroid nodule E04.1 and Immunization(s) administered Z23 [facility] [address] [place] [address] 04/15/2024 Justino Buchanan Type 2 diabetes bao itus with other circulatory complications E11.59 ; Essential (primary) hypertension I10 and Routine medical exam Z00.00 [facility] [address] [facility] [address] [place] [address] 07/01/2024 Justino Buchanan Type 2 diabetes bao itus with other circulatory complication, without long-term current use of insulin E11.59 ; Atherosclerotic heart disease of hoh coronary artery without angina pectoris I25.10 and Essential hypertension I10 [facility] [address] [facility] [address] [place] [address] 07/12/2024 Nu Penelope Acute bronchopneumon ia J18.0 [facility] [address] [facility] [address] [place] [address] 07/19/2024 Nu Penelope Acute bronchopneumon ia J18.0 and Respiratory crackles at left lung base R09.89 [facility] [address] [facility] [address] [place] [address] 08/12/2024 Justino Buchanan Type 2 diabetes bao itus with other circulatory complication, without long-term current use of insulin E11.59 [facility] [address] [facility] [address] [place] [address] 11/04/2024 Justino Buchanan Palpitations R00.2 ; Thyroid nodule E04.1 ; Sensation of chest pressure R07.89 ; Elevated lymphocytes D72.820 and Type 2 diabetes mellitus with other circulatory complications E11.59 [facility] [address] [facility] [address] [place] [address] 11/18/2024 Justinonasreen Buchanan Angina pectoris I20. 9 ; Thyroid nodule E04.1 and Lymphocytosis D72.820 [facility] [address] [facility] [address] [place] [address] 01/08/2024 Justinonasreen Buchanan Diabetic peripheral neuropathy E11.42 ; Hyperlipemia, mixed E78.2 and Thyroid nodule E04.1 [facility] [address] [facility] [address] [place] [address] 03/04/2024 Justinonasreen Buchanan [facility] [address] [facility] [address] [place] [address] 04/08/2024 Justino Besson Type 2 diabetes bao itus with other circulatory complications E11.59 ; Atherosclerotic heart disease of hoh coronary artery without angina pectoris I25.10 and Essential (primary) hypertension I10 [facility] [address] [place] [address] 06/24/2024 Justino Besson Diabetic peripheral neuropathy E11.42 ; Rheumatoid arthritis M06.9 ; Hyperlipemia, mixed E78.2 ; Atherosclerotic heart disease of hoh coronary artery without angina pectoris I25.10 and Thyroid nodule E04.1 [facility] [address] [place] [address] 07/15/2024 Nu Negrete Acute bronchopneumon ia J18.0 [facility] [address] [place] [address] 07/22/2024 Justino Besson [facility] [address] [facility] [address] [place] [address] 08/05/2024 Justino Besson Type 2 diabetes bao itus with other circulatory complications E11.59 [facility] [address] [place] [address] 08/12/2024 Justino Besson [facility] [address] [place] [address] 08/23/2024 Justino Besson [facility] [address] [place] [address] 10/29/2024 Justino Besson Diabetic peripheral neuropathy E11.42 ; Rheumatoid arthritis M06.9 ; Hyperlipemia, mixed E78.2 and Thyroid nodule E04.1 [facility] [address] [place] [address] 11/11/2024 Justino Besson [facility] [address] [place] [address] 11/21/2024 Justino Besson Essential (primary) hypertension I10 [facility] [address] [place] [address] 09/08/2024 Justino Besson [facility] [address] [facility] [address] [place] [address] 09/13/2024 Justino Besson [facility] [address] [place] [address] 12/09/2024 Justino Besson Type 2 diabetes bao itus with other circulatory complications E11.59 and Type 2 diabetes mellitus with other circulatory complication, without long-term current use of insulin E11.59 [facility] [address] [place] [address] 02/12/2024 Justino Besson [facility] [address] [place] [address] 06/03/2024 Justino Besson [facility] [address] [place] [address] 06/04/2024 Justino Besson [facility] [address] [place] [address] 11/12/2024 Justino Besson [facility] [address] [place] [address] 11/18/2024 Justino Besson [facility] [address] [place] [address] 11/19/2024 Justino Besson Assessments Encounter Date Diagnosis (ICD [...] - E11.59) 04/08/2024 Atherosclerotic heart disease of hoh coronary artery without angina pectoris (ICD-10 - [...] Jun to see how he is doing. 06/24/2024 Diabetic peripheral neuropathy (ICD-10 - E11.42) 06/24/2024 Rheumatoid arthritis (ICD-10 - M06.9) 07/01/2024 Atherosclerotic heart disease of hoh coronary artery without angina pectoris (ICD-10 - [...] Ozempic 07/15/2024 Acute bronchopneumonia (ICD-10 - J18.0) 08/05/2024 Type 2 diabetes mellitus with other [...] current use of insulin (ICD-10 - E11.59) 10/29/2024 Diabetic peripheral neuropathy (ICD-10 - E11.42) 10/29/2024 Rheumatoid arthritis (ICD-10 - M06.9) 11/04/2024 Palpitations (ICD-10 - R00.2) Multiple risk factors for heart disease. Has a history of atherosclerotic disease. Will get stress test done on Monday of this week at [facility]. 11/04/2024 Thyroid nodule (ICD-10 - E04.1) Due for repeat thyroid imaging, will be able to coordinate this in the same day he goes for a stress test 11/18/2024 Thyroid nodule (ICD-10 - E04.1) Nodules have been stable. I have personally requested records from [facility] and will reevaluate these with patient 11/18/2024 Angina pectoris (ICD-10 - I20.9) Angina [...] will see him back after heart cath 11/21/2024 Essential (primary) hypertension (ICD-10 - I10) 12/09/2024 Type 2 diabetes mellitus with other circulatory [...] agrees to the plan of care above. 12/09/2024 Type 2 diabetes mellitus with other circulatory complication, without long-term current use of insulin (ICD-10 - E11.59) 11/18/2024 Lymphocytosis (ICD-10 - D72.820) Has seen hematology. 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 We discussed this. He has been stressed about it. We had a nice talk and we discussed ways to help with stress, and he can come back and talk to me at any point. He has good support from his family including his daughter. 11/04/2024 Sensation of chest pressure (ICD-10 - [...] I10) Continue taking metoprolol, lisinopril and furosemide. 01/08/2024 Thyroid nodule (ICD-10 - E04.1) 01/15/2024 Type 2 diabetes mellitus with other circulatory complications (ICD-10 - E11.59) Labs reviewed. A1C 7.8%. Discussed with patient this is appropriate for his age. Continue taking Jardiance and glimepiride. 06/24/2024 Atherosclerotic heart disease of hoh coronary artery without angina pectoris (ICD-10 - [...] - E04.1) 01/15/2024 Atherosclerotic heart disease of hoh coronary artery without angina pectoris (ICD-10 - [...] AUTO DIFF 06/01/2017 H-CMP 06/01/2017 H-LIPID PANEL 08/29/2016 H-LIPID PANEL 06/01/2017 H-HGBA1C 06/01/2017 H-TSH 06/01/2017 C-CBC 03/21/2013 C-CBC 08/15/2013 C-CMP 03/21/2013 C-CMP 08/06/2014 C-CMP 08/15/2013 C-LIPID PANEL 03/21/2013 C-LIPID PANEL 08/15/2013 C-LIPID PANEL 09/04/2014 C-TSH 04/28/2012 C-TSH 08/15/2013 C-PSA 03/21/2013 C-RPR 04/28/2012 C-VITAMIN B12 04/28/2012 C-HGBA1C 04/28/2012 C-HGBA1C 09/04/2014 C-HGBA1C 08/15/2013 C-HGBA1C 03/21/2013 C-HGBA1C 08/06/2014 C-VITAMIN D, 25-HYDROXY 04/28/2012 Physical Therapy : Lymphedema 07/04/2022 M-Complete Blood Count Auto Diff 023 M-Complete Blood Count Auto Diff 021 M-Microalbumin,Urine 07/02/2018 M-Comprehensive Metabolic Panel 10/07/19 21 M-Comprehensive Metabolic Panel 11/09/19 23 Physical Therapy : Gait training and cor e strengthening 07/04/2022 Future Test Test Name Order Date H-CMP 05/04/2018 Next Appt Details Provider Name:Justino Buchanan, 12/30/2024 03:15:00 PM, [address] [facility], [address], [place], [address], Provider Name:Justino Morenodeanna, 03/03/2025 02:00:00 PM, [address] [facility], [address], [place], [address], Insurance Providers Payer Name Payer Address Payer Phone Subscriber Number Group Number Insured Name Patient Relationship to Insured Coverage Start Date Coverage End Date [facility] [address] [place] [address] [id number] Kris Hood Self - patient is the [...] on Remicade managed by [facility]. Also with positive rheumatoid factor heart murmur [...]
--- OUTSIDE RECORDS SUMMARY | 2024-12-11 15:58 | XMS_ITS | Encounter Summary ---
Author Organization [employer] ([place], [place], [place], [place]) Address [address] [place] [address] Care Team Providers Care Optician Name Role Phone Justino Buchanan MD Primary Care Provider Temo Carreon MD Unavailable [phone] Ashly Vee APRN Unavailable [phone] Encounter Details Date Type Department Care Team (Latest Contact Info) Description 12/09/2024 Travel Social History Tobacco Use Types Packs/Day [...] Date Denny rded Speak language other than Vietnamese at home Not on file 06/09/2023 Want help with school or training Not on file 06/09/2023 Substance Use Answer Date Recorded Used prescription meds for non-medical reasons N ot on file 06/09/2023 Used illegal drugs past 12 months Not on file 06/09/2023 Sex and Gender Information Value Date Recorded Sex Assigned at Male 03/28/2023 11:41 AM MEDICAL CARE MANAGER Legal Sex Male 5:10 PM CDT Gender Identity Male 03/28/2023 11:41 AM MEDICAL CARE MANAGER Sexual Orientation Straight 03/28/2023 11 :41 AM MEDICAL CARE MANAGER documented as of this encounter Plan of Treatment Upcoming Encounters Date Type Department Care Team (Late st Contact Info) Description 12/19/2024 11:30 AM EDT Office Visit [facility] Cardiology [address] [place] [phone] Yesi Caro, PAMichaelC [address] [facility] [address] [place] [address] documented as of this encounter Visit Diagnoses Not on filedocumented in this encounter Care Teams Optician Relationship Specialty Start Date End Date Justino Buchanan MD [address] [place], [place] [id number] PCP - General Adolescent Medicine 12/26/22 Temo Carreon MD [address] [facility] [address] [place], [place] [id number] Interventional Cardiology 12/26/22 Ashly Vee APRN [address] [facility] [address] [place] [address] Cardiology 12/26/22 documented as of this encounter
--- OUTSIDE RECORDS SUMMARY | 2024-12-11 15:58 | XMS_ITS | Clinical Summary ---
Author Organization [facility] Address [address] [place] [address] Care Team Providers Care Director Recreation Name Role Phone Unavailable Primary Care Provider Unavailabl e Allergies No known active allergies Medications Multiple Vitamins-Limestone als (multivitamin with minerals) tablet 8 Active [...] (2 of 2 - PPSV23) 05/04/2018 03/09/2018 [id number] Vaccine ( - season) 2024 03/10/2023, 04/30/2021, 07/29/2020 [facility]-Influenza Vaccine (#1) 01/20/202501/14, 02/27/2023, 03/04/2022, Additional history exists [facility]-Hepatitis A Vaccines Aged Out 04/04/2018, 01/2018 No longer eligible based on patient's age to complete this topic [facility]-Zoster Vaccines Completed 10/12/2020, [facility]-RSV Vaccine: 60+ Years or Completed 03/24/2023 HPV Vaccines Aged Out No longer eligi [...] patient's age to complete this topic Insurance [facility] [place] [address]
--- OUTSIDE RECORDS SUMMARY | 2024-12-11 15:58 | XMS_ITS | Clinical Summary ---
Author Organization [employer] ([place], [place], [place], [place]) Address [address] [place] [address] Care Team Providers Care Parts Counter Specialist Name Role Phone Justino Buchanan MD Primary Care Provider [phone] Temo Carreon MD Unavailable [phone] Ashly Vee APRN Unavailable [phone] Allergies No known active allergies Medications [...] Administer 1 drop into both eyes daily. 01/16/20 23 Active glimepiride (AMARYL) 2 MG tablet Take 1 tablet (2 mg total) by mouth daily with breakfast. Active clopidogreL (Plavix) 75 mg tablet Take 1 tablet (75 mg total) by mouth daily Look-alike/S ound-alike medication. 30 tablet 11 11/15/19 25 026 Active semaglutide (Ozempic) 0.25 mg or 0.5 mg (2 mg/3 mL) pnij Inject 0.5 mg under the skin once a week. Active magnesium oxide (MAG-OX) 400 mg magnesium tab Take 1 tablet (400 mg total) by mouth daily with breakfast. Active Lactobacillus no.46/B.animal is (PROBIOTIC-10 ORAL) Take by mouth daily. Active ranolazine (RANEXA) 500 MG 12 hr tablet Take 1 tablet (500 mg total) by mouth 2 (two) times daily. 180 tablet 3 12/10/19 25 026 Active semaglutide (Ozempic) 0.25 mg or 0.5 mg(2 mg/1.5 mL) pnij Inject 0.375 mLs (0.5 mg total) under the skin once a week. 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 Aortic stenosis 03/27/2023 ASCVD (arteriosclerotic cardiovascular disease) 03/27/2023 HTN (hypertension) 03/27/2023 HLD (hyperlipidemia) 03/27/2023 Type 2 diabetes mellitus 03/27/2023 Encounters Date Type Department Care Team Description 12/09/2024 7:57 AM EDT - 12/09/2024 11:59 PM EDT Hospital Encounter [facility] Non-Invasive Cardiology [address] [place] [phone] Paloma Bui MD Atherosclerosis Discharge Disposition: Home or Self Care 12/09/2024 6:00 AM EDT - 12/09/2024 7:56 AM EDT Hospital Encounter [facility] Cardiac Catheterization Lab [address] [place] [address] Yesi Caro PA-C Lin, Steve, MD Athscl heart disease of [place] cor art w oth ang pctrs (HCC) Discharge Disposition: Home or Self Care 12/09/2024 Travel 11/29/2024 Telephone [facility] Cardiology [address] [place] [address] Paloma Bui MD pre procedure instructions 11/14/2024 11:45 AM EDT Office Visit [facility] Cardiology [address] [place] [phone] Yesi Caro PA-C Angina of effort [...] Date Denny rded Speak language other than Italian at home Not on file 06/09/2023 Want help with school or training Not on file 06/09/2023 Substance Use Answer Date Recorded Used prescription meds for non-medical reasons N ot on file 06/09/2023 Used illegal drugs past 12 months Not on file 06/09/2023 Sex and Gender Information Value Date Recorded Sex Assigned at Male 03/28/2023 11:41 AM MACHINE OPERATOR SLITTER TECHNICIAN Legal Sex Male 5:10 PM CDT Gender Identity Male 03/28/2023 11:41 AM MACHINE OPERATOR SLITTER TECHNICIAN Sexual Orientation Straight 03/28/2023 11 :41 AM MACHINE OPERATOR SLITTER TECHNICIAN Last Filed Vital Signs Vital Sign Reading Time Taken Comments Blood Pressure 145/67 12/09/2024 11:15 AM EDT Pulse 66 12/09/2024 11:15 AM EDT Temperature 36.1 C (97 F) 12/09/2024 6:33 AM EDT Respiratory Rate 21 12/09/2024 11:00 AM EDT Oxygen Saturation 96% 12/09/2024 11:15 AM EDT Inhaled Oxygen Concentration - - Weight 94.8 kg (209 lb) 12/09/2024 6:23 AM EDT Height 182.9 cm (6') 12/09/2024 6:23 AM EDT Body Mass Index 28.35 12/09/2024 6:23 AM EDT Plan of Treatment Upcoming Encounters Date Type Department Care Team (Late st Contact Info) Description 12/19/2024 11:30 AM EDT Office Visit [facility] Cardiology [address] [place] [address] Yesi Caro PA-C [address] [facility] [address] [place] [address] Health Maintenance Due Date Last Done Comments Diabetic Kidney Health Evalu ation (KED) 1945 Diabetic Eye Exam 1957 Depression Screening (12+) 1959 Hepatitis C Screening 1965 Respiratory Syncytial Virus (RSV) Adult or (1 - 1-dose 75+ series) 2022 Hemoglobin A1C 03/27/2023 COVID-19 VACCINE (3 - 2023-2 5 season) 2024 04/30/2021, 07/29/2020 Falls Risk Screening 05/22/2024 Influenza Vaccine (#1) 2025 , 02/27/2023, 03/04/2022, Additional history exists DTAP/TDAP/TD VACCINES (3 - T d or Tdap) 07/28/2025 07/29/2015, 07/31/1996 Tobacco Cessation Counseling and Screening (12+) 12/09/2025 12/09/2024 Pneumococcal 50+ years Completed 03/09/2018, 2015 Shingles Vaccine (Zoster) Completed 10/12/2020, Procedures Procedure Name Priority Date/Time Associated Diagnosis Comments US GUIDED VASCULAR ACCESS Routine 12/09/2024 9:11 AM EDT Atherosclerosis CARDIAC CATH - LEFT HEART CATH W/ POSSIBLE INTERVENTION Routine 12/09/2024 9:10 AM EDT Athscl heart disease of [place] cor art w oth ang pctrs ([facility]) CHEM8+ POC Routine 12/09/2024 6:45 AM EDT PLATELET COUNT, AUTO STAT 12/09/2024 6:24 AM EDT from Last 3 Months Results * Ultrasound-guided vascular access (12/09/2024 9:11 AM EDT) Anatomical Region Laterality Modality Vascular Vascular Ultraso und 12/09/2024 7:39 AM EDT Narrative 12/09/2024 10:08 AM EDT Vascular Procedure Demographics Patient Name SANA ALMEIDA Age 79 Patient Number [id number] Gender Male Race Unknown Ethnicity Corporate ID [id number] Height 72 Date of 1945 Weight 209 Accession Number [id number] BSA 2.17 m^2 Room Number BMI 28.35 kg/m^2 Referring Physician PALOMA BUI MD Interpreting PALOMA BUI MD Physician Building Drafter Viri Verduzco, Beba Procedure Type of Study: US GUIDED VASCULAR ACCESS : . Impressions Summary ##################################### INDICATION: Atherosclerosis (i70.90) RIGHT: Ultrasound guided access of the common femoral artery. RESIDENTIAL DRIVER was 3.5 cm in depth and patent. Access was successful. ##################################### Patient Status:Outpatient. Study Location:Portable. Technical Quality:Good visualization. Signature Procedure Note Paloma Bui MD - 12/09/2024 Vascular Procedure Demographics Patient Name SANA ALMEIDA Age 79 Patient Number [id number] Gender Male Race Unknown Ethnicity Corporate ID [id number] Height 72 Date of 1945 Weight 209 Accession Number [id number] BSA 2.17 m^2 Room Number BMI 28.35kg/m^2 Referring Physician PALOMA BUI MD Interpreting PALOMA FLORES Physician Building Drafter TOM Camacho Procedure Type of Study: US GUIDED VASCULAR ACCESS : . Impressions Summary ##################################### INDICATION: Atherosclerosis (i70.90) RIGHT: Ultrasound guided access of the common femoral artery. RESIDENTIAL DRIVER was 3.5 cm in depth and patent. Access was successful. ##################################### Patient Status:Outpatient. Study Location:Portable. Technical Quality:Good visualization. Signature us Paloma Bui MD [facility] ORDERABLES Final Result * CARDIAC CATH - LEFT HEART CATH W/ POSSIBLE INTERVENTION (12/09/2024 9:10 AM EDT) Anatomical Region Laterality Modality Heart Other Narrative 12/09/2024 9:36 AM EDT LEFT HEART CATHETERIZATION AND GRAFT ANGIOGRAPHY INDICATION: Moderately limiting exertional angina like chest pain. Inferior defect by Myoview perfusion study. REFERRING MD: Dr. Justino Buchanan; Yesi SALINAS-Milton PROCEDURE: Standard left heart catheterization and graft angiography. TECHNIQUE: A 6-Polish sheath was placed in the right common femoral artery using ultrasound guidance. JL4, JR4 diagnostic catheters were used for selective angiography of the [place] vessels. JR4 diagnostic catheter was used for selective angiography of TORRES bypass graft and saphenous venous Graft. A 6-Polish pigtail catheter was used to measure pressures in the left ventricle. Left ventriculogram was not performed. The 6 Polish system was upsized to 7 Polish and brief attempt was performed to cross the right coronary artery total occlusion using 7 Polish AL-1 guide, Fielder XT, and chief pilot 200 wire without success. The patient received moderate conscious sedation including intravenous Versed and fentanyl. He was monitored by me for more than 30 minutes and remained [...] anterior descending artery is filled via patent TORERS bypass graft to the LAD. There is [...] venous graft. The circumflex artery contributes to ceqd-be-fgtgm collateral flow. 4. Right coronary artery: Large [...] (ABNORMAL) Chem8+ POC (12/09/2024 6:45 AM EDT) [facility] POC Sodium 142 138 - 146 mmol/L 12/09/2024 6:48 AM EDT [facility] POC Potassium 4.0 3.5 - 4.9 mmol/L 12/09/2024 6:48 AM EDT [facility] POC Chloride 104 98 - 109 mmol/L 12/09/2024 6:48 AM EDT [facility] POC Glucose 165(H) 70 - 105 mg/dL 12/09/2024 6:48 AM EDT [facility] POC BUN 19 8 - 26 mg/dL 12/09/2024 6:48 AM EDT [facility] POC Anion Gap 17 10 - 20 mmol/L 12/09/2024 6:48 AM EDT [facility] POC IONIZED CALCIUM KIM 1.26 1.12 - 1.32 mmol/L 12/09/2024 6:48 AM EDT [facility] POC CO2 TOTAL KIM 26 24 - 29 mmol/L 12/09/2024 6:48 AM EDT [facility] POC-Creatinine 1.0 0.6 - 1.3 mg/dL 12/09/2024 6:48 AM EDT [facility] POC-EGFR >60 mL/min/1.7 3M2 12/09/2024 6:48 AM EDT [facility] Comment:Proceed with contras t if eGFR > 45 ml/min/1.73 when performed on the NovaSTAT strip Creatinine meter. POC HEMATOCRIT KIM 42 38 - 51 %PCV 12/09/2024 6:48 AM EDT [facility] POC HEMOGLOBIN KIM 14.3 12.0 - 17.0 g/dL 12/09/2024 6:48 AM EDT [facility] Blood 12/09/2024 6:45 AM EDT 12/09/2024 6:48 AM EDT Narrative [facility] - 12/09/2024 6:48 AM EDT Urgent Care ID is - [id number] us Yesi Caro PA-C POINT OF CARE TEST ORDER TONO Final Result [facility] [address] [place] [address] * (ABNORMAL) Platelet count, auto (12/09/2024 6:24 AM EDT) Platelets 131(L) 140 - 375 K/CU MM 12/09/2024 6:58 AM EDT [facility] Blood Venipuncture / Unknown 12/09/2024 6:24 AM EDT 12/09/2024 6:50 AM EDT us Deshawn Singleton PA-C LAB BLOOD ORDERABLES Final Resu lt [facility] [address] [place] [id number], [facility] [phone] from Last 3 Months Insurance BLUE CROSS/BLUE SHIELD Advance Directives For more information, please contact: [phone] * Full Code (Latest Code Status on File) Date Activated Date Inactivated Comments 12/09/2024 8:39 AM 12/10/2024 4:26 AM * Full Code Date Activated Date Inactivated Comments 12/09/2024 5:23 AM 12/09/2024 8:39 AM Care Teams Parts Counter Specialist Relationship Specialty Start Date End Date Justino Buchanan MD [address] [place] [address] PCP - General Adolescent Medicine 12/26/22 Temo Carreon MD [address] [facility] [address] [place] [address] Interventional Cardiology 12/26/22 Ashly Vee APRN [address] [facility] [address] [place] [address] Cardiology 12/26/22
--- OUTSIDE RECORDS SUMMARY | 2024-12-11 15:58 | XMS_ITS | Encounter Summary ---
Author Organization [employer] ([place], [place], [place], [place]) Address [address] [place] [address] Care Team Providers Care Shot Lighter Name Role Phone Justino Buchanan MD Primary Care Provider [phone] Temo Carreon MD Unavailable [phone] Ashly Vee APRN Unavailable [phone] Encounter Details Date Type Department Care [...] Date Denny rded Speak language other than Swedish at home Not on file 06/09/2023 Want help with school or training Not on file 06/09/2023 Substance Use Answer Date Recorded Used prescription meds for non-medical reasons N ot on file 06/09/2023 Used illegal drugs past 12 months Not on file 06/09/2023 Sex and Gender Information Value Date Recorded Sex Assigned at Male 03/28/2023 11:41 AM SMALL ENGINE TECHNICIAN Legal Sex Male 5:10 PM CDT Gender Identity Male 03/28/2023 11:41 AM SMALL ENGINE TECHNICIAN Sexual Orientation Straight 03/28/2023 11 :41 AM SMALL ENGINE TECHNICIAN documented as of this encounter Plan of Treatment Upcoming Encounters Date Type Department Care Team (Late st Contact Info) Description 12/19/2024 11:30 AM EDT Office Visit [facility] Cardiology [address] [place] [phone] Yesi Caro, PAMichaelC [address] [facility] [address] [place] [address] documented as of this encounter Visit Diagnoses Not on filedocumented in this encounter Care Teams Shot Lighter Relationship Specialty Start Date End Date Justino Buchanan MD [address] [place], [place] [id number] PCP - General Adolescent Medicine 12/26/22 Temo Carreon MD [address] [facility] [address] [place], [place] [phone] Interventional Cardiology 12/26/22 Ashly Vee APRN [address] [facility] [address] [place] [address] Cardiology 12/26/22 documented as of this encounter
--- OUTSIDE RECORDS SUMMARY | 2024-12-11 15:58 | XMS_ITS | Encounter Summary ---
Author Organization [employer] ([place], [place], [place], [place]) Address [address] [place] [address] Care Team Providers Care Career And Technology Education Teacher Name Role Phone Justino Buchanan MD Primary Care Provider [phone] Temo Carreon MD Unavailable [phone] Ashly Vee APRN Unavailable [phone] Reason for Visit * Reason Onset Date Comments pre procedure instructions 11/29/2024 Encounter Details Date Type Department Care Team (Late st Contact Info) Description 11/29/2024 Telephone [facility] Cardiology [address] [place] [address] Tremaine Martin MD [address] [facility] [address] [place] [address] pre procedure instructions Social History Tobacco Use Types Packs/Day Years [...] Date Denny rded Speak language other than [place] Citizen at home Not on file 06/09/2023 Want help with school or training Not on file 06/09/2023 Substance Use Answer Date Recorded Used prescription meds for non-medical reasons N ot on file 06/09/2023 Used illegal drugs past 12 months Not on file 06/09/2023 Sex and Gender Information Value Date Recorded Sex Assigned at Male 03/28/2023 11:41 AM PATIENT CENTERED CARE SPECIALIST Legal Sex Male 5:10 PM CDT Gender Identity Male 03/28/2023 11:41 AM PATIENT CENTERED CARE SPECIALIST Sexual Orientation Straight 03/28/2023 11 :41 AM PATIENT CENTERED CARE SPECIALIST documented as of this encounter Miscellaneous Notes * Telephone Encounter - Francia Smith MA - 12/06/2024 9:14 AM EDT Phone call to patient. Informed him NPO after midnight, bring a experienced truck driver, bring an overnight bag, hold jardiance and glimpiride 24 hours prior to procedure, hold lasix morning of and hold dose of ozempic tomorrow. He verbalized understanding. * Telephone Encounter - Sandy Gallardo - 11/29/2024 12:24 PM EDT Patient calling for the pre procedure instructions. [phone] documented in this encounter Plan of Treatment Upcoming Encounters Date Type Department Care Team (Late st Contact Info) Description 12/19/2024 11:30 AM EDT Office Visit [facility] Cardiology [address] [place] [address] Yesi Caro, PAMichaelC [address] [facility] [address] [place] [address] documented as of this encounter Visit Diagnoses Not on filedocumented in this encounter Care Teams Career And Technology Education Teacher Relationship Specialty Start Date End Date Justino Buchanan MD [address] [place] [address] PCP - General Adolescent Medicine 12/26/22 Temo Carreon MD [address] [facility] [address] [place] [address] Interventional Cardiology 12/26/22 Ashly Vee APRN [address] [facility] [address] [place] [address] Cardiology 12/26/22 documented as of this encounter
--- OUTSIDE RECORDS SUMMARY | 2024-12-11 15:58 | XMS_ITS | Referral Summary ---
Author Organization [employer] ([place], [place], [place], [place]) Address [address] [place] [address] Care Team Providers Care Manufacturing Baker Name Role Phone Justino Buchanan MD Primary Care Provider [phone] Temo Carreon MD Unavailable [phone] Ashly Vee APRN Unavailable [phone] Encounters Date Type Department Care Team Description 12/09/2024 7:57 AM EDT - 12/09/2024 11:59 PM EDT Hospital Encounter [facility] Non-Invasive Cardiology [address] [place] [address] Paloma Bui MD Atherosclerosis Discharge Disposition: Home or Self Care 12/09/2024 Travel 12/09/2024 6:00 AM EDT - 12/09/2024 7:56 AM EDT Hospital Encounter [facility] Cardiac Catheterization [facility] [address] [place] [address] Yesi Caro, BAOC Paloma Bui MD Athscl heart disease of ekuk cor art w oth ang pctrs (HCC) Discharge Disposition: Home or Self Care 11/29/2024 Telephone [facility] [address] [place], [place] [id number] Paloma Bui MD pre procedure instructions 11/14/2024 Travel 11/14/2024 11:45 AM EDT Office Visit [facility] [address] [place], [place] [id number] Yesi Caro, PAMichaelC Angina of effort (HCC) (Primary Dx); ASCVD [...] Date Denny rded Speak language other than Monegasque at home Not on file 06/09/2023 Want help with school or training Not on file 06/09/2023 Substance Use Answer Date Recorded Used prescription meds for non-medical reasons N ot on file 06/09/2023 Used illegal drugs past 12 months Not on file 06/09/2023 Sex and Gender Information Value Date Recorded Sex Assigned at Male 03/28/2023 11:41 AM IMPROVEMENT ENGINEER Legal Sex Male 5:10 PM CDT Gender Identity Male 03/28/2023 11:41 AM IMPROVEMENT ENGINEER Sexual Orientation Straight 03/28/2023 11 :41 AM IMPROVEMENT ENGINEER Last Filed Vital Signs Vital Sign Reading Time Taken Comments Blood Pressure 145/67 12/09/2024 11:15 AM EDT Pulse 66 12/09/2024 11:15 AM EDT Temperature 36.1 C (97 F) 12/09/2024 6:33 AM EDT Respiratory Rate 12/09/2024 11:00 AM EDT Oxygen Saturation 96% 12/09/2024 11:15 AM EDT Inhaled Oxygen Concentration - - Weight 94.8 kg (209 lb) 12/09/2024 6:23 AM EDT Height 182.9 cm (6') 12/09/2024 6:23 AM EDT Body Mass Index 28.35 12/09/2024 6:23 AM EDT Plan of Treatment Upcoming Encounters Date Type Department Care Team (Late st Contact Info) Description 12/19/2024 11:30 AM EDT Office Visit [facility] [address] [place] [address] Yesi Caro PA-C [address] [place] [address] [address] [place] [id number] Procedures Procedure Name Priority Date/Time Associated Diagnosis Comments US GUIDED VASCULAR ACCESS Routine 12/09/2024 9:11 AM EDT Atherosclerosis CARDIAC CATH - LEFT HEART CATH W/ POSSIBLE INTERVENTION Routine 12/09/2024 9:10 AM EDT Athscl heart disease of ekuk cor art w oth ang pctrs ([facility]) CHEM8+ POC Routine 12/09/2024 6:45 AM EDT PLATELET COUNT, AUTO STAT 12/09/2024 6:24 AM EDT from Last 3 Months Results * Ultrasound-guided vascular access (12/09/2024 9:11 AM EDT) Anatomical Region Laterality Modality Vascular Vascular Ultraso und 12/09/2024 7:39 AM EDT Narrative 12/09/2024 10:08 AM EDT Vascular Procedure Demographics Patient Name SANA ALMEIDA Age 79 Patient Number [id number] Gender Male Race Unknown Ethnicity Corporate ID [id number] Height 72 Date of 1945 Weight 209 Accession Number [id number] BSA 2.17 m^2 Room Number BMI 28.35 kg/m^2 Referring Physician PALOMA BUI MD Interpreting PALOMA BUI MD Physician Info Specialist TOM Camacho Procedure Type of Study: US GUIDED VASCULAR ACCESS : . Impressions Summary ##################################### INDICATION: Atherosclerosis (i70.90) RIGHT: Ultrasound guided access of the common femoral artery. YARDAGE CONTROL OPERATOR FORMING was 3.5 cm in depth and patent. Access was successful. ##################################### Patient Status:Outpatient. Study Location:Portable. Technical Quality:Good visualization. Signature Procedure Note Paloma Bui MD - 12/09/2024 Vascular Procedure Demographics Patient Name SANA ALMEIDA Age 79 Patient Number [id number] Gender Male Race Unknown Ethnicity Corporate ID [id number] Height 72 Date of 1945 Weight 209 Accession Number [id number] BSA 2.17 m^2 Room Number BMI 28.35kg/m^2 Referring Physician PALOMA BUI MD Interpreting PALOMA FLORES Physician Info Specialist TOM Camacho Procedure Type of Study: US GUIDED VASCULAR ACCESS : . Impressions Summary ##################################### INDICATION: Atherosclerosis (i70.90) RIGHT: Ultrasound guided access of the common femoral artery. YARDAGE CONTROL OPERATOR FORMING was 3.5 cm in depth and patent. Access was successful. ##################################### Patient Status:Outpatient. Study Location:Portable. Technical Quality:Good visualization. Signature us Paloma Biu MD [facility] ORDERABLES Final Result * CARDIAC [...] heart catheterization and graft angiography. TECHNIQUE: A 6-Central African sheath was placed in the right common femoral artery using ultrasound guidance. JL4, JR4 diagnostic catheters were used for selective angiography of the ekuk vessels. JR4 diagnostic catheter was used for selective angiography of TORRES bypass graft and saphenous venous Graft. A 6-Central African pigtail catheter was used to measure pressures in the left ventricle. Left ventriculogram was not performed. The 6 Central African system was upsized to 7 Central African and brief attempt was performed to cross the right coronary artery total occlusion using 7 Central African AL-1 guide, Fielder XT, and boat pilot 200 wire without success. The patient [...] venous graft. The circumflex artery contributes to wggi-hy-cornk collateral flow. 4. Right coronary artery: Large [...] - 146 mmol/L 12/09/2024 6:48 AM EDT [facility] POC Potassium 4.0 3.5 - 4.9 mmol/L 12/09/2024 6:48 AM EDT [facility] POC Chloride 104 98 - 109 mmol/L 12/09/2024 6:48 AM EDT [facility] POC Glucose 165(H) 70 - 105 mg/dL 12/09/2024 6:48 AM EDT [facility] POC BUN 19 8 - 26 mg/dL 12/09/2024 6:48 AM EDT [facility] POC Anion Gap 17 10 - 20 mmol/L 12/09/2024 6:48 AM EDT [facility] POC IONIZED CALCIUM KIM 1.26 1.12 - 1.32 mmol/L 12/09/2024 6:48 AM EDT [facility] POC CO2 TOTAL KIM 26 24 - 29 mmol/L 12/09/2024 6:48 AM EDT [facility] POC-Creatinine 1.0 0.6 - 1.3 mg/dL 12/09/2024 6:48 AM EDT [facility] POC-EGFR >60 mL/min/1.7 3M2 12/09/2024 6:48 AM EDT [facility] Comment:Proceed with contras t if eGFR > 45 ml/min/1.73 when performed on the NovaSTAT strip Creatinine meter. POC HEMATOCRIT KIM 42 38 - 51 %PCV 12/09/2024 6:48 AM EDT [facility] POC HEMOGLOBIN KIM 14.3 12.0 - 17.0 g/dL 12/09/2024 6:48 AM EDT [facility] Blood 12/09/2024 6:45 AM EDT 12/09/2024 6:48 AM EDT Narrative [facility] - 12/09/2024 6:48 AM EDT Finger Buff Sewer ID is - [id number] us Yesi Caro PA-C POINT OF CARE TEST ORDER TONO Final Result Performing Organization Address [facility] Co de Phone Number [facility] [address] [phone] * (ABNORMAL) Platelet count, auto (12/09/2024 6:24 AM EDT) Platelets 131(L) 140 - 375 K/CU MM 12/09/2024 6:58 AM EDT [facility] Blood Venipuncture / Unknown 12/09/2024 6:24 AM EDT 12/09/2024 6:50 AM EDT us Deshawn Singleton PA-C LAB BLOOD ORDERABLES Final Resu lt Performing Organization Address [facility] Co de Phone Number [facility] [address] [phone] from Last [address] [place] [address] BLUE CROSS/BLUE SHIELD Advance Directives For more information, please contact: [phone] * Full Code (Latest Code Status on File) Date Activated Date Inactivated Comments 12/09/2024 8:39 AM 12/10/2024 4:26 AM * Full Code Date Activated Date Inactivated Comments 12/09/2024 5:23 AM 12/09/2024 8:39 AM Care Teams Manufacturing Baker Relationship Specialty Start Date End Date Justino Buchanan MD [address] [place] [address] [place] [address] PCP - General Adolescent Medicine 12/26/22 Temo Carreon MD [address] [facility] [address] [place] [address] Interventional Cardiology 12/26/22 Ashly Vee APRN [address] [facility] [address] [place] [address] Cardiology 12/26/22
--- OUTSIDE RECORDS SUMMARY | 2024-12-11 15:58 | XMS_ITS | Clinical Summary ---
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
[2024-12-13 15:15] LABS: ONC Beta-2 Microglobulin 2.5 mg/L (0.6-2.4)
== END 2024-12-11 23:59 | disposition home or self-care (01) ==
LOC: LAB 15:54
PROVIDERS: PCP Internal Medicine Adolescent Medicine; Visit Provider Internal Medicine Medical Oncology
DX: D72.829 Elevated white blood cell count, unspecified (principal)
CPT/HCPCS: 36415; 82232

== ENCOUNTER 2025-02-14 08:14 | Outpatient (CLI) | payer BC, SELFPAY ==
[2025-02-14 10:38] LABS: Albumin Level 4.2 g/dl (3.5-5.0); Chloride 101 mmol/L (98-107); Potassium 4.3 mmoL/L (3.5-5.1); Sodium 139 mmol/L (136-145)
[2025-02-14 10:41] LABS: Alanine Aminotransferase 40 U/L (12-78); Albumin/Globulin Ratio 1.8 (1.1-1.8); Alkaline Phosphatase 74 U/L (38-126); Anion Gap 11.3 mEq/L (5-15); Aspartate Amino Transferase 33 U/L (17-59); Bilirubin,Total 0.7 mg/dl (0.2-1.3); Blood Urea Nitrogen 18 mg/dl (9-20); Calcium 8.9 mg/dl (8.4-10.2); Carbon Dioxide 31 mmol/L (22.0-30.0); Cholesterol 126 mg/dl (140-200); Creatinine,Serum 1.00 mg/dl (0.66-1.25); Estimated Glomerular Filt Rate 72 ml/min (>60); GFR (African American) 88 ML/MIN (>60); Globulin 2.3 g/dL (1.3-3.2); Glucose 155 mg/dl (74-100); Total Protein,Serum 6.5 g/dl (6.3-8.2); Triglycerides 138 mg/dl (30-150)
[2025-02-14 10:42] LABS: HDL Cholesterol 33 mg/dl (40-60)
[2025-02-14 12:14] LABS: Hemoglobin A1C 7.9 % (4.0-6.0)
== END 2025-02-14 23:59 | disposition home or self-care (01) ==
LOC: LAB 08:14
PROVIDERS: PCP Internal Medicine Adolescent Medicine; Visit Provider Internal Medicine Adolescent Medicine
DX: E11.59 Type 2 diabetes mellitus with other circulatory complications (principal); I25.10 Atherosclerotic heart disease of native coronary artery without angina pectoris; E78.2 Mixed hyperlipidemia
CPT/HCPCS: 36415; 80053; 80061; 83036

== ENCOUNTER 2025-03-25 12:11 | Outpatient (CLI) | payer BC, SELFPAY ==
--- OUTSIDE RECORDS SUMMARY | 2024-08-24 16:30 | XMS_ITS ---
Author Organization [facility] Address [address] [facility] [address] [facility] [address] [place] [address] Care Team Providers Care Classifier Name Role Phone JoshdeannaJustino Primary Care Provider Migration, Provider Unavailable Unavailable REASON FOR VISIT [facility] To [facility] Conversion Encounter Medications Medication SIG (Take, Route, [...] review and pick correct strength-formulat ion from Tradonoan options. If intended option is not shown, discontinue and re-order from Quick Search* Active Folic Acid OTC 1 TAB QD 800mcg *Please review and pick correct strength-formulat ion from Tradonoan options. If intended option is not shown, discontinue and re-order from Quick Search* Active Multivitamin - 1 tab(s) orally once a day Active Nitrostat 0.4 MG 1 tab(s) sublingually every 5 minutes prn Active Probiotic 1 TAB PO QD *Please review and pick correct strength-formulat ion from CS-Keys options. If intended option is not shown, [...] review and pick correct strength-formulat ion from CS-Keys options. If intended option is not shown, discontinue and re-order from Quick Search* Active OZEMPIC 2 MG/3 ML (0.25 MG OR 0.5 MG DOSE) 0.5MG SUBCUTANEOUSLY ONCE A WEEK; Duration: 30 DAYS *Please review for potential replacement for e-prescription and drug interaction check* 07/01/2024 Active Encounters Encounter Location Date Provider Diagnosis [facility] [place] [address] [facility] [address] [place] [address] 08/24/2024 Provider Migration Type 2 diabetes mellitus [...] check* Next Appt Details Provider Name:Justino Buchanan, 04/28/2025 02:15:00 PM, [address] [facility] [address], [address], [place], [address], Progress Notes * Kris HOODDOB:1945 (79 yo M)Acc No.[id number]:08/24/2024 Patient: Kris STOVALL Provider: Dylon Samuels :1945 A ge:79 Y S ex:Male Date:08/24/2024 Address:[address] [place] [address] , [place], [id number] Pcp:Justino Buchanan Subjective: * Chief Complaints: * [...] *Please review and pick correct strength-formulation from Mobile [employer] options. If intended option is not shown, discontinue and re-order from Quick Search*. * * Electronic signature of Prov carolina Migration on 03/25/2025 at 12:14 PM EST Sign off status: Pending * Provider: Dylon biggs Migration Date: 0 08/24/2024 Generated for Oscar valles/Argelia/Alondra on: 05/25/2024 12:14 PM EST
--- OUTSIDE RECORDS SUMMARY | 2025-03-03 09:00 | XMS_ITS ---
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 Name Role Phone Justino Buchanan Primary Care Provider [phone] REASON FOR VISIT 4 Month F/U Medications Medication SIG (Take, Route, Frequency, Duration) Notes Start Date End Date Status Ozempic (2 MG/DOSE) 8 MG/3ML 2mg Subcuta neous weekly; Duration: 90 days 01/23/2025 Active ACCUCHEK FAST CLICK LANCETS TWICE A DAY Active Zetia 10 MG 1 tablet Orally Once a day; Duration: 90 days 12/30/2024 Active Accu-Chek Guide Test - USE TO CHECK BLOO D SUGAR TWICE DAILY; Duration: 90 Active Furosemide 20 MG 1 tab(s) orally once a day; Duration: 90 Active Fluorometholone ACETATE 0.1% 1 GTT IN EA CH AFFECTED EYE ONCE A DAY; Duration: 90 DAYS Active Rosuvastatin Calcium 40 MG 1 tab(s) oral ly once a day; Duration: 90 Active Metoprolol Tartrate 25 MG TAKE 1/2 TABLE T TWICE A DAY; Duration: 90 Active Nitrostat 0.4 MG 1 tab(s) sublinguall y every 5 minutes prn prn Active Lisinopril 20 MG 1 tab(s) orally once a day; Duration: 90 days Active Flonase Allergy Relief 50 MCG/ACT 1 spray(s) in each nostril once a day; Duration: 30 days prn 07/19/2024 Active Triamcinolone Acetonide 0.025 % 1 orquidea applied topically 3 times a day; Duration: 7 day(s) prn 04/09/2021 Active Jardiance 25 MG TAKE 1 TABLET EVERY MORNING; Duration: 90 Active ACCU-CHECK GUIDE METER - USE TO CHECK BL OOD SUGAR TWICE DAILY 06/20/2018 Active Probiotic 1 TAB PO QD Active Ranolazine ER 500 MG 1 tablet Orally Twi ce a day Active Plavix 75 MG 1 tablet Orally Once a day Active Multivitamin - 1 tab(s) orally once a day Active Systane PRESERVED 1 GTT IN EACH EYE 3 TIMES A DAY Active Folic Acid OTC 1 TAB QD Activ e Magnesium 400 MG as directed Orally Active Immunizations Vaccine Route Administration Date Status Comme nts Fluzone High Dose IM Intramuscular 03/03/2025 Administered Vital Signs Temperature 97 degrees Fahrenheit 03/03/2025 Blood pressure systolic 118 mm Hg 03/03/20 25 Blood pressure diastolic 70 mm Hg 025 Heart Rate 68 /min 03/03/2025 Height 71 in 03/03/2025 Weight 192 lbs 03/03/2025 BMI 26.78 kg/m2 03/03/2025 Encounters Encounter Location Date Provider Diagnosis [facility] [address] [place] [address] 03/03/2025 Justino Buchanan Type 2 diabetes bao itus with other circulatory complications E11.59 ; 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 Discussed rationale for current A1c levels. Gave patient copy, reviewed labs and previous order with patient for his multiple problems below\ 03/03/2025 Atherosclerotic heart disease of samish coronary artery without angina pectoris (ICD-10 - I25.10) Pt was counseled to keep his heart rate below 110 when walking and to watch for anginal chest pain. Keep up with cast associate and make sure to watch his symptoms. Continue on medications but lab work is looking good 03/03/2025 Essential (primary) hypertension (ICD-10 - I10) follow-up in april to track and continue on medications as prescribed 03/03/2025 Immunization(s) administered (ICD-10 - Z23) Plan Of Treatment Treatment Notes Assessment Notes Type 2 diabetes mellitus wit h other circulatory complications Pt was counseled that his A1C is in a good range and to continue medications as planned. Discussed rationale for current A1c levels. Gave patient copy, reviewed labs and previous order with patient for his multiple problems below\ Atherosclerotic heart diseas e of samish coronary artery without angina pectoris Pt was counseled to keep his heart rate below 110 when walking and to watch for anginal chest pain. Keep up with cast associate and make sure to watch his symptoms. Continue on medications but lab work is looking good Essential (primary) hypertension follow- up in april to track and continue on medications as prescribed Next Appt Details Follow Up: 2 Months, Reason: Provider Name:Justino Buchanan, 04/28/2025 02:15:00 PM, [address] [facility] [address] [facility], [address], [place], [address], Progress Notes * Kris HOODDOB:1945 (79 yo M)Acc No.[id number]:03/03/2025 Progress Notes Patient: Kris STOVALL Provider: Beba Buchanan MD :1945 A ge:79 Y S ex:Male Date:03/03/2025 Address:[address] [place] [address] , [facility], [id number] Subjective: * Chief Complaints: * 1 . 4 Month F/U. * HPI: g en: Pt is here for follow-up on his type 2 DM. He states he is doing well on the ozempic and jardiance and wanted to talk about where his A1C should be. He also wanted to talk about his exercise limits after his heart cath and double bypass. He states he has not had anginal chest pain since cath but wants to know his limits. * Medical History: H ypertension, Hypercholestrolemia, Diabetes, Hx encephalitis 1978, Left leg fx- 1958, Salivary gland removed-1971, 2 cardiac stents 05/2014, CABG x2- 7-2015, Colonoscopy with tubular adenoma in 2013 - repeated in 03/07 with multiple tubular adenoma - repeated 02/06 with tubular adenomas, repeated 02/08 with polyps - repeat 2-3 years, Vocal cord separation, uveitis, on Remicade managed by [facility]. Also with positive rheumatoid factor, Heart murmur - mild aortic stenosis, TiRads 3 nodule in isthmus 08/12 - needs 12 mo f/u. * Surgical History: b roken leg , salivary gland removed , heart cath and 2 stents 06/10/2014, Heart Cath 08/2015, open heart surgery- CABG x2 12/10/2015, colonoscopy 02/2017, lt eye- cataract surgery 05/07/21, rt eye-cataract surgery 05/18/21, Heart Cath 11/2024. * Hospitalization/Major Diagno stic Procedure: e ncephalitis [...] no. Travel outside [place]: no. 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 * Medications: T aking Magnesium 400 MG Capsule as directed Orally , Taking Ranolazine ER 500 MG Tablet Extended Release 12 Hour 1 tablet Orally Twice a day , Taking Plavix 75 MG Tablet 1 tablet Orally Once a day , Taking Systane PRESERVED SOLUTION 1 GTT IN EACH EYE 3 TIMES A DAY , Taking Folic Acid OTC 1 TAB QD , Taking Multivitamin - Tablet 1 tab(s) orally once a day , Taking Probiotic 1 TAB PO QD , Taking ACCU-CHECK GUIDE METER - USE TO CHECK BLOOD SUGAR TWICE DAILY , Taking Triamcinolone Acetonide 0.025 % Cream 1 orquidea applied topically 3 times a day , Notes to Pharmacist: prn, Taking Jardiance 25 MG Tablet TAKE 1 TABLET EVERY MORNING , Taking Flonase Allergy Relief 50 MCG/ACT Suspension 1 spray(s) in each nostril once a day , Notes to Pharmacist: prn, Taking Metoprolol Tartrate 25 MG Tablet TAKE 1/2 TABLET TWICE A DAY , Taking Fluorometholone ACETATE 0.1% SUSPENSION 1 GTT IN EACH AFFECTED EYE ONCE A DAY , Taking Rosuvastatin Calcium 40 MG Tablet 1 tab(s) orally once a day , Taking Nitrostat 0.4 MG Tablet Sublingual 1 tab(s) sublingually every 5 minutes prn , Notes to Pharmacist: prn, Taking Lisinopril 20 MG Tablet 1 tab(s) orally once a day , Taking Furosemide 20 MG Tablet 1 tab(s) orally once a day , Taking Zetia 10 MG Tablet 1 tablet Orally Once a day , Taking Accu-Chek Guide Test - Strip USE TO CHECK BLOOD SUGAR TWICE DAILY , Taking Ozempic (2 MG/DOSE) 8 MG/3ML Solution Pen-injector 2mg Subcutaneous weekly , Taking ACCUCHEK FAST CLICK LANCETS TWICE A DAY , Medication List reviewed and reconciled with the patient Objective: * Vitals: N urse: aw, Pain: 0, Temp: 97, RR: 18, HR: 68, BP: 118/70, Ht: 71, Wt: 192, BMI:26.78. * Examination: G eneral Examination: General P leasant and Cooperative, NAD on RA,. Heart: R egular Rate and Rhythm, no murmur, rubs or gallops. HEENT: p harynx and tonsils normal, TM's normal. Lungs: L CTAB, No wheezes, crackles or rhonchi, Good air movement,. Abdomen: S oft, NTND, BSNA, No organomegaly or peritoneal signs.. Assessment: * Assessment: 1. T ype 2 diabetes mellitus with other circulatory complications - E11.59 (Primary) 2 . 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 E ssential (primary) hypertension - I10 4 . I mmunization(s) administered - Z23 Plan: * Treatment: 2. A therosclerotic heart disease of samish coronary artery without angina pectoris Notes: Pt was counseled to keep his heart rate below 110 when walking and to watch for anginal chest pain. Keep up with cast associate and make sure to watch his symptoms. Continue on medications but lab work is looking good 3. E ssential (primary) hypertension Notes: follow-up in april to track and continue on medications as prescribed * Immunizations: Fluzone High Dose : 0.7 mL (Route: Intramuscular) given by LISA Doe on Right Arm (Immunization(s) administered) * Procedure Codes: 9 0662 Influenza High Dose Vaccine >65 Years Old, Units: 1.40 , G0008 ADMINISTRATION-FLU VACCINE MEDICARE ONLY * Follow Up: 2 Months * * Sign off status: Completed true * Provider: Beba Buchanan MD Date: Generated for Oscar valles/Argelia/Garlanditting on: 05/25/2024 12:14 PM EST History and Physical Notes * HPI (History of Present Illness) Category Sub-Category Detail Notes Category Not es gen Pt is here for follow-up on his type 2 DM. He states he is doing well on the ozempic and jardiance and wanted to talk about where his A1C should be. He also wanted to talk about his exercise limits after his heart cath and double bypass. He states he has not had anginal chest pain since cath but wants to know his limits. Examination Category Sub-Category Detail Notes Category Not es General Examination HEENT: pharynx and tonsils normal, TM's normal Heart: Regular Rate and Rhy thm, no murmur, rubs or gallops Lungs: LCTAB, No wheezes, c rackles or rhonchi, Good air movement, Abdomen: Soft, NTND, BSNA, No organomegaly or peritoneal signs. General Pleasant and Coopera tive, NAD on RA,
--- OUTSIDE RECORDS SUMMARY | 2025-03-25 12:14 | XMS_ITS | Clinical Summary ---
Author Organization [facility] Address [address] 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
--- OUTSIDE RECORDS SUMMARY | 2025-03-25 12:14 | XMS_ITS | Patient Health Record ---
Author Organization [facility] Address [address] [place] [address] Care Team Providers Care Asset Protection Representative Name Role Phone Justino Buchanan Primary Care Provider Nu Negrete Unavailable [phone] Migration, Provider Unavailable Unavailable Allergies No Known Allergies Results Component Value Reference Range Notes NM MYOCARD SPEC WM/EF RADIOLOGY SUPERVISOR Reviewed date:11/14/2024 09:33:50 AM Interpretation: Performing Lab: Notes/Report: [address] [place] [id number] Name: KRIS HOOD Exam Date: 11/11/2024 : 1945 Age 79 years Gender: M Physician: HAYLEY LOCKWOOD Facility: [facility] Facility HSV: Outpatient Exam: NM MYOCARD SPEC WM/EF RADIOLOGY SUPERVISOR STRESS TEST Patient Name: KRIS HOOD [...] Thank you for referring KRIS HOOD to [facility]. Legally authenticated by LYNNETTE SAEZ MD 2024-11-12 11:07:41 US THYROID Reviewed date:11/20/2024 02:46:41 PM Interpretation: Performing Lab: Notes/Report: [address] [place] [address] Name: KRIS HOOD Exam Date: 11/11/2024 : 1945 Age 79 years Gender: M Physician: HAYLEY LOCKWOOD Facility: [facility] Facility HSV: Outpatient Exam: US THYROID [...] Thank you for referring KRIS HOOD to [facility]. Legally authenticated by ELVIE LEWIS MD 2024-11-11 09:54:00 Microalbumin (In-House) Reviewed date:04/15/2024 06:35:01 PM Interpretation:Abnormal Performing Lab: Notes/Report: Abnormal ALB 80 CRE 100 A:C 30-300 X ray : Chest PA and Lateral [...] Level > 8% Poorly Controlled Diabetic Level M-Complete Blood Count Auto Diff Reviewed date:11/01/2024 [...] 30 23.5-40.5 % TSH 2.72 0.465-4.68 uIU/mL M-Manual Differential Reviewed date:04/12/2024 03:49:41 PM Interpretation: [...] PLTE Normal RM Normal M-Manual Differential Reviewed date:11/01/2024 02:48:26 PM Interpretation: Performing Lab: Notes/Report: MDIFF MANUAL DIFFERENTIAL MANUAL DIFF TCC 100 NEUT%M 13 42-76 % LYMPH%M 70 10-50 % MONO%M 17 2-9 % PLTE Normal RM Normal M-Hemoglobin A1C Reviewed date:02/17/2025 03:30:40 PM Interpretation: Performing Lab: Notes/Report: HGBA1C 7.9 4.0-6.0 % < 6% Non-Diabetic Level < 7% Controlled Diabetic Level > 8% Poorly Controlled Diabetic Level M-Lipid Panel Reviewed date:02/17/2025 03:30:40 PM Interpretation: Performing Lab: Notes/Report: Patient Fasting? Y TRIG 138 30-150 mg/dl CHOL 126 140-200 mg/dl DLDL 60.48 100-129 mg/dL VLDL 28 0-40 mg/dL HDL 33 40-60 mg/dl CHLHDL 3.8 1-3.5 M-Comprehensive Metabolic Pa jil Reviewed date:02/17/2025 03:30:40 PM Interpretation: Performing Lab: Notes/Report: NA 139 136-145 mmol/L K 4.3 3.5-5.1 mmoL/L CL 101 98-107 mmol/L CO2 31 22.0-30.0 mmol/L GAP 11.3 5-15 mEq/L BUN 18 9-20 mg/dl CREATT 1.00 0.66-1.25 mg/dl GFRAA 88 >60 ML/MIN EGFR 72 >60 ml/min GLU 155 74-100 mg/dl CA 8.9 8.4-10.2 mg/dl BILIT 0.7 0.2-1.3 mg/dl AST 33 17-59 U/L ALT 40 12-78 U/L TP 6.5 6.3-8.2 g/dl ALB 4.2 3.5-5.0 g/dl GLOB 2.3 1.3-3.2 g/dL AGRATIO 1.8 1.1-1.8 ALP 74 38-126 U/L Medications Medication SIG (Take, Route, Frequency, Duration) Notes Start Date End Date Status Furosemide 20 MG TAKE 1 TABLET ONCE DAILY; Duration: 90 Active Ranolazine ER 500 MG 1 tablet Orally Twi ce a day Active Fluorometholone ACETATE 0.1% 1 GTT IN EA CH AFFECTED EYE ONCE A DAY; Duration: 90 DAYS Active Plavix 75 MG 1 tablet Orally Once a day Active Rosuvastatin Calcium 40 MG 1 tab(s) oral ly once a day; Duration: 90 Active Flonase Allergy Relief 50 MCG/ACT 1 spray(s) in each nostril once a day; Duration: 30 days prn 07/19/2024 Active Magnesium 400 MG as directed Orally Active Metoprolol Tartrate 25 MG TAKE 1/2 TABLE T TWICE A DAY; Duration: 90 Active Triamcinolone Acetonide 0.025 % 1 orquidea applied topically 3 times a day; Duration: 7 day(s) prn 04/09/2021 Active Ozempic (2 MG/DOSE) 8 MG/3ML 2mg Subcuta neous weekly; Duration: 90 days 01/23/2025 Active Jardiance 25 MG TAKE 1 TABLET EVERY MORNING; Duration: 90 Active ACCUCHEK FAST CLICK LANCETS TWICE A DAY Active Zetia 10 MG 1 tablet Orally Once a day; Duration: 90 days 12/30/2024 Active ACCU-CHECK GUIDE METER - USE TO CHECK BL OOD SUGAR TWICE DAILY 06/20/2018 Active Accu-Chek Guide Test - USE TO CHECK BLOO D SUGAR TWICE DAILY; Duration: 90 Active Multivitamin - 1 tab(s) orally once a day Active Probiotic 1 TAB PO QD Active Systane PRESERVED 1 GTT IN EACH EYE 3 TIMES A DAY Active Nitrostat 0.4 MG 1 tab(s) sublinguall y every 5 minutes prn prn Active Folic Acid OTC 1 TAB QD Activ e Lisinopril 20 MG 1 tab(s) orally once a day; Duration: 90 days Active Immunizations Vaccine Route Administration Date Status [...] Fluzone High Dose IM Intramuscular 01/15/2024 Administered Fluzone High Dose IM Intramuscular 03/03/2025 Administered Influenza-Fluzone 3+years (NON-MEDICARE) IM Intramuscular 01/20/2017 Administered Pneumovax 23 IM Intramuscular 07/29/2015 Administered PPD ID Intradermal 05/27/2019 Administered Prevnar PCV-13 (Pneumococcal conjugate 13) IM Intramuscular 03/09/2018 Administered SHINGRIX IM Intramuscular 11/09/2018 Administered SHINGRIX IM Intramuscular 10/12/2020 Administered Problems Problem Type SNOMED Code ICD Code Onset Dates Problem Status W/U Status Risk Notes Problem Peripheral circulatory disorder associated with diabetes mellitus (050443342) Type 2 diabetes mellitus with other circulatory complications (E11.59) Active confirmed Problem Essential hypertension (38034734) Essential (primary) hypertension (I10) Active confirmed Problem Atherosclerotic heart disease of [place] coronary artery without angina pectoris (848928402241865) Atherosclerotic heart disease of [place] coronary artery without angina pectoris (I25.10) Active confirmed Problem Type II diabetes mellitus without complication (597308395) Diabetes (E11.9) Active confirmed Problem Thyroid nodule (673723644) Thyroid nodule (E04.1) Active confirmed Problem Diabetic peripheral neuropathy (174427147) Diabetic peripheral neuropathy (E11.42) Active confirmed Problem Rheumatoid arthritis (22098837) Rheumatoid arthritis (M06.9) Active confirmed Problem Angina pectoris (122622096) Angina pectoris (I20.9) Active confirmed Problem Mixed hyperlipidemia (256135689) Hyperlipemia, mixed (E78.2) Active confirmed Problem History of coronary artery bypass grafting (257695691) 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) Active confirmed Problem Peripheral circulatory disorder associated with diabetes mellitus (154395667) Type 2 diabetes mellitus with other circulatory complication, without long-term current use of insulin (E11.59) Active confirmed Problem Benign neoplasm of colon (10840780) Adenomatous polyp of colon, unspecified part of colon (D12.6) Active confirmed Problem Lymphocytosis (05609256) Lymphocytosis (D72.820) Active confirmed Problem 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 Problem Uveitis-rheumatoid arthritis syndrome (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 Vital Signs Heart Rate 68 /min 03/03/2025 Temperature 97 degrees Fahrenheit 03/03/2025 Oximetry 0 04/15/2024 Blood pressure diastolic 70 mm Hg 03/03/2025 Height 71 in 03/03/2025 Blood pressure systolic 118 mm Hg 03/03/2025 Weight 192 lbs 03/03/2025 BMI 26.78 kg/m2 03/03/2025 Encounters Encounter Location Date Provider Diagnosis [facility] [place] [address] [place] [address] 08/24/2024 Provider Migration Type 2 diabetes mellitus with other circulatory complication, without long-term current use of insulin E11.59 [facility] [place] [address] [facility] [address] [place] [address] 04/15/2024 Justino Buchanan Type 2 diabetes bao itus with other circulatory complications E11.59 ; Essential (primary) hypertension I10 and Routine medical exam Z00.00 [facility] [place] [address] [place] [address] 07/01/2024 Justino Buchanan Type 2 diabetes bao itus with other circulatory complication, without long-term current use of insulin E11.59 ; Atherosclerotic heart disease of [place] coronary artery without angina pectoris I25.10 and Essential hypertension I10 [facility] [place] [address] [facility] [address] [place] [address] 07/12/2024 Nu Negrete Acute bronchopneumon ia J18.0 [facility] [place] [address] [facility] [address] [place] [address] 07/19/2024 Nu Negrete Acute bronchopneumon ia J18.0 and Respiratory crackles at left lung base R09.89 [facility] [place] [address] [place] [address] 08/12/2024 Justino Buchanan Type 2 diabetes bao itus with other circulatory complication, without long-term current use of insulin E11.59 [facility] [place] [address] [facility] [address] [place], [place] [address] 11/04/2024 Justino Buchanan Palpitations R00.2 ; Thyroid nodule E04.1 ; Sensation of chest pressure R07.89 ; Elevated lymphocytes D72.820 and Type 2 diabetes mellitus with other circulatory complications E11.59 [facility] [place] [address] [place] [address] 11/18/2024 Justino Buchanan Angina pectoris I20. 9 ; Thyroid nodule E04.1 and Lymphocytosis D72.820 [facility] [place] [address] [facility] [address] [place], [place] [address] 12/30/2024 Justino Buchanan Type 2 diabetes bao itus with other circulatory complication, without long-term current use of insulin E11.59 ; Atherosclerotic heart disease of [place] coronary artery without angina pectoris I25.10 ; Atherosclerotic heart disease of [place] coronary artery without angina pectoris I25.10 ; Hyperlipemia, mixed E78.2 and Hyperlipemia, mixed E78.2 [facility] [place] [address] [place] [address] 03/03/2025 Justino Besson Type 2 diabetes bao itus with other circulatory complications E11.59 ; Atherosclerotic heart disease of [place] coronary artery without angina pectoris I25.10 ; Essential (primary) hypertension I10 and Immunization(s) administered Z23 [facility] [place] [address] [place] [address] 04/08/2024 Justino Besson Type 2 diabetes bao itus with other circulatory complications E11.59 ; Atherosclerotic heart disease of [place] coronary artery without angina pectoris I25.10 and Essential (primary) hypertension I10 [facility] [place] [address] [place] [address] 06/24/2024 Justino Besson Diabetic peripheral neuropathy E11.42 ; Rheumatoid arthritis M06.9 ; Hyperlipemia, mixed E78.2 ; Atherosclerotic heart disease of [place] coronary artery without angina pectoris I25.10 and Thyroid nodule E04.1 [facility] [place] [address] [place] [address] 07/15/2024 Nu Negrete Acute bronchopneumon ia J18.0 [facility] [place] [address] [place] [address] 07/22/2024 Justino Besson [facility] [place] [address] [facility] [address] [place] [address] 08/05/2024 Justino Besson Type 2 diabetes bao itus with other circulatory complications E11.59 [facility] [place] [address] [facility] [address] [place] [address] 08/12/2024 Justino Besson [facility] [place] [address] [place] [address] 08/23/2024 Justino Besson [facility] [place] [address] [facility] [address] [place] [address] 10/29/2024 Justino Besson Diabetic peripheral neuropathy E11.42 ; Rheumatoid arthritis M06.9 ; Hyperlipemia, mixed E78.2 and Thyroid nodule E04.1 [facility] [address] [place] [address] 11/11/2024 Justino Besson [facility] [place] [address] [facility] [address] [place] [address] 11/21/2024 Justino Besson Essential (primary) hypertension I10 [facility] [place] [address] [place] [address] 09/08/2024 Justino Besson [facility] [place] [address] [place] [address] 09/13/2024 Justino Besson [facility] [place] [address] [place] [address] 06/03/2024 Justino Besson [facility] [place] [address] [place] [address] 06/04/2024 Justino Besson [facility] [place] [address] [place] [address] 11/12/2024 Justino Besson [facility] [place] [address] [place] [address] 11/18/2024 Justino Besson [facility] [place] [address] [place] [address] 11/19/2024 Justino Besson [facility] [place] [address] [place] [address] 12/09/2024 Justino Besson Type 2 diabetes bao itus with other circulatory complications E11.59 and Type 2 diabetes mellitus with other circulatory complication, without long-term current use of insulin E11.59 [facility] [place] [address] [place] [address] 12/12/2024 Justino Besson [facility] [address] [place] [address] 01/17/2025 Justino Besson [facility] [address] [place] [address] 01/22/2025 Justino Besson Assessments Encounter Date Diagnosis (ICD Code) Assessment Notes Treatment Notes Treatment Clinical Notes Section Notes 04/08/2024 Type 2 diabetes mellitus with other circulatory complications (ICD-10 - E11.59) 04/08/[address]rosclerotic heart disease of [place] coronary artery without angina pectoris (ICD-10 - [...] - M06.9) 07/01/2024 Atherosclerotic heart disease of [place] coronary artery without angina pectoris (ICD-10 - I25.10) Stable, continue current management 10/29/2024 Diabetic peripheral neuropathy (ICD-10 - E11.42) 10/29/2024 Rheumatoid arthritis (ICD-10 - M06.9) 11/04/2024 Palpitations (ICD-10 - R00.2) Multiple risk factors for heart disease. Has a history of atherosclerotic disease. Will get stress test done on Monday of this week at [facility]. 11/04/2024 Thyroid nodule (ICD-10 - E04.1) Due for repeat thyroid imaging, will be able to coordinate this in the same day he goes for a stress test 11/18/2024 Thyroid nodule (ICD-10 - E04.1) Nodules have been stable. I have personally requested records from [facility] and will reevaluate these with patient [...] with other circulatory complications (ICD-10 - E11.59) 12/30/2024 Atherosclerotic heart disease of [place] coronary artery without angina pectoris (ICD-10 - I25.10) Recent C found to have LIVESTOCK AGENT of RCA as well as 50% stenosis of LAD past the TORRES graft with patency of TORRES. Patient has been on HI Statin with last LDL of 85. Will start Zetia 10 mg today and will recheck labs at next visit in 2 months. 12/30/2024 Atherosclerotic heart disease of [place] coronary artery without angina pectoris (ICD-10 - I25.10) Recent LHC found to have LIVESTOCK AGENT of RCA as well as 50% stenosis of LAD past the TORRES graft with patency of TORRES. Patient has been on [place] Statin with last LDL of 85. Will start Zetia 10 mg today and will recheck labs at next visit in 2 months. 12/30/2024 Type 2 diabetes mellitus with other circulatory complication, without long-term current use of insulin (ICD-10 - E11.59) Will Increase Ozempic to 2 mg. Patient has 3 month supply of Ozempic at home so will just have him take 2 doses per week. Has follow up in 2 months. Will check labs at this time. 03/03/2025 Type 2 diabetes mellitus with other circulatory complications (ICD-10 - E11.59) Pt was counseled that his A1C is in a good range and to continue medications as planned. Discussed rationale for current A1c levels. Gave patient copy, reviewed labs and previous order with patient for his multiple problems below\ 03/03/2025 Atherosclerotic heart disease of [place] coronary artery without angina pectoris (ICD-10 - I25.10) Pt was counseled to keep his heart rate below 110 when walking and to watch for anginal chest pain. Keep up with [address] and make sure to watch his symptoms. Continue on medications but lab work is looking good 03/03/2025 Essential (primary) hypertension (ICD-10 - I10) follow-up in april to track and continue on medications as prescribed 12/30/2024 Hyperlipemia, mixed (ICD-10 - E78.2) 12/30/2024 Hyperlipemia, mixed (ICD-10 - E78.2) 12/09/2024 Type 2 diabetes mellitus with other [...] 04/08/2024 Essential (primary) hypertension (ICD-10 - I10) 06/24/2024 Atherosclerotic heart disease of [place] coronary artery without angina pectoris (ICD-10 - I25.10) 10/29/2024 Thyroid nodule (ICD-10 - E04.1) 11/04/2024 Elevated lymphocytes (ICD-10 - D72.820) White blood cell count is been elevated at 18,000 with a lymphocytic predominance. Platelets and red blood cell lines normal. Possible effect of his uveitis/rheumatoid disease? Versus med effect? Versus some type of myelodysplastic issue. Will have hematology evaluation 03/03/2025 Immunization(s) administered (ICD-10 - Z23) 11/04/2024 Type 2 diabetes mellitus with other circulatory complications (ICD-10 - E11.59) Has been exercising and dieting, has gotten A1c down to 8.1%. Congratulated on this. No changes in plan, lipid profile excellent. 06/24/2024 Thyroid nodule (ICD-10 - E04.1) 07/19/2024 Other Patient discuss ed with Attending [...] C-CBC 03/21/2013 C-CBC 08/15/2013 C-CMP 08/15/2013 C-CMP 08/06/2014 C-CMP 03/21/2013 C-LIPID PANEL 03/21/2013 C-LIPID PANEL 08/15/2013 C-LIPID PANEL 09/04/2014 C-TSH 08/15/2013 C-TSH 04/28/2012 C-PSA 03/21/2013 C-RPR 04/28/2012 C-VITAMIN B12 04/28/2012 C-HGBA1C 08/15/2013 C-HGBA1C 08/06/2014 C-HGBA1C 09/04/2014 C-HGBA1C 03/21/2013 C-HGBA1C 04/28/2012 C-VITAMIN D, 25-HYDROXY 04/28/2012 Physical Therapy : Lymphedema 07/04/2022 M-Complete Blood Count Auto Diff 023 M-Complete Blood Count Auto Diff 021 M-Microalbumin,Urine 07/02/2018 M-Comprehensive Metabolic Panel 10/07/19 21 M-Comprehensive Metabolic Panel 11/09/19 23 Physical Therapy : Gait training and cor e strengthening 07/04/2022 Future Test Test Name Order Date H-CMP 05/04/2018 M-Comprehensive Metabolic Panel 02/18/20 25 M-Hemoglobin A1C 02/17/2025 M-Lipid Panel 02/17/2025 Next Appt Details Provider Name:Justino Buchanan, 04/28/2025 02:15:00 PM, [address], [place], [address], Insurance Providers Payer Name Payer Address Payer Phone Subscriber Number Group Number Insured Name Patient Relationship to Insured Coverage Start Date Coverage End Date [facility] [address] [place] [address] [id number] Kris Hood Self - patient is the insured Medical (General) History Medical History History ICD Code hypertension hypercholestrolemia diabetes hx encephalitis 1978 left leg fx-1958 salivary gland removed-1971 2 cardiac stents 05/2014 CABG x2- colonoscopy with tubular cody noma in 2013 - repeated in 03/07 with multiple tubular adenoma - repeated 02/06 with tubular adenomas, repeated 02/08 with polyps - repeat 2-3 years vocal cord separation uveitis, on Remicade managed by [facility]. Also with positive rheumatoid factor heart murmur - mild aortic stenosis TiRads 3 nodule in isthmus 08/12 - needs 12 mo f/u Surgical History Surgery Date(Month/Year) broken leg salivary gland removed heart cath and 2 stents 06/10/2014 Heart Cath 08/2015 open heart surgery- CABG x2 12/10/2015 colonoscopy 02/2017 lt eye-cataract surgery 05/07/21 rt eye-cataract surgery 05/18/21 Heart Cath 11/2024 Hospitalization History Reason Date(Month/Year) Covid 09/2021 open heart surgery 12/10/2015 heart cath and 2 stents 06/10/2014 left leg fx encephalitis 1979
[2025-03-25 12:44] LABS: Hematocrit 45.8 % (42.0-52.0); Hemoglobin 14.6 g/dL (14.1-18.0); Immature Granulocytes % 0.2 %; Mean Corpuscular HGB Conc 31.9 g/dL (31.8-35.4); Mean Corpuscular Hemoglobin 30.5 pg (27.0-31.2); Mean Corpuscular Volume 95.6 fl (80-94); Nucleated Red Blood Cells % 0 %; Platelet Count 146 K/mm3 (142-424); Red Blood Count 4.79 M/mm3 (4.60-6.20); Red Cell Distribution Width-SD 47.5 fL; White Blood Count 19.9 K/mm3 (4.8-10.8)
[2025-03-25 13:20] LABS: Albumin Level 5.0 g/dl (3.5-5.0); Chloride 101 mmol/L (98-107); Potassium 4.3 mmoL/L (3.5-5.1); Sodium 140 mmol/L (136-145)
[2025-03-25 13:22] LABS: Blood Urea Nitrogen 15 mg/dl (9-20); Creatinine,Serum 0.90 mg/dl (0.66-1.25); Estimated Glomerular Filt Rate 82 ml/min (>60); GFR (African American) 99 ML/MIN (>60)
[2025-03-25 13:23] LABS: Alanine Aminotransferase 57 U/L (12-78); Albumin/Globulin Ratio 2.4 (1.1-1.8); Alkaline Phosphatase 82 U/L (38-126); Anion Gap 11.3 mEq/L (5-15); Aspartate Amino Transferase 33 U/L (17-59); Bilirubin,Total 0.6 mg/dl (0.2-1.3); Carbon Dioxide 32 mmol/L (22.0-30.0); Globulin 2.1 g/dL (1.3-3.2); Total Protein,Serum 7.1 g/dl (6.3-8.2)
[2025-03-25 13:24] LABS: Calcium 9.1 mg/dl (8.4-10.2); Glucose 140 mg/dl (74-100)
[2025-03-25 14:42] LABS: RBC Morphology Normal; Total Cells Counted 100
== END 2025-03-25 23:59 | disposition home or self-care (01) ==
LOC: LAB 12:12
PROVIDERS: PCP Internal Medicine Adolescent Medicine; Visit Provider Internal Medicine Medical Oncology
DX: D72.829 Elevated white blood cell count, unspecified (principal)
CPT/HCPCS: 36415; 80053; 83615; 85007; 85025

== ENCOUNTER 2025-05-08 12:51 | Outpatient (CLI) | payer BC, SELFPAY ==
--- OUTSIDE RECORDS SUMMARY | 2024-08-24 16:30 | XMS_ITS ---
Author Organization [facility] Address [address] [facility] [address] [facility] [address] [place] [address] Care Team Providers Care Horse Racer Name Role Phone Justino Buchanan Primary Care Provider Migration, Provider Unavailable Unavailable REASON FOR VISIT [facility] To [facility] Conversion Encounter Medications Medication SIG (Take, Route, Frequency, Duration) Notes Start Date End Date Status Jardiance 25 MG TAKE 1 TABLET EVERY MORNING; Duration: 90 Active Lisinopril 20 MG 1 tab(s) orally once a day; Duration: 90 days Active Furosemide 20 MG 1 tab(s) orally once a day; Duration: 90 Active Flonase Allergy Relief 50 MCG/ACT 1 spray(s) in each nostril once a day; Duration: 30 days prn 07/19/2024 Active Metoprolol Tartrate 25 MG TAKE 1/2 TABLET TWICE A DAY; Duration: 90 Active ACCU-CHECK GUIDE METER - USE TO CHECK BLOOD SUGAR TWICE DAILY *Please review for potential replacement for e-prescription and drug interaction check* 06/20/2018 Active Triamcinolone Acetonide 0.025 % 1 orquidea applied topically 3 times a day; Duration: 7 day(s) prn 04/09/2021 Active ACCU-CHECK GUIDE TEST STRIPS USE TO CHECK BLOOD SUGAR TWICE DAILY; Duration: 90 DAYS *Please review for potential replacement for e-prescription and drug interaction check* Active Rosuvastatin Calcium 40 MG 1 tab(s) orally once a day; Duration: 90 Active Glimepiride 2 MG 1 tab(s) orally once a day; Duration: 90 days Active Systane PRESERVED 1 GTT IN EACH EYE 3 TIMES A DAY 3 times a day *Please review and pick correct strength-formulat ion from [employer] options. If intended option is not shown, discontinue and re-order from Quick Search* Active Folic Acid OTC 1 TAB QD 800mcg *Please review and pick correct strength-formulat ion from [employer] options. If intended option is not shown, discontinue and re-order from Quick Search* Active Multivitamin - 1 tab(s) orally once a day Active Nitrostat 0.4 MG 1 tab(s) sublingually every 5 minutes prn Active Probiotic 1 TAB PO QD *Please review and pick correct strength-formulat ion from [employer] options. If intended option is not shown, discontinue and re-order from Quick Search* Active ACCUCHEK FAST CLICK LANCETS TWICE A DAY Please put on hold and patient will call when he needs filled *Please review for potential replacement for e-prescription and drug interaction check* Active Fluorometholone ACETATE 0.1% 1 GTT IN EACH AFFECTED EYE ONCE A DAY; Duration: 90 DAYS *Please review and pick correct strength-formulat ion from [employer] options. If intended option is not shown, discontinue and re-order from Quick Search* Active OZEMPIC 2 MG/3 ML (0.25 MG OR 0.5 MG DOSE) 0.5MG SUBCUTANEOUSLY ONCE A WEEK; Duration: 30 DAYS *Please review for potential replacement for e-prescription and drug interaction check* 07/01/2024 Active Encounters Encounter Location Date Provider Diagnosis [facility] [address] [facility] [address] [place] [address] 08/24/2024 Provider Migration Type 2 diabetes mellitus with other circulatory complication, without long-term current use of insulin E11.59 Assessments Encounter Date Diagnosis (ICD Code) Assessment Notes Treatment Notes Treatment Clinical Notes Section Notes 08/24/2024 Type 2 diabetes mellitus with other circulatory complication, without long-term current use of insulin (ICD-10 - E11.59) Plan Of Treatment Medication Medication Name Sig Start Date Stop Date Notes ACCUCHEK FAST CLICK LANCETS TWICE A DAY Please put on ho ld and patient will call when he needs filled *Please review for potential replacement for e-prescription and drug interaction check* Fluorometholone ACETATE 0.1% 1 GTT IN EACH AFFECTED EYE ONCE A DAY; Duration: 90 DAYS *Please review and pick correct strength-formulatio n from Medispan options. If intended option is not shown, discontinue and re-order from Quick Search* OZEMPIC 2 MG/3 ML (0.25 MG OR 0.5 MG DOSE) 0.5MG SUBCUTANEOUSLY ONCE A WEEK; Duration: 30 DAYS 07/01/2024 *Please review for potential replacement for e-prescription and drug interaction check* Next Appt Details Provider Name:Justino Buchanan, 08/25/2025 02:15:00 PM, [address] [facility] [address], [place], [address], Progress Notes * Kris HOODDOB:1945 (79 yo M)Acc No.[id number]:08/24/2024 Patient: Kris STOVALL Provider: Dylon Samuels :1945 A ge:79 Y S ex:Male Date:08/24/2024 Address:[address] [place] [address] , [place], [id number] Pcp:Justino Buchanan Subjective: * Chief Complaints: * 1 . Multum To Medispan Conversion Encounter. * Medical History: * Medications: T aking Systane PRESERVED SOLUTION 1 GTT IN EACH EYE 3 TIMES A DAY , Notes to Pharmacist: 3 times a day *Please review and pick correct strength-formulation from Medispan options. If intended option is not shown, discontinue and re-order from Quick Search*, Taking Folic Acid OTC 1 TAB QD , Notes to Pharmacist: 800mcg *Please review and pick correct strength-formulation from Medispan options. If intended option is not shown, discontinue and re-order from Quick Search*, Taking Multivitamin - Tablet 1 tab(s) orally once a day , Taking Nitrostat 0.4 MG Tablet Sublingual 1 tab(s) sublingually every 5 minutes prn , Taking Probiotic 1 TAB PO QD , Notes to Pharmacist: *Please review and pick correct strength-formulation from Medispan options. If intended option is not shown, discontinue and re-order from Quick Search*, Taking ACCU-CHECK GUIDE METER - USE TO CHECK BLOOD SUGAR TWICE DAILY , Notes to Pharmacist: *Please review for potential replacement for e-prescription and drug interaction check*, Taking Triamcinolone Acetonide 0.025 % Cream 1 orquidea applied topically 3 times a day , Notes to Pharmacist: prn, Taking ACCU-CHECK GUIDE TEST STRIPS USE TO CHECK BLOOD SUGAR TWICE DAILY , Notes to Pharmacist: *Please review for potential replacement for e-prescription and drug interaction check*, Taking Rosuvastatin Calcium 40 MG Tablet 1 tab(s) orally once a day , Taking Glimepiride 2 MG Tablet 1 tab(s) orally once a day , Taking Jardiance 25 MG Tablet TAKE 1 TABLET EVERY MORNING , Taking Lisinopril 20 MG Tablet 1 tab(s) orally once a day , Taking Furosemide 20 MG Tablet 1 tab(s) orally once a day , Taking Flonase Allergy Relief 50 MCG/ACT Suspension 1 spray(s) in each nostril once a day , Notes to Pharmacist: prn, Taking Metoprolol Tartrate 25 MG Tablet TAKE 1/2 TABLET TWICE A DAY Objective: * Vitals: Assessment: * Assessment: 1. T ype 2 diabetes mellitus with other circulatory complication, without long-term current use of insulin - E11.59 (Primary) Plan: * Treatment: 2. O thers Refill ACCUCHEK FAST CLICK LANCETS, TWICE A DAY, 100, Refills 3, Notes to Pharmacist: Please put on hold and patient will call when he needs filled *Please review for potential replacement for e-prescription and drug interaction check*; R efill Fluorometholone SUSPENSION, ACETATE 0.1%, 1 GTT, IN EACH AFFECTED EYE, ONCE A DAY, 90 DAYS, 3, Refills 1, Notes to Pharmacist: *Please review and pick correct strength-formulation from Sahare[employer]pan options. If intended option is not shown, discontinue and re-order from Quick Search*. * * Electronic signature of Prov carolina Migration on 05/08/2025 at 12:56 PM EST Sign off status: Pending * Provider: Dylon biggs Migration Date: 0 08/24/2024 Generated for Oscar valles/Argelia/Alondra on: 1 07/09/2024 12:56 PM EST
--- OUTSIDE RECORDS SUMMARY | 2025-04-28 09:15 | XMS_ITS ---
Author Organization [facility] Address [address] [facility] [address] [facility] [address] [place] [address] Care Team Providers Care Pediatric Dental Hygienist Name Role Phone JoshdeannaJustino Primary Care Provider [phone] Allergies No Known Allergies Results Component Value Reference Range Notes LIPID PANEL, STANDARD (7600) Reviewed date:05/01/2025 09:23:57 AM Interpretation: Performing Lab:[facility], [facility] [id number] [facility], [place] [id number] Javier Jose Notes/Report: NON-FASTING; NON-FASTING; NON-FASTING CHOLESTEROL, TOTAL 130 <200 mg/dL HDL CHOLESTEROL 37 > OR = 40 mg/dL TRIGLYCERIDES 153 <150 mg/dL LDL-CHOLESTEROL 69 Reference range: <100 Desirable range <100 mg/dL for primary prevention; <70 mg/dL for patients with CHD or diabetic patients with > or = 2 CHD risk factors. LDL-C is now calculated using the Jaime-Holly calculation, which is a validated novel method providing better accuracy than the Friedewald equation in the estimation of LDL-C. Jaime SS et al. ALISIA. 2013;310(19): 1274-5153 (http://education.Pirate3D.com/faq/IKV815) CHOL/HDLC RATIO 3.5 <5.0 (calc) NON HDL CHOLESTEROL 93 <130 mg/dL (calc) For patients with diabetes plus 1 major ASCVD risk factor, treating to a non-HDL-C goal of <100 mg/dL (LDL-C of <70 mg/dL) is considered a therapeutic option. BASIC METABOLIC PANEL (20847 ) Reviewed date:05/01/2025 09:23:52 AM Interpretation: Performing Lab:[facility] [employer] [id number] [place], [place] [id number] Javier Jose Notes/Report: NON-FASTING; NON-FASTING; NON-FASTING GLUCOSE 119 65-99 mg/dL Fasting reference interval For someone without known diabetes, a glucose value between 100 and 125 mg/dL is consistent with prediabetes and should be confirmed with a follow-up test. UREA NITROGEN (BUN) 19 7-25 mg/dL CREATININE 1.11 0.70-1.28 mg/dL EGFR 68 > OR = 60 mL/min/1.73m2 BUN/CREATININE RATIO SEE NOTE: 6-22 (calc) Not Reported: BUN and Creatinine are within reference range. SODIUM 140 135-146 mmol/L POTASSIUM 4.3 3.5-5.3 mmol/L CHLORIDE 104 98-110 mmol/L CARBON DIOXIDE 31 20-32 mmol/L CALCIUM 9.2 8.6-10.3 mg/dL HEMOGLOBIN A1c (496) Reviewed date:05/01/2025 09:24:05 AM Interpretation: Performing Lab:[facility] [employer] [id number] [place], [employer][id number] Javier Jose Notes/Report: NON-FASTING; NON-FASTING; NON-FASTING HEMOGLOBIN A1c 8.4 <5.7 % For someone without known diabetes, a hemoglobin A1c value of 6.5% or greater indicates that they may have diabetes and this should be confirmed with a follow-up test. For someone with known diabetes, a value <7% indicates that their diabetes is well controlled and a value greater than or equal to 7% indicates suboptimal control. A1c targets should be individualized based on duration of diabetes, age, comorbid conditions, and other considerations. Currently, no consensus exists regarding use of hemoglobin A1c for diagnosis of diabetes for children. REASON FOR VISIT 2 Month Follow up, Preventative care update Medications Medication SIG (Take, Route, Frequency, Duration) Notes Start Date End Date Status Accu-Chek Guide Test - USE TO CHECK BLOO D SUGAR TWICE DAILY; Duration: 90 Active Zetia 10 MG 1 tablet Orally Once a day; Duration: 90 days 12/30/2024 Active Furosemide 20 MG TAKE 1 TABLET ONCE DAILY; Duration: 90 Active ACCUCHEK FAST CLICK LANCETS TWICE A DAY Active Ozempic (2 MG/DOSE) 8 MG/3ML 2mg Subcuta neous weekly; Duration: 90 days 01/23/2025 Active Lisinopril 20 MG 1 tab(s) orally once a day; Duration: 90 days Active Nitrostat 0.4 MG 1 tab(s) sublinguall y every 5 minutes prn prn Active Rosuvastatin Calcium 40 MG 1 tab(s) oral ly once a day; Duration: 90 Active Fluorometholone ACETATE 0.1% 1 GTT IN EA CH AFFECTED EYE ONCE A DAY; Duration: 90 DAYS Active Metoprolol Tartrate 25 MG TAKE 1/2 TABLE T TWICE A DAY; Duration: 90 Active Multivitamin - 1 tab(s) [...] Active Probiotic 1 TAB PO QD Active Folic Acid OTC 1 TAB QD Activ e Mupirocin 2 % 1 orquidea applied topica lly 3 times a day; Duration: 7 day(s) 04/28/2025 Active Systane PRESERVED 1 GTT IN EACH EYE 3 TIMES A DAY Active Plavix 75 MG 1 tablet Orally Once a day Active Magnesium 400 MG as directed Orally Active Jardiance 25 MG TAKE 1 TABLET EVERY MORNING; Duration: 90 Active Ranolazine ER 500 MG 1 tablet Orally Twi ce a day; Duration: 90 days Active Vital Signs Temperature 97.7 degrees Fahrenheit 04/28/20 25 Blood pressure systolic 118 mm Hg 04/28/20 25 Blood pressure diastolic 68 mm Hg 025 Heart Rate 76 /min 04/28/2025 Height 71 in 04/28/2025 Weight 187.4 lbs 04/28/2025 BMI 26.13 kg/m2 04/28/2025 Encounters Encounter Location Date Provider Diagnosis [facility] [address] [place] [address] 04/28/2025 Justino Buchanan Type 2 diabetes bao itus with other circulatory complications E11.59 ; Atherosclerotic heart disease of [place] coronary artery without angina pectoris I25.10 ; Abrasion of right great toe, initial encounter S90.411A ; 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 Patient has had very good control of his diabetes. I anticipate his A1c to be well-controlled. No changes in plan at this point 04/28/2025 Atherosclerotic heart disease of [place] coronary artery without angina pectoris (ICD-10 - I25.10) No chest symptoms, has follow-up with cardiology at [facility] scheduled. On appropriate medication for goal-directed therapy, lipid reduction, etc. 04/28/2025 Abrasion of right great toe, initial encounter (ICD-10 - S90.411A) Start mupirocin and Epsom salt soaks. 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 Shots up-to-date. Depression screening negative, no cognitive impairment. Plan Of Treatment Medication Medication Name Sig Start Date Stop Date Notes Mupirocin 2 % 1 orquidea applied topica lly 3 times a day; Duration: 7 day(s) 04/28/2025 Treatment Notes Assessment Notes Type 2 diabetes mellitus wit h other circulatory complications Check A1c. Patient has had very good control of his diabetes. I anticipate his A1c to be well-controlled. No changes in plan at this point Atherosclerotic heart diseas e of [place] coronary artery without angina pectoris No chest symptoms, has follow-up with cardiology at [facility] scheduled. On appropriate medication for goal-directed therapy, lipid reduction, etc. Abrasion of right great toe, initial encounter Start mupirocin and Epsom salt soaks. Uveitis-rheumatoid arthritis syndrome Fo llows with rheumatology and ophthalmology Routine medical exam Aged out of cancer screening, excellent functional status. Shots up-to-date. Depression screening negative, no cognitive impairment. Next Appt Details Follow Up: 4 Months, Reason: Provider Name:Justinonasreen Buchanan, 08/25/2025 02:15:00 PM, [address], [address], [place], [address], Progress Notes * Kris SEBASTIANDOB:1945 (79 yo M)Acc No.[id number]:04/28/2025 Progress Notes Patient: Kris STOVALL Provider: Beba Buchanan MD :1945 A ge:79 Y S ex:Male Date:04/28/2025 Address:[address] [place] [address], [place], [id number] Subjective: * Chief Complaints: * 1 . 2 Month Follow up. 2. Preventative care update. * HPI: g en: Here to follow-up his medical problems as well as to go over his routine wellness update. Dropped a wooden piece of furniture on his toe about a week ago, has an abrasion on the top of the right great toe that has been seeping a little bit of clear fluid. Otherwise feels well. See notes below. 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 Also with positive rheumatoid factor, Heart murmur [...] no. Travel outside [place]: no. 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 * Medications: T aking Magnesium 400 MG Capsule as directed Orally , Taking Plavix 75 MG Tablet 1 [...] day , Notes to Pharmacist: prn, Taking Flonase Allergy Relief 50 MCG/ACT Suspension [...] CLICK LANCETS TWICE A DAY , Taking Furosemide 20 MG Tablet TAKE 1 TABLET ONCE DAILY , Taking Ranolazine ER 500 MG Tablet Extended Release 12 Hour 1 tablet Orally Twice a day , Taking Jardiance 25 MG Tablet TAKE 1 TABLET EVERY MORNING , Medication List reviewed and reconciled with the patient * Allergies: N .K.D.A. Objective: * Vitals: N urse: KJ, Pain: 1, Temp: 97.7, RR: 18, HR: 76, BP: 118/68, Ht: 71, Wt: 187.4, BMI:26.13. * Examination: G eneral Examination: General P leasant and Cooperative, NAD on RA,. Oral cavity: M oist membranes. Chest: n ormal shape and expansion. Heart: R egular Rate and Rhythm, no murmur, rubs or gallops. HEENT: p harynx and tonsils normal, TM's normal. Lungs: L CTAB, No wheezes, crackles or rhonchi, Good air movement,. Abdomen: S oft, NTND, BSNA, No organomegaly or peritoneal signs.. Neurologic Exam: n o focal signs,, normal sensation, strength, tone and reflexes,, Alert and oriented x 3. Skin: w ithout acute rashes. Peripheral pulses: n ormal (2+) bilaterally. Back: n ormal,. Extremities: n ormal ROM,, no clubbing, no edema,,no foot lesions E xcept for an abrasion on the top of the right great toe just behind the nail that is slightly reddened, leaking some clear fluid, no red streak. neck s upple,, no thyromegaly,, no lymphadenopathy,. Psych N ormal Mood/Affect. diabetic foot exam V isual exam of foot performed: Y es. Neck s upple, no lymphadenopathy. General Appearance: N AD, pleasant. Assessment: * Assessment: 1. T ype 2 diabetes mellitus with other circulatory complications - E11.59 (Primary) 2 . A therosclerotic heart disease of [place] coronary artery without angina pectoris - I25.10 3 . A brasion of right great toe, initial encounter - S90.411A 4. U veitis-rheumatoid arthritis syndrome - M05.60 5 . R outine medical exam - Z00.00 Plan: * Treatment: Value Reference Range T RIGLYCERIDES 153 H <150 - mg/dL * C HOLESTEROL, TOTAL 130 <200 - mg/dL * H DL CHOLESTEROL 37 L > OR = 40 - mg/dL * L DL-CHOLESTEROL 69 - mg/dL (calc) * C HOL/HDLC RATIO 3.5 <5.0 - (calc) * N ON HDL CHOLESTEROL 93 <130 - mg/dL (calc) * Shweta Pagan 04/30/20 03:50:30 PM EST > pt informed, does not have a dietitian at workplace. will you refer?This lab was reviewed by Teri Peralta on 05/01/2025 at 09:23 AM EST ?LAB: BASIC METABOLIC PANEL (09023)* Value Reference Range G LUCOSE 119 H 65-99 - mg/dL * U CAIT NITROGEN (BUN) 19 7-25 - mg/dL * C REATININE 1.11 0.70-1.28 - mg/dL * B UN/CREATININE RATIO SEE NOTE: 6-22 - (calc) * S ODIUM 140 135-146 - mmol/L * P OTASSIUM 4.3 3.5-5.3 - mmol/L * C HLORIDE 104 98-110 - mmol/L * C ARBON DIOXIDE 31 20-32 - mmol/L * C ALCIUM 9.2 8.6-10.3 - mg/dL * E GFR 68 > OR = 60 - mL/min/1 .73m2 * Shweta Pagan 04/30/20 03:50:30 PM EST > pt informed, does not have a dietitian at workplace. will you refer?This lab was reviewed by Teri Peralta on 05/01/2025 at 09:23 AM EST ?LAB: HEMOGLOBIN A1c (496)* Value Reference Range H EMOGLOBIN A1c 8.4 H <5.7 - % * Shweta Pagan 04/30/20 03:50:30 PM EST > pt informed, does not have a dietitian at workplace. will you refer?This lab was reviewed by Teri Peralta on 05/01/2025 at 09:24 AM EST Notes: Check A1c. Patient has had very good control of his diabetes. I anticipate his A1c to be well-controlled. No changes in plan at this point?? 2.?Atherosclerotic heart disease of [place] coronary artery without angina pectoris?LAB: LIPID PANEL, STANDARD (7600)* Value Reference Range T RIGLYCERIDES 153 H <150 - mg/dL * C HOLESTEROL, TOTAL 130 <200 - mg/dL * H DL CHOLESTEROL 37 L > OR = 40 - mg/dL * L DL-CHOLESTEROL 69 - mg/dL (calc) * C HOL/HDLC RATIO 3.5 <5.0 - (calc) * N ON HDL CHOLESTEROL 93 <130 - mg/dL (calc) * Shweta Pagan 04/30/20 03:50:30 PM EST > pt informed, does not have a dietitian at workplace. will you refer?This lab was reviewed by Teri Peralta on 05/01/2025 at 09:23 AM EST ?LAB: BASIC METABOLIC PANEL (26499)* Value Reference Range G LUCOSE 119 H 65-99 - mg/dL * U CAIT NITROGEN (BUN) 19 7-25 - mg/dL * C REATININE 1.11 0.70-1.28 - mg/dL * B UN/CREATININE RATIO SEE NOTE: 6-22 - (calc) * S ODIUM 140 135-146 - mmol/L * P OTASSIUM 4.3 3.5-5.3 - mmol/L * C HLORIDE 104 98-110 - mmol/L * C ARBON DIOXIDE 31 20-32 - mmol/L * C ALCIUM 9.2 8.6-10.3 - mg/dL * E GFR 68 > OR = 60 - mL/min/1 .73m2 * Shweta Pagan 04/30/20 03:50:30 PM EST > pt informed, does not have a dietitian at workplace. will you refer?This lab was reviewed by Teri Peralta on 05/01/2025 at 09:23 AM EST ?LAB: HEMOGLOBIN A1c (496)* Value Reference Range H EMOGLOBIN A1c 8.4 H <5.7 - % * Shweta Pagan 04/30/20 03:50:30 PM EST > pt informed, does not have a dietitian at workplace. will you refer?This lab was reviewed by Teri Peralta on 05/01/2025 at 09:24 AM EST Notes: No chest symptoms, has follow-up with cardiology at [facility] scheduled. On appropriate medication for goal-directed therapy, lipid reduction, etc.?? 3.?Abrasion of right great toe, initial encounter? Start Mupirocin Ointment, 2 %, 1 orquidea, applied topically, 3 times a day, 7 day(s), 1 large tube, Refills 1.?? Notes: Start mupirocin and Epsom salt soaks.??4.?Uveitis-rheumatoid arthritis syndrome? Notes: Follows with rheumatology and ophthalmology??5.?Routine medical exam? Notes: Aged out of cancer screening, excellent functional status. Shots up-to-date. Depression screening negative, no cognitive impairment. ?? * Follow Up: 4 Months * * Sign off status: Completed true * Provider: Beba Buchanan MD Date: 06/29/2024 Generated for Oscar valles/Argelia/eTmksmitting on: 07/09/2024 12:58 PM EST History and Physical Notes * HPI (History of Present Illness) Category Sub-Category Detail Notes Category Not es gen Here to follow-up his medical problems as well as to go over his routine wellness update. Dropped a wooden piece of furniture on his toe about a week ago, has an abrasion on the top of the right great toe that has been seeping a little bit of clear fluid. Otherwise feels well. See notes below Examination Category Sub-Category Detail Notes Category Not es General Examination HEENT: pharynx and tonsils normal, TM's normal Neck supple, no lymphaden opathy Heart: Regular Rate and Rhy thm, no murmur, rubs or gallops Lungs: LCTAB, No wheezes, c rackles or rhonchi, Good air movement, Abdomen: Soft, NTND, BSNA, No organomegaly or peritoneal signs. Extremities: normal ROM,, no club ramonita, no edema,, no foot lesions Except for an abrasion on the top of the right great toe just behind the nail that is slightly reddened, leaking some clear fluid, no red streak General Appearance: NAD, pleasant Skin: without acute rashes Neurologic Exam: no focal signs,, nor mal sensation, strength, tone and reflexes,, Alert and oriented x 3 Oral cavity: Moist membranes Peripheral pulses: normal (2+) bilatera lly Back: normal, Chest: normal shape and exp ansion neck supple,, no thyromeg nathaly,, no lymphadenopathy, General Pleasant and Coopera tive, NAD on RA, Psych Normal Mood/Affect diabetic foot exam Visual exam of foot performed :: Yes
--- OUTSIDE RECORDS SUMMARY | 2025-05-01 04:25 | XMS_ITS ---
Author Organization [facility] Address [address] [facility] [address] [facility] [address] [place] [address] Care Team Providers Care Manager Balance Name Role Phone Justino Buchanan Primary Care Provider Encounters Encounter Location Date Provider Diagnosis [facility] [address] [facility] [address] [place], [place] [address] 05/01/2025 Justinonasreen Buchanan Type 2 diabetes mellitus with other circulatory complications E11.59 Assessments Encounter Date Diagnosis (ICD Code) Assessment Notes Treatment Notes Treatment Clinical Notes Section Notes 05/01/2025 Type 2 diabetes mellitus with other circulatory complications (ICD-10 - E11.59) Plan Of Treatment Pending Test Test Name Order Date Dietary Consult 05/01/2025 Next Appt Details Provider Name:Justino Joaquin Joshdeanna, 08/25/2025 02:15:00 PM, [address] [facility] [address] [facility], [address], [place], [address], Progress Notes * Kris HOODDOB:1945 (79 yo M)Acc No.[id number]:05/01/2025 Patient: Kris STOVALL :1945 A ge:79 Y S ex:Male Address:[address] [facility] [place] [address] Subjective: * Chief Complaints: * * Medical History: * Surgical History: * Hospitalization/Major Diagno stic Procedure: * Medications: Objective: * Vitals: * Physical Examination: Assessment: * Assessment: 1. T ype 2 diabetes mellitus with other circulatory complications - E11.59 Plan: * Treatment: * * Procedure Codes: * true * Date: Generated for Oscar valles/Argelia/Alondra on: 07/09/2024 12:58 PM EST
--- OUTSIDE RECORDS SUMMARY | 2025-05-08 12:57 | XMS_ITS | Clinical Summary ---
Author Organization [facility] Address [address] [place] [address] Care Team Providers Care Spa Consultant Name Role Phone Unavailable Primary Care Provider Unavailabl e Allergies No known active allergies Medications Multiple Vitamins-Restaurant Kitchen Manager als (multivitamin with minerals) tablet 8 Active [...] Hemoglobin A1C 1945 [facility]-Hepatitis C Screening 1945 [facility]-Infant/Child/Adol SDOH Screenings 1945 Diabetes: Dental Exam 1957 [facility]- SDOH Screenings 1965 [facility]-Adult SDOH Screenings 1965 [facility]-DTaP,Tdap,and Td Vaccines (1 - Tdap) 08/01/1996 07/31/1996 [facility]-Pneumococcal Vaccine: 50+ Years (2 of 2 - PPSV23, PCV20, or PCV21) 05/04/2018 03/09/2018 [id number] Vaccine ( season) 2025 03/10/2023, 04/30/2021, 07/29/2020 [facility]-Influenza Vaccine (#1) 01/20/202501/14, 02/27/2023, 03/04/2022, Additional history exists [facility]-Hepatitis A Vaccines Aged Out 04/04/2018, 01/2018 No longer eligible based on patient's age to complete this topic [facility]-Zoster Vaccines Completed 10/12/2020, [facility]-RSV Vaccine: 60+ Years or Completed 03/24/2023 HPV Vaccines (No Doses Required) Completed [facility]-HIB Vaccines Aged Out No longer e ligible based on patient's age to complete this topic [facility]-IPV Vaccines Aged Out No longer e ligible based on patient's age to complete this topic [facility]-Rotavirus Vaccines Aged Out No lo nger eligible based on patient's age to complete this topic Insurance [facility] [place] [address]
--- OUTSIDE RECORDS SUMMARY | 2025-05-08 12:57 | XMS_ITS | Clinical Summary ---
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 Gender Identity Not on file Sexual Orientation Not on file Plan of Treatment Health Maintenance Due Date Last Done Comments Dental Cleaning/Exam 1945 Hepatitis C Screening 1945 Annual Preventive Exam 1965 Hep B Infection Screening - Triple Screen 1965 Tetanus Diphtheria and Pertussis Immunization (1 - Tdap) 1966 Pneumococcal: 50+ Years (1 o f 1 - PCV) 1997 Zoster Immunization (1 of 2) 1997 RSV Immunization >= 75 yrs old or 60-74 yrs old at risk (1 - 1-dose 75+ series) 2022 Covid-19 Immunization ( - 2024- season) 2025 Influenza Immunization (#1) 2025 03/09/2016 Hepatitis A [...] Insurance RAFFY NO COPAY NB Care Teams Boat Repairer Relationship Specialty Start Date End Date Patrick Rosas PCP - General 09/27/17
--- OUTSIDE RECORDS SUMMARY | 2025-05-08 12:57 | XMS_ITS | Referral Summary ---
Author Organization [employer] ([place], [place], [place], [place], [place]) Address [address] [place] [address] Care Team Providers Care Rap Artist Name Role Phone Justino Buchanan MD Primary Care Provider [phone] Temo Carreon MD Unavailable [phone] Ashly Vee APRN Unavailable [phone] Allergies No known active allergies Medications [...] Administer 1 drop into both eyes daily. 3 Active glimepiride (AMARYL) 2 MG tablet Take 1 tablet (2 mg total) by mouth daily with breakfast. Active clopidogreL (Plavix) 75 mg tablet Take 1 tablet (75 mg total) by mouth daily Look-alike/So und-alike medication. 30 tablet 11 5 11/15/19 26 Active magnesium oxide (MAG-OX) 400 mg magnesium tab Take 1 tablet (400 mg total) by mouth daily with breakfast. Active Lactobacillus no.46/B.animali s (PROBIOTIC-10 ORAL) Take by mouth daily. Active ranolazine (RANEXA) 500 MG 12 hr tablet Take 1 tablet (500 mg total) by mouth 2 (two) times daily. 180 tablet 3 5 12/10/19 Active semaglutide (Ozempic) 1 mg/dose (4 mg/3 mL) pnij Inject under the skin. 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 Legal Sex Male 5:10 PM CDT Gender Identity Male 03/28/2023 11:41 AM ANALYTICAL TECHNICIAN Sexual Orientation Straight 03/28/2023 11 :41 AM ANALYTICAL TECHNICIAN Last Filed Vital Signs Vital Sign Reading Time Taken Comments Blood Pressure 110/70 12/19/2024 11:33 AM EDT Pulse 77 12/19/2024 11:33 AM EDT Temperature 36.1 C (97 F) 12/09/2024 6:33 AM EDT Respiratory Rate 21 12/09/2024 11:0 0 AM EDT Oxygen Saturation 96% 12/19/2024 11: 33 AM EDT Inhaled Oxygen Concentration - - Weight 94.3 kg (207 lb 12.8 oz) 025 11:33 AM EDT Height 182.9 cm (6') 12/19/2024 11:33 AM EDT Body Mass Index 28.18 12/19/2024 11:33 AM EDT Plan of Treatment Not on [place] [address] [place] [id number] BLUE CROSS/BLUE SHIELD Advance Directives For more information, please contact: [phone] * Full Code (Latest Code Status on File) Date Activated Date Inactivated Comments 12/09/2024 8:39 AM 12/10/2024 4:26 AM * Full Code Date Activated Date Inactivated Comments 12/09/2024 5:23 AM 12/09/2024 8:39 AM Care Teams Rap Artist Relationship Specialty Start Date End Date Justino Buchanan MD [address] [place] [address] PCP - General Adolescent Medicine 12/26/22 Temo Carreon MD [address] [facility] [address] [place] [address] Interventional Cardiology 12/26/22 Ashly Vee APRN [address] [facility] [address] [place] [address] Cardiology 12/26/22
--- OUTSIDE RECORDS SUMMARY | 2025-05-08 12:58 | XMS_ITS | Patient Health Record ---
Author Organization [facility] Address [address] [place] [address] Care Team Providers Care Nitrator Operator Name Role Phone Justino Buchanan Primary Care Provider [phone] Nu Negrete Unavailable [phone] Migration, Provider Unavailable Unavailable Allergies No Known Allergies Results Component Value Reference Range Notes HEMOGLOBIN A1c (496) Reviewed date:05/01/2025 09:24:05 AM Interpretation: Performing Lab:[facility], [facility] [id number], Dotted BlockLohdSO[address] Javier Jose Notes/Report: NON-FASTING; NON-FASTING; NON-FASTING HEMOGLOBIN [...] A1c for diagnosis of diabetes for children. BASIC METABOLIC PANEL (29160 ) Reviewed date:05/01/2025 09:23:52 AM Interpretation: Performing Lab:[facility], [facility] [id number], Mpex PharmaceuticalsYpssUT[address] Javier Jose Notes/Report: NON-FASTING; NON-FASTING; NON-FASTING GLUCOSE 119 65-99 mg/dL For someone without known diabetes, a glucose value between 100 and 125 mg/dL is consistent with prediabetes and should be confirmed with a follow-up test. Fasting reference interval UREA NITROGEN (BUN) 19 7-25 mg/dL CREATININE 1.11 0.70-1.28 mg/dL EGFR 68 > OR = 60 mL/min/1.73m2 BUN/CREATININE RATIO SEE NOTE: 6-22 (calc) Not Reported: BUN and Creatinine are within reference range. SODIUM 140 135-146 mmol/L POTASSIUM 4.3 3.5-5.3 mmol/L CHLORIDE 104 98-110 mmol/L CARBON DIOXIDE 31 20-32 mmol/L CALCIUM 9.2 8.6-10.3 mg/dL LIPID PANEL, STANDARD (7600) Reviewed date:05/01/2025 09:23:57 AM Interpretation: Performing Lab:[facility] [address], [facility]PH[address] Javier Jose Notes/Report: NON-FASTING; NON-FASTING; NON-FASTING CHOLESTEROL, [...] LDL-C. Jaime SS et al. ALISIA. 2013;310(19): 8035-8103 (http://education.Tapit.PerspecSys/faq/FAQ 164) CHOL/HDLC RATIO 3.5 <5.0 (calc) NON HDL CHOLESTEROL 93 <130 mg/dL (calc) For patients with diabetes plus 1 major ASCVD risk factor, treating to a non-HDL-C goal of <100 mg/dL (LDL-C of <70 mg/dL) is considered a therapeutic option. X ray : Chest PA and Lateral Reviewed date:07/23/2024 12:28:01 PM Interpretation: Performing Lab: Notes/Report: X ray : Chest PA and Lateral Reviewed date:07/23/2024 12:28:01 PM Interpretation: Performing Lab: Notes/Report: M-Manual Differential Reviewed date:11/01/2024 02:48:26 PM Interpretation: Performing Lab: Notes/Report: GILDA MANUAL DIFFERENTIAL MANUAL DIFF TCC 100 NEUT%M 13 42-76 % LYMPH%M 70 10-50 % MONO%M 17 2-9 % PLTE Normal RM Normal M-Comprehensive Metabolic Pa jil Reviewed date:02/17/2025 03:30:40 [...] AGRATIO 1.8 1.1-1.8 ALP 74 38-126 U/L M-Hemoglobin A1C Reviewed date:02/17/2025 03:30:40 PM Interpretation: [...] HDL 33 40-60 mg/dl CHLHDL 3.8 1-3.5 M-Thyroid Panel Reviewed date:11/01/2024 02:57:59 PM [...] 0 IG% 0.3 NRBC# 0 IG# 0.06 M-Hemoglobin A1C Reviewed date:08/10/2024 02:21:31 PM Interpretation: Performing Lab: Notes/Report: HGBA1C 8.9 4.0-6.0 % < 6% Non-Diabetic Level < 7% Controlled Diabetic Level > 8% Poorly Controlled Diabetic Level M-Basic Metabolic Panel Reviewed date:08/10/2024 02:21:31 PM Interpretation: Performing Lab: Notes/Report: NA 138 136-145 mmol/L K 4.4 3.5-5.1 mmoL/L CL 106 98-107 mmol/L CO2 28 22.0-30.0 mmol/L GAP 8.4 5-15 mEq/L BUN 15 9-20 mg/dl CREATT 0.80 0.66-1.25 mg/dl GFRAA 113 >60 ML/MIN EGFR 94 >60 ml/min GLU 139 74-100 mg/dl CA 8.8 8.4-10.2 mg/dl US THYROID Reviewed date:11/20/2024 02:46:41 PM Interpretation: Performing Lab: Notes/Report: [address] [place] [address] Name: KRIS HOOD Exam Date: 11/11/2024 : 1945 Age 79 years Gender: M Physician: HAYLEY LOCKWOOD Facility: [facility] Facility HSV: Outpatient Exam: US [...] Thank you for referring KRIS HOOD to [facility]. Legally authenticated by ELVIE LEWIS MD 2024-11-11 09:54:00 NM MYOCARD SPEC WM/EF MOLD SANDER Reviewed date:11/14/2024 09:33:50 AM Interpretation: Performing Lab: Notes/Report: [address] [place] [address] Name: KRIS HOOD Exam Date: 11/11/2024 : 1945 Age 79 years Gender: M Physician: HAYLEY LOCKWOOD Facility: [facility] Facility HSV: Outpatient Exam: NM MYOCARD SPEC WM/EF MOLD SANDER STRESS TEST Patient Name: KRIS HOOD Admit [...] NADJA CHURCH 11/12/2024 Thank you for referring SANA KRIS to [facility]. Legally authenticated by LYNNETTE SAEZ MD 2024-11-12 11:07:41 M-Manual Differential Reviewed date:06/28/2024 09:46:49 AM Interpretation: Performing Lab: Notes/Report: GILDA MANUAL DIFFERENTIAL MANUAL DIFF TCC 100 NEUT%M 18 42-76 % LYMPH%M 76 10-50 % MONO%M 6 2-9 % PLTE Normal RM Normal M-Complete Blood Count Auto Diff Reviewed date:06/28/2024 [...] 0-0.2 K/mm3 M-Comprehensive Metabolic Pa jil Reviewed date:06/28/2024 09:10:33 [...] Level > 8% Poorly Controlled Diabetic Level M-Thyroid Panel Reviewed date:06/28/2024 09:15:14 AM Interpretation: Performing Lab: Notes/Report: FTI 2.8 5.93-13.13 ug/dL T4 8.9 5.53-11.0 ug/dl T3U 32 23.5-40.5 % TSH 2.96 0.465-4.68 uIU/mL M-Lipid Panel Reviewed date:06/28/2024 09:10:33 AM Interpretation: Performing Lab: Notes/Report: Patient Fasting? Y TRIG 174 30-150 mg/dl CHOL 160 140-200 mg/dl DLDL 87.30 100-129 mg/dL VLDL 35 0-40 mg/dL HDL 37 40-60 mg/dl CHLHDL 4.3 1-3.5 Medications Medication SIG (Take, Route, Frequency, Duration) Notes Start Date End Date Status Multivitamin - 1 tab(s) orally once a day Active Accu-Chek Guide Test - USE TO CHECK BLOO D SUGAR TWICE DAILY; Duration: 90 Active Folic Acid OTC 1 TAB QD Activ e Zetia 10 MG 1 tablet Orally Once a day; Duration: 90 days 12/30/2024 Active Mupirocin 2 % 1 orquidea applied topica lly 3 times a day; Duration: 7 day(s) 04/28/2025 Active Systane PRESERVED 1 GTT IN EACH EYE 3 TIMES A DAY Active Lisinopril 20 MG 1 tab(s) orally once a day; Duration: 90 days Active Nitrostat 0.4 MG 1 tab(s) sublinguall y every 5 minutes prn prn Active Plavix 75 MG 1 tablet Orally Once a day Active Magnesium 400 MG as directed Orally Active Rosuvastatin Calcium 40 MG 1 tab(s) oral ly once a day; Duration: 90 Active Fluorometholone ACETATE 0.1% 1 GTT IN EA CH AFFECTED EYE ONCE A DAY; Duration: 90 DAYS Active Metoprolol Tartrate 25 MG TAKE 1/2 TABLE T TWICE A DAY; Duration: 90 Active Jardiance 25 MG TAKE 1 TABLET EVERY MORNING; Duration: 90 Active Flonase Allergy Relief 50 MCG/ACT 1 spray(s) in each nostril once a day; Duration: 30 days prn 07/19/2024 Active Ranolazine ER 500 MG 1 tablet Orally Twi ce a day; Duration: 90 days Active Triamcinolone Acetonide 0.025 % 1 orquidea applied topically 3 times a day; Duration: 7 day(s) prn 04/09/2021 Active Furosemide 20 MG TAKE 1 TABLET ONCE DAILY; Duration: 90 Active ACCU-CHECK GUIDE METER - USE TO CHECK BL OOD SUGAR TWICE DAILY 06/20/2018 Active ACCUCHEK FAST CLICK LANCETS TWICE A DAY Active Probiotic 1 TAB PO QD Active Ozempic (2 MG/DOSE) 8 MG/3ML 2mg Subcuta neous weekly; Duration: 90 days 01/23/2025 Active Immunizations Vaccine Route Administration Date Status [...] Peripheral circulatory disorder associated with diabetes mellitus (097960988) Type 2 diabetes mellitus with other circulatory complications (E11.59) Active confirmed Problem Essential hypertension (39265475) Essential (primary) hypertension (I10) Active confirmed Problem Atherosclerotic heart disease of [place] coronary artery without angina pectoris (652559916042381) Atherosclerotic heart disease of [place] coronary artery without angina pectoris (I25.10) Active confirmed Problem Type II diabetes mellitus without complication (549590880) Diabetes (E11.9) Active confirmed Problem Thyroid nodule (434455981) Thyroid nodule (E04.1) Active confirmed Problem Diabetic peripheral neuropathy (309478115) Diabetic peripheral neuropathy (E11.42) Active confirmed Problem Rheumatoid arthritis (90675126) Rheumatoid arthritis (M06.9) Active confirmed Problem Angina pectoris (953116073) Angina pectoris (I20.9) Active confirmed Problem Mixed hyperlipidemia (007193580) Hyperlipemia, mixed (E78.2) Active confirmed Problem History of coronary artery bypass grafting (926545517) 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) Active confirmed Problem Peripheral circulatory disorder associated with diabetes mellitus (949984976) Type 2 diabetes mellitus with other circulatory complication, without long-term current use of insulin (E11.59) Active confirmed Problem Benign neoplasm of colon (50281920) Adenomatous polyp of colon, unspecified part of colon (D12.6) Active confirmed Problem Lymphocytosis (98368006) Lymphocytosis (D72.820) Active confirmed Problem 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 Problem 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 Vital Signs Heart Rate 76 /min 04/28/2025 Temperature 97.7 degrees Fahrenheit 04/28/2025 Blood pressure diastolic 68 mm Hg 04/28/2025 Height 71 in 04/28/2025 Blood pressure systolic 118 mm Hg 04/28/2025 Weight 187.4 lbs 04/28/2025 BMI 26.13 kg/m2 04/28/2025 Encounters Encounter Location Date Provider Diagnosis [facility] [address] [place] [address] 08/24/2024 Provider Migration Type 2 diabetes mellitus with other circulatory complication, without long-term current use of insulin E11.59 [facility] [address] [facility] [address] [place] [address] 07/01/2024 Justino Morenodeanna Type 2 diabetes bao itus with other circulatory complication, without long-term current use of insulin E11.59 ; Atherosclerotic heart disease of [place] coronary artery without angina pectoris I25.10 and Essential hypertension I10 [facility] [address] [place] [address] 07/12/2024 Nu Negrete Acute bronchopneumon ia J18.0 [facility] [address] [place] [address] 07/19/2024 Nu Negrete Acute bronchopneumon ia J18.0 and Respiratory crackles at left lung base R09.89 [facility] [address] [place] [address] 08/12/2024 Justino Buchanan Type 2 diabetes bao itus with other circulatory complication, without long-term current use of insulin E11.59 [facility] [address] [place] [address] 11/04/2024 Justino Buchanan Palpitations R00.2 ; Thyroid nodule E04.1 ; Sensation of chest pressure R07.89 ; Elevated lymphocytes D72.820 and Type 2 diabetes mellitus with other circulatory complications E11.59 [facility] [address] [place] [address] 11/18/2024 Justino Buchanan Angina pectoris I20. 9 ; Thyroid nodule E04.1 and Lymphocytosis D72.820 [facility] [address] [place] [address] 12/30/2024 Justino Buchanan Type 2 diabetes bao itus with other circulatory complication, without long-term current use of insulin E11.59 ; Atherosclerotic heart disease of [place] coronary artery without angina pectoris I25.10 ; Atherosclerotic heart disease of [place] coronary artery without angina pectoris I25.10 ; Hyperlipemia, mixed E78.2 and Hyperlipemia, mixed E78.2 [facility] [address] [place] [address] 03/03/2025 Justino Buchanan Type 2 diabetes bao itus with other circulatory complications E11.59 ; Atherosclerotic heart disease of [place] coronary artery without angina pectoris I25.10 ; Essential (primary) hypertension I10 and Immunization(s) administered Z23 [facility] [address] [place] [address] 04/28/2025 Justino Buchanan Type 2 diabetes bao itus with other circulatory complications E11.59 ; Atherosclerotic heart disease of [place] coronary artery without angina pectoris I25.10 ; Abrasion of right great toe, initial encounter S90.411A ; Uveitis-rheumatoid arthritis syndrome M05.60 and Routine medical exam Z00.00 [facility] [address] [place] [address] 06/24/2024 Justino Besson Diabetic peripheral neuropathy E11.42 ; Rheumatoid arthritis M06.9 ; Hyperlipemia, mixed E78.2 ; Atherosclerotic heart disease of [place] coronary artery without angina pectoris I25.10 and Thyroid nodule E04.1 [facility] [address] [address] 07/15/2024 Nu Negrete Acute bronchopneumon ia J18.0 [facility] [address] [address] 07/22/2024 Justino Besson [facility] [address] [place] [address] 08/05/2024 Justino Besson Type 2 diabetes bao itus with other circulatory complications E11.59 [facility] [address] [place] [address] 08/12/2024 Justino Besson [facility] [address] [address] 08/23/2024 Justino Besson [facility] [address] [place] [address] 10/29/2024 Justino Besson Diabetic peripheral neuropathy E11.42 ; Rheumatoid arthritis M06.9 ; Hyperlipemia, mixed E78.2 and Thyroid nodule E04.1 [facility] [address] [place] [address] 11/11/2024 Justino Besson [facility] [address] [address] 11/21/2024 Justino Besson Essential (primary) hypertension I10 [facility] [address] [address] 03/25/2025 Justino Besson [facility] [address] [facility] [address] [place] [address] 05/01/2025 Justino Besson Type 2 diabetes bao itus with other circulatory complications E11.59 [facility] [address] [place] [address] 09/08/2024 Justino Besson [facility] [address] [place] [address] 09/13/2024 Justino Besson [facility] [address] [place] [address] 06/03/2024 Justino Besson [facility] [address] [place] [address] 06/04/2024 Justino Besson [facility] [address] [place] [address] 11/12/2024 Justino Besson [facility] [address] [place] [address] 11/18/2024 Justino Besson [facility] [address] [place] [address] 11/19/2024 Justino Besson [facility] [address] [place] [address] 12/09/2024 Justino Besson Type 2 diabetes bao itus with other circulatory complications E11.59 and Type 2 diabetes mellitus with other circulatory complication, without long-term current use of insulin E11.59 [facility] [address] [place] [address] 12/12/2024 Justino Besson [facility] [address] [place] [address] 01/17/2025 Justino Besson [facility] [address] [place] [address] 01/22/2025 Justino Besson Assessments Encounter Date Diagnosis (ICD Code) Assessment Notes Treatment Notes Treatment Clinical Notes Section Notes 07/01/2024 Type 2 diabetes mellitus with other [...] - M06.9) 07/01/2024 Atherosclerotic heart disease of [place] coronary artery without angina pectoris (ICD-10 - [...] stable. 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 Patient has been on HI Statin with last LDL of 85. Will start Zetia 10 mg today and will recheck labs at next visit in 2 months. 12/30/2024 Atherosclerotic heart disease of [place] coronary artery without angina pectoris (ICD-10 - I25.10) Recent [facility] found to have COMPUTER APPLICATION DEVELOPER of RCA as well as 50% stenosis [...] problems below\ 03/03/2025 Atherosclerotic heart disease of [place] coronary artery without angina pectoris (ICD-10 - I25.10) Pt was counseled to keep his heart rate below 110 when walking and to watch for anginal chest pain. 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 Continue on medications but lab work is looking good 04/28/2025 Type 2 diabetes mellitus with other circulatory complications (ICD-10 - E11.59) Check A1c. Patient has had very good control of his diabetes. I anticipate his A1c to be well-controlled. No changes in plan at this point 04/28/2025 Atherosclerotic heart disease of [place] coronary artery without angina pectoris (ICD-10 - I25.10) No chest symptoms, has follow-up with cardiology at [facility]. On appropriate medication for goal-directed therapy, lipid reduction, etc. 05/01/2025 Type 2 diabetes mellitus with other circulatory complications (ICD-10 - E11.59) 04/28/2025 Abrasion of right great toe, initial encounter (ICD-10 - S90.411A) Start mupirocin and Epsom salt soaks. 03/03/2025 Essential (primary) hypertension (ICD-10 - I10) [...] management. 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 Shots up-to-date. Depression screening negative, no cognitive impairment. 11/04/2024 Type 2 diabetes mellitus with other [...] Treatment 2021 Barium Swallow : Modified 12/03/2021 Dietary Consult 05/01/2025 H-CBC with AUTO DIFF 06/01/2017 H-CMP 06/01/2017 [...] 02/17/2025 Next Appt Details Provider Name:Justino Buchanan, 08/25/2025 02:15:00 PM, [address], [place], [address], Insurance Providers Payer Name Payer Address Payer Phone Subscriber Number Group Number Insured Name Patient Relationship to Insured Coverage Start Date Coverage End Date [facility] [address] [place] [address] [id number] Kris Hood Self - patient is [...] on Remicade managed by [facility]. Also with positive rheumatoid factor heart murmur [...]
--- OUTSIDE RECORDS SUMMARY | 2025-05-08 12:58 | XMS_ITS | Clinical Summary ---
Author Organization [employer] ([place], [place], [place], [place], [place]) Address [address] [place] [address] Care Team Providers Care Correctional Treatment Specialist Name Role Phone Justino Buchanan MD Primary Care Provider [phone] Temo Carreon MD Unavailable [phone] Ashly Vee APRN Unavailable [phone] Allergies No known active allergies Medications [...] Date Denny rded Speak language other than Guamanian at home Not on file 06/09/2023 Want help with school or training Not on file 06/09/2023 Substance Use Answer Date Recorded Used prescription meds for non-medical reasons N ot on file 06/09/2023 Used illegal drugs past 12 months Not on file 06/09/2023 Sex and Gender Information Value Date Recorded Sex Assigned at Male 03/28/2023 11:41 AM TECHNOLOGY APPLICATIONS CONSULTANT Legal Sex Male 5:10 PM CDT Gender Identity Male 03/28/2023 11:41 AM TECHNOLOGY APPLICATIONS CONSULTANT Sexual Orientation Straight 03/28/2023 11 :41 AM TECHNOLOGY APPLICATIONS CONSULTANT Last Filed Vital Signs Vital Sign Reading [...] 12/19/2024 11:33 AM EDT Plan of Treatment Health Maintenance Due Date Last Done Comments Diabetic Kidney Health Evalu ation (KED) 1945 Diabetic Eye Exam 1957 Depression Screening (12+) 1959 Hepatitis C Screening 1965 Respiratory Syncytial Virus (RSV) Adult or (1 - 1-dose 75+ series) 2022 Hemoglobin A1C 03/27/2023 Falls Risk Screening 05/22/2024 COVID-19 VACCINE (3 - 2024-2 6 season) 2025 04/30/2021, 07/29/2020 Influenza Vaccine (#1) 2025 , 02/27/2023, 03/04/2022, Additional history exists DTAP/TDAP/TD VACCINES (3 - T d or Tdap) 07/28/2025 07/29/2015, 07/31/1996 Tobacco Cessation Counseling and Screening (12+) 12/09/2025 12/09/2024 Pneumococcal 50+ years Completed 03/09/2018, 2015 Shingles Vaccine (Zoster) Completed 10/12/2020, Insurance BLUE CROSS/BLUE SHIELD Advance Directives For more information, please contact: [phone] * Full Code (Latest Code Status on File) Date Activated Date Inactivated Comments 12/09/2024 8:39 AM 12/10/2024 4:26 AM * Full Code Date Activated Date Inactivated Comments 12/09/2024 5:23 AM 12/09/2024 8:39 AM Care Teams Correctional Treatment Specialist Relationship Specialty Start Date End Date Justino Buchanan MD [address] [place] [address] PCP - General Adolescent Medicine 12/26/22 Temo Carreon MD [address] [facility] [address] [place] [address] Interventional Cardiology 12/26/22 Ashly Vee APRN [address] [facility] [address] [place] [address] Cardiology 12/26/22
== END 2025-05-08 23:59 | disposition home or self-care (01) ==
LOC: DIETICIAN 12:51
PROVIDERS: PCP Internal Medicine Adolescent Medicine; Visit Provider Internal Medicine Adolescent Medicine
DX: E11.59 Type 2 diabetes mellitus with other circulatory complications (principal)
CPT/HCPCS: 97802